=== PATIENT | male | born 1980 | race Caucasian/White ===

== ENCOUNTER 2019-09-18 20:02 | Emergency (ER) | payer OTHER, SELFPAY ==
[2019-09-18 20:12] VITALS: BP 176/107; PULSE 81; RESP 18; TEMP 37.1; O2SAT 96; BMI 35.8
--- NOTE | 2019-09-18 20:18 | W.ED.EYEPROB ---
HPI - Eye Problem General: Chief complaint: Eye Problems Stated complaint: right eye problems Time Seen by Provider: 09/18/19 20:18 History of Present Illness: HPI Narrative: Patient is a 39-year-old male who comes in with right eye complaint. Patient says this morning he woke up and his right upper eyelid was swollen and puffy. Patient does have some redness and warmth on the upper eyelid. Associated symptoms: Denies fever(s), headache(s), nausea, neck pain or vomiting Review of Systems Const: Denies: fever, chills or fatigue Eyes: Reports: eye discomfort (Right Eye upper lid swelling); Denies: change in vision or blurry vision ENMT: Denies: throat pain, painful swallowing, nasal discharge or nasal congestion Card: Denies: chest pain, palpitations, edema, swelling of feet/ankles, shortness of breath on exertion or shortness of breath when lying down Resp: Denies: shortness of breath, productive cough or non-productive cough GI: Denies: abdominal pain, nausea, vomiting, diarrhea, constipation or blood in stool : Denies: flank pain, difficulty urinating, painful urination or blood in urine Musc: Denies: neck pain, back pain or extremity swelling Skin/Breast: Denies: rash or new lesion Neuro: Denies: headache, numbness in extremities or weakness in extremities PFSH ED PFSH: Social History Smoking and tobacco status: current every day smoker Physical Exam Const: COMMON NORMALS: oriented x3 HENMT: COMMON NORMALS: normocephalic HEAD & SCALP: normocephalic MOUTH: oral and palatal mucosa normal THROAT: posterior oropharynx normal and uvula midline Eye: COMMON NORMALS: PERRL, EOMs intact bilaterally and conjunctivae normal PERIORBITAL: periorbital findings abnormal positive right periorbital swelling (upper eye lid) and periorbital erythema (upper eye lid) CONJUNCTIVA: Yes conjunctivae normal PUPIL: Yes PERRL Neck/C-Spine: COMMON NORMALS: supple GENERAL: Yes normal visual inspection Resp: COMMON NORMALS: normal respiratory effort, no retractions, no use of accessory muscles and clear to auscultation bilaterally AUSCULTATION: clear to auscultation bilaterally Cardio: COMMON NORMALS: regular rate, regular rhythm, S1 normal heart sound, S2 normal heart sound, no gallops, no clicks, no murmurs and peripheral pulses 2+ throughout RATE: regular rate RHYTHM: regular rhythm HEART SOUNDS: S1 normal and S2 normal PERIPHERAL PULSES: pulses 2+ throughout GI: COMMON NORMALS: normal to inspection, nondistended, normoactive bowel sounds, soft to palpation, non-tender and no masses PALPATION: Yes soft : COMMON NORMALS: Yes no CVA tenderness BLADDER/KIDNEY EXAM: Yes no CVA tenderness Back/Pelvis: COMMON NORMALS: no CVA tenderness Extremity: COMMON NORMALS: normal to inspection Neuro: COMMON NORMALS: oriented x3 and moves all extremities Course Vital Signs: Vital signs: Vital Signs Temperature 98.8 F 09/18/19 20:12 Pulse Rate 78 09/18/19 21:30 Respiratory Rate 18 09/18/19 21:30 Blood Pressure 129/74 09/18/19 21:30 Pulse Oximetry 98 09/18/19 21:30 Discharge Plan Discharge Patient Disposition: Home, Self-Care Clinical Impression: Blepharitis of eyelid of right eye Qualifiers: Blepharitis type: unspecified type Eyelid: upper Qualified Code(s): H01.001 - Unspecified blepharitis right upper eyelid Condition: Stable Prescriptions: New erythromycin 5 mg/gram (0.5 %) ointment 1 applic ophthalmic (eye) BID Qty: 3.5 RF: 0 No Action Tylenol 325 mg Tablet 325 mg PO QID PRN (Reason: Pain) RF: 0 Benadryl 25 mg Capsule 25 mg PO Q6H PRN (Reason: UNKNOWN) RF: 0 Discharge Orders: Discharge Order (Routine); Ordered 09/18/19 Ordered By: Declan Payton Referrals: Jailene Breaux FNP-C [Primary Care Provider] - Discharge Diet: Regular Discharge Activity: Resume usual activity Patient Instructions: Blepharitis (ED) Activity Restrictions/Additional Instructions: Follow-up with your PCP or eye doctor in 5 to 7 days for reevaluation. Apply the topical antibiotic on the right eyelid twice a day. Use warm compresses on the right eye. Wash eyelid with a diluted soap and warm rag to clean the area around the eye. If symptoms worsen in 2 to 3 days return to the ED or go immediately to an eye doctor. Take Benadryl tonight to possibly help with some of the swelling and inflammation if it is an allergy. Discharge Date/Time: 09/18/19 21:30 Coding Level of Care Code ED Title Manager for Haseeb Fwalvin Exam Comprehensive
[2019-09-18 21:30] VITALS: BP 129/74; PULSE 78; RESP 18; O2SAT 98
== END 2019-09-18 21:30 | disposition home or self-care (01) ==
PROVIDERS: Emergency Provider Physician Assistant; PCP Nurse Practitioner
DX: H01.001 Unspecified blepharitis right upper eyelid (principal); F17.200 Nicotine dependence, unspecified, uncomplicated
CPT/HCPCS: 12345; 99281

== ENCOUNTER 2019-10-16 01:55 | Emergency (ER) | payer OTHER, SELFPAY ==
[2019-10-16 02:08] VITALS: BP 181/103; PULSE 77; RESP 20; TEMP 36.4; O2SAT 100; BMI 35.8
--- NOTE | 2019-10-16 02:14 | XR_ITS ---
WS: [id number] PORTABLE CHEST HISTORY: sob COMPARISON: 12/17/2016 Curvilinear areas of thin linear atelectasis in the central lungs are stable. Lungs are slightly hype rexpanded. Slight tenting of the RIGHT hemidiaphragm. No pleural effusion or pneumothorax. Cardiac size: Normal. Mediastinum/Aorta: Normal mediastinum. No osseous abnormality seen. XR/XR chest 1V portable [id number] IMPRESSION: 1. Stable chest with emphysema and curvilinear scarring centrally. 2. No pneumonia.
[2019-10-16 02:35] LABS: ABG PCO2 36.4 mmHg (35-45); ABG PH Result 7.42 (7.35-7.45); Base Excess ABG -0.5 mmol/L (-2.0-2.0); Blood Gas Sample Site Brachial, left; Blood Gas Sample Type Arterial; Carboxyhemoglobin 15.7 %THgb (0.4-20.1); HCO3 ABG 23.5 mmol/L (22-26); HGB O2 Sat 80.9 % (95-100); Methemoglobin 0.7 % (0.4-1.5); Oxygen Device ROOM AIR; PO2 ABG 71.7 mmHg (80.0-100.0)
[2019-10-16 02:41] VITALS: BP 135/101; PULSE 80; RESP 16; O2SAT 99
[2019-10-16 02:51] LABS: Basophils % 0.6 %; Eosinophils # 0.2 10^3/uL (0.0-0.8); Eosinophils % 2.1 %; Hematocrit 49.6 % (42.0-52.0); Hemoglobin 17.1 g/dL (11.7-16.6); Lymphocytes # 2.2 10^3/uL (0.8-4.8); Mean Corpuscular HGB Conc 34.5 g/dL (30.0-36.0); Mean Corpuscular Hemoglobin 32.1 pg (28.0-34.0); Mean Corpuscular Volume 93.1 fL (80-94); Mean Platelet Volume 10.5 fL (7.4-10.4); Monocytes # 0.5 10^3/uL (0.2-0.9); Monocytes % 6.7 %; Neutrophils # 4.3 10^3/uL (1.8-7.7); Neutrophils % 59.5 %; Nucleated Red Blood Cells % 0 %; Platelet Count 131 10^3/cmm (130-400); Red Blood Count 5.33 10^6/uL (4.1-5.3); Red Cell Distribution Width 11.9 % (12.1-15.1); White Blood Count 7.2 10^3/uL (4.0-10.0)
--- NOTE | 2019-10-16 02:58 | W.ED.SOB ---
HPI - SOB/Dyspnea General: Chief Complaint: Shortness of Breath/Dyspnea Stated Complaint: POSS COVID SYMPTOMS Time Seen by Provider: 10/16/19 02:05 History of Present Illness: MD elicited complaint: shortness of breath and cough Pertinent past history: PE Onset (ago): day(s) (2) Timing: constant Severity: moderate Exacerbating factors: exertion Relieving factors: nothing Known history of: PE Associated symptoms: Reports cough and fever(s); Deny abdominal pain, chest pain, dizziness, nausea or palpitations Treatment prior to arrival: none Review of Systems Const: Reports: fever Eyes: Denies: change in vision or blurry vision ENMT: Reports: post nasal drip; Denies: painful swallowing, nose bleeds or facial/sinus pain Card: Denies: chest pain, palpitations, irregular heart rhythm or edema Resp: Reports: shortness of breath and non-productive cough; Denies: productive cough or wheezing GI: Denies: abdominal pain or nausea : Denies: difficulty urinating, painful urination or blood in urine Musc: Denies: neck pain, back pain, redness or joint warmth Skin/Breast: Denies: rash, itching or redness Neuro: Denies: headache, dizziness or vertigo Psych: Denies: anxiety PFSH ED PFSH: Social History Smoking and tobacco status: current every day smoker Physical Exam Const: GENERAL APPEARANCE: well developed ORIENTATION/CONSCIOUSNESS: Yes oriented to person, Yes oriented to place and Yes oriented to time HENMT: COMMON NORMALS: normocephalic, external ears normal and external nose normal HEAD & SCALP: normocephalic FACE & SINUS: normal facial exam NOSE: external nose normal and no nasal discharge EXTERNAL EAR: Yes external ears normal Eye: COMMON NORMALS: PERRL, EOMs intact bilaterally and conjunctivae normal EYELID: eyelids normal CONJUNCTIVA: Yes conjunctivae normal PUPIL: Yes PERRL Neck/C-Spine: GENERAL: No tracheal deviation Chest: COMMONS NORMALS: inspection of chest normal CHEST: No tenderness Resp: COMMON NORMALS: clear to auscultation bilaterally EFFORT & INSPECTION: No tachypneic, No respiratory distress, No retractions, No uses accessory muscles and No tracheal deviation AUSCULTATION: clear to auscultation bilaterally, no rhonchi, no wheezes and lung sounds not diminished Cardio: COMMON NORMALS: regular rate and regular rhythm RATE: regular rate RHYTHM: regular rhythm HEART SOUNDS: no murmurs PERIPHERAL PULSES: radial pulses present GI: INSPECTION: No abdominal distension AUSCULTATION: No hyperactive bowel sounds and No hypoactive bowel sounds PALPATION: No guarding and No rigid PERCUSSION: no dullness to percussion and no tympanic to percussion Extremity: GENERAL: Yes edema (1+) Neuro: SENSORIUM/ORIENTATION: Yes oriented to person, Yes oriented to place and Yes oriented to time Psych: COMMON NORMALS: mental status grossly normal Skin: COMMON NORMALS: no rashes or lesions noted GENERAL SKIN EXAM: no rashes or lesions noted Course Vital Signs: Vital signs: Vital Signs Temperature 97.6 F 10/16/19 02:08 Pulse Rate 72 10/16/19 04:32 Respiratory Rate 16 10/16/19 04:32 Blood Pressure 128/88 10/16/19 04:32 Pulse Oximetry 98 10/16/19 04:32 MDM - SOB/Dyspnea MDM Narrative: Medical decision making narrative: 39-year-old male. History of PE. States has had lung problems since. Who presents with cough, shortness of breath, and fever. Works for the local [employer]. White counts normal. Hemoglobin high. He is a smoker. Flu testing negative. Chest x-ray is essentially negative. He will be tested for the novel coronavirus. Home with treatment for bronchitis. Lab Data: Labs: Lab Results 10/16/19 10/16/19 10/16/19 Range/Units 02:20 02:25 02:45 WBC 7.2 (4.0-10.0) 10^3/ uL RBC 5.33 H (4.1-5.3) 10^6/u L Hgb 17.1 H (11.7-16.6) g/dL Hct 49.6 (42.0-52.0) % MCV 93.1 (80-94) fL MCH 32.1 (28.0-34.0) pg MCHC 34.5 (30.0-36.0) g/dL RDW 11.9 L (12.1-15.1) % Plt Count 131 (130-400) 10^3/c mm MPV 10.5 H (7.4-10.4) fL Neut % (Auto) 59.5 % Lymph % (Auto) 31.0 % [place] % (Auto) 6.7 % Eos % (Auto) 2.1 % Baso % (Auto) 0.6 % Neut # (Auto) 4.3 (1.8-7.7) 10^3/u L Lymph # (Auto) 2.2 (0.8-4.8) 10^3/u L [place] # (Auto) 0.5 (0.2-0.9) 10^3/u L Eos # (Auto) 0.2 (0.0-0.8) 10^3/u L Baso # (Auto) 0.0 (0.0-0.1) 10^3/u L Nucleated RBC % (a uto) 0 % Nucleated RBCs # 0.0 /100WBC Specimen Type Arterial Sample Site Brachial, left ABG pH 7.42 (7.35-7.45) ABG pCO2 36.4 (35-45) mmHg ABG pO2 71.7 L (80.0-100.0) mmH g ABG HCO3 23.5 (22-26) mmol/L ABG Base Excess -0.5 (-2.0-2.0) mmol/ L Anthony Test N/a Hematocrit 52.0 (42-52) % Hgb O2 Saturation 80.9 L (95-100) % Carboxyhemoglobin 15.7 (0.4-20.1) %THgb Methemoglobin 0.7 (0.4-1.5) % Total Hemoglobin 17.0 (14-18) g/dL O2 Delivery Device Room air Online Marketing Strategist ID [email or web address] Sodium (136-145) mmol/L Potassium (3.5-5.1) mmol/L Chloride (98-107) mmol/L Carbon Dioxide (22-29) mmol/L Anion Gap (5-19) BUN (6-20) mg/dL Creatinine (0.7-1.2) mg/dL GFR Calculation (90-130) mL/min Glucose (65-115) mg/dL Calculated Osmolal ity (285-295) mOsm/k g Calcium (8.5-10.5) mg/dL Total Bilirubin (0.15-1.2) mg/dL AST (0-40) U/L ALT (0-41) U/L Alkaline Phosphata se (40-130) IU/L Total Protein (6.6-8.7) g/dL Albumin (3.5-5.2) g/dL Globulin (1.3-4.6) g/dL Influenza Type A A g Negative (Negative) Influenza Type B A g Negative (Negative) 10/16/19 Range/Units 02:45 WBC (4.0-10.0) 10^3/ uL RBC (4.1-5.3) 10^6/u L Hgb (11.7-16.6) g/dL Hct (42.0-52.0) % MCV (80-94) fL MCH (28.0-34.0) pg MCHC (30.0-36.0) g/dL RDW (12.1-15.1) % Plt Count (130-400) 10^3/c mm MPV (7.4-10.4) fL Neut % (Auto) % Lymph % (Auto) % [place] % (Auto) % Eos % (Auto) % Baso % (Auto) % Neut # (Auto) (1.8-7.7) 10^3/u L Lymph # (Auto) (0.8-4.8) 10^3/u L [place] # (Auto) (0.2-0.9) 10^3/u L Eos # (Auto) (0.0-0.8) 10^3/u L Baso # (Auto) (0.0-0.1) 10^3/u L Nucleated RBC % (a uto) % Nucleated RBCs # /100WBC Specimen Type Sample Site ABG pH (7.35-7.45) ABG pCO2 (35-45) mmHg ABG pO2 (80.0-100.0) mmH g ABG HCO3 (22-26) mmol/L ABG Base Excess (-2.0-2.0) mmol/ L Anthony Test Hematocrit (42-52) % Hgb O2 Saturation (95-100) % Carboxyhemoglobin (0.4-20.1) %THgb Methemoglobin (0.4-1.5) % Total Hemoglobin (14-18) g/dL O2 Delivery Device Online Marketing Strategist ID Sodium 134 L (136-145) mmol/L Potassium 4.3 (3.5-5.1) mmol/L Chloride 99 (98-107) mmol/L Carbon Dioxide 22 (22-29) mmol/L Anion Gap 17.3 (5-19) BUN 17 (6-20) mg/dL Creatinine 0.9 (0.7-1.2) mg/dL GFR Calculation 93.9 (90-130) mL/min Glucose 102 (65-115) mg/dL Calculated Osmolal ity 275 L (285-295) mOsm/k g Calcium 9.1 (8.5-10.5) mg/dL Total Bilirubin 0.2 (0.15-1.2) mg/dL AST 13 (0-40) U/L ALT 13 (0-41) U/L Alkaline Phosphata se 98 (40-130) IU/L Total Protein 6.6 (6.6-8.7) g/dL Albumin 4.0 (3.5-5.2) g/dL Globulin 2.6 (1.3-4.6) g/dL Influenza Type A A g (Negative) Influenza Type B A g (Negative) Discharge Plan Discharge Patient Disposition: Home, Self-Care Clinical Impression: Acute bronchitis Qualifiers: Bronchitis organism: unspecified organism Qualified Code(s): J20.9 - Acute bronchitis, unspecified Condition: Stable Prescriptions: New doxycycline hyclate 100 mg capsule 100 mg PO BID 7 Days Qty: 14 RF: 0 Discharge Orders: Discharge Order (Routine); Ordered 10/16/19 Ordered By: Dayton Andres Referrals: Jailene Breaux, THREAD SEPARATOR-C [Primary Care Provider] - 4-7 days Discharge Diet: Advance as tolerated Discharge Activity: Increase activity as tolerated Patient Instructions: Acute Bronchitis (ED) Activity Restrictions/Additional Instructions: Return for worsening shortness of breath despite treatment, continued fevers despite treatment, other concerning symptoms. You should quarantine yourself for the next 14 days, or at least until your test for the novel coronavirus is resulted. Discharge Date/Time: 10/16/19 04:34 Coding Level of Care Code ED Labor Operator for Haseeb Fwd Exam Comprehensive
[2019-10-16 03:07] LABS: Alanine Aminotransferase 13 U/L (0-41); Alkaline Phosphatase 98 IU/L (40-130); Anion Gap 17.3 (5-19); Aspartate Amino Transferase 13 U/L (0-40); Blood Urea Nitrogen 17 mg/dL (6-20); Calcium 9.1 mg/dL (8.5-10.5); Carbon Dioxide 22 mmol/L (22-29); Chloride 99 mmol/L (98-107); Globulin 2.6 g/dL (1.3-4.6); Glomerular Filtration Rate 93.9 mL/min (90-130); Glucose 102 mg/dL (65-115); Osmolality Calculated 275 mOsm/kg (285-295); Potassium 4.3 mmol/L (3.5-5.1); Sodium 134 mmol/L (136-145); Total Bilirubin 0.2 mg/dL (0.15-1.2); Total Protein 6.6 g/dL (6.6-8.7)
[2019-10-16 03:24] LABS: Influenza A by IFA Negative (Negative); Influenza B by IFA Negative (Negative)
[2019-10-16] MEDS: doxycycline 100 mg Tablet PO (04:31)
--- NOTE | 2019-10-16 04:31 | PC.NURSE ---
Patient given albuterol inhaler and shown how to use it with good return demonstration.
[2019-10-16 04:32] VITALS: BP 128/88; PULSE 72; RESP 16; O2SAT 98
[2019-10-19 12:17] LABS: Coronavirus Overall Results NOT DETECTED
--- NOTE | 2019-10-19 12:23 | PC.NURSE ---
pt contacted and informed of negative COVID 19 results
== END 2019-10-16 04:34 | disposition home or self-care (01) ==
PROVIDERS: Emergency Provider Emergency Medicine; PCP Nurse Practitioner
DX: J20.9 Acute bronchitis, unspecified (principal); F17.200 Nicotine dependence, unspecified, uncomplicated
CPT/HCPCS: 12345; 36600; 71045; 80053; 82805; 85025; 87635; 87804; 99282; 99284; J3535

== ENCOUNTER 2020-02-02 10:13 | Emergency (ER) | payer SELFPAY ==
[2020-02-02 10:30] VITALS: BP 166/103; PULSE 80; RESP 20; TEMP 37; O2SAT 97; BMI 34.7
--- NOTE | 2020-02-02 10:38 | USCV_ITS ---
Porter Lagos Age: 39 Gender: M : 1980 Exam Date: 02/02/2020 10:56 Ordering Phys: Ofelia Carter Technologist: Sandy Spencer [place] [facility] [place]: LLE swelling, pain HISTORY: LLE swelling and pain. patient states he has a filter in place for prior DVT PROCEDURES: On the left side, the common femoral, superficial femoral, profunda femoral, popliteal, posterior tibial, greater saphenous veins, and the peroneal trunk were identified and interrogated in the standard fashion. FINDINGS: Normal 2-D Doppler and augmentation and compressibility throughout the lower extremity venous structures. Additional imaging through the proximal calf veins also reveals no thrombus. Limited evaluation of the greater saphenous vein is patent with no thrombus.. Acute thrombus noted in the small saphenous vein. CONCLUSIONS Superficial thrombophlebitis small saphenous vein. No DVT. Report called by golf caddy at time of exam. Dr. Karis Almonte DO (Electronically Signed) Final Date: 02 February 2020 12:48 S
--- NOTE | 2020-02-02 10:39 | W.ED.GENADLT ---
HPI - General Adult General: Chief complaint: General Medical Stated complaint: POSS BLOOD CLOT Time Seen by Provider: 02/02/20 10:38 Source: patient Mode of arrival: ambulatory Limitations: no limitations History of Present Illness: HPI narrative: Patient is a 39-year-old male with a history of Factor V Leyden here for complaints of a red palpable cord to his left lower extremity that he began noticing a few days ago. Patient tells me few days ago he felt like his calf was sore and then shortly after began noticing the red line on his leg. 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 He states approximately 7 years ago he was placed on Xarelto and took for a couple years however took himself off of this medication because he no longer wanted to take it. Patient currently is not having any complaints of shortness of breath, difficulty breathing, chest pains. He has not seen a primary care provider in several years. Onset (ago): day(s) Location: lower extremity Relieving factors: none Exacerbating factors: none Associated symptoms: Deny chest pain, dyspnea, headache(s), nausea, palpitations, syncope or vomiting Review of Systems Const: Denies: fever(s) or chills Card: Denies: chest pain, palpitations, edema, swelling of feet/ankles, lightheadedness, syncope, pre-syncope, dyspnea on exertion, orthopnea or leg pain with exertion Resp: Denies: dyspnea GI: Denies: nausea or vomiting Musc: Reports: extremity pain (L LE); Denies: neck pain, back pain, extremity swelling, joint pain or joint swelling Neuro: Denies: headache(s), numbness in extremities, weakness in extremities or sensory changes PFS ED PFSH: Social History Smoking and tobacco status: current every day smoker Physical Exam Const: COMMON NORMALS: no acute distress, patient oriented x3, no limitations and alert NUTRITIONAL APPEARANCE: obese HENMT: COMMON NORMALS: normocephalic and atraumatic HEAD & SCALP: normocephalic and atraumatic Resp: COMMON NORMALS: normal respiratory effort and clear to auscultation bilaterally AUSCULTATION: clear to auscultation bilaterally Cardio: COMMON NORMALS: regular rate and regular rhythm RATE: regular rate RHYTHM: regular rhythm Extremity: OTHER: Patient has a erythematous palpable cord to the medial aspect of his left lower leg measuring approximately 10cm. There is no obvious swelling noted to his lower extremity or calf. DP/PT pulses are intact and equal bilaterally. Brisk cap refill Neuro: COMMON NORMALS: patient oriented x3, moves all extremities, no focal motor deficits and no sensory deficits noted SENSORIUM/ORIENTATION: Yes alert Course Vital Signs: Vital signs: Vital Signs Temperature 98.6 F 02/02/20 10:30 Pulse Rate 89 02/02/20 12:02 Respiratory Rate 18 02/02/20 12:02 Blood Pressure 168/101 02/02/20 12:02 Pulse Oximetry 98 02/02/20 12:02 MDM - General Adult MDM Narrative: Medical decision making narrative: Patient has a very large superficial thrombus close to the junction of a deep vein. In conjunction with his factor V Leyden and his daily smoking use, patient would benefit from being on anticoagulation. He is agreeable to restarting his Xarelto. He will need close follow-up with PCP. I did discuss the possibility of them referring him to Dr. Holt/hematology for further evaluation as well regarding his factor V. I get the feeling patient is fairly noncompliant. I did discuss the risks of him continuing to smoke and patient is aware of these. Strict return to ED precautions given regarding chest pain, shortness of breath, difficulty breathing. Imaging Data^: US venous L LE: My impression: According to central sterile supply technician patient has a >5cm superficial thrombus to his lesser saphenous vein. Thrombus is located in the vein but in very close proximity to the junction of his popliteal. Discharge Plan Discharge Patient Disposition: Home, Self-Care Clinical Impression: History of factor V Leiden mutation, Acute superficial venous thrombosis of left lower extremity Condition: Stable Prescriptions: New Xarelto 15 mg (42)- 20 mg (9) tablets,dose pack See Rx Instructions .ROUTE .COMPLEX Qty: 51 RF: 0 Discharge Orders: Discharge Order (Routine); Ordered 02/02/20 Ordered By: Ofelia Carter Referrals: Jailene Breaux FNP-C [Primary Care Provider] - Activity Restrictions/Additional Instructions: As discussed case management should contact you to set you up with primary care follow-up. The prescription I have given you is only for a one month supply so you will need to follow-up with this as you will need to be on anticoagulation for several months. Discharge Date/Time: 02/02/20 12:04 Coding Level of Care Code ED Senior Ui Developer for Haseeb Fwalvin Exam Detailed
--- NOTE | 2020-02-02 11:37 | PC.NURSE ---
us completed patient tolerated well
[2020-02-02 11:55] VITALS: BP 168/104; PULSE 84; RESP 18; O2SAT 99
[2020-02-02 12:02] VITALS: BP 168/101; PULSE 89; RESP 18; O2SAT 98
--- NOTE | 2020-02-03 14:26 | DCPLANNER ---
Patient called needing help with his prescriptions. charge manager informed patient about a referral card that patient could present to the pharmacy. charge manager had pharmacy aide fax coupon to the pharmacy for patient, and called to make sure that the coupon worked, there was no cost to patient. charge manager also spoke with patient about getting in touch with the [employer] to apply for patient assistance for the medication.
== END 2020-02-02 12:04 | disposition home or self-care (01) ==
PROVIDERS: Emergency Provider Physician Assistant; PCP Nurse Practitioner
DX: I82.812 Embolism and thrombosis of superficial veins of left lower extremity (principal); D68.2 Hereditary deficiency of other clotting factors; F17.210 Nicotine dependence, cigarettes, uncomplicated
CPT/HCPCS: 12345; 93971; 99281; 99282

== ENCOUNTER → 2020-07-25 11:54 | Outpatient (BNVA) | payer OTHER, SELFPAY | PROVIDERS: PCP Nurse Practitioner; Visit Provider Nurse Practitioner Family | DX: Z20.828 Contact with and (suspected) exposure to other viral communicable diseases (principal); Z86.718 Personal history of other venous thrombosis and embolism; J06.9 Acute upper respiratory infection, unspecified | CPT/HCPCS: 87635 ==

== ENCOUNTER 2020-09-14 11:42 | Inpatient (IN) | payer SELFPAY ==
[2020-09-14] VITALS (24 sets, daily range): BP systolic 104–147; BP diastolic 69–111; PULSE 95–143; RESP 14–30; TEMP 36.6–36.7; O2SAT 93–98; BMI 38.1
--- NOTE | 2020-09-14 12:16 | CT_ITS ---
WS: [id number] CT CHEST ANGIOGRAPHY WITH REFORMATS HISTORY: DVT x 3 months, could not afford anticoagulation TECHNIQUE: Contiguous axial images are obtained through the chest during arterial injection of intrav enous contrast. Images are reconstructed to evaluate the pulmonary arteries. MIP imaging also reviewe d. All CT scans at [facility] use at least one of these dose optimization techniques: aut omated exposure control; mA and/or kV adjustment per patient size (includes targeted exams where dose is matched to clinical indication); or iterative reconstruction. CONTRAST: Omnipaque 350; 95 mL IV. DLP: 664.99 mGy.cm COMPARISON: 11/06/2015 Very good opacification of the pulmonary arteries. No filling defects or pulmonary emboli are identif ied. Normal-sized thoracic aorta. Bilateral areas of atelectasis in the RIGHT middle and bilateral lo wer lung zacarias. No consolidation or pneumonia. Mildly enlarged mediastinal and hilar lymphoid tissue . Hilar lymph nodes measure up to 11 mm. Subcarinal lymph node measures 12 mm. Heart size is normal. No pericardial or pleural effusion. Slightly contracted gallbladder with no adjacent inflammation. The visualized liver is negative. No a drenal mass. Mild increase in thoracic kyphosis. CT/CT angio chest PE protcl [id number] IMPRESSION: 1. No pulmonary embolism. 2. Subsegmental areas of atelectasis at the lung bases and RIGHT middle lobe. 3. Mild reactive mediastinal and hilar lymphadenopathy.
--- NOTE | 2020-09-14 12:16 | ECG_ITS ---
[facility] Test Date: 2020-09-14 Pat Name: Porter Lagos Department: Room: Gender: Male Lead Performance Support Analyst: : 1980 Requested By: Andrade Flores I Order Number: [id number] Katey MD: Brooklyn Mustafa M.D. Measurements Intervals [place] Rate: 143 P: PA: QRS: 52 QRSD: 88 T: 58 QT: 304 QTc: 470 Interpretive Statements ATRIAL FIBRILLATION WITH RAPID VENTRICULAR RESPONSE NONSPECIFIC ST & T-WAVE ABNORMALITY ABNORMAL RHYTHM ECG WARNING: DATA QUALITY MAY AFFECT INTERPRETATION Compared to ECG 12/17/2016 23:49:24 Sinus tachycardia no longer present T-wave abnormality still present Electronically Signed On 09-14-2020 21:52:24 RESIDENT CARE SPEC by Brooklyn Mustafa M.D. [id number]
[2020-09-14 12:29] LABS: Basophils # 0.1 10^3/uL (0.0-0.1); Basophils % 0.6 %; Eosinophils # 0.2 10^3/uL (0.0-0.8); Hematocrit 47.1 % (42.0-52.0); Hemoglobin 15.5 g/dL (11.7-16.6); Lymphocytes # 2.1 10^3/uL (0.8-4.8); Lymphocytes % 24.5 %; Mean Corpuscular HGB Conc 32.9 g/dL (30.0-36.0); Mean Corpuscular Hemoglobin 31.3 pg (28.0-34.0); Mean Corpuscular Volume 95.2 fL (80-94); Mean Platelet Volume 10.7 fL (7.4-10.4); Monocytes # 0.7 10^3/uL (0.2-0.9); Monocytes % 7.6 %; Neutrophils # 5.65 10^3/uL (1.8-7.7); Neutrophils % 65.1 %; Nucleated Red Blood Cells % 0 %; Platelet Count 150 10^3/cmm (130-400); Red Blood Count 4.95 10^6/uL (4.1-5.3); Red Cell Distribution Width 12.2 % (12.1-15.1); White Blood Count 8.7 10^3/uL (4.0-10.0)
[2020-09-14 12:46] LABS: Lactate (Lactic Acid level) 1.2 mmol/L (0.5-2.2)
[2020-09-14 12:47] LABS: Troponin(5th) Baseline 13 ng/L (0-15)
[2020-09-14 12:55] LABS: Alanine Aminotransferase 15 U/L (0-41); Albumin Level 3.8 g/dL (3.5-5.2); Alkaline Phosphatase 92 IU/L (40-130); Anion Gap 13.3 (5-19); Aspartate Amino Transferase 12 U/L (0-40); Blood Urea Nitrogen 15 mg/dL (6-20); C Reactive Protein 22.3 mg/L (0.0-4.9); Calcium 8.3 mg/dL (8.5-10.5); Carbon Dioxide 25 mmol/L (22-29); Chloride 102 mmol/L (98-107); Globulin 3.1 g/dL (1.3-4.6); Glomerular Filtration Rate 56.1 mL/min (90-130); Glucose 105 mg/dL (65-115); NT Pro B Type Natriuretic Pept 3794 pg/mL (0-125); Osmolality Calculated 283 mOsm/kg (285-295); Potassium 4.3 mmol/L (3.5-5.1); Sodium 136 mmol/L (136-145); Total Bilirubin 0.3 mg/dL (0.15-1.2); Total Protein 6.9 g/dL (6.6-8.7)
[2020-09-14] MEDS: iohexol 350 mg/mL 100 mL Btl IV (13:40)
--- NOTE | 2020-09-14 14:15 | PC.NURSE ---
EKG done at 1409 and shown to ER doctor
--- NOTE | 2020-09-14 14:16 | ECG_ITS ---
[facility] Test Date: 2020-09-14 Pat Name: Porter Lagos Department: Room: Gender: Male Protective Services Officer: : 1980 Requested By: Andrade Flores I Order Number: [id number] Katey MD: Brooklyn Mustafa M.D. Measurements Intervals [place] Rate: 127 P: ME: QRS: 60 QRSD: 85 T: 61 QT: 313 QTc: 457 Interpretive Statements ATRIAL FIBRILLATION WITH RAPID VENTRICULAR RESPONSE ABNORMAL RHYTHM ECG Compared to ECG 09/14/2020 12:03:37 T-wave abnormality no longer present Electronically Signed On 09-14-2020 22:07:57 HAND BRUSH FILLER by Brooklyn Mustafa M.D. [id number]
--- NOTE | 2020-09-14 14:21 | USCV_ITS ---
Porter Lagos Age: 40 Gender: M : 1980 Exam Date: 09/14/2020 14:38 Ordering Phys: Andrade Flores MD [facility] [place] Technologist: Hyacinth Chong Exam Location: [facility] [place] Indication: EDEMA HISTORY: Lower extremity edema. PROCEDURES: Venous duplex imaging was performed in bilateral lower extremities. The following venous structures were evaluated: common femoral vein, profunda vein, proximal portion of the greater saphenous vein, superficial femoral vein, and the popliteal vein. In addition, the posterior tibial and peroneal trunk were evaluated. FINDINGS: Normal 2-D Doppler and augmentation and compressibility throughout the lower extremity venous structures. Additional imaging through the proximal calf veins also reveals no thrombus. Limited evaluation of the greater saphenous vein is patent with no thrombus. CONCLUSIONS No DVT bilateral lower extremities. Dr. Karis Almonte DO (Electronically Signed) Final Date: 14 September 2020 15:22 S
--- NOTE | 2020-09-14 14:26 | W.ED.ARRPALP ---
HPI - Arrhythmia/Palpitations General: Chief Complaint: Arrhythmia/Palpitations Stated Complaint: SOB Time Seen by Provider: 09/14/20 12:16 Source: patient Mode of arrival: ambulatory Limitations: no limitations History of Present Illness: HPI narrative: Patient is a 40-year-old male who presents to the emergency department with shortness of breath and sensation of his heart racing for about a week now. About 3 months ago he was diagnosed with a DVT and was discharged with a prescription for Xarelto, however he said he cannot afford the medication and has never taken it. Now he has shortness of breath and palpitations and he is worried that he may have a PE. He has a prior history of PE also. complaint: heart racing Onset (ago): week(s) (1) Duration: constant Severity: moderate Associated symptoms: Reports short of breath; Deny anxiety, cough, diaphoresis, muscle cramps, nausea, paresthesias, pre-syncope, sense of impending doom, syncope or vomiting Review of Systems General: Reports: 10 or more systems reviewed and unremarkable except in HPI and below Const: Denies: diaphoresis Eyes: Denies: change in vision or blurry vision ENMT: Denies: throat pain, enlarged tonsils, odynophagia, hoarseness, mouth pain or swelling of lips/tongue Card: Denies: syncope or pre-syncope Resp: Denies: dyspnea, productive cough or non-productive cough GI: Denies: nausea or vomiting : Denies: flank pain, dysuria, urinary frequency, urinary urgency or urinary hesitancy Musc: Denies: muscle cramps Skin/Breast: Denies: rash, pruritus or erythema Neuro: Denies: headache(s), numbness in extremities or weakness in extremities Psych: Denies: anxiety Endo: Denies: polyuria, polydipsia or tired all the time [facility] ED PFSH: Medical History DVT (deep venous thrombosis) Social History Smoking and tobacco status: current every day smoker Physical Exam Const: COMMON NORMALS: no acute distress, average body habitus, patient oriented x3, no limitations, healthy appearing, alert and well nourished HENMT: COMMON NORMALS: normocephalic, atraumatic and moist oral mucous membranes HEAD & SCALP: normocephalic and atraumatic Eye: COMMON NORMALS: Equal, round and reactive pupils present, EOMs intact bilaterally, conjunctivae normal and no scleral icterus CONJUNCTIVA: Yes conjunctivae normal PUPIL: Yes Equal, round and reactive pupils present Neck/C-Spine: COMMON NORMALS: no meningeal signs and no JVD Chest: COMMONS NORMALS: normal inspection of the chest and normal palpation of entire chest wall Resp: COMMON NORMALS: normal respiratory effort, No retractions, No use of accessory muscles, clear to auscultation bilaterally and percussion normal AUSCULTATION: clear to auscultation bilaterally PERCUSSION: percussion normal Cardio: COMMON NORMALS: no JVD, S1 normal heart sound present, S2 normal heart sound present, No gallops present (Cardio), No clicks present (Cardio), No murmurs present (Cardio), No rub (Cardio) and Peripheral pulses 2+ throughout RATE: tachycardic RHYTHM: abnormal rhythm irregularly irregular HEART SOUNDS: S1 normal heart sound present and S2 normal heart sound present PERIPHERAL PULSES: Peripheral pulses 2+ throughout GI: COMMON NORMALS: Normal to inspection, nondistended, normoactive bowel sounds present, Soft to palpation, non-tender, No hepatosplenomegaly present, no masses and no bruits PALPATION: Yes Soft to palpation and Yes No hepatosplenomegaly present Extremity: COMMON NORMALS: normal to inspection, full ROM, capillary refill normal, no calf tenderness and no pedal edema Neuro: COMMON NORMALS: patient oriented x3 SENSORIUM/ORIENTATION: Yes alert MENINGEAL SIGNS: Yes no meningeal signs Skin: COMMON NORMALS: no rashes or lesions noted, no wounds, turgor normal, no jaundice, no petechiae and no mottling GENERAL SKIN EXAM: no rashes or lesions noted and turgor normal Course Consultations: Consultation #1: Discussed the patient with Dr. Wilburn, hospitalist. He kindly accepted patient to his service Time: 14:10 Vital Signs: Vital signs: Vital Signs Temperature 97.8 F 09/16/20 10:32 Pulse Rate 93 09/16/20 10:32 Respiratory Rate 20 H 09/16/20 10:32 Blood Pressure 113/61 09/16/20 10:32 Pulse Oximetry 95 09/16/20 10:32 MDM - Arrhythmia/Palpitations MDM Narrative: Medical decision making narrative: This is a 40 year old male with a history of DVT who is not on anticoagulation (due to cost) presents with afib with RVR and CHF with are both new onset. He required intravenous diltiazem to achieve rate control. He was also given intravenous furosemide. He is negative for a PE as the CTA of his lungs was negative. He is admitted to the hospital for further evaluation and management Medical Records: Attestation: I reviewed the patient's medical records. Lab Data: Attestation: I reviewed the patient's lab results. Labs: Lab Results 09/14/20 09/14/20 09/14/20 Range/Units 12:20 12:20 12:20 WBC 8.7 (4.0-10.0) 10^3/ uL RBC 4.95 (4.1-5.3) 10^6/u L Hgb 15.5 (11.7-16.6) g/dL Hct 47.1 (42.0-52.0) % MCV 95.2 H (80-94) fL MCH 31.3 (28.0-34.0) pg MCHC 32.9 (30.0-36.0) g/dL RDW 12.2 (12.1-15.1) % Plt Count 150 (130-400) 10^3/c mm MPV 10.7 H (7.4-10.4) fL Neut % (Auto) 65.1 % Lymph % (Auto) 24.5 % [place] % (Auto) 7.6 % Eos % (Auto) 2.0 % Baso % (Auto) 0.6 % Neut # (Auto) 5.65 (1.8-7.7) 10^3/u L Lymph # (Auto) 2.1 (0.8-4.8) 10^3/u L [place] # (Auto) 0.7 (0.2-0.9) 10^3/u L Eos # (Auto) 0.2 (0.0-0.8) 10^3/u L Baso # (Auto) 0.1 (0.0-0.1) 10^3/u L Nucleated RBC % (a uto) 0 % Nucleated RBCs # 0.0 /100WBC Sodium 136 (136-145) mmol/L Potassium 4.3 (3.5-5.1) mmol/L Chloride 102 (98-107) mmol/L Carbon Dioxide 25 (22-29) mmol/L Anion Gap 13.3 (5-19) BUN 15 (6-20) mg/dL Creatinine 1.4 H (0.7-1.2) mg/dL GFR Calculation 56.1 L (90-130) mL/min Glucose 105 (65-115) mg/dL Calculated Osmolal ity 283 L (285-295) mOsm/k g Lactate 1.2 (0.5-2.2) mmol/L Calcium 8.3 L (8.5-10.5) mg/dL Total Bilirubin 0.3 (0.15-1.2) mg/dL AST 12 (0-40) U/L ALT 15 (0-41) U/L Alkaline Phosphata se 92 (40-130) IU/L Troponin T Baselin e (0-15) ng/L C-Reactive Protein 22.3 H (0.0-4.9) mg/L NT-Pro-B Natriuret Pep 3794 H (0-125) pg/mL Total Protein 6.9 (6.6-8.7) g/dL Albumin 3.8 (3.5-5.2) g/dL Globulin 3.1 (1.3-4.6) g/dL /11/01 Range/Units 12:20 WBC (4.0-10.0) 10^3/ uL RBC (4.1-5.3) 10^6/u L Hgb (11.7-16.6) g/dL Hct (42.0-52.0) % MCV (80-94) fL MCH (28.0-34.0) pg MCHC (30.0-36.0) g/dL RDW (12.1-15.1) % Plt Count (130-400) 10^3/c mm MPV (7.4-10.4) fL Neut % (Auto) % Lymph % (Auto) % [place] % (Auto) % Eos % (Auto) % Baso % (Auto) % Neut # (Auto) (1.8-7.7) 10^3/u L Lymph # (Auto) (0.8-4.8) 10^3/u L [place] # (Auto) (0.2-0.9) 10^3/u L Eos # (Auto) (0.0-0.8) 10^3/u L Baso # (Auto) (0.0-0.1) 10^3/u L Nucleated RBC % (a uto) % Nucleated RBCs # /100WBC Sodium (136-145) mmol/L Potassium (3.5-5.1) mmol/L Chloride (98-107) mmol/L Carbon Dioxide (22-29) mmol/L Anion Gap (5-19) BUN (6-20) mg/dL Creatinine (0.7-1.2) mg/dL GFR Calculation (90-130) mL/min Glucose (65-115) mg/dL Calculated Osmolal ity (285-295) mOsm/k g Lactate (0.5-2.2) mmol/L Calcium (8.5-10.5) mg/dL Total Bilirubin (0.15-1.2) mg/dL AST (0-40) U/L ALT (0-41) U/L Alkaline Phosphata se (40-130) IU/L Troponin T Baselin e 13 (0-15) ng/L C-Reactive Protein (0.0-4.9) mg/L NT-Pro-B Natriuret Pep (0-125) pg/mL Total Protein (6.6-8.7) g/dL Albumin (3.5-5.2) g/dL Globulin (1.3-4.6) g/dL Imaging Data^: CTA Chest: Attestation: I personally reviewed and interpreted this imaging study as follows: Radiologist's impression: [address] [address] [address] Scan Report Signed Patient: Porter Lagos #: [id number] : 1980Acct#:[id number] Age/Sex: 40 / MADM Date: 09/14/20 Loc: ERRoom/Bed: Attending Dr: Ordering Provider/Ordering MD: Andrade Flores MD, [facility] [place] Date of Service: 09/14/20 Procedure(s): CT angio chest PE protcl [id number] Accession Number(s): [id number] Report Number: [id number] WS: [id number] CT CHEST ANGIOGRAPHY WITH REFORMATS HISTORY: DVT x 3 months, could not afford anticoagulation TECHNIQUE: Contiguous axial images are obtained through the chest during arterial injection of intravenous contrast. Images are reconstructed to evaluate the pulmonary arteries. MIP imaging also reviewed. All CT scans at [facility] use at least one of these dose optimization techniques: automated exposure control; mA and/or kV adjustment per patient size (includes targeted exams where dose is matched to clinical indication); or iterative reconstruction. CONTRAST: Omnipaque 350; 95 mL IV. DLP: 664.99 mGy.cm COMPARISON: 11/06/2015 Very good opacification of the pulmonary arteries. No filling defects or pulmonary emboli are identified. Normal-sized thoracic aorta. Bilateral areas of atelectasis in the RIGHT middle and bilateral lower lung zacarias. No consolidation or pneumonia. Mildly enlarged mediastinal and hilar lymphoid tissue. Hilar lymph nodes measure up to 11 mm. Subcarinal lymph node measures 12 mm. Heart size is normal. No pericardial or pleural effusion. Slightly contracted gallbladder with no adjacent inflammation. The visualized liver is negative. No adrenal mass. Mild increase in thoracic kyphosis. CT/CT angio chest PE protcl [id number] IMPRESSION: 1. No pulmonary embolism. 2. Subsegmental areas of atelectasis at the lung bases and RIGHT middle lobe. 3. Mild reactive mediastinal and hilar lymphadenopathy. Dictated By:Karis Almonte DO Signed By:Karis Almonte DOSigned Date/Time:09/14/20 1355 DD/ 1351 EKG Data^: EKG 1: Attestation: I personally reviewed and interpreted this EKG as follows: EKG interpretation date: 09/14/20 EKG interpretation time: 12:03 Prior EKG tracings: not available for review Interpretation: Atrial fibrillation with rapid ventricular response. Heart rate [address] changes. Other EKG comments: Chest CTA 09/14/20 12:16 IMPRESSION: 1. No pulmonary embolism. 2. Subsegmental areas of atelectasis at the lung bases and RIGHT middle lobe. 3. Mild reactive mediastinal and hilar lymphadenopathy. EKG 2: Attestation: I personally reviewed and interpreted this EKG as follows: EKG interpretation date: 09/14/20 EKG interpretation time: 14:09 Prior EKG tracings: available for review Interpretation: Atrial fibrillation with rapid ventricular response. Heart rate [address] changes. Other EKG comments: Chest CTA 09/14/20 12:16 IMPRESSION: 1. No pulmonary embolism. 2. Subsegmental areas of atelectasis at the lung bases and RIGHT middle lobe. 3. Mild reactive mediastinal and hilar lymphadenopathy. Critical Care Time Critical Care Time: Critical Care Time: Yes Total Critical Care Time: 60 Attestation: This case had a high probability of a clinically significant, sudden, or life threatening deterioration of this patient's condition which required my full and direct attention, intervention and personal management. Discharge Plan Discharge Patient Disposition: Admitted As Inpatient Admit Provider: Len Wilburn Clinical Impression: Atrial fibrillation with RVR, Heart failure Condition: Stable Coding Level of Care Code ED Tax Analyst for Haseeb Arenas
[2020-09-14] MEDS: FUROsemide 10 mg/mL SDV 10mL 80 MG IVP (14:43)
--- NOTE | 2020-09-14 15:25 | PC.NURSE ---
2nd time trying to call report. 1st time placed on hold. 2nd time the phone rang for several minutes with no answer.
[2020-09-14 15:35] LABS: Troponin 5 2HR 14.04 ng/L (0-15); Troponin 5 2HR Delta 1.04 ABS# (0-10)
--- NOTE | 2020-09-14 16:38 | PM.HP ---
Providers/Chief Complaint Admitting Physician: Len Wilburn MD Chief Complaint: sob, cough History of Present Illness Porter Lagos is a 40 year old male with pmh of DVT/P.E,chronic smoker came in with c/o worsening sob in last 1 week,he is also complaining of chest tightness with exertion along with orthopnea. Upon arrival in the ER patient was worked up for the above mentioned complain. Pertinent labs : Elevated Pro Bnp, troponins without significant delta , SCR: 1.4 CTA chest : No pulmonary embolism. Subsegmental areas of atelectasis at the lung bases and RIGHT middle lobe. B/L L/E DOPPLER U/S Vein : No DVT bilateral lower extremities.EKG : A.fib with RVR. Pertinent Medications: Lasix 80 mg I.V *1 Dose, cardizem 20 MG I.V *1 Dose as well as Cradizem Drip. Review of Systems Const: Denies: fever(s), chills, body aches, change in appetite or diaphoresis Resp: Denies: wheezing or pain on inspiration GI: Denies: abdominal pain, nausea, vomiting, diarrhea or constipation : Denies: flank pain or difficulty urinating Musc: Denies: back pain or extremity pain Neuro: Denies: headache(s) or confusion Medications/Allergies Home Medications Medication Instructions Recorded Confirmed Last Taken Type rivaroxaban [Xarelto] See Rx Instructions .ROUTE 02/02/20 09/14/20 Unknown Rx .COMPLEX #51 each ibuprofen 200 - 400 mg PO Q6H PRN 09/14/20 09/14/20 Unknown History Allergies Allergy/AdvReac Type Severity Reaction Status Date / Time No Known Allergies Allergy Verified 09/18/19 20:14 PFSH Acute PFSH: Medical History (Updated 09/14/20 @ 22:24 by Len Wilburn MD) DVT (deep venous thrombosis) Social History Smoking and tobacco status: current every day smoker Vitals/I&O/Wt Last Vital Signs Temp 97.8 F 09/14/20 16:00 Pulse 130 H 09/14/20 16:00 Resp 16 09/14/20 16:00 BP 104/73 09/14/20 16:00 Pulse Ox 96 09/14/20 16:00 09/14/20 09/14/20 09/14/20 06:59 14:59 22:59 Intake Total 2.583 / 2.583 Balance 2.583 / 2.583 Weight last 48 hrs Weight 149.685 kg Physical Exam Const: COMMON NORMALS: patient oriented x3 HENMT: COMMON NORMALS: normocephalic and atraumatic HEAD & SCALP: normocephalic and atraumatic Chest: CHEST: Yes Symmetrical chest wall rise Resp: COMMON NORMALS: normal respiratory effort, No retractions, No use of accessory muscles and clear to auscultation bilaterally EFFORT & INSPECTION: Yes symmetric chest movement AUSCULTATION: clear to auscultation bilaterally Cardio: OTHER: Irregularly irregular rhythm,S1S2 of variable intensity. GI: COMMON NORMALS: Normal to inspection, nondistended, normoactive bowel sounds present, Soft to palpation, non-tender, No hepatosplenomegaly present and no masses AUSCULTATION: Yes normoactive bowel sounds PALPATION: Yes Soft to palpation and Yes No hepatosplenomegaly present RECTAL EXAM: Yes deferred Extremity: NARRATIVE EXTREMITY EXAM: 3+ B/L L/E Pitting edema Neuro: COMMON NORMALS: patient oriented x3 Data : 09/14/20 12:20 09/14/20 12:20 A&P Assessment and plan (1) Heart failure: 2D Echo Lasix 40 mg I.V Q12 H Daily I/O Charting Daily Weight Status: Acute (2) Atrial fibrillation with RVR: Currently on Cardizem Drip. Continue Cardizem 30 mg po q6 h Daily. Status: Acute (3) Pulmonary embolism: H/O P/E Currently on eliquis Status: Acute (4) DVT (deep venous thrombosis): H/O DVT On Eliuis Status: Acute (5) SAILAJA (acute kidney injury): Likely CRS Baseline SCR Unkown Admission SCR : 1.4 Monitor BMP Status: Acute Additional A&P Information Code status :Full code DVT PPX:On Eliquis Disposition : Home Attestations Medical Necessity Statement*: Patient needs to be in hospital for the management of Decmpensated H/F,Afib with RVR.Anticipated LOS Greater then 2 midnights. Coding Level of Care Code Acute Network Operations Manager for Chg Fwd Diagnoses Heart failure I50.9 Atrial fibrillation with RVR I48.91 Pulmonary embolism I26.99 DVT (deep venous thrombosis) I82.409 SAILAJA (acute kidney injury) N17.9
[2020-09-14] MEDS: dilTIAZem 30 mg Tablet PO ×2 (17:45→23:09)
--- NOTE | 2020-09-14 18:16 | ECG_ITS ---
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 Measurements Intervals Enigma Rate: 106 P: NH: QRS: 60 QRSD: 98 T: 62 QT: 356 QTc: 473 Interpretive Statements ATRIAL FIBRILLATION WITH RAPID VENTRICULAR RESPONSE ABNORMAL RHYTHM ECG Compared to ECG 09/14/2020 14:09:44 No significant changes Electronically Signed On 09-14-2020 22:15:56 BRAILLE TRANSCRIBER by Brooklyn Mustafa M.D. [id number]
[2020-09-14 18:55] LABS: Troponin 5 6HR 16.12 ng/L (0-15); Troponin 5 6HR Delta 3.12 ng/L (0-12)
--- NOTE | 2020-09-14 19:06 | PC.NURSE ---
patient requesting nicotine patch at this time contacted Dr Lepe instructions received to start Nicotine patch 21mg daily
[2020-09-14] MEDS: nicotine 21 mg Patch 1 PATCH TRANSDERMA (19:40)
[2020-09-14] MEDS: FUROsemide 10 mg/mL SDV 4mL 40 MG IVP (21:03)
[2020-09-14] MEDS: apixaban 5 mg Tablet PO (21:04)
[2020-09-14] MEDS: oxyCODONE-APAP 5-325 mg Tablet 1 TAB PO (22:33)
[2020-09-15] VITALS (68 sets, daily range): BP systolic 105–133; BP diastolic 63–96; PULSE 92–115; RESP 13–31; TEMP 36.8–36.9; O2SAT 95
[2020-09-15 04:57] LABS: Basophils # 0.1 10^3/uL (0.0-0.1); Basophils % 0.6 %; Eosinophils # 0.3 10^3/uL (0.0-0.8); Hemoglobin 14.8 g/dL (11.7-16.6); Lymphocytes # 2.3 10^3/uL (0.8-4.8); Lymphocytes % 27.4 %; Mean Corpuscular HGB Conc 32.9 g/dL (30.0-36.0); Mean Corpuscular Hemoglobin 31.2 pg (28.0-34.0); Mean Corpuscular Volume 94.7 fL (80-94); Mean Platelet Volume 10.7 fL (7.4-10.4); Monocytes # 0.8 10^3/uL (0.2-0.9); Neutrophils # 5.04 10^3/uL (1.8-7.7); Neutrophils % 59.8 %; Nucleated Red Blood Cells % 0 %; Platelet Count 139 10^3/cmm (130-400); Red Blood Count 4.75 10^6/uL (4.1-5.3); Red Cell Distribution Width 12.1 % (12.1-15.1); White Blood Count 8.4 10^3/uL (4.0-10.0)
--- NOTE | 2020-09-15 05:00 | USCV_ITS ---
Porter Lagos Age: 40 Gender: M : 1980 Exam Date: 09/15/2020 06:25 Ordering Phys: Len Wilburn MD Technologist: Hyacinth Chong Exam Location: [facility] [place] Indication: SOB BP: 125 / 65 HR: 109 Rhythm: Sinus Technical Quality: Adequate MEASUREMENTS (Male / Female) Normal Values 2D ECHO LV Diastolic Diameter PLAX 4.6 cm 4.2 - 5.9 / 3.9 - 5.3 cm LV Systolic Diameter PLAX 3.9 cm IVS Diastolic Thickness 1.6 cm 0.6 - 1.0 / 0.6 - 0.9 cm IVS Systolic Thickness 2.0 cm LVPW Diastolic Thickness 1.4 cm 0.6 - 1.0 / 0.6 - 0.9 cm LVPW Systolic Thickness 2.2 cm RV Chamber Size 4.3 cm LVOT Diameter 2.0 cm LV Ejection Fraction 2D Teich 32.6 % LV Ejection Fraction MOD 2C 62.5 % LV Ejection Fraction 2C AL 62.0 % LA Diameter 4.7 cm LA Width 4.1 cm LA Height 6.0 cm RA Width 4.1 cm RA Height 5.4 cm Aorta at Sinotubular Diameter 2.8 cm M-MODE LV Diastolic Diameter MM 5.8 cm 4.2 - 5.9 / 3.9 - 5.3 cm LV Systolic Diameter MM 4.2 cm LV Ejection Fraction MM Teich 51.3 % IVS Diastolic Thickness MM 1.2 cm 0.6 - 1.0 / 0.6 - 0.9 cm IVS Systolic Thickness MM 1.4 cm LVPW Diastolic Thickness MM 1.0 cm 0.6 - 1.0 / 0.6 - 0.9 cm LVPW Systolic Thickness MM 1.5 cm Aortic Annulus Diameter 3.4 cm LA Ao Ratio MM 1.5 MV E Point Septal Separation 1.6 cm DOPPLER AV Peak Velocity 157.0 cm/s LVOT Peak Velocity 107.0 cm/s AV Area Cont Eq vti 2.3 cm squared AV Area Cont Eq pk 2.1 cm squared MV Area PHT 5.0 cm squared Mitral E to A Ratio 181.7 MV E' Velocity 61.0 cm/s Mitral E to MV E' Ratio 8.7 Mitral E to LV E' Lateral Ratio 8.4 Mitral E to LV E' Septal Ratio 9.0 TR Peak Velocity 288.0 cm/s TR Peak Gradient 33.2 mmHg Right Atrial Pressure 3.0 mmHg Pulmonary Artery Systolic Pressu 36.2 mmHg PV Peak Velocity 77.0 cm/s RV Acceleration Time 0.1 s RV Ejection Time 0.2 s RV AcT/ET 0.4 FINDINGS Left Ventricle Normal left ventricular cavity size. Normal left ventricular systolic function. No regional wall motion abnormalities. Left ventricular ejection fraction is estimated at 55 %. In the presence of atrial fibrillation diastolic function cannot be assessed accurately. Right Ventricle The right ventricle is normal in size and function. Right Atrium The right atrium is normal in size. Left Atrium The left atrium is normal in size. Mitral Valve Thickened mitral valve. No mitral valve stenosis. Trace mitral valve regurgitation. Aortic Valve Aortic valve sclerosis without stenosis or regurgitation. Tricuspid Valve Mild tricuspid valve regurgitation. Pulmonic Valve Structurally normal pulmonic valve without significant stenosis. There is no pulmonic regurgitation. Pericardium Normal pericardium without effusion. Aorta Normal ascending aorta dimension. CONCLUSIONS 1-Normal left ventricular cavity size. Normal left ventricular systolic function. No regional wall motion abnormalities. Left ventricular ejection fraction is estimated at 55 %. In the presence of atrial fibrillation diastolic function cannot be assessed accurately. 2-Mild tricuspid valve regurgitation. 3-Aortic valve sclerosis without stenosis or regurgitation. 4-There is no pericardial effusion. 5-Right atrial pressure is around 15 mm of mercury. 6-There are no prior echocardiogram studies to compare. Zohreh Armijo MD (Electronically Signed) Final Date: 15 September 2020 17:40 S
[2020-09-15 05:05] LABS: INR 1.19 (0.8-1.2)
[2020-09-15 05:26] LABS: Alanine Aminotransferase 14 U/L (0-41); Albumin Level 3.5 g/dL (3.5-5.2); Alkaline Phosphatase 94 IU/L (40-130); Anion Gap 11.8 (5-19); Aspartate Amino Transferase 14 U/L (0-40); Blood Urea Nitrogen 16 mg/dL (6-20); Calcium 8.3 mg/dL (8.5-10.5); Carbon Dioxide 29 mmol/L (22-29); Chloride 99 mmol/L (98-107); Glomerular Filtration Rate 74.1 mL/min (90-130); Glucose 106 mg/dL (65-115); Osmolality Calculated 284 mOsm/kg (285-295); Potassium 3.8 mmol/L (3.5-5.1); Sodium 136 mmol/L (136-145); Thyroid Stimulating Hormone 1.83 uIU/mL (0.27-4.20); Total Bilirubin 0.5 mg/dL (0.15-1.2); Total Protein 6.5 g/dL (6.6-8.7)
[2020-09-15 05:27] LABS: NT Pro B Type Natriuretic Pept 2600 pg/mL (0-125); Procalcitonin 0.04 ng/mL (0-0.5)
[2020-09-15 05:30] LABS: Estmated Average Glucose 103; Hemoglobin A1C 5.2 % (4.0-6.0)
[2020-09-15 05:37] LABS: Cholesterol 148 mg/dL (0-200); HDL Cholesterol 29 mg/dL (60-100); LDL Cholesterol Calculated 94 mg/dL (50-129); LDL HDL Ratio 3.24 RATIO (0.00-3.22); Triglycerides 124 mg/dL (0-150)
[2020-09-15] MEDS: dilTIAZem 30 mg Tablet PO ×4 (06:00→22:43)
[2020-09-15] MEDS: apixaban 5 mg Tablet PO ×2 (09:46→20:03)
[2020-09-15] MEDS: aspirin 81 mg EC Tablet PO (09:46)
[2020-09-15] MEDS: FUROsemide 10 mg/mL SDV 4mL 40 MG IVP ×2 (09:46→20:04)
--- NOTE | 2020-09-15 12:00 | P.PN_ITS ---
Subjective Subjective: Interval history: Patient was seen and examined this morning, he is off Cardizem,currently heart rate is well controlled, though he continues to be in A. fib. Lower extremity swelling is going down, serum creatinine has improved.Shortness of breath has improved.Net negative : 1.9 Ls His other vitals and labs have been reviewed. Medications: Reviewed: Yes Vitals/I&O/Wt Last Vital Signs Temp 98.3 F 09/15/20 08:00 Pulse 95 09/15/20 11:21 Resp 18 09/15/20 08:00 BP 131/84 09/15/20 08:00 Pulse Ox 95 09/15/20 11:21 09/14/20 09/15/20 09/15/20 22:59 06:59 14:59 Intake Total 342.583 / 342.583 120 / 462.583 478 / 478 Output Total 1900 / 1900 1000 / 1000 Balance -1557.417 / -1557.417 120 / -1437.417 -522 / -522 Weight last 48 hrs Weight 149.685 kg Physical Exam Const: COMMON NORMALS: patient oriented x3 HENMT: COMMON NORMALS: normocephalic and atraumatic HEAD & SCALP: normocephalic and atraumatic Chest: CHEST: Yes Symmetrical chest wall rise Resp: COMMON NORMALS: normal respiratory effort, No retractions, No use of accessory muscles and clear to auscultation bilaterally EFFORT & INSPECTION: Yes symmetric chest movement AUSCULTATION: clear to auscultation bilaterally Cardio: OTHER: Irregularly irregular rhythm,S1S2 of variable intensity. GI: COMMON NORMALS: Normal to inspection, nondistended, normoactive bowel sounds present, Soft to palpation, non-tender, No hepatosplenomegaly present and no masses AUSCULTATION: Yes normoactive bowel sounds PALPATION: Yes Soft to palpation and Yes No hepatosplenomegaly present RECTAL EXAM: Yes deferred Extremity: NARRATIVE EXTREMITY EXAM: 3+ B/L L/E Pitting edema Neuro: COMMON NORMALS: patient oriented x3 Data : 09/15/20 04:30 09/15/20 04:30 A&P Assessment and plan (1) Heart failure: 2D Echo Lasix 40 mg I.V Q12 H Daily. Will initiate Lisinopril 2.5 mg po daily once kidney function is more stable. I/O Charting Daily Weight Status: Acute (2) Atrial fibrillation with RVR: Initially on Cardizem Drip. Currently on Cardizem 30 mg po q6 h Daily.With additional dosing as needed to optimize h/r rate control. Patient is a candidate for attempting rhthytm control once he is euvoemic and depending on the 2D Echo. Status: Acute (3) Pulmonary embolism: H/O P/E. Currently on eliquis Status: Acute (4) DVT (deep venous thrombosis): H/O DVT. b/l l/e doppler vein : No DVT bilateral lower extremities. On Eliquis Status: Acute (5) SAILAJA (acute kidney injury): Likely CRS Baseline SCR Unkown Admission SCR : 1.4--> 1.1 Monitor BMP Status: Acute Additional A&P Information Code status :Full code DVT PPX:On Eliquis Disposition : Home Attestations Medical Necessity Statement*: Patient needs to be in hospital for the management of H/F, A.Fib and SAILAJA Coding Level of Care Code Acute Clinical Research Coordinator for Chg Fwd Exam Detailed Diagnoses Heart failure I50.9 Atrial fibrillation with RVR I48.91 Pulmonary embolism I26.99 DVT (deep venous thrombosis) I82.409 SAILAJA (acute kidney injury) N17.9
--- NOTE | 2020-09-15 13:30 | PC.CHAP ---
Pastoral Care Encounter/Spiritual Assessment Type of Contact [] Declined fire marshal visit [] Patient/Family/Request visit [] Outpatient visit [] Follow-up visit [] Physician referral [] Code/Alert [xx] Routine visit [] Staff referral [] Actively dying [] Patient sleeping [] Family support [] [] Out of room [] Palliative care [] [] Receiving care in room [] Pre-surgical visit [] Trauma [] Long length of stay [] ICU visit [] Other: Relational/Emotional Strength [] Patient feels connected with others/family/visitors/staff [] Distress [] Loneliness/isolation [] Abandonment Spirituality of Patient [] Person of Mine [] Attends Caodaism of their Mine [] Believes in Prayer [] Reads Bible or Judaism materials [] There are Spiritual issues to be addressed Machine Finisher Interventions [] Prayer [] Active listening [] Non-anxious presence [] Spiritual/emotional support [] Crisis/trauma care [] Spiritual counseling [] Bereavement support [] Provided bereavement packet [] Provided Bible/devotional materials [] Provided toy/stuffed animal, coloring book to patient or family member [] Provided Communion [] Anointing/[place] [] Salvation [xx] Completed spiritual assessment [] Other: Impact on Illness or Injury [] Angry [] Fearful [] Anxious [] Often cries [] Exhaustion [] Unable to work [] Unable to attend muslim [] Unable to walk/stand [] Unable to read [] Unable to drive [] Unable to eat/drink [] Unable to sleep [] Unable to be with family [] Patient intubated [xx] Other: Atheist Summary Patient stated he is an atheist and dis not want prayer but was amenable to short visit on general topics. Time spent with patient 3 minutes
--- NOTE | 2020-09-15 17:29 | PC.NURSE ---
spoke with Dr greene on unit with concerns of patients hr rate being elevated 110-120 instructions to give an additional 60mg cardizem PO now
[2020-09-15] MEDS: dilTIAZem 60 mg Tablet PO (17:57)
[2020-09-15] MEDS: nicotine 21 mg Patch 1 PATCH TRANSDERMA (20:02)
--- NOTE | 2020-09-15 20:08 | PC.NURSE ---
Received bedside report from Irish Cedeno RN. Patient resting in bed with eyes closed. Spontaneously opens eyes with verbal stimuli. Patient denies complaints or needs at this time. No distress observed.
[2020-09-16] VITALS (10 sets, daily range): BP systolic 96–146; BP diastolic 61–106; PULSE 93–119; RESP 16–22; TEMP 36.6–36.9; O2SAT 95–99
--- NOTE | 2020-09-16 01:43 | PC.NURSE ---
Patient resting in bed with eyes closed. Even, non-labored respirations observed. No distress noted.
[2020-09-16] MEDS: dilTIAZem 30 mg Tablet PO ×2 (04:45→11:17)
[2020-09-16 05:44] LABS: Basophils % 0.5 %; Eosinophils # 0.2 10^3/uL (0.0-0.8); Eosinophils % 2.8 %; Hematocrit 46.2 % (42.0-52.0); Hemoglobin 15.4 g/dL (11.7-16.6); Lymphocytes # 2.3 10^3/uL (0.8-4.8); Lymphocytes % 30.1 %; Mean Corpuscular HGB Conc 33.3 g/dL (30.0-36.0); Mean Corpuscular Hemoglobin 31.4 pg (28.0-34.0); Mean Corpuscular Volume 94.1 fL (80-94); Mean Platelet Volume 11.1 fL (7.4-10.4); Monocytes # 0.8 10^3/uL (0.2-0.9); Monocytes % 9.9 %; Neutrophils # 4.26 10^3/uL (1.8-7.7); Neutrophils % 56.6 %; Nucleated Red Blood Cells % 0 %; Platelet Count 147 10^3/cmm (130-400); Red Blood Count 4.91 10^6/uL (4.1-5.3); White Blood Count 7.5 10^3/uL (4.0-10.0)
[2020-09-16 06:07] LABS: Alanine Aminotransferase 13 U/L (0-41); Albumin Level 3.6 g/dL (3.5-5.2); Alkaline Phosphatase 94 IU/L (40-130); Anion Gap 12.8 (5-19); Aspartate Amino Transferase 13 U/L (0-40); Blood Urea Nitrogen 16 mg/dL (6-20); Calcium 8.5 mg/dL (8.5-10.5); Carbon Dioxide 29 mmol/L (22-29); Chloride 96 mmol/L (98-107); Glomerular Filtration Rate 82.8 mL/min (90-130); Glucose 93 mg/dL (65-115); Magnesium 2.2 mg/dL (1.7-2.3); Osmolality Calculated 279 mOsm/kg (285-295); Potassium 3.8 mmol/L (3.5-5.1); Sodium 134 mmol/L (136-145); Total Bilirubin 0.6 mg/dL (0.15-1.2); Total Protein 6.6 g/dL (6.6-8.7)
[2020-09-16] MEDS: aspirin 81 mg EC Tablet PO (08:17)
[2020-09-16] MEDS: FUROsemide 10 mg/mL SDV 4mL 40 MG IVP ×2 (08:17→20:10)
[2020-09-16] MEDS: apixaban 5 mg Tablet PO ×2 (08:17→20:10)
--- NOTE | 2020-09-16 13:32 | PM.PN ---
Subjective Subjective: Interval history: Patient was seen and examined today.Lower extremity swelling is going down,has no SOB,PND,orthopnea. Continue to be in A.fib With rate in low to mid 100s.Deny any chest pain, palpitation,dizziness. His other vitals and labs have been reviewed. Medications: Reviewed: Yes Vitals/I&O/Wt Last Vital Signs Temp 97.8 F 09/16/20 10:32 Pulse 93 09/16/20 10:32 Resp 20 H 09/16/20 10:32 BP 113/61 09/16/20 10:32 Pulse Ox 95 09/16/20 10:32 09/15/20 09/16/20 09/16/20 22:59 06:59 14:59 Intake Total 720 / 1680.417 480 / 480 Output Total 1500 / 3000 800 / 3800 1700 / 1700 Balance -780 / -1319.583 -800 / -2119.583 -1220 / -1220 Weight last 48 hrs Weight 146.964 kg Physical Exam Const: COMMON NORMALS: patient oriented x3 HENMT: COMMON NORMALS: normocephalic and atraumatic HEAD & SCALP: normocephalic and atraumatic Chest: CHEST: Yes Symmetrical chest wall rise Resp: COMMON NORMALS: normal respiratory effort, No retractions, No use of accessory muscles and clear to auscultation bilaterally EFFORT & INSPECTION: Yes symmetric chest movement AUSCULTATION: clear to auscultation bilaterally Cardio: OTHER: Irregularly irregular rhythm,S1S2 of variable intensity. GI: COMMON NORMALS: Normal to inspection, nondistended, normoactive bowel sounds present, Soft to palpation, non-tender, No hepatosplenomegaly present and no masses AUSCULTATION: Yes normoactive bowel sounds PALPATION: Yes Soft to palpation and Yes No hepatosplenomegaly present RECTAL EXAM: Yes deferred Extremity: NARRATIVE EXTREMITY EXAM: 3+ B/L L/E Pitting edema improving Neuro: COMMON NORMALS: patient oriented x3 Data : 09/16/20 04:38 09/16/20 04:38 A&P Assessment and plan (1) Heart failure: Decompensated HFpEF : 2D Echo: Normal LV Size. Normal L.V systolic function. No RWMA .LVEF is estimated at 55 %. In the presence of atrial fibrillation diastolic function cannot be assessed accurately. Mild tricuspid valve regurgitation. Aortic valve sclerosis without stenosis or regurgitation. There is no pericardial effusion. Lasix 40 mg I.V Q12 H Daily. Lisinopril 2.5 mg po daily. I/O Charting Daily Weight LOS: Status: Acute Qualifiers: Heart failure chronicity: acute Heart failure type: unspecified Qualified Code(s): I50.9 - Heart failure, unspecified (2) Atrial fibrillation with RVR: Initially on Cardizem Drip. On Cardizem 60 mg po q6 h daily. Initially on 30 mg po q6 h daily. Patient is a candidate for attempting rhthytm control once he is euvoemic. Status: Acute (3) Pulmonary embolism: H/O P/E. CTA On admission : Was Negative Currently on eliquis Status: Acute (4) DVT (deep venous thrombosis): H/O DVT. b/l l/e doppler vein : No DVT bilateral lower extremities. On Eliquis Status: Acute (5) SAILAJA (acute kidney injury): Likely CRS :Resolved Baseline SCR Unkown Admission SCR : 1.4--> 1.1 Monitor BMP Status: Acute Additional A&P Information Code status :Full code DVT PPX:On Eliquis Disposition : Home Attestations Medical Necessity Statement*: Patient needs to be in hospital for the management of h/f.afib Coding Level of Care Code Acute Dairy Specialist for Chg Fwd Exam Detailed Diagnoses Heart failure I50.9 Heart failure chronicity: acute Heart failure type: unspecified Atrial fibrillation with RVR I48.91 Pulmonary embolism I26.99 DVT (deep venous thrombosis) I82.409 SAILAJA (acute kidney injury) N17.9
[2020-09-16] MEDS: dilTIAZem 60 mg Tablet PO ×2 (16:12→20:10)
[2020-09-16] MEDS: nicotine 21 mg Patch 1 PATCH TRANSDERMA (20:10)
--- NOTE | 2020-09-16 20:21 | PC.NURSE ---
Received report from Irish Ford RN. Patient resting in bed. Patient denies pain or needs at this time. Discussed changed dose of cardizem and expectations of medication. Patient verbalized understanding. No distress observed.
[2020-09-17] VITALS (12 sets, daily range): BP systolic 110–129; BP diastolic 62–91; PULSE 59–106; RESP 16–20; TEMP 36.6–37.1; O2SAT 96–99
[2020-09-17] MEDS: dilTIAZem 60 mg Tablet PO ×4 (02:32→15:36)
[2020-09-17 05:33] LABS: Basophils % 0.4 %; Eosinophils # 0.3 10^3/uL (0.0-0.8); Hematocrit 49.2 % (42.0-52.0); Hemoglobin 16.8 g/dL (11.7-16.6); Lymphocytes # 2.3 10^3/uL (0.8-4.8); Lymphocytes % 24.3 %; Mean Corpuscular HGB Conc 34.1 g/dL (30.0-36.0); Mean Corpuscular Hemoglobin 32.1 pg (28.0-34.0); Mean Corpuscular Volume 94.1 fL (80-94); Mean Platelet Volume 10.7 fL (7.4-10.4); Monocytes % 10.8 %; Neutrophils % 61.1 %; Nucleated Red Blood Cells % 0 %; Platelet Count 182 10^3/cmm (130-400); Red Blood Count 5.23 10^6/uL (4.1-5.3); Red Cell Distribution Width 11.9 % (12.1-15.1); White Blood Count 9.3 10^3/uL (4.0-10.0)
[2020-09-17 06:06] LABS: Alanine Aminotransferase 14 U/L (0-41); Alkaline Phosphatase 99 IU/L (40-130); Anion Gap 15.3 (5-19); Aspartate Amino Transferase 13 U/L (0-40); Blood Urea Nitrogen 19 mg/dL (6-20); Carbon Dioxide 27 mmol/L (22-29); Chloride 96 mmol/L (98-107); Globulin 3.3 g/dL (1.3-4.6); Glomerular Filtration Rate 74.1 mL/min (90-130); Glucose 96 mg/dL (65-115); Magnesium 2.2 mg/dL (1.7-2.3); Osmolality Calculated 280 mOsm/kg (285-295); Potassium 4.3 mmol/L (3.5-5.1); Sodium 134 mmol/L (136-145); Total Bilirubin 0.6 mg/dL (0.15-1.2); Total Protein 7.3 g/dL (6.6-8.7)
[2020-09-17] MEDS: lisinopril 2.5 mg Tablet PO (08:44)
[2020-09-17] MEDS: aspirin 81 mg EC Tablet PO (08:44)
[2020-09-17] MEDS: FUROsemide 10 mg/mL SDV 4mL 40 MG IVP (08:44)
[2020-09-17] MEDS: apixaban 5 mg Tablet PO (08:47)
--- NOTE | 2020-09-17 12:24 | PM.DCS ---
Discharge Providers Date of Admission: 09/14/20 14:19 Date of Discharge: September 17, 2020 Attending Provider at Admission: Len Wilburn MD Attending Provider at Discharge: Len Wilburn MD Diagnoses at Discharge Discharge Diagnosis (1) Heart failure: Permanent problem details: Currently euvolemic Qualifiers: Heart failure chronicity: acute Heart failure type: unspecified Qualified Code(s): I50.9 - Heart failure, unspecified (2) Atrial fibrillation with RVR: Permanent problem details: Currently rate controlled (3) Pulmonary embolism: (4) DVT (deep venous thrombosis): (5) SAILAJA (acute kidney injury): Reason for Visit Reason for Visit: sob, cough Hospital Course Hospital Course Porter Lagos is a 40 year old male with pmh of DVT/P.E,chronic smoker came in with c/o worsening sob in last 1 week,he is also complaining of chest tightness with exertion along with orthopnea. Upon arrival in the ER patient was worked up for the above mentioned complain. Pertinent labs : Elevated Pro Bnp,elevated troponins without significant delta , SCR: 1.4 CTA chest : No pulmonary embolism. Subsegmental areas of atelectasis at the lung bases and RIGHT middle lobe. B/L L/E DOPPLER U/S Vein : No DVT bilateral lower extremities.EKG : A.fib with RVR. Pertinent Medications: Lasix 80 mg I.V *1 Dose, cardizem 20 MG I.V *1 Dose as well as Cradizem Drip.During the hospital stay he was managed for Decompensated HFpEF : 2D Echo: Normal LV Size. Normal L.V systolic function. No RWMA .LVEF is estimated at 55 %. In the presence of atrial fibrillation diastolic function cannot be assessed accurately. Mild tricuspid valve regurgitation. Aortic valve sclerosis without stenosis or regurgitation. There is no pericardial effusion.He was kept on Lasix 40 mg I.V Q12 H Daily. Lisinopril 2.5 mg po daily was started on discharge once his SAILAJA has resolved. He responded very well to the I.V diuresis,PND,orthopnea was resolved b/l lower extremity swelling was going down.He was discharged on lasix 40 mg po q12h daily ans well as oral pottasium.for his Atrial fibrillation with RVR:He was cInitially on Cardizem Drip. Later switched to Cardizem 60 mg po q6 h daily with some additional dosing as needed to control the rate better and finally was discharged on 240 MG PO Cardizem CD daily. As well on eliquis. For his h/o Pulmonary embolism: CTA On admission : Was Negative.He was started on eliquis 5mg q12h daily. For his h/o DVT (deep venous thrombosis)cb/l l/e doppler vein done during this hospital stay showed : No DVT bilateral lower extremities.for the SAILAJA (acute kidney injury): which was CRS :Resolved with I.V Diuresis. Physical Exam Const: COMMON NORMALS: patient oriented x3 HENMT: COMMON NORMALS: normocephalic and atraumatic HEAD & SCALP: normocephalic and atraumatic Chest: CHEST: Yes Symmetrical chest wall rise Resp: COMMON NORMALS: normal respiratory effort, No retractions, No use of accessory muscles and clear to auscultation bilaterally EFFORT & INSPECTION: Yes symmetric chest movement AUSCULTATION: clear to auscultation bilaterally Cardio: OTHER: Irregularly irregular rhythm,S1S2 of variable intensity. GI: COMMON NORMALS: Normal to inspection, nondistended, normoactive bowel sounds present, Soft to palpation, non-tender, No hepatosplenomegaly present and no masses AUSCULTATION: Yes normoactive bowel sounds PALPATION: Yes Soft to palpation and Yes No hepatosplenomegaly present RECTAL EXAM: Yes deferred Extremity: NARRATIVE EXTREMITY EXAM: 2+ B/L L/E Pitting edema improving Neuro: COMMON NORMALS: patient oriented x3 Discharge Data Data Completed and Pending: Completed Studies During Hospitalization Category Date Time Status CT angio chest PE protcl [id number] Stat Cat Scan 09/14/20 12:16 Completed CV echo complete* [id number] Routine Ultrasound 09/15/20 05:00 [place] [id number] Urgent Ultrasound 09/14/20 14:21 Completed Labs from last 24 hours 09/17/20 09/17/20 04:38 04:38 WBC 9.3 RBC 5.23 Hgb 16.8 H Hct 49.2 MCV 94.1 H MCH 32.1 MCHC 34.1 RDW 11.9 L Plt Count 182 MPV 10.7 H Neut % (Auto) 61.1 Lymph % (Auto) 24.3 [place] % (Auto) 10.8 Eos % (Auto) 3.0 Baso % (Auto) 0.4 Neut # (Auto) 5.70 Lymph # (Auto) 2.3 [place] # (Auto) 1.0 H Eos # (Auto) 0.3 Baso # (Auto) 0.0 Nucleated RBC % (a uto) 0 Nucleated RBCs # 0.0 Sodium 134 L Potassium 4.3 Chloride 96 L Carbon Dioxide 27 Anion Gap 15.3 BUN 19 Creatinine 1.1 GFR Calculation 74.1 L Glucose 96 Calculated Osmolal ity 280 L Calcium 9.0 Magnesium 2.2 Total Bilirubin 0.6 AST 13 ALT 14 Alkaline Phosphata se 99 Total Protein 7.3 Albumin 4.0 Globulin 3.3 Vitals: Last Vital Signs Temp 97.9 F 09/17/20 08:00 Pulse 59 L 09/17/20 10:36 Resp 18 09/17/20 10:36 BP 119/82 09/17/20 10:36 Pulse Ox 98 09/17/20 10:36 Discharge Plan Discharge Patient Disposition: Home Condition: Stable Prescriptions: New Cardizem CD 240 mg capsule,extended release 24hr 240 mg PO DAILY Qty: 30 RF: 0 Lasix 40 mg tablet 40 mg PO BID Qty: 60 RF: 0 lisinopril 2.5 mg tablet 2.5 mg PO DAILY Qty: 30 RF: 0 Klor-Con 20 mEq packet 20 meq PO DAILY Qty: 30 RF: 0 aspirin 81 mg Tablet,Delayed Release (Dr/Ec) 81 mg PO DAILY 30 Days RF: 0 Eliquis 5 mg Tablet 5 mg PO BID@0900,2100 Qty: 60 RF: 2 Continued ibuprofen 200 mg Tablet 200 - 400 mg PO Q6H PRN (Reason: pain/headache) RF: 0 Discontinued Xarelto DVT-PE Treat 30d Start 15 mg (42)- 20 mg (9) tablets,dose pack See Rx Instructions .ROUTE .COMPLEX Qty: 51 RF: 0 Discharge Orders: Discharge Order (Routine); Ordered 09/17/20 Ordered By: Len Wilburn Referrals: Veronica Mann DO [Physician] - 4-7 days (An option for a primary care provider. Call her office to have care established. Please call ) Brooklyn Mustafa MD [Physician] - 1 week ([facility] will contact you to schedule an follow-up appointment in [address] Mustafa. If you haven't heard from them by morning. Please call ) Discharge Diet: Cardiac and Low Salt Discharge Activity: Resume usual activity Patient Instructions: Diltiazem (By mouth), Lisinopril (By mouth), Furosemide (By mouth), Apixaban (By mouth), Atrial Fibrillation (DC), CHF Stoplight Activity Restrictions/Additional Instructions: Patient will follow up with cardiology as well as his pcp in a week.An appointment will be made Discharge Attestations Time Spent in Discharge Care*: less than 30 min Specific Discharge Activities: educating patient, educating and/or supporting family/caregiver, discussing with medical case worker/social workers/dc planners, documenting/other paperwork and evaluating patient/reviewing data Status at Discharge: Cognitive status at discharge: cognitively intact, Behavioral status at discharge: cooperative, Functional status at discharge: independent ambulation Overall status at discharge: patient is back to baseline Quality Metrics Clinical Quality Measures During this hospital stay, did patient experience: None Coding Level of Care Code Acute Satellite Tv Installer for Chg Fwd Diagnoses Heart failure I50.9 Heart failure chronicity: acute Heart failure type: unspecified Atrial fibrillation with RVR I48.91 Pulmonary embolism I26.99 DVT (deep venous thrombosis) I82.409 SAILAJA (acute kidney injury) N17.9
== END 2020-09-17 15:45 | disposition home or self-care (01) | DRG 292 ==
LOC: ER 12:16 → MEDSURG 15:04 → CSU 19:02
PROVIDERS: Admitting Provider Internal Medicine; Emergency Provider Family Medicine; Visit Provider Internal Medicine
DX: I50.33 Acute on chronic diastolic (congestive) heart failure (principal); N17.9 Acute kidney failure, unspecified; Z86.718 Personal history of other venous thrombosis and embolism; Z86.711 Personal history of pulmonary embolism; F17.210 Nicotine dependence, cigarettes, uncomplicated; I48.91 Unspecified atrial fibrillation; I07.1 Rheumatic tricuspid insufficiency
CPT/HCPCS: 36415; 71275; 80053; 80061; 83036; 83605; 83735; 83880; 84145; 84443; 84484; 85025; 85610; 86140; 93005; 93306; 93970; 96374; 96375; 99285; J1940; J3490; Q9967

== ENCOUNTER → 2020-09-27 11:45 | Outpatient (BNVA) | payer SELFPAY | PROVIDERS: Visit Provider Internal Medicine Cardiovascular Disease | DX: I48.91 Unspecified atrial fibrillation (principal); I50.9 Heart failure, unspecified | CPT/HCPCS: 80048; 83880 ==

== ENCOUNTER → 2020-11-09 12:10 | Outpatient (BNVA) | payer SELFPAY | PROVIDERS: Visit Provider Internal Medicine Cardiovascular Disease | DX: I50.32 Chronic diastolic (congestive) heart failure (principal); I48.91 Unspecified atrial fibrillation; E66.9 Obesity, unspecified; R29.818 Other symptoms and signs involving the nervous system; G47.10 Hypersomnia, unspecified; Z86.711 Personal history of pulmonary embolism; Z86.718 Personal history of other venous thrombosis and embolism; Z86.2 Personal history of diseases of the blood and blood-forming organs and certain disorders involving the immune mechanism | CPT/HCPCS: 80048; 83735; 83880 ==

== ENCOUNTER → 2021-04-12 16:32 | Outpatient (BNVA) | payer SELFPAY | PROVIDERS: Visit Provider Nurse Practitioner Family | DX: I48.91 Unspecified atrial fibrillation (principal); I50.9 Heart failure, unspecified | CPT/HCPCS: 80048; 83880 ==

== ENCOUNTER 2022-08-03 09:39 | Emergency (ER) | payer SELFPAY ==
[2022-08-03 09:46] VITALS: PULSE 112; RESP 16; TEMP 36.7; O2SAT 97
--- NOTE | 2022-08-03 10:10 | XRR_ITS ---
PROCEDURE INFORMATION: Exam: XR Chest Exam date and time: 08/03/2022 10:19 AM Age: 42 years old Clinical indication: Pain; Shortness of breath; Chest pressure; Additional info: SRINIVAS Thapa TECHNIQUE: Imaging protocol: Radiologic exam of the chest. Views: 1 view. COMPARISON: CR XR chest 1V portable [id number] 10/16/2019 2:16 AM FINDINGS: Lungs: Stable streakiness likely post radiation therapy, postoperative or post inflammation involving the right lung. No consolidation. Pleural spaces: Unremarkable. No pleural effusion. No pneumothorax. Heart/Mediastinum: Unremarkable. No cardiomegaly. Bones/joints: Unremarkable. XR/XR chest 1V portable [id number] IMPRESSION: No acute findings.
--- NOTE | 2022-08-03 10:10 | ECG_ITS ---
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 Measurements Intervals [place] Rate: 106 P: 0 IN: 0 QRS: 63 QRSD: 101 T: 69 QT: 356 QTc: 473 Interpretive Statements ATRIAL FIBRILLATION WITH RAPID VENTRICULAR RESPONSE NONSPECIFIC ST & T-WAVE ABNORMALITY Compared to ECG 09/14/2020 22:12:37 T-wave abnormality now present Electronically Signed On 08-04-2022 9:03:18 SEAWEED HARVESTER by Brooklyn Mustafa M.D. [id number] f
--- NOTE | 2022-08-03 10:13 | ED_ITS ---
HPI - Chest Pain General: Chief Complaint: Chest Pain Stated Complaint: chest pressure, SOB Time Seen by Provider: 08/03/22 09:58 History of Present Illness: This patient is a 42 year old presenting with chest pain and increasing shortness of breath for the past three days. He reports that he woke up this morning at 3 am with shoulder pain - but has a history of shoulder injuries and ignored it at first, but then realized that his chest was also really tight. He also notes that he is increasingly short of breath with minor exertion today. He also notes increased swelling in his legs in spite of taking his lasix as prescribed. He reports a history of a fib chronically and takes diltiazem. He is on eliquis but hasn't taken it in about a month due to finances. He can't tolerate warfarin. He doesn't think that he has ever had a heart attack. he does have history of CHF and takes lasix. He also has a history of PE/DVT and factor V deficiency. as noted above, he is not currently on his blood thinner and hasn't been for about a month. He is a heavy smoker. He has a chronic cough. he says that he has never been told that he has COPD. He does not use inhalers. He denies fever. Risk Factors: Coronary artery disease risk factors: smoking history Pulmonary embolism risk factors: clotting disorder, history of deep vein thrombosis, history of pulmonary embolism and morbid obesity [facility] PFSH: Medical History SAILAJA (acute kidney injury) Atrial fibrillation with RVR Currently rate controlled DVT (deep venous thrombosis) Heart failure Currently euvolemic History of pulmonary embolus (PE) Obesity Pulmonary embolism Family History Family/Other Hypertension Other Diabetes Denies family history of Stroke Social History Alcohol intake: never Physical Exam Const: COMMON NORMALS: no acute distress, patient oriented x3, no limitations and alert GENERAL APPEARANCE: cooperative (strong smell of tobacco smoke in the room) and comfortable HENMT: HEAD & SCALP: normal to inspection FACE & SINUS: normal facial exam Eye: GENERAL EYE: appearance normal, both eyes and all related structures Neck/C-Spine: COMMON NORMALS: supple, no meningeal signs and no JVD Chest: COMMONS NORMALS: normal inspection of the chest Resp: AUSCULTATION: rhonchi right lower and diminished lung sounds OTHER: deep wet cough which caused patient to drop his sats and feel near syncopal Cardio: COMMON NORMALS: no JVD and No murmurs present (Cardio) RATE: tachycardic RHYTHM: abnormal rhythm irregularly irregular OTHER: bilateral lower extremity edema GI: COMMON NORMALS: Normal to inspection, nondistended, normoactive bowel sounds present, Soft to palpation and non-tender INSPECTION: Yes normal to inspection AUSCULTATION: Yes normoactive bowel sounds PALPATION: Yes Soft to palpation Back/Pelvis: COMMON NORMALS: thoracic and lumbar spine normal to inspection Extremity: COMMON NORMALS: normal to inspection NARRATIVE EXTREMITY EXAM: bilateral lower extremity edema Neuro: COMMON NORMALS: patient oriented x3, moves all extremities, no focal motor deficits and no sensory deficits noted SENSORIUM/ORIENTATION: Yes alert MENINGEAL SIGNS: Yes no meningeal signs Psych: COMMON NORMALS: mental status grossly normal, cooperative and normal affect Skin: COMMON NORMALS: no rashes or lesions noted and turgor normal GENERAL SKIN EXAM: no rashes or lesions noted and turgor normal Course Vital Signs: Vital signs: Vital Signs Temperature 98.1 F 08/03/22 09:46 Pulse Rate 94 08/03/22 14:31 Respiratory Rate 14 08/03/22 14:31 Blood Pressure 138/86 08/03/22 14:31 Pulse Oximetry 91 08/03/22 14:31 Oxygen Delivery Me thod 08/03/22 14:31 MDM - Chest Pain Medical Decision Making Patient with history of a fib - in a fib today, borderline tachycardic. NOT on anticoagulation. Chest pain, but no neuro symptoms. Chest pain should not be caused by a fib - also risks factors for ACS. EKG, troponin, aspirin. Patient with history of DVT/PE/clotting disorder - NOT on anticoagulation. Increased leg swelling. High risk for PE/DVT as cause of his current symptoms. D-dimer, likely will need a CTA Patient with history of CHF - on lasix. Edema and dyspnea could be from this as well. BNP, CXR, renal functions BNP elevated, patient continues to be quite dyspneic with minimal exertion with sats dropping into the 80's. Lasix given - he is on 80mg am and 40 mg pm at home. He did have some response to the IV dose here but not as much as anticipated. Discussed importance of eliquis for him. He understands but says the issue is finances. Will admit for diuresis and to get him back on anticoagulation. Lab Data 08/03/22 10:00 08/03/22 10:00 Radiology Impressions Chest X-Ray 08/03/22 10:10 IMPRESSION: No acute findings. Laboratory Results WBC 9.8 10^3/uL (4.0-10.0) 08/03/22 10:00 RBC 5.71 10^6/uL (4.1-5.3) H 08/03/22 10:00 Hgb 18.8 g/dL (11.7-16.6) H 08/03/22 10:00 Hct 55.2 % (42.0-52.0) H 08/03/22 10:00 MCV 96.7 fl (80-94) H 08/03/22 10:00 MCH 32.9 pg (28.0-34.0) 08/03/22 10:00 MCHC 34.1 g/dL (30.0-36.0) 08/03/22 10:00 RDW 12.5 % (12.1-15.1) 08/03/22 10:00 Plt Count 173 10^3/cmm (130-400) 08/03/22 10:00 MPV 10.5 fL (7.4-10.4) H 08/03/22 10:00 Neut % (Auto) 69.6 % 08/03/22 10:00 Lymph % (Auto) 20.9 % 08/03/22 10:00 [place] % (Auto) 7.0 % 08/03/22 10:00 Eos % (Auto) 1.7 % 08/03/22 10:00 Baso % (Auto) 0.4 % 08/03/22 10:00 Neut # (Auto) 6.84 10^3/uL (1.8-7.7) 08/03/22 10:00 Lymph # (Auto) 2.1 10^3/uL (0.8-4.8) 08/03/22 10:00 [place] # (Auto) 0.7 10^3/uL (0.2-0.9) 08/03/22 10:00 Eos # (Auto) 0.2 10^3/uL (0.0-0.8) 08/03/22 10:00 Baso # (Auto) 0.0 10^3/uL (0.0-0.1) 08/03/22 10:00 Nucleated RBC % (auto) 0 % 08/03/22 10:00 Nucleated RBCs # 0.0 /100WBC 08/03/22 10:00 PT 12.80 SECONDS (12.1-14.9) 08/03/22 10:00 INR 0.93 (0.8-1.2) 08/03/22 10:00 D-Dimer 0.67 ug/mIFEU (0-0.59) H 08/03/22 10:00 Sodium 136 mmol/L (136-145) 08/03/22 10:00 Potassium 3.3 mmol/L (3.5-5.1) L 08/03/22 10:00 Chloride 96 mmol/L (98-107) L 08/03/22 10:00 Carbon Dioxide 27 mmol/L (22-29) 08/03/22 10:00 Anion Gap 16.3 (5-19) 08/03/22 10:00 BUN 16 mg/dL (6-20) 08/03/22 10:00 Creatinine 1.1 mg/dL (0.7-1.2) 08/03/22 10:00 GFR Calculation 73.4 mL/min (90-130) L 08/03/22 10:00 Glucose 112 mg/dL (65-115) 08/03/22 10:00 Calculated Osmolality 284 mOsm/kg (285-295) L 08/03/22 10:00 Calcium 9.4 mg/dL (8.5-10.5) 08/03/22 10:00 Magnesium 1.9 mg/dL (1.7-2.3) 08/03/22 10:00 Total Bilirubin 0.3 mg/dL (0.15-1.2) 08/03/22 10:00 AST 13 U/L (0-40) 08/03/22 10:00 ALT 14 U/L (0-41) 08/03/22 10:00 Alkaline Phosphatase 149 U/L (40-130) H 08/03/22 10:00 Troponin T Baseline 13 ng/L (0-15) 08/03/22 10:00 Troponin T 120 Minute 9.67 ng/L (0-15) 08/03/22 12:13 Delta Troponin T -3.33 ABS# (0-10) L 08/03/22 12:13 NT-Pro-B Natriuret Pep 1123 pg/mL (0-125) H 08/03/22 10:00 Total Protein 7.9 g/dL (6.6-8.7) 08/03/22 10:00 Albumin 4.5 g/dL (3.5-5.2) 08/03/22 10:00 Globulin 3.4 g/dL (1.3-4.6) 08/03/22 10:00 Lipase 21 U/L (13-60) 08/03/22 10:00 Urine Color Yellow (Yellow) 08/03/22 12:04 Urine Appearance Clear (CLEAR) 08/03/22 12:04 Urine pH 5 (5-7) 08/03/22 12:04 Ur Specific [place] 1.015 (1.005-1.030) 08/03/22 12:04 Urine Protein Neg (Negative) 08/03/22 12:04 Urine Glucose (UA) Norm (Normal) 08/03/22 12:04 Urine Ketones Negative (Negative) 08/03/22 12:04 Urine Blood 2+ (Negative) H 08/03/22 12:04 Urine Nitrate Negative (Negative) 08/03/22 12:04 Urine Bilirubin Neg (Negative) 08/03/22 12:04 Urine Urobilinogen Norm mg/dL (Negative) 08/03/22 12:04 Ur Leukocyte Esterase Negative (Negative) 08/03/22 12:04 Urine RBC 0-4 /hpf (0-2) H 08/03/22 12:04 Urine WBC Rare /hpf (0-5) 08/03/22 12:04 Ur Squamous Epith Cells None /hpf (0-5) 08/03/22 12:04 Amorphous Sediment Not Reportable 08/03/22 12:04 Urine Bacteria Trace /hpf (NONE) 08/03/22 12:04 Urine Sperm 1+ /hpf 08/03/22 12:04 Discharge Plan Discharge Patient Disposition: Placed in Observation Clinical Impression: Heart failure, History of pulmonary embolus (PE), Atrial fibrillation with RVR, Continuous tobacco abuse, Non compliance w medication regimen, Financial insecurity Condition: Stable Prescriptions: No Action Eliquis 5 mg tablet 5 mg PO BID@0900,2100 Qty: 60 5RF Rx Instructions: 340 B diltiazem HCl 240 mg capsule,extended release 24hr 240 mg PO BID Qty: 60 0RF Rx Instructions: MUST have follow-up for further refills ibuprofen 200 mg Tablet 200 - 400 mg PO Q6H PRN (Reason: pain/headache) Lasix 40 mg tablet See Rx Instructions .ROUTE .COMPLEX Rx Instructions: 80 mg orally in the morning / 40mg in the evening Coding Level of Care Code ED Seed Analysis Laboratory Assistant for Haseeb Fwd Exam Comprehensive
[2022-08-03] MEDS: aspirin 325 mg Tablet PO (10:18)
[2022-08-03 10:23] LABS: Basophils % 0.4 %; Eosinophils # 0.2 10^3/uL (0.0-0.8); Eosinophils % 1.7 %; Hematocrit 55.2 % (42.0-52.0); Hemoglobin 18.8 g/dL (11.7-16.6); Lymphocytes # 2.1 10^3/uL (0.8-4.8); Lymphocytes % 20.9 %; Mean Corpuscular HGB Conc 34.1 g/dL (30.0-36.0); Mean Corpuscular Hemoglobin 32.9 pg (28.0-34.0); Mean Corpuscular Volume 96.7 fl (80-94); Mean Platelet Volume 10.5 fL (7.4-10.4); Monocytes # 0.7 10^3/uL (0.2-0.9); Neutrophils # 6.84 10^3/uL (1.8-7.7); Neutrophils % 69.6 %; Nucleated Red Blood Cells % 0 %; Platelet Count 173 10^3/cmm (130-400); Red Blood Count 5.71 10^6/uL (4.1-5.3); Red Cell Distribution Width 12.5 % (12.1-15.1); White Blood Count 9.8 10^3/uL (4.0-10.0)
[2022-08-03 10:26] LABS: INR 0.93 (0.8-1.2)
[2022-08-03 10:29] LABS: D Dimer 0.67 ug/mIFEU (0-0.59)
[2022-08-03 10:32] LABS: Troponin(5th) Baseline 13 ng/L (0-15)
[2022-08-03 10:48] LABS: Alanine Aminotransferase 14 U/L (0-41); Albumin Level 4.5 g/dL (3.5-5.2); Alkaline Phosphatase 149 U/L (40-130); Anion Gap 16.3 (5-19); Aspartate Amino Transferase 13 U/L (0-40); Blood Urea Nitrogen 16 mg/dL (6-20); Calcium 9.4 mg/dL (8.5-10.5); Carbon Dioxide 27 mmol/L (22-29); Chloride 96 mmol/L (98-107); Globulin 3.4 g/dL (1.3-4.6); Glomerular Filtration Rate 73.4 mL/min (90-130); Glucose 112 mg/dL (65-115); Lipase 21 U/L (13-60); Magnesium 1.9 mg/dL (1.7-2.3); NT Pro B Type Natriuretic Pept 1123 pg/mL (0-125); Osmolality Calculated 284 mOsm/kg (285-295); Potassium 3.3 mmol/L (3.5-5.1); Sodium 136 mmol/L (136-145); Total Bilirubin 0.3 mg/dL (0.15-1.2); Total Protein 7.9 g/dL (6.6-8.7)
[2022-08-03 10:56] VITALS: BP 164/85; PULSE 88; RESP 14; O2SAT 94
[2022-08-03] MEDS: FUROsemide 10 mg/mL SDV 10mL 80 MG IVP (12:05)
--- NOTE | 2022-08-03 12:10 | ECG_ITS ---
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 Measurements Intervals [place] Rate: 98 P: 0 NC: 0 QRS: 65 QRSD: 93 T: 32 QT: 353 QTc: 451 Interpretive Statements ATRIAL FIBRILLATION POSSIBLE RIGHT VENTRICULAR CONDUCTION DELAY [RSR (QR) IN V1/V2] NONSPECIFIC ST & T-WAVE ABNORMALITY Compared to ECG 08/03/2022 09:52:01 No significant changes Electronically Signed On 08-04-2022 9:25:57 FLIGHT OPERATION COORDINATOR by Brooklyn Mustafa M.D. [id number]
[2022-08-03 12:40] LABS: Add Urine Microscopic? YES; Bilirubin Urine Neg (Negative); Blood Urine 2+ (Negative); Glucose Urine UA Norm (Normal); Ketones Urine Negative (Negative); Leukocyte Esterase Urine Negative (Negative); Nitrate Urine Negative (Negative); Protein Urine Neg (Negative); Specific Gravity, Urine 1.015 (1.005-1.030); Urine Appearance Clear (CLEAR); Urine Color Yellow (Yellow); Urobilinogen Urine Norm (Negative); pH Urine 5 (5-7)
[2022-08-03 12:42] LABS: RBC Urine 0-4 /hpf (0-2); WBC Urine RARE /hpf (0-5)
[2022-08-03 12:43] LABS: Add Urine Culture? No; Bacteria Urine TRACE /hpf; Sperm Urine 1+ /hpf
[2022-08-03 13:06] LABS: Troponin 5 2HR 9.67 ng/L (0-15)
[2022-08-03 14:01] LABS: Troponin 5 2HR Delta -3.33 ABS# (0-10)
[2022-08-03 14:31] VITALS: BP 138/86; PULSE 94; RESP 14; O2SAT 91
[2022-08-03 15:33] VITALS: BP 138/86; PULSE 72; RESP 16; O2SAT 93
== END 2022-08-03 17:22 | disposition home or self-care (01) ==
PROVIDERS: Emergency Provider Emergency Medicine
DX: I50.9 Heart failure, unspecified (principal); Z86.711 Personal history of pulmonary embolism; I48.20 Chronic atrial fibrillation, unspecified; Z91.14 Patient's other noncompliance with medication regimen; Z59.9 Problem related to housing and economic circumstances, unspecified; Z79.01 Long term (current) use of anticoagulants
CPT/HCPCS: 36415; 71045; 80053; 81001; 83690; 83735; 83880; 84484; 85025; 85378; 85610; 93005; 96374; 99285; J1940

== ENCOUNTER 2022-08-17 09:05 | Emergency (ER) | payer SELFPAY ==
[2022-08-17 09:18] VITALS: PULSE 95; RESP 22; TEMP 36.7; O2SAT 95
--- NOTE | 2022-08-17 09:21 | XRR_ITS ---
PROCEDURE INFORMATION: Exam: XR Chest Exam date and time: 08/17/2022 9:29 AM Age: 42 years old Clinical indication: Shortness of breath; Additional info: Dyspnea/cough TECHNIQUE: Imaging protocol: Radiologic exam of the chest. Views: 1 view. COMPARISON: CR (CHEST, ) 08/03/2022 10:19 AM FINDINGS: Lungs: The lung parenchyma is clear. Pleural spaces: No pneumothorax. No pleural effusion. Heart/Mediastinum: The cardiomediastinal silhouette is within normal limits. Bones/joints: Unremarkable. XR/XR chest 1V portable [id number] IMPRESSION: No acute cardiopulmonary abnormality.
--- NOTE | 2022-08-17 09:45 | W.ED.SOB ---
HPI - SOB/Dyspnea General: Chief Complaint: Shortness of Breath/Dyspnea Stated Complaint: SOB Time Seen by Provider: 08/17/22 09:20 Source: patient Mode of arrival: ambulatory History of Present Illness: HPI Narrative: 42-year-old male presents emergency room complaining of shortness of breath nonproductive cough no fever sweats or chills. Patient is a smoker. He is not on any inhaled medications. He has a history of DVT atrial fibrillation and PE he is currently on Eliquis has not missed any doses. No chest pain. MD elicited complaint: shortness of breath and cough Timing: constant Severity: mild Exacerbating factors: nothing Relieving factors: nothing Associated symptoms: Reports chest congestion and cough; Deny abdominal pain, chest pain, diaphoresis, dizziness, extremity pain, fever(s), hemoptysis, lightheadedness, myalgias, nausea, orthopnea, palpitations, paresthesias, polydipsia, polyuria, rash, sense of impending doom, syncope, vomiting or other Treatment prior to arrival: none Related Data: Home oxygen amount: none Review of Systems Const: Denies: fever(s), chills, fatigue, malaise or diaphoresis ENMT: Denies: throat pain, ear or mastoid pain, nasal discharge or nasal congestion Card: Denies: chest pain, palpitations, lightheadedness, syncope or orthopnea Resp: Reports: chest congestion; Denies: hemoptysis GI: Denies: abdominal pain, nausea or vomiting : Denies: flank pain, dysuria, urinary frequency or urinary urgency Musc: Denies: extremity pain Skin/Breast: Denies: rash or pruritus Neuro: Denies: dizziness Endo: Denies: polyuria or polydipsia PFSH ED PFSH: Medical History SAILAJA (acute kidney injury) Atrial fibrillation with RVR Currently rate controlled DVT (deep venous thrombosis) Heart failure Currently euvolemic History of pulmonary embolus (PE) Obesity Pulmonary embolism Family History Family/Other Hypertension Other Diabetes Denies family history of Stroke Social History Alcohol intake: never Physical Exam Const: COMMON NORMALS: no acute distress GENERAL APPEARANCE: cooperative and comfortable ORIENTATION/CONSCIOUSNESS: Yes awake, Yes oriented to person, Yes oriented to place and Yes oriented to time HENMT: COMMON NORMALS: normocephalic, atraumatic and hearing grossly normal bilaterally HEAD & SCALP: normocephalic and atraumatic Resp: COMMON NORMALS: normal respiratory effort, No retractions and No use of accessory muscles AUSCULTATION: wheezes Cardio: COMMON NORMALS: regular rate, regular rhythm and No murmurs present (Cardio) RATE: regular rate RHYTHM: regular rhythm GI: COMMON NORMALS: Soft to palpation and No hepatosplenomegaly present AUSCULTATION: Yes normoactive bowel sounds PALPATION: Yes Soft to palpation, No Tenderness to palpation present (GI), No Guarding due to palpation present (GI) and Yes No hepatosplenomegaly present Extremity: COMMON NORMALS: normal to inspection, capillary refill normal, no clubbing, cyanosis or edema, no calf tenderness and no pedal edema Neuro: SENSORIUM/ORIENTATION: Yes oriented to person, Yes oriented to place and Yes oriented to time Skin: COMMON NORMALS: no rashes or lesions noted GENERAL SKIN EXAM: no rashes or lesions noted Course Vital Signs: Vital signs: Vital Signs Temperature 98.1 F 08/17/22 09:18 Pulse Rate 78 08/17/22 11:37 Respiratory Rate 16 08/17/22 10:18 Blood Pressure 138/74 08/17/22 11:37 Pulse Oximetry 95 08/17/22 11:37 Oxygen Delivery Me thod 08/17/22 10:18 MDM - SOB/Dyspnea Medical Decision Making Labs and imaging reviewed. EKG shows A-fib with well-controlled rate is not having any chest pain. There is no sign of congestive heart failure or pneumonia. There is some flattening of his diaphragm and mild hyperinflation suspect he has some manifestations of COPD with his long smoking history. Discharge patient home on steroid taper and albuterol to use as needed Medical Records I reviewed the patient's medical records. Lab Data I reviewed the patient's lab results. 08/17/22 09:46 08/17/22 09:46 Labs/Radiology: Radiology Impressions Chest X-Ray 08/17/22 09:21 IMPRESSION: No acute cardiopulmonary abnormality. Laboratory Results WBC 8.6 10^3/uL (4.0-10.0) 08/17/22 09:46 RBC 5.67 10^6/uL (4.1-5.3) H 08/17/22 09:46 Hgb 19.0 g/dL (11.7-16.6) H 08/17/22 09:46 Hct 55.7 % (42.0-52.0) H 08/17/22 09:46 MCV 98.2 fl (80-94) H 08/17/22 09:46 MCH 33.5 pg (28.0-34.0) 08/17/22 09:46 MCHC 34.1 g/dL (30.0-36.0) 08/17/22 09:46 RDW 12.6 % (12.1-15.1) 08/17/22 09:46 Plt Count 166 10^3/cmm (130-400) 08/17/22 09:46 MPV 10.4 fL (7.4-10.4) 08/17/22 09:46 Neut % (Auto) 64.2 % 08/17/22 09:46 Lymph % (Auto) 25.6 % 08/17/22 09:46 [place] % (Auto) 7.1 % 08/17/22 09:46 Eos % (Auto) 2.1 % 08/17/22 09:46 Baso % (Auto) 0.5 % 08/17/22 09:46 Neut # (Auto) 5.53 10^3/uL (1.8-7.7) 08/17/22 09:46 Lymph # (Auto) 2.2 10^3/uL (0.8-4.8) 08/17/22 09:46 [place] # (Auto) 0.6 10^3/uL (0.2-0.9) 08/17/22 09:46 Eos # (Auto) 0.2 10^3/uL (0.0-0.8) 08/17/22 09:46 Baso # (Auto) 0.0 10^3/uL (0.0-0.1) 08/17/22 09:46 Nucleated RBC % (auto) 0 % 08/17/22 09:46 Nucleated RBCs # 0.0 /100WBC 08/17/22 09:46 Sodium 139 mmol/L (136-145) 08/17/22 09:46 Potassium 3.8 mmol/L (3.5-5.1) 08/17/22 09:46 Chloride 99 mmol/L (98-107) 08/17/22 09:46 Carbon Dioxide 31 mmol/L (22-29) H 08/17/22 09:46 Anion Gap 12.8 (5-19) 08/17/22 09:46 BUN 21 mg/dL (6-20) H 08/17/22 09:46 Creatinine 1.1 mg/dL (0.7-1.2) 08/17/22 09:46 GFR Calculation 73.4 mL/min (90-130) L 08/17/22 09:46 Glucose 115 mg/dL (65-115) 08/17/22 09:46 Calculated Osmolality 292 mOsm/kg (285-295) 08/17/22 09:46 Calcium 9.6 mg/dL (8.5-10.5) 08/17/22 09:46 Total Bilirubin 0.3 mg/dL (0.15-1.2) 08/17/22 09:46 AST 13 U/L (0-40) 08/17/22 09:46 ALT 18 U/L (0-41) 08/17/22 09:46 Alkaline Phosphatase 154 U/L (40-130) H 08/17/22 09:46 Total Protein 7.8 g/dL (6.6-8.7) 08/17/22 09:46 Albumin 4.6 g/dL (3.5-5.2) 08/17/22 09:46 Globulin 3.2 g/dL (1.3-4.6) 08/17/22 09:46 Discharge Plan Discharge Patient Disposition: Home Clinical Impression: Acute exacerbation of chronic obstructive airways disease Condition: Stable Prescriptions: New Medrol (Ravi) 4 mg tablets,dose pack See Rx Instructions .ROUTE .COMPLEX Qty: 21 0RF Rx Instructions: orally per package directions albuterol sulfate 90 mcg/actuation HFA aerosol inhaler 2 inh INHALATION Q4H PRN (Reason: shortness of breath or wheezing) Qty: 18 0RF No Action Eliquis 5 mg tablet 5 mg PO BID@0900,2100 Qty: 60 5RF Rx Instructions: 340 B diltiazem HCl 240 mg capsule,extended release 24hr 240 mg PO BID Qty: 60 0RF Rx Instructions: MUST have follow-up for further refills ibuprofen 200 mg Tablet 200 - 400 mg PO Q6H PRN (Reason: pain/headache) Lasix 40 mg tablet See Rx Instructions .ROUTE .COMPLEX Rx Instructions: 80 mg orally in the morning / 40mg in the evening Discharge Orders: Discharge ED (Routine); Ordered 08/17/22 Ordered By: Robi Tsai Patient Instructions: Opioid Safety, Pain Management Activity Restrictions/Additional Instructions: Your chest x-ray did not show any acute infiltrates there is some mild hyperinflation and flattening the diaphragm which is suggestive of COPD consistent with your smoking history. Recommend you stop smoking follow-up with your primary care doctor and they can reevaluate and look at doing pulmonary function test. To alleviate your immediate symptoms we will have you use albuterol as needed and a course of tapering steroids. Give any worsening or changes symptoms return. Coding Level of Care Code ED [facility] for Haseeb Arenas Exam Detailed
[2022-08-17 09:55] LABS: Basophils % 0.5 %; Eosinophils # 0.2 10^3/uL (0.0-0.8); Eosinophils % 2.1 %; Hematocrit 55.7 % (42.0-52.0); Lymphocytes # 2.2 10^3/uL (0.8-4.8); Lymphocytes % 25.6 %; Mean Corpuscular HGB Conc 34.1 g/dL (30.0-36.0); Mean Corpuscular Hemoglobin 33.5 pg (28.0-34.0); Mean Corpuscular Volume 98.2 fl (80-94); Mean Platelet Volume 10.4 fL (7.4-10.4); Monocytes # 0.6 10^3/uL (0.2-0.9); Monocytes % 7.1 %; Neutrophils # 5.53 10^3/uL (1.8-7.7); Neutrophils % 64.2 %; Nucleated Red Blood Cells % 0 %; Platelet Count 166 10^3/cmm (130-400); Red Blood Count 5.67 10^6/uL (4.1-5.3); Red Cell Distribution Width 12.6 % (12.1-15.1); White Blood Count 8.6 10^3/uL (4.0-10.0)
[2022-08-17 10:18] VITALS: PULSE 79; RESP 16; O2SAT 94
[2022-08-17] MEDS: albuterol 2.5 mg/3 mL Neb INHALATION (10:19)
[2022-08-17] MEDS: ipratropium-albuterol 3 mL Neb INHALATION (10:19)
[2022-08-17 10:21] VITALS: PULSE 80
[2022-08-17 10:49] LABS: Alanine Aminotransferase 18 U/L (0-41); Albumin Level 4.6 g/dL (3.5-5.2); Alkaline Phosphatase 154 U/L (40-130); Anion Gap 12.8 (5-19); Aspartate Amino Transferase 13 U/L (0-40); Blood Urea Nitrogen 21 mg/dL (6-20); Calcium 9.6 mg/dL (8.5-10.5); Carbon Dioxide 31 mmol/L (22-29); Chloride 99 mmol/L (98-107); Globulin 3.2 g/dL (1.3-4.6); Glomerular Filtration Rate 73.4 mL/min (90-130); Glucose 115 mg/dL (65-115); Osmolality Calculated 292 mOsm/kg (285-295); Potassium 3.8 mmol/L (3.5-5.1); Sodium 139 mmol/L (136-145); Total Bilirubin 0.3 mg/dL (0.15-1.2); Total Protein 7.8 g/dL (6.6-8.7)
[2022-08-17 11:07] VITALS: BP 132/63; PULSE 71; O2SAT 95
--- NOTE | 2022-08-17 11:22 | ECG_ITS ---
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 Measurements Intervals [place] Rate: 87 P: 0 MA: 0 QRS: 60 QRSD: 98 T: 59 QT: 381 QTc: 459 Interpretive Statements ATRIAL FIBRILLATION NONSPECIFIC T-WAVE ABNORMALITY ABNORMAL RHYTHM ECG Compared to ECG 08/03/2022 12:26:57 No significant changes Electronically Signed On 08-17-2022 18:24:38 LAWN CARE WORKER by Brooklyn Mustafa M.D. [id number]
[2022-08-17 11:37] VITALS: BP 138/74; PULSE 78; O2SAT 95
== END 2022-08-17 11:38 | disposition home or self-care (01) ==
PROVIDERS: Emergency Provider Family Medicine
DX: J44.1 Chronic obstructive pulmonary disease with (acute) exacerbation (principal); Z79.01 Long term (current) use of anticoagulants; I50.9 Heart failure, unspecified
CPT/HCPCS: 71045; 80053; 85025; 93005; 94640; 96374; 99285; J2930; J7613

== ENCOUNTER 2022-11-07 03:34 | Inpatient (IN) | payer SELFPAY ==
[2022-11-07] VITALS (24 sets, daily range): BP systolic 103–150; BP diastolic 54–91; PULSE 72–127; RESP 16–24; TEMP 36.4–36.9; O2SAT 87–97; BMI 39.2
--- NOTE | 2022-11-07 03:44 | XRR_ITS ---
PROCEDURE INFORMATION: Exam: XR Chest Exam date and time: 11/07/2022 3:47 AM Age: 42 years old Clinical indication: Shortness of breath; Patient HX: C/O SOB. History of afib. TECHNIQUE: Imaging protocol: Radiologic exam of the chest. Views: 1 view. COMPARISON: CR XR chest 1V portable [id number] 08/17/2022 9:29 AM FINDINGS: Tubes, catheters and devices: EKG monitoring leads overlie the thoracic wall. Lungs: There is bilateral upper and lower lobe pleuroparenchymal scarring. There is no evidence of focal pulmonary consolidation. Pleural spaces: No pleural effusion or pneumothorax. Heart/Mediastinum: Normal in size. Bones/joints: No acute fracture is identified. XR/XR chest 1V portable [id number] IMPRESSION: 1. No acute findings. 2. No significant interval change.
--- NOTE | 2022-11-07 03:45 | W.ED.SOB ---
HPI - SOB/Dyspnea General: Chief Complaint: Shortness of Breath/Dyspnea Stated Complaint: Sob Time Seen by Provider: 11/07/22 03:41 Source: patient Mode of arrival: ambulatory Limitations: no limitations History of Present Illness: HPI Narrative: 42-year-old male who has a history of COPD CHF along with A-fib states that since Friday he has been having a cough along with a lot of nasal congestion he states he had increasing shortness of breath since Friday states that he started having worsening shortness of breath since 4 PM last night states he does not have an inhaler albuterol machine at home. He had increased wheezing he does have a pulse ox of 87% on room air he denies any chest pain or fevers. Associated symptoms: Deny abdominal pain, chest pain, fever(s), nausea or vomiting Review of Systems Const: Denies: fever(s), chills or body aches Eyes: Denies: eye discomfort ENMT: Denies: throat pain or dental pain Card: Denies: chest pain Resp: Reports: dyspnea, non-productive cough and wheezing GI: Denies: abdominal pain, nausea, vomiting or diarrhea : Denies: dysuria Musc: Denies: neck pain or back pain Skin/Breast: Denies: rash Neuro: Denies: headache(s) Psych: Denies: depression PFSH ED PFSH: Medical History SAILAJA (acute kidney injury) Atrial fibrillation with RVR Currently rate controlled DVT (deep venous thrombosis) Heart failure Currently euvolemic History of pulmonary embolus (PE) Obesity Pulmonary embolism Family History Family/Other Hypertension Other Diabetes Denies family history of Stroke Social History Alcohol intake: never Substance/Drug Use: never Physical Exam Const: COMMON NORMALS: patient oriented x3 HENMT: COMMON NORMALS: normocephalic and atraumatic HEAD & SCALP: normocephalic and atraumatic Eye: COMMON NORMALS: conjunctivae normal CONJUNCTIVA: Yes conjunctivae normal Neck/C-Spine: COMMON NORMALS: full ROM and supple Chest: COMMONS NORMALS: normal inspection of the chest and normal palpation of entire chest wall Resp: EFFORT & INSPECTION: Yes labored AUSCULTATION: wheezes Cardio: COMMON NORMALS: No murmurs present (Cardio) RATE: tachycardic RHYTHM: abnormal rhythm irregularly irregular GI: COMMON NORMALS: Normal to inspection, nondistended, normoactive bowel sounds present, Soft to palpation, non-tender and no masses PALPATION: Yes Soft to palpation Extremity: COMMON NORMALS: normal to inspection and full ROM Neuro: COMMON NORMALS: patient oriented x3, moves all extremities and no focal motor deficits Psych: COMMON NORMALS: mental status grossly normal, Normal thought process present and cooperative THOUGHT PROCESS: Normal thought process present Skin: COMMON NORMALS: no rashes or lesions noted and no wounds GENERAL SKIN EXAM: no rashes or lesions noted Course Vital Signs: Vital signs: Vital Signs Temperature 97.6 F 11/07/22 03:40 Pulse Rate 95 11/07/22 05:24 Respiratory Rate 16 11/07/22 05:24 Blood Pressure 123/80 11/07/22 05:24 Pulse Oximetry 92 11/07/22 05:24 Oxygen Delivery Me thod Nasal Cannula 11/07/22 05:01 Oxygen Flow Rate 2 11/07/22 05:01 MDM - SOB/Dyspnea Medical Decision Making Patient presents for shortness of breath likely COPD exacerbation he is a breathing treatment here he is still hypoxic on room air did give him Cardizem for his A-fib spoke to the hospitalist and will admit at this time. Differential Diagnosis Likely acute exacerbation of chronic obstructive airways disease and congestive heart failure; Unlikely community acquired pneumonia or pulmonary embolism Medical Records I reviewed the patient's medical records. Lab Data I reviewed the patient's lab results. 11/07/22 03:58 11/07/22 03:58 Labs/Radiology: Radiology Impressions Chest X-Ray 11/07/22 03:44 IMPRESSION: 1. No acute findings. 2. No significant interval change. Laboratory Results WBC 8.1 10^3/uL (4.0-10.0) 11/07/22 03:58 RBC 5.47 10^6/uL (4.1-5.3) H 11/07/22 03:58 Hgb 17.9 g/dL (11.7-16.6) H 11/07/22 03:58 Hct 53.6 % (42.0-52.0) H 11/07/22 03:58 MCV 98.0 fl (80-94) H 11/07/22 03:58 MCH 32.7 pg (28.0-34.0) 11/07/22 03:58 MCHC 33.4 g/dL (30.0-36.0) 11/07/22 03:58 RDW 12.7 % (12.1-15.1) 11/07/22 03:58 Plt Count 119 10^3/cmm (130-400) L 11/07/22 03:58 MPV 10.5 fL (7.4-10.4) H 11/07/22 03:58 Neut % (Auto) 74.8 % 11/07/22 03:58 Lymph % (Auto) 11.1 % 11/07/22 03:58 [place] % (Auto) 12.2 % 11/07/22 03:58 Eos % (Auto) 1.5 % 11/07/22 03:58 Baso % (Auto) 0.2 % 11/07/22 03:58 Neut # (Auto) 6.06 10^3/uL (1.8-7.7) 11/07/22 03:58 Lymph # (Auto) 0.9 10^3/uL (0.8-4.8) 11/07/22 03:58 [place] # (Auto) 1.0 10^3/uL (0.2-0.9) H 11/07/22 03:58 Eos # (Auto) 0.1 10^3/uL (0.0-0.8) 11/07/22 03:58 Baso # (Auto) 0.0 10^3/uL (0.0-0.1) 11/07/22 03:58 Nucleated RBC % (auto) 0 % 11/07/22 03:58 Nucleated RBCs # 0.0 /100WBC 11/07/22 03:58 Specimen Type Arterial 11/07/22 03:51 Sample Site Radial, left 11/07/22 03:51 ABG pH 7.31 (7.35-7.45) L 11/07/22 03:51 ABG pCO2 54.8 mmHg (35-45) H 11/07/22 03:51 ABG pO2 67.5 mmHg (80.0-100.0) L 11/07/22 03:51 ABG HCO3 27.6 mmol/L (22-26) H 11/07/22 03:51 ABG Base Excess -0.2 mmol/L (-2.0-2.0) 11/07/22 03:51 Anthony Test Pos 11/07/22 03:51 Hematocrit 54.3 % (42-52) H 11/07/22 03:51 Hgb O2 Saturation 84.7 % (95-100) L 11/07/22 03:51 Carboxyhemoglobin 10.0 %THgb (0.4-20.1) 11/07/22 03:51 Methemoglobin 0.2 % (0.4-1.5) L 11/07/22 03:51 Total Hemoglobin 17.7 g/dL (14-18) 11/07/22 03:51 O2 Delivery Device Nc 11/07/22 03:51 O2 Liters/Min 2.0 % 11/07/22 03:51 FiO2 28.0 % 11/07/22 03:51 [place] Operator ID [place] 11/07/22 03:51 Sodium 135 mmol/L (136-145) L 11/07/22 03:58 Potassium 4.0 mmol/L (3.5-5.1) 11/07/22 03:58 Chloride 99 mmol/L (98-107) 11/07/22 03:58 Carbon Dioxide 25 mmol/L (22-29) 11/07/22 03:58 Anion Gap 15.0 (5-19) 11/07/22 03:58 BUN 15 mg/dL (6-20) 11/07/22 03:58 Creatinine 0.9 mg/dL (0.7-1.2) 11/07/22 03:58 GFR Calculation 92.5 mL/min (90-130) 11/07/22 03:58 Glucose 117 mg/dL (65-115) H 11/07/22 03:58 Calculated Osmolality 282 mOsm/kg (285-295) L 11/07/22 03:58 Calcium 8.6 mg/dL (8.5-10.5) 11/07/22 03:58 Total Bilirubin 0.3 mg/dL (0.15-1.2) 11/07/22 03:58 AST 15 U/L (0-40) 11/07/22 03:58 ALT 15 U/L (0-41) 11/07/22 03:58 Alkaline Phosphatase 129 U/L (40-130) 11/07/22 03:58 NT-Pro-B Natriuret Pep 1483 pg/mL (0-125) H 11/07/22 03:58 Total Protein 7.4 g/dL (6.6-8.7) 11/07/22 03:58 Albumin 4.2 g/dL (3.5-5.2) 11/07/22 03:58 Globulin 3.2 g/dL (1.3-4.6) 11/07/22 03:58 SARS-CoV-2 Ag (Rapid) Negative (Negative) 11/07/22 03:50 EKG Data EKG 1: I personally reviewed and interpreted this EKG as follows: EKG Interpretation Date: 11/07/22 EKG interpretation time: 03:46 Interpretation: AFIB with rvr hr [address] or t wave abnormalities qrs 88 qtc 396 Critical Care Time Critical Care Time: Critical Care Time: Yes Total Critical Care Time: 40 Attestation: The high probability of a clinically significant, sudden or life threatening deterioration of the patient's resp system(s) required my full and direct attention, intervention and personal management. The critical care time is as shown. This time is in addition to time spent performing any reported procedures but includes the following: [x] Data and vital sign review and interpretation [x] Patient assessment, examination and intervention [x] Documentation [x] Medication orders and management Discharge Plan Discharge Patient Disposition: Admitted As Inpatient Clinical Impression: Acute exacerbation of chronic obstructive airways disease, Atrial fibrillation with RVR, Acute respiratory failure with hypoxemia Condition: Stable Coding Level of Care Code ED [facility] Player for Haseeb Arenas
--- NOTE | 2022-11-07 03:46 | ECG_ITS ---
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 Measurements Intervals [employer] Rate: 120 P: 0 OK: 0 QRS: 61 QRSD: 88 T: 55 QT: 325 QTc: 461 Interpretive Statements ATRIAL FIBRILLATION WITH RAPID VENTRICULAR RESPONSE MODERATE ST DEPRESSION [0.05+ mV ST DEPRESSION] Compared to ECG 08/17/2022 11:22:40 ST (T wave) deviation now present T-wave abnormality no longer present Electronically Signed On 11-07-2022 16:13:54 CDT by Sunny Bennett M.D. [id number]
[2022-11-07] MEDS: albuterol 2.5 mg/3 mL Neb 5 MG INHALATION (03:58)
[2022-11-07] MEDS: ipratropium 0.5 mg/2.5 mL Neb INHALATION (03:58)
[2022-11-07 04:03] LABS: ABG PCO2 54.8 mmHg (35-45); ABG PH Result 7.31 (7.35-7.45); Arterial Blood Gas Hematocrit 54.3 % (42-52); Base Excess ABG -0.2 mmol/L (-2.0-2.0); Blood Gas Allen Test Pos; Blood Gas Operator Identificat MONRO; Blood Gas Sample Site Radial, left; Blood Gas Sample Type Arterial; HCO3 ABG 27.6 mmol/L (22-26); HGB O2 Sat 84.7 % (95-100); Methemoglobin 0.2 % (0.4-1.5); Oxygen Device NC; PO2 ABG 67.5 mmHg (80.0-100.0); Total Hemoglobin 17.7 g/dL (14-18)
[2022-11-07] MEDS: dilTIAZem 5 mg/mL SDV 5 mL 20 MG IVP (04:04)
[2022-11-07 04:09] LABS: Basophils % 0.2 %; Eosinophils # 0.1 10^3/uL (0.0-0.8); Eosinophils % 1.5 %; Hematocrit 53.6 % (42.0-52.0); Hemoglobin 17.9 g/dL (11.7-16.6); Lymphocytes # 0.9 10^3/uL (0.8-4.8); Lymphocytes % 11.1 %; Mean Corpuscular HGB Conc 33.4 g/dL (30.0-36.0); Mean Corpuscular Hemoglobin 32.7 pg (28.0-34.0); Mean Platelet Volume 10.5 fL (7.4-10.4); Monocytes % 12.2 %; Neutrophils # 6.06 10^3/uL (1.8-7.7); Neutrophils % 74.8 %; Nucleated Red Blood Cells % 0 %; Platelet Count 119 10^3/cmm (130-400); Red Blood Count 5.47 10^6/uL (4.1-5.3); Red Cell Distribution Width 12.7 % (12.1-15.1); White Blood Count 8.1 10^3/uL (4.0-10.0)
[2022-11-07 04:31] LABS: Alanine Aminotransferase 15 U/L (0-41); Albumin Level 4.2 g/dL (3.5-5.2); Alkaline Phosphatase 129 U/L (40-130); Aspartate Amino Transferase 15 U/L (0-40); Blood Urea Nitrogen 15 mg/dL (6-20); Calcium 8.6 mg/dL (8.5-10.5); Carbon Dioxide 25 mmol/L (22-29); Chloride 99 mmol/L (98-107); Globulin 3.2 g/dL (1.3-4.6); Glomerular Filtration Rate 92.5 mL/min (90-130); Glucose 117 mg/dL (65-115); NT Pro B Type Natriuretic Pept 1483 pg/mL (0-125); Osmolality Calculated 282 mOsm/kg (285-295); Sodium 135 mmol/L (136-145); Total Bilirubin 0.3 mg/dL (0.15-1.2); Total Protein 7.4 g/dL (6.6-8.7)
[2022-11-07 04:55] LABS: SARS Covid-2 Antigen Negative (Negative)
[2022-11-07] MEDS: albuterol 8 gm MDI 2 PUFF INHALATION (05:00)
--- NOTE | 2022-11-07 05:19 | CTR_ITS ---
PROCEDURE INFORMATION: Exam: CTA Chest With Contrast Exam date and time: 11/07/2022 5:40 AM Age: 42 years old Clinical indication: Shortness of breath; Patient HX: SOB with hypoxia. Afib. History of pe. TECHNIQUE: Imaging protocol: Computed tomographic angiography of the chest with contrast. 3D rendering (Not supervised by radiologist): MIP and/or 3D reconstructed images were created by the technologist. Radiation optimization: All CT scans at this facility use at least one of these dose optimization techniques: automated exposure control; mA and/or kV adjustment per patient size (includes targeted exams where dose is matched to clinical indication); or iterative reconstruction. Contrast material: OMNI 350; Contrast volume: 100 ml; Contrast route: INTRAVENOUS (IV); REPORTING DATA: Count of CT and Cardiac NM exams in prior 12 months: This patient has received 0 known CTs and 0 known cardiac nuclear medicine studies in the 12 months prior to the current study. COMPARISON: CT angio chest PE protcl [id number] 09/14/2020 1:49 PM RADIATION DOSE METRICS: Total DLP (mGy-cm): 636.4 FINDINGS: Pulmonary arteries: There are no filling defects in the pulmonary arteries to suggest pulmonary emboli. Aorta: There is no thoracic aortic aneurysm. Lungs: There is no evidence of focal pulmonary consolidation. There is central peribronchial thickening as seen in bronchitis/pneumonitis (series 8, image 43; series 9, image 31). There are mild bibasilar atelectatic changes. Mild paraseptal emphysematous changes are noted. Pleural spaces: Unremarkable. No pneumothorax. No pleural effusion. Heart: The heart is normal in size. There are no pericardial fluid collections. Lymph nodes: Multiple nonenlarged and mildly prominent mediastinal lymph nodes are present as large as 12 mm in short dimension, likely reactive. Bones/joints: No acute fracture. There are multiple small Schmorl's nodes of the lower thoracic spine. Soft tissues: Unremarkable. CT/CT angio chest PE protcl [id number] IMPRESSION: 1. No evidence of pulmonary embolus. 2. Central peribronchial thickening consistent with bronchitis/pneumonitis. 3. Normal sized and mildly enlarged mediastinal lymph nodes, likely reactive.
[2022-11-07] MEDS: FUROsemide 10 mg/mL SDV 2mL 20 MG IVP (05:31)
--- NOTE | 2022-11-07 05:32 | PM.HP ---
Providers/Chief Complaint Admitting Physician: Petr Sharif MD, hospitalist Chief Complaint: Sob History of Present Illness Porter Lagos is a 42 year old male who presents to the hospital with shortness of breath, cough with occasional production of sputum, and wheezing since yesterday about 4 PM or so. He reports he was recently taking care of an ill disabled child, who was ill with a respiratory illness as well. He felt like he had fever yesterday with some sweats and chills but did not take his temperature. He has had no vomiting or diarrhea. He continues to smoke. Past medical history was significant for history of pulmonary embolism and DVT multiple times for which she stopped taking anticoagulation 2 months ago as he could not afford it. He reports he does not have a primary care provider but is still getting some descriptions filled such as his Lasix, and diltiazem. He does not have albuterol at home. He does not wear oxygen at home. He denies any chest discomfort except with significant coughing, and reports no hemoptysis. He reports the edema in his legs is chronic, and secondary to his DVT/PE in the past as well as his chronic heart failure and atrial fibrillation. In the emergency department he got some Solu-Medrol, a dose of Cardizem IV, and a breathing treatment. Review of Systems General: Reports: 10 or more systems reviewed and unremarkable except in HPI and below Const: Reports: fever(s) and chills Card: Reports: dyspnea on exertion; Denies: chest pain Resp: Reports: dyspnea, productive cough, wheezing and chest congestion GI: Denies: abdominal pain, nausea, vomiting, hematochezia or melena Medications/Allergies Home Medications Medication Instructions Recorded Confirmed Last Taken Type ibuprofen 200 mg tablet 200 - 400 mg PO Q6H PRN 09/14/20 08/03/22 Unknown History pain/headache apixaban 5 mg tablet (Eliquis) 5 mg PO BID@0900,2100 #60 tabs 05/15/22 08/03/22 08/03/22 Rx diltiazem HCl 240 mg 240 mg PO BID #60 caps 07/16/22 08/03/22 08/03/22 Rx capsule,extended release 24 hr furosemide 40 mg tablet (Lasix) See Rx Instructions .Route .COMPLEX 01/21/23 01/21/23 01/21/23 History albuterol sulfate 90 mcg/actuation 2 inh inhalation Q4H PRN shortness 08/17/22 Unknown Rx aerosol inhaler of breath or wheezing #18 grams methylprednisolone 4 mg tablets in See Rx Instructions PO .COMPLEX 08/17/22 Unknown Rx a dose pack (Medrol (Ravi)) #21 ea albuterol sulfate 90 mcg/actuation 2 inh inhalation Q6H PRN shortness 11/07/22 Unknown Rx aerosol inhaler of breath or wheezing #8 grams cephalexin 500 mg capsule 500 mg PO TID 7 days #21 caps 11/07/22 Unknown Rx prednisone 50 mg tablet 50 mg PO DAILY #5 tabs 11/07/22 Unknown Rx Allergies Allergy/AdvReac Type Severity Reaction Status Date / Time amantadine [From Symmetrel] Allergy Unknown Unknown Verified 11/07/22 03:46 PFSH Acute PFSH: Medical History (Updated 11/07/22 @ 05:35 by Petr Sharif MD) SAILAJA (acute kidney injury) Atrial fibrillation with RVR Currently rate controlled DVT (deep venous thrombosis) Heart failure Currently euvolemic History of pulmonary embolus (PE) Obesity Pulmonary embolism Tobacco dependence Family History Family/Other Hypertension Other Diabetes Denies family history of Stroke Social History (Updated 11/07/22 @ 05:34 by Petr Sharif MD) Smoking and tobacco status: current every day smoker Alcohol intake: never Substance/Drug Use: never Vitals/I&O/Wt Last Vital Signs Temp 97.6 F 11/07/22 03:40 Pulse 95 11/07/22 05:24 Resp 16 11/07/22 05:24 BP 123/80 11/07/22 05:24 Pulse Ox 92 11/07/22 05:24 O2 Del Method Nasal Cannula 11/07/22 05:01 O2 Flow Rate 2 11/07/22 05:01 Weight last 48 hrs Weight 154.221 kg Physical Exam Narrative: General exam demonstrates a white male, currently on 2 L of oxygen, slightly tachypneic with audible wheezing HEENT: Atraumatic and normocephalic. Oropharynx clear. Neck is supple no lymphadenopathy thyromegaly Cardiovascular irregular, irregular with slight tachycardia Lungs diminished breath sounds bilaterally. Bilateral expiratory wheezes. No crackles. Abdomen is soft obese nontender with positive bowel sounds. No obvious organomegaly exam is deferred Extremities 1+ edema bilaterally. Evidence of chronic venous stasis. No cyanosis or clubbing. Skin no rash Neuro no obvious focal deficits. Data 11/07/22 03:58 11/07/22 03:58 Other Labs: Rapid COVID is negative ABG demonstrates pH 7.31, PCO2 55, PO2 of 67, on 2 L LFTs are normal BNP 1483 Albumin 4.2 Chest x-ray by my read no obvious infiltrate Initial EKG demonstrates atrial fibrillation, rapid ventricular rate with a rate of 120, normal axis, nonspecific ST-T wave changes. Previous echocardiogram September 2020 demonstrated normal EF, poor windows A&P Assessment and plan (1) Acute exacerbation of chronic obstructive airways disease: Patient with evidence of acute exacerbation of COPD DuoNeb every 4 hours Budesonide twice daily Continue IV steroids, Solu-Medrol 60 mg IV every 12 hours No smoking Wean oxygen as tolerated Doxycycline 100 mg twice daily COVID PCR. This will screen for flu as well. Note that his rapid COVID was negative. He has had a recent ill contact with viral symptoms Check CBC in a.m. (2) Atrial fibrillation with RVR: I believe his atrial fibrillation with rapid ventricular rate is likely secondary to his COPD exacerbation. He did receive 1 dose of Cardizem in the ER Telemetry Resume his oral Cardizem Continue to monitor heart rates, and adjust medicine as needed. Check magnesium level, TSH (3) Tobacco dependence: Encourage abstinence Nicotine patch (4) History of pulmonary embolus (PE): Patient with a history of extensive recurrent PE and DVT. He has factor V Leiden mutation. He has been off his anticoagulation for 2 months. Cannot completely rule out PE as he is short of breath, requiring oxygen, and was tachycardic on admission. He does not have classic chest pain or does have hemoptysis. Obtain CTA of chest. Secondary to his lower extremity edema we will go ahead and check venous duplex Restart anticoagulation in the form of Lovenox, converting to either Eliquis or Xarelto by discharge. He will need to see discharge planning regarding help with getting this medication. (5) Heart failure: He has some evidence of fluid overload by BNP, and lower extremity edema although his lower extremity edema may also be in part due to venous stasis from prior history of DVTs. Will give him 1 small dose of IV Lasix, and resume his p.o. Lasix in the morning. At this point no need for repeat echocardiogram BMP daily while on Lasix Plan Other medical problems as outlined in past medical history Full code Lovenox will suffice for DVT prophylaxis Attestations Medical Necessity Statement*: Will need greater than 2 midnight stay for evaluation and treatment of COPD exacerbation, A-fib with RVR Diagnoses Acute exacerbation of chronic obstructive airways disease J44.1 Atrial fibrillation with RVR I48.91 Tobacco dependence F17.200 History of pulmonary embolus (PE) Z86.711 Heart failure I50.9 Time Spent (min) 51
--- NOTE | 2022-11-07 05:39 | USCV_ITS ---
Porter Lagos Age: 42 Gender: M : 1980 Exam Date: 11/07/2022 09:17 Ordering Phys: Petr Sharif MD Technologist: CT Exam Location: [facility] – [place]_ Indication: PROCEDURES: The venous duplex Doppler examination of both lower extremities was performed in the standard fashion. In addition, the posterior tibial and peroneal trunk were evaluated. Bilaterally, the common femoral, superficial femoral, profunda femoral, popliteal, posterior tibial, greater saphenous veins, and the peroneal trunk were identified and interrogated in the standard fashion. These veins were found to be easily compressible with spontaneous blood flow. No evidence of insufficiency or thrombus noted. FINDINGS: no dvt, there is some reflux in rt peron/pop v CONCLUSIONS No evidence of right lower extremity DVT. No evidence of left lower extremity DVT. Jairo Perez MD (Electronically Signed) Final Date: 07 November 2022 11:39 S
[2022-11-07] MEDS: iohexol 350 mg/mL 500 mL Btl (per mL) IV (05:53)
[2022-11-07] MEDS: FUROsemide 40 mg Tablet 80 MG PO (05:57)
[2022-11-07 06:09] LABS: Magnesium 2.3 mg/dL (1.7-2.3)
[2022-11-07 07:22] LABS: Adenovirus Not Detected (NOT DETECT); Chlamydia Pneumoniae Not Detected (NOT DETECT); Coronavirus 229E,HKU1,NL63,OC4 Not Detected (NOT DETECT); Human Metapneumovirus Not Detected (NOT DETECT); Human Rhinovirus/Enterovirus Detected (NOT DETECT); Influenza A Not Detected (NOT DETECT); Influenza A H1 Not Detected (NOT DETECT); Influenza A H1-2009 Not Detected (NOT DETECT); Influenza A H3 Not Detected (NOT DETECT); Influenza B Not Detected (NOT DETECT); Mycoplasma Pneumoniae Not Detected (NOT DETECT); Parainfluenza Virus Type 1 Not Detected (NOT DETECT); Parainfluenza Virus Type 2 Not Detected (NOT DETECT); Parainfluenza Virus Type 3 Not Detected (NOT DETECT); Parainfluenza Virus Type 4 Not Detected (NOT DETECT); Respiratory Syncytial Virus A Not Detected (NOT DETECT); Respiratory Syncytial Virus B Not Detected (NOT DETECT); SARS-COV-2 Not Detected (NOT DETECT)
[2022-11-07] MEDS: ipratropium-albuterol 3 mL Neb INHALATION ×5 (07:35→23:38)
[2022-11-07 08:50] LABS: Human Metapneumovirus Not Detected (NOT DETECT); Human Rhinovirus/Enterovirus Detected (NOT DETECT); Results from Genmark
[2022-11-07] MEDS: budesonide 0.5 mg/2 mL Neb INHALATION ×2 (09:17→20:36)
[2022-11-07] MEDS: doxycycline 100 mg Tablet PO ×2 (09:40→17:01)
[2022-11-07] MEDS: nicotine 21 mg Patch 1 PATCH TRANSDERMA (09:40)
[2022-11-07] MEDS: FUROsemide 40 mg Tablet PO (17:02)
[2022-11-07] MEDS: dilTIAZem ER (24HR) 240 mg Capsule PO (17:02)
[2022-11-07] MEDS: metoprolol tartrate 25 mg Tablet 12.5 MG PO (20:34)
[2022-11-08] VITALS (9 sets, daily range): BP systolic 116–127; BP diastolic 60–77; PULSE 86–112; RESP 16–17; TEMP 36.6–36.8; O2SAT 87–95
[2022-11-08] MEDS: ipratropium-albuterol 3 mL Neb INHALATION ×3 (03:35→11:24)
[2022-11-08 04:48] LABS: Basophils % 0.1 %; Hematocrit 47.7 % (42.0-52.0); Hemoglobin 15.9 g/dL (11.7-16.6); Lymphocytes # 0.7 10^3/uL (0.8-4.8); Lymphocytes % 9.1 %; Mean Corpuscular HGB Conc 33.3 g/dL (30.0-36.0); Mean Corpuscular Hemoglobin 32.9 pg (28.0-34.0); Mean Corpuscular Volume 98.8 fl (80-94); Monocytes # 0.4 10^3/uL (0.2-0.9); Monocytes % 5.3 %; Neutrophils # 6.42 10^3/uL (1.8-7.7); Nucleated Red Blood Cells % 0 %; Platelet Count 128 10^3/cmm (130-400); Red Blood Count 4.83 10^6/uL (4.1-5.3); Red Cell Distribution Width 12.6 % (12.1-15.1); White Blood Count 7.6 10^3/uL (4.0-10.0)
[2022-11-08 05:09] LABS: Anion Gap 13.3 (5-19); Blood Urea Nitrogen 19 mg/dL (6-20); Calcium 8.4 mg/dL (8.5-10.5); Carbon Dioxide 28 mmol/L (22-29); Chloride 100 mmol/L (98-107); Glomerular Filtration Rate 81.9 mL/min (90-130); Glucose 151 mg/dL (65-115); Magnesium 2.2 mg/dL (1.7-2.3); Osmolality Calculated 289 mOsm/kg (285-295); Potassium 4.3 mmol/L (3.5-5.1); Sodium 137 mmol/L (136-145)
--- NOTE | 2022-11-08 07:37 | PC.PHAR ---
CAN NOT COMPLETE MED REC - DR GILES PUT DISCHARGE ORDERS IN 11/08/22
[2022-11-08] MEDS: budesonide 0.5 mg/2 mL Neb INHALATION ×2 (07:52→11:24)
[2022-11-08] MEDS: doxycycline 100 mg Tablet PO (08:30)
[2022-11-08] MEDS: nicotine 21 mg Patch 1 PATCH TRANSDERMA (08:30)
[2022-11-08] MEDS: apixaban 5 mg Tablet PO (08:31)
[2022-11-08] MEDS: metoprolol tartrate 25 mg Tablet PO (08:31)
[2022-11-08] MEDS: FUROsemide 40 mg Tablet 80 MG PO (08:31)
[2022-11-08] MEDS: dilTIAZem ER (24HR) 240 mg Capsule PO (08:31)
--- NOTE | 2022-11-08 09:36 | P.DS_ITS ---
Discharge Providers Date of Admission: 11/07/22 05:00 Date of Discharge: November 08, 2022 Attending Provider at Admission: Petr Sharif MD Attending Provider at Discharge: Petr Sharif MD Diagnoses at Discharge Discharge Diagnosis (1) Acute exacerbation of chronic obstructive airways disease: Status: Acute (2) Atrial fibrillation with RVR: Status: Acute Permanent problem details: Currently rate controlled (3) Tobacco dependence: Status: Acute (4) History of pulmonary embolus (PE): Status: Acute (5) Heart failure: Status: Acute Permanent problem details: Currently euvolemic Reason for Visit Reason for Visit: Sob Hospital Course Hospital Course Porter is a 42-year-old white male who presents to the emergency department with increased wheezing and cough. He has a's extensive history of tobacco use, pulmonary embolism, DVT, and CHF. He had recently stopped taking some of his medication, Eliquis as he could not afford the prescription as well as albuterol. He was also found to have atrial fibrillation with rapid ventricular rate. He has chronic atrial fibrillation. He was placed on IV steroids, received pulmonary toilet, oral antibiotics in the form of doxycycline. CTA demonstrated no PE, venous duplex no DVT. He was placed back on his oral anticoagulation secondary to recurrent PE and DVT and history of factor V Leiden mutation. Metoprolol was added to his diltiazem to help control heart rate, and with this heart rate improved to less than 100 resting. With all of the above treatment he was improved on November 08 but still requiring 2 L of oxygen. He reported he wanted to be discharged. He stated that if he was not discharged he would still have to leave today, against advice if needed. He reported he was not going to wear oxygen during the day at work, but would consider it at night. I did do a home O2 eval prior to discharge and discharge planning we will see if he will be able to acquire this. Discharge planning helped with getting him a primary care provider, and arranging for medications at discharge. I discussed with him the need to stop smoking. He will finish up a course of doxycycline, and prednisone. Certainly, it was my expectation that the patient would need another day of hospital stay for continued pulmonary toilet, potential adjustment of medication as this might allow further weaning down of oxygen. However, patient reports that he has to be discharged today. I would rather provide discharge medications and follow-up and have him sign out AGAINST MEDICAL ADVICE. I discussed risks with the patient. He was encouraged to return for any worsening. Other testing done during his hospital stay demonstrated a negative COVID PCR. Enterovirus/rhinovirus was detected. Physical Exam Narrative: General exam no distress Neck is supple no lymphadenopathy thyromegaly Cardiovascular regular rate and rhythm Lungs a few faint expiratory wheezes but improved aeration from yesterday Abdomen is soft positive bowel sounds Extremities no cyanosis clubbing. Trace edema present bilaterally. Discharge Data Studies Completed and Pending Completed Studies During Hospitalization Category Date Time Status CTA chest [CT angio chest PE protcl [id number]] Stat Cat Scan 11/07/22 05:19 Completed XR chest 1V portable [id number] Stat Exams 11/07/22 03:44 [place] [id number] Routine Ultrasound 11/07/22 05:39 Completed Pending at discharge Category Date Time Status CV. echo complete* [id number] Routine Ultrasound 11/08/22 08:12 Ordered Radiology Impressions Chest X-Ray 11/07/22 03:44 IMPRESSION: 1. No acute findings. 2. No significant interval change. Chest CTA 11/07/22 05:19 IMPRESSION: 1. No evidence of pulmonary embolus. 2. Central peribronchial thickening consistent with bronchitis/pneumonitis. 3. Normal sized and mildly enlarged mediastinal lymph nodes, likely reactive. Laboratory Results WBC 7.6 10^3/uL (4.0-10.0) 11/08/22 04:36 RBC 4.83 10^6/uL (4.1-5.3) 11/08/22 04:36 Hgb 15.9 g/dL (11.7-16.6) 11/08/22 04:36 Hct 47.7 % (42.0-52.0) 11/08/22 04:36 MCV 98.8 fl (80-94) H 11/08/22 04:36 MCH 32.9 pg (28.0-34.0) 11/08/22 04:36 MCHC 33.3 g/dL (30.0-36.0) 11/08/22 04:36 RDW 12.6 % (12.1-15.1) 11/08/22 04:36 Plt Count 128 10^3/cmm (130-400) L 11/08/22 04:36 MPV 10.0 fL (7.4-10.4) 11/08/22 04:36 Neut % (Auto) 85.0 % 11/08/22 04:36 Lymph % (Auto) 9.1 % 11/08/22 04:36 Donley % (Auto) 5.3 % 11/08/22 04:36 Eos % (Auto) 0.0 % 11/08/22 04:36 Baso % (Auto) 0.1 % 11/08/22 04:36 Neut # (Auto) 6.42 10^3/uL (1.8-7.7) 11/08/22 04:36 Lymph # (Auto) 0.7 10^3/uL (0.8-4.8) L 11/08/22 04:36 Donley # (Auto) 0.4 10^3/uL (0.2-0.9) 11/08/22 04:36 Eos # (Auto) 0.0 10^3/uL (0.0-0.8) 11/08/22 04:36 Baso # (Auto) 0.0 10^3/uL (0.0-0.1) 11/08/22 04:36 Nucleated RBC % (auto) 0 % 11/08/22 04:36 Nucleated RBCs # 0.0 /100WBC 11/08/22 04:36 Specimen Type Arterial 11/07/22 03:51 Sample Site Radial, left 11/07/22 03:51 ABG pH 7.31 (7.35-7.45) L 11/07/22 03:51 ABG pCO2 54.8 mmHg (35-45) H 11/07/22 03:51 ABG pO2 67.5 mmHg (80.0-100.0) L 11/07/22 03:51 ABG HCO3 27.6 mmol/L (22-26) H 11/07/22 03:51 ABG Base Excess -0.2 mmol/L (-2.0-2.0) 11/07/22 03:51 Anthony Test Pos 11/07/22 03:51 Hematocrit 54.3 % (42-52) H 11/07/22 03:51 Hgb O2 Saturation 84.7 % (95-100) L 11/07/22 03:51 Carboxyhemoglobin 10.0 %THgb (0.4-20.1) 11/07/22 03:51 Methemoglobin 0.2 % (0.4-1.5) L 11/07/22 03:51 Total Hemoglobin 17.7 g/dL (14-18) 11/07/22 03:51 O2 Delivery Device Nc 11/07/22 03:51 O2 Liters/Min 2.0 % 11/07/22 03:51 FiO2 28.0 % 11/07/22 03:51 Russet Repairer ID Monro 11/07/22 03:51 Sodium 137 mmol/L (136-145) 11/08/22 04:36 Potassium 4.3 mmol/L (3.5-5.1) 11/08/22 04:36 Chloride 100 mmol/L (98-107) 11/08/22 04:36 Carbon Dioxide 28 mmol/L (22-29) 11/08/22 04:36 Anion Gap 13.3 (5-19) 11/08/22 04:36 BUN 19 mg/dL (6-20) 11/08/22 04:36 Creatinine 1.0 mg/dL (0.7-1.2) 11/08/22 04:36 GFR Calculation 81.9 mL/min (90-130) L 11/08/22 04:36 Glucose 151 mg/dL (65-115) H 11/08/22 04:36 Calculated Osmolality 289 mOsm/kg (285-295) 11/08/22 04:36 Calcium 8.4 mg/dL (8.5-10.5) L 11/08/22 04:36 Magnesium 2.2 mg/dL (1.7-2.3) 11/08/22 04:36 Total Bilirubin 0.3 mg/dL (0.15-1.2) 11/07/22 03:58 AST 15 U/L (0-40) 11/07/22 03:58 ALT 15 U/L (0-41) 11/07/22 03:58 Alkaline Phosphatase 129 U/L (40-130) 11/07/22 03:58 NT-Pro-B Natriuret Pep 1483 pg/mL (0-125) H 11/07/22 03:58 Total Protein 7.4 g/dL (6.6-8.7) 11/07/22 03:58 Albumin 4.2 g/dL (3.5-5.2) 11/07/22 03:58 Globulin 3.2 g/dL (1.3-4.6) 11/07/22 03:58 TSH 1.80 uIU/mL (0.27-4.20) 11/07/22 03:58 Coronavirus 229E (PCR) Not detected (NOT DETECT) 11/07/22 05:37 Human Metapneumovir PCR Not detected (NOT DETECT) 11/07/22 08:47 Entero/Rhino (PCR) Detected (NOT DETECT) A 11/07/22 08:47 SARS-CoV-2 (PCR) Not detected (NOT DETECT) 11/07/22 05:37 SARS-CoV-2 Ag (Rapid) Negative (Negative) 11/07/22 03:50 Vitals Last Vital Signs Temp 97.9 F 11/08/22 08:00 Pulse 101 H 11/08/22 08:00 Resp 17 11/08/22 08:00 BP 116/77 11/08/22 08:00 Pulse Ox 87 L 11/08/22 09:25 O2 Del Method Room Air 11/08/22 07:59 O2 Flow Rate 2 11/08/22 09:25 FiO2 2 11/07/22 07:41 Discharge Plan Discharge Patient Disposition: Home Condition: Stable Prescriptions: New albuterol sulfate 90 mcg/actuation HFA aerosol inhaler 2 inh INHALATION Q6H PRN (Reason: shortness of breath or wheezing) Qty: 8 0RF prednisone 20 mg Tablet 40 mg PO DAILY Qty: 10 0RF doxycycline monohydrate 100 mg Tablet 100 mg PO BID Qty: 16 0RF metoprolol tartrate 25 mg Tablet 25 mg PO BID@0900,2100 Qty: 60 0RF Trelegy Ellipta 100-62.5-25 mcg blister with device 1 inh inhalation DAILY Qty: 60 0RF albuterol sulfate 1.25 mg/3 mL solution for nebulization 2.5 mg inhalation Q6H PRN (Reason: shortness of breath or wheezing) Qty: 270 0RF Continued albuterol sulfate 90 mcg/actuation HFA aerosol inhaler 2 inh INHALATION Q4H PRN (Reason: shortness of breath or wheezing) Qty: 18 0RF Lasix 40 mg tablet See Rx Instructions .ROUTE .COMPLEX Qty: 90 0RF Rx Instructions: 80 mg orally in the morning / 40mg in the evening diltiazem HCl 240 mg capsule,extended release 24hr 240 mg PO BID Qty: 60 0RF Rx Instructions: MUST have follow-up for further refills Eliquis 5 mg tablet 5 mg PO BID@0900,2100 Qty: 60 5RF Rx Instructions: 340 B Discontinued ibuprofen 200 mg Tablet 200 - 400 mg PO Q6H PRN (Reason: pain/headache) methylprednisolone [Medrol (Ravi)] 4 mg tablets,dose pack See Rx Instructions .ROUTE .COMPLEX Qty: 21 0RF Rx Instructions: orally per package directions Discharge Orders: Discharge Order (Routine); Ordered 11/08/22 Ordered By: Petr Sharif Other Ambulatory Orders: DME: Nebulizer with Neb Kit (Order) Location: None Selected Ordered By: Petr Sharif Referrals: Boni Jose MD [Physician] - 11/12/22 9:15 am Discharge Diet: Cardiac Discharge Activity: Increase activity as tolerated Patient Instructions: COPD (Chronic Obstructive Pulmonary Disease) (ED), Opioid Safety Activity Restrictions/Additional Instructions: Take all medicine as prescribed Follow-up with primary care provider in 3 to 5 days Stop smoking Return for any concerns Low-salt diet Please arrange follow-up with cardiology as an outpatient for atrial fibrillation, history of CHF Patient's Health Concerns: Shortness of breath Assessment: COPD exacerbation Atrial fibrillation Plan of Treatment: Prednisone taper, frequent nebulized treatments, adjustment of medication for atrial fibrillation, filled many of the home medicines he is run out of Discharge Attestations Time Spent in Discharge Care*: greater than 30 min Status at Discharge: Cognitive status at discharge: cognitively intact , Behavioral status at discharge: cooperative , Quality Metrics Clinical Quality Measures [ No reported AMI, CVA or VTE this stay] Coding Level of Care Code 09061 Total time (in minutes) for Discharge: 40 Diagnoses Acute exacerbation of chronic obstructive airways disease J44.1 Atrial fibrillation with RVR I48.91 Tobacco dependence F17.200 History of pulmonary embolus (PE) Z86.711 Heart failure I50.9
== END 2022-11-08 15:01 | disposition home or self-care (01) | DRG 191 ==
LOC: ER 05:30 → MEDSURG 05:59
PROVIDERS: Admitting Provider Internal Medicine; Emergency Provider Emergency Medicine; Visit Provider Internal Medicine
DX: J44.1 Chronic obstructive pulmonary disease with (acute) exacerbation (principal); D68.51 Activated protein C resistance; I48.20 Chronic atrial fibrillation, unspecified; F17.210 Nicotine dependence, cigarettes, uncomplicated; Z86.711 Personal history of pulmonary embolism; Z86.718 Personal history of other venous thrombosis and embolism; I50.9 Heart failure, unspecified; T45.516A Underdosing of anticoagulants, initial encounter; Z91.120 Patient's intentional underdosing of medication regimen due to financial hardship; Z79.51 Long term (current) use of inhaled steroids; Z79.01 Long term (current) use of anticoagulants; E66.9 Obesity, unspecified; Z68.39 Body mass index [BMI] 39.0-39.9, adult; Y92.019 Unspecified place in single-family (private) house as the place of occurrence of the external cause
CPT/HCPCS: 36415; 36600; 71045; 71275; 80048; 80053; 82805; 83735; 83880; 84443; 85025; 87426; 87635; 87801; 93005; 93970; 94640; 94760; 96374; 96375; 99285; J1940; J2930; J3490; J3535; J7613; J7626; J7644; Q9967

== ENCOUNTER → 2022-11-12 09:15 | Outpatient (BNVA) | payer SELFPAY | PROVIDERS: PCP Family Medicine; Visit Provider Family Medicine | DX: I50.30 Unspecified diastolic (congestive) heart failure (principal); J44.1 Chronic obstructive pulmonary disease with (acute) exacerbation; I48.91 Unspecified atrial fibrillation; F17.200 Nicotine dependence, unspecified, uncomplicated; F10.21 Alcohol dependence, in remission; H61.22 Impacted cerumen, left ear | CPT/HCPCS: 80053; 80061; 85025 ==

== ENCOUNTER 2023-03-29 12:23 | Emergency (ER) | payer SELFPAY ==
[2023-03-29 12:29] VITALS: BP 135/82; PULSE 90; RESP 22; TEMP 36.8; O2SAT 95; BMI 38.1
--- NOTE | 2023-03-29 12:36 | ED_ITS ---
HPI - Skin/Abscess/Foreign Bdy General: Chief complaint: Skin/Abscess/Foreign Body Stated complaint: spot on RT leg Time Seen by Provider: 03/29/23 12:26 History of Present Illness: 43-year-old morbidly obese male presents emergency room with open wound to the right lower leg/patient referral for possible muscular bite and had a scab. Patient peeled the scab noticed some oozing and redness.. Patient reveals chronic redness but noticed some area of weeping and drainage within the past few days. Denies any nausea, vomiting, fever or chills. No shortness of breath, calf tenderness. Associated symptoms: Deny chills or fever(s) Review of Systems General: Reports: 10 or more systems reviewed and unremarkable except in HPI and below Const: Denies: fever(s), chills, body aches, change in appetite, change in weight, fatigue or malaise Skin/Breast: Reports: skin pain, skin swelling and sores PFSH ED PFSH: Medical History SAILAJA (acute kidney injury) Atrial fibrillation with RVR Currently rate controlled DVT (deep venous thrombosis) Heart failure Currently euvolemic History of pulmonary embolus (PE) Obesity Pulmonary embolism Tobacco dependence Surgical History Hx of superior vena cava filter placement Family History Family/Other Hypertension Mother Cancer liver Other Dementia Diabetes Hyperlipidemia Lung disease Denies family history of CAD (coronary artery disease) Clotting disorder Chronic kidney disease (CKD) Anesthesia complication Bleeding disorder Stroke Social History Smoking and tobacco/nicotine status: current every day tobacco/nicotine user cigarettes Packs smoked per day: 1 Alcohol intake: former Former alcohol use details: Hx of alcoholism. last uce of >2 drinks/day was 3 months Substance/Drug Use: never Lives independently: Yes Current occupational status: employed Current occupation: [employer] Special ale needs: No Agree to transfusion: Yes Physical Exam Const: COMMON NORMALS: no acute distress, average body habitus, patient oriented x3, no limitations, healthy appearing, alert and well nourished GENERAL APPEARANCE: well developed; not in distress, not anxious, not combative, not lethargic and not diaphoretic ORIENTATION/CONSCIOUSNESS: not lethargic Neck/C-Spine: COMMON NORMALS: no JVD Chest: COMMONS NORMALS: normal inspection of the chest, normal palpation of entire chest wall, normal inspection of the breasts and normal palpation of the breasts Breast/axilla inspection: Yes normal inspection of the breasts BREAST/AXILLA PALPATION: Yes normal palpation of the breasts Resp: COMMON NORMALS: normal respiratory effort, No retractions, No use of accessory muscles, clear to auscultation bilaterally and percussion normal AUSCULTATION: clear to auscultation bilaterally PERCUSSION: percussion normal Cardio: COMMON NORMALS: no JVD, regular rate, regular rhythm, S1 normal heart sound present, S2 normal heart sound present, No gallops present (Cardio), No clicks present (Cardio), No murmurs present (Cardio), No rub (Cardio) and Periph eral pulses 2+ throughout RATE: regular rate RHYTHM: regular rhythm HEART SOUNDS: S1 normal heart sound present and S2 normal heart sound present PERIPHERAL PULSES: Peripheral pulses 2+ throughout GI: COMMON NORMALS: Normal to inspection, nondistended, normoactive bowel sounds present, Soft to palpation, non-tender, No hepatosplenomegaly present, no masses and no bruits PALPATION: Yes Soft to palpation and Yes No hepatosplenomegaly present Extremity: OTHER: right leg with changes c/w chronic stasis dermatitis Neuro: COMMON NORMALS: patient oriented x3 SENSORIUM/ORIENTATION: Yes alert and No lethargic Course Vital Signs: Vital signs: Vital Signs Temperature 98.2 F 03/29/23 12:29 Pulse Rate 90 03/29/23 13:13 Respiratory Rate 22 H 03/29/23 12:29 Blood Pressure 130/86 03/29/23 13:13 Pulse Oximetry 97 03/29/23 13:13 Oxygen Delivery Me thod Room Air 03/29/23 12:29 MDM - Skin/Abscess/Foreign Bdy Medicial Decision Making Patient made comfortable emergency room had extensive work-up done. Patient was given oral antibiotics Differential Diagnosis Likely dermatophytosis, urticaria, herpes zoster, allergic reaction to drug, insect bites, impetigo and contact dermatitis No radiology studies performed this visit Discharge Plan Discharge Patient Disposition: Home Clinical Impression: Obesity, Cellulitis and abscess of leg, Chronic stasis dermatitis Condition: Stable Prescriptions: New keflex 500 mg PO 3XD Qty: 30 0RF No Action Lasix 40 mg tablet See Rx Instructions .ROUTE .COMPLEX Qty: 90 0RF Rx Instructions: 80 mg orally in the morning / 40mg in the evening diltiazem HCl 240 mg capsule,extended release 24hr 240 mg PO BID Tylenol Ex Str Rapid Release 500 mg Tablet 2,000 mg PO Q6H PRN (Reason: Pain) ibuprofen 200 mg Tablet 1,600 mg PO Q6H PRN (Reason: Pain) albuterol sulfate 1.25 mg/3 mL solution for nebulization 2.5 mg inhalation Q6H PRN (Reason: shortness of breath or wheezing) Qty: 270 0RF Discharge Orders: Discharge ED (Routine); Ordered 03/29/23 Ordered By: Ben Gtz Referrals: Boni Jose MD [Primary Care Provider] - Discharge Diet: Advance as tolerated Discharge Activity: Resume usual activity Patient Instructions: Opioid Safety, Pain Management Stand Alone Forms: Work/School Release Coding Level of Care Code ED [place] for Haseeb Arenas
[2023-03-29] MEDS: clindamycin 150 mg Capsule 300 MG PO (12:46)
--- NOTE | 2023-03-29 13:06 | PC.PHAR ---
pt states he takes care of his own medications-pt states he hasnt taken eliquis 5mg bid in months states he has no insurance and cant afford it-pt states its $50 on 340b-pt states he has no inhalers pt states he cant afford them-pt states he is only taking the medications entered
[2023-03-29] MEDS: TRAMadol 50 mg Tablet PO (13:10)
[2023-03-29 13:13] VITALS: BP 130/86; PULSE 90; O2SAT 97
== END 2023-03-29 13:14 | disposition home or self-care (01) ==
PROVIDERS: Emergency Provider Family Medicine; PCP Family Medicine
DX: L03.115 Cellulitis of right lower limb (principal); L02.415 Cutaneous abscess of right lower limb; I87.2 Venous insufficiency (chronic) (peripheral); E66.9 Obesity, unspecified; Z68.38 Body mass index [BMI] 38.0-38.9, adult; F17.210 Nicotine dependence, cigarettes, uncomplicated; I50.9 Heart failure, unspecified
CPT/HCPCS: 99283

== ENCOUNTER 2023-09-03 00:06 | Inpatient (IN) | payer SELFPAY ==
[2023-09-03] VITALS (18 sets, daily range): BP systolic 123–162; BP diastolic 82–97; PULSE 63–118; RESP 14–22; TEMP 36.4–36.8; O2SAT 92–97; BMI 40.4
--- NOTE | 2023-09-03 00:15 | ECG_ITS ---
[facility] Test Date: 2023-09-03 Pat Name: Porter Lagos Department: Room: EDIP Gender: Male Wringer Operator: : 1980 Requested By: René Atkinson Order Number: [id number] Katey MD: Eliel Key M.D. Measurements Intervals [place] Rate: 87 P: 0 MD: 0 QRS: 67 QRSD: 87 T: 72 QT: 378 QTc: 455 Interpretive Statements ATRIAL FIBRILLATION ST DEVIATION AND MODERATE T-WAVE ABNORMALITY, CONSIDER INFERIOR ISCHEMIA [-0.1+ mV T-WAVE IN II/aVF] Compared to ECG 11/07/2022 03:46:48 T-wave abnormality now present Possible ischemia now present ST (T wave) deviation no longer present Electronically Signed On 09-04-2023 10:46:25 DOOR FRAME BUILDER by Eliel Key M.D. [id number]
--- NOTE | 2023-09-03 00:17 | XRR_ITS ---
PROCEDURE INFORMATION: Exam: XR Chest Exam date and time: 09/03/2023 12:58 AM Age: 43 years old Clinical indication: Shortness of breath; Additional info: SOB TECHNIQUE: Imaging protocol: Radiologic exam of the chest. Views: 1 view. COMPARISON: CT angio chest PE protcl [id number] 11/07/2022 5:40 AM FINDINGS: Lungs: Mild COPD. Hazy bibasilar lung densities are progressed on the left and similar on the right. Pleural spaces: Unremarkable. No pleural effusion. No pneumothorax. Heart/Mediastinum: The heart is mildly enlarged. Bones/joints: Unremarkable. XR/XR chest 1V portable [id number] IMPRESSION: 1. Increasing left basilar atelectasis or airspace disease. 2. No other change from 11/07/2022 is noted.
--- NOTE | 2023-09-03 00:20 | ED_ITS ---
HPI - SOB/Dyspnea 2 General: Chief Complaint: Shortness of Breath/Dyspnea Stated Complaint: SOB Time Seen by Provider: 09/03/23 00:08 Source: patient Mode of arrival: ambulatory Limitations: no limitations History of Present Illness: HPI Narrative: 43-year-old male has a history of COPD C HF states he has been noncompliant on all of his meds. States he had increased shortness of breath of the last 2 days with much worsening tonight. States he feels like he is had increased swelling he is on 4 L of oxygen here at this time he does not wear oxygen at home he denies any chest pain denies any new cough denies any fever Associated symptoms: Deny abdominal pain, chest pain, fever(s), nausea or vomiting Review of Systems 2 Const: Denies: fever(s), chills, body aches or change in appetite ENMT: Denies: throat pain or dental pain Card: Denies: chest pain Resp: Reports: dyspnea GI: Denies: abdominal pain, nausea, vomiting or diarrhea Musc: Reports: extremity swelling; Denies: neck pain or back pain Skin/Breast: Denies: rash Neuro: Denies: headache(s) PFSH ED 2 PFSH: Medical History Tobacco dependence Obesity History of pulmonary embolus (PE) SAILAJA (acute kidney injury) Pulmonary embolism DVT (deep venous thrombosis) Atrial fibrillation with RVR Currently rate controlled Heart failure Currently euvolemic Surgical History Hx of superior vena cava filter placement Family History Family/Other Hypertension Mother Cancer liver Other Dementia Diabetes Hyperlipidemia Lung disease Denies family history of CAD (coronary artery disease) Clotting disorder Chronic kidney disease (CKD) Anesthesia complication Bleeding disorder Stroke Social History Smoking and tobacco/nicotine status: current every day tobacco/nicotine user cigarettes Packs smoked per day: 1 Alcohol intake: former Former alcohol use details: Hx of alcoholism. last uce of >2 drinks/day was 3 months Substance/Drug Use: never Lives independently: Yes Current occupational status: employed Current occupation: [employer] Special ale needs: No Agree to transfusion: Yes Physical Exam 2 Const: COMMON NORMALS: patient oriented x3 GENERAL APPEARANCE: ill appearing HENMT: COMMON NORMALS: normocephalic and atraumatic HEAD & SCALP: n ormocephalic and atraumatic Eye: COMMON NORMALS: Equal, round and reactive pupils present and EOMs intact bilaterally PUPIL: Yes Equal, round and reactive pupils present Neck/C-Spine: COMMON NORMALS: full ROM and supple Chest: COMMONS NORMALS: normal inspection of the chest and normal palpation of entire chest wall Resp: COMMON NORMALS: No retractions EFFORT & INSPECTION: Yes tachypneic and Yes respiratory distress AUSCULTATION: rales Cardio: COMMON NORMALS: regular rate, regular rhythm and No murmurs present (Cardio) RATE: regular rate RHYTHM: regular rhythm GI: COMMON NORMALS: Normal to inspection, nondistended, normoactive bowel sounds present, Soft to palpation, non-tender and no masses PALPATION: Yes Soft to palpation Extremity: COMMON NORMALS: full ROM NARRATIVE EXTREMITY EXAM: 2+ edema Neuro: COMMON NORMALS: patient oriented x3, moves all extremities and no focal motor deficits Psych: COMMON NORMALS: mental status grossly normal, Normal thought process present and cooperative THOUGHT PROCESS: Normal thought process present Skin: COMMON NORMALS: no rashes or lesions noted and no wounds GENERAL SKIN EXAM: no rashes or lesions noted Course 2 Vital Signs: Vital signs: Vital Signs Temperature 97.5 F L 09/03/23 00:16 Pulse Rate 93 09/03/23 01:35 Respiratory Rate 16 09/03/23 01:35 Blood Pressure 134/86 09/03/23 01:35 Pulse Oximetry 94 09/03/23 01:35 Oxygen Delivery Me thod Nasal Cannula 09/03/23 01:35 Oxygen Flow Rate 2 09/03/23 01:35 MDM - SOB/Dyspnea Medical Decision Making Patient presents here with dyspnea he does have CHF COPD exacerbation he is hypoxic here requiring 2 L of oxygen likely from his noncompliance did give him Lasix here breathing treatment steroids will admit at this time. Medical Records I reviewed the patient's medical records. Lab Data I reviewed the patient's lab results. 09/03/23 00:28 09/03/23 00:28 Labs/Radiology: Radiology Impressions Chest X-Ray 09/03/23 00:17 IMPRESSION: 1. Increasing left basilar atelectasis or airspace disease. 2. No other change from 11/07/2022 is noted. Laboratory Results WBC 11.03 10^3/uL (3.29-11.43) 09/03/23 00:28 RBC 5.28 10^6/uL (3.85-5.65) 09/03/23 00:28 Hgb 17.90 g/dL (11.27-16.99) H 09/03/23 00:28 Hct 53.2 % (37-53) H 09/03/23 00:28 MCV 100.8 fl (82-101) 09/03/23 00:28 MCH 33.9 pg (27-33) H 09/03/23 00: MCHC 33.6 g/dL (30-55) 09/03/23 00: RDW 13.2 % (12.1-15.1) 09/03/23 00:28 Plt Count 117 10^3/cmm (157-399) L 09/03/23 00:28 MPV 10.6 fL (7.4-10.4) H 09/03/23 00:28 Neut % (Auto) 73.3 % 09/03/23 00:28 Lymph % (Auto) 14.1 % 09/03/23 00:28 [place] % (Auto) 10.2 % 09/03/23 00:28 Eos % (Auto) 1.7 % 09/03/23 00:28 Baso % (Auto) 0.3 % 09/03/23 00:28 Neut # (Auto) 8.09 10^3/uL (1.8-7.7) H 09/03/23 00:28 Lymph # (Auto) 1.6 10^3/uL (0.8-4.8) 09/03/23 00:28 [place] # (Auto) 1.1 10^3/uL (0.2-0.9) H 09/03/23 00:28 Eos # (Auto) 0.2 10^3/uL (0.0-0.8) 09/03/23 00:28 Baso # (Auto) 0.0 10^3/uL (0.0-0.1) 09/03/23 00:28 Nucleated RBC % (auto) 0 % 09/03/23 00:28 Nucleated RBCs # 0.0 /100WBC 09/03/23 00:28 PT 13.80 SECONDS (12.1-14.9) 09/03/23 00:28 INR 1.03 (0.8-1.2) 09/03/23 00:28 Specimen Type Arterial 09/03/23 00:41 Sample Site Radial, right 09/03/23 00:41 ABG pH 7.37 (7.35-7.45) 09/03/23 00:41 ABG pCO2 51.0 mmHg (35-45) H 09/03/23 00:41 ABG pO2 86.0 mmHg (80.0-100.0) 09/03/23 00:41 ABG HCO3 29.8 mmol/L (22-26) H 09/03/23 00:41 ABG Base Excess 3.1 mmol/L (-2.0-2.0) H 09/03/23 00:41 Anthony Test Pos 09/03/23 00:41 Hematocrit 53.1 % (42-52) H 09/03/23 00:41 Hgb O2 Saturation 84.5 % (95-100) L 09/03/23 00:41 Carboxyhemoglobin 13.6 %THgb (0.4-20.1) 09/03/23 00:41 Methemoglobin 0.3 % (0.4-1.5) L 09/03/23 00:41 Total Hemoglobin 17.3 g/dL (14-18) 09/03/23 00:41 O2 Delivery Device Nc 09/03/23 00:41 O2 Liters/Min 4.0 % 09/03/23 00:41 Chief I Dispatcher ID [email or web address] 09/03/23 00:41 Sodium 141 mmol/L (136-145) 09/03/23 00:28 Potassium 3.6 mmol/L (3.5-5.1) 09/03/23 00:28 Chloride 101 mmol/L (98-107) 09/03/23 00:28 Carbon Dioxide 30 mmol/L (22-29) H 09/03/23 00:28 Anion Gap 13.6 (5-19) 09/03/23 00:28 BUN 18 mg/dL (6-20) 09/03/23 00:28 Creatinine 1.4 mg/dL (0.7-1.2) H 09/03/23 00:28 GFR Calculation 55.3 mL/min (90-130) L 09/03/23: Glucose 112 mg/dL (65-115) 09/03/23: Calculated Osmolality 295 mOsm/kg (285-295) 09/03/23: Calcium 8.7 mg/dL (8.5-10.5) 09/03/23: Total Bilirubin 0.3 mg/dL (0.15-1.2) 09/03/23:28 AST 10 U/L (0-40) 09/03/23: ALT 12 U/L (0-41) 09/03/23: Alkaline Phosphatase 144 U/L (40-130) H 09/03/23: NT-Pro-B Natriuret Pep 1317 pg/mL (0-125) H 09/03/23 00:28 Total Protein 7.1 g/dL (6.6-8.7) 09/03/23: Albumin 3.8 g/dL (3.5-5.2) 09/03/23 00:28 Globulin 3.3 g/dL (1.3-4.6) 09/03/23 00:28 Influenza Type A Ag negative (Negative) 09/03/23: Influenza Type B Ag negative (Negative) 09/03/23: SARS-CoV-2 Ag (Rapid) negative (Negative) 09/03/23 00:28 All radiology interpretation(s) finalized by discharge Discharge Plan Discharge Patient Disposition: Placed in Observation Clinical Impression: CHF exacerbation, COPD (chronic obstructive pulmonary disease) Coding Level of Care Code ED Ed Case Manager for Haseeb Arenas
[2023-09-03] MEDS: methylPREDNISolone sod succ 125 mg/2 mL INJ IV (00:29)
[2023-09-03 00:35] LABS: Basophils % 0.3 %; Eosinophils # 0.2 10^3/uL (0.0-0.8); Eosinophils % 1.7 %; Hematocrit 53.2 % (37-53); Lymphocytes # 1.6 10^3/uL (0.8-4.8); Lymphocytes % 14.1 %; Mean Corpuscular HGB Conc 33.6 g/dL (30-55); Mean Corpuscular Hemoglobin 33.9 pg (27-33); Mean Corpuscular Volume 100.8 fl (82-101); Mean Platelet Volume 10.6 fL (7.4-10.4); Monocytes # 1.1 10^3/uL (0.2-0.9); Monocytes % 10.2 %; Neutrophils # 8.09 10^3/uL (1.8-7.7); Neutrophils % 73.3 %; Nucleated Red Blood Cells % 0 %; Platelet Count 117 10^3/cmm (157-399); Red Blood Count 5.28 10^6/uL (3.85-5.65); Red Cell Distribution Width 13.2 % (12.1-15.1); White Blood Count 11.03 10^3/uL (3.29-11.43)
[2023-09-03] MEDS: ipratropium-albuterol 3 mL Neb INHALATION ×4 (00:45→20:18)
[2023-09-03] MEDS: albuterol 2.5 mg/3 mL Neb INHALATION (00:45)
[2023-09-03 00:46] LABS: INR 1.03 (0.8-1.2)
[2023-09-03 00:54] LABS: ABG PH Result 7.37 (7.35-7.45); Arterial Blood Gas Hematocrit 53.1 % (42-52); Base Excess ABG 3.1 mmol/L (-2.0-2.0); Blood Gas Allen Test Pos; Blood Gas Sample Site Radial, right; Blood Gas Sample Type Arterial; Carboxyhemoglobin 13.6 %THgb (0.4-20.1); HCO3 ABG 29.8 mmol/L (22-26); HGB O2 Sat 84.5 % (95-100); Methemoglobin 0.3 % (0.4-1.5); Oxygen Device NC; Total Hemoglobin 17.3 g/dL (14-18)
[2023-09-03 00:54] LABS: Influenza A by IFA negative (Negative); Influenza B by IFA negative (Negative); SARS Covid-2 Antigen negative (Negative)
[2023-09-03 01:02] LABS: Alanine Aminotransferase 12 U/L (0-41); Albumin Level 3.8 g/dL (3.5-5.2); Alkaline Phosphatase 144 U/L (40-130); Anion Gap 13.6 (5-19); Aspartate Amino Transferase 10 U/L (0-40); Blood Urea Nitrogen 18 mg/dL (6-20); Calcium 8.7 mg/dL (8.5-10.5); Carbon Dioxide 30 mmol/L (22-29); Chloride 101 mmol/L (98-107); Creatinine Clr Calc Pharmacy 113.8815; Globulin 3.3 g/dL (1.3-4.6); Glomerular Filtration Rate 55.3 mL/min (90-130); Glucose 112 mg/dL (65-115); NT Pro B Type Natriuretic Pept 1317 pg/mL (0-125); Osmolality Calculated 295 mOsm/kg (285-295); Potassium 3.6 mmol/L (3.5-5.1); Sodium 141 mmol/L (136-145); Total Bilirubin 0.3 mg/dL (0.15-1.2); Total Protein 7.1 g/dL (6.6-8.7)
[2023-09-03 01:16] LABS: Slide Review Slide Review Perform
[2023-09-03] MEDS: FUROsemide 10 mg/mL SDV 10mL 60 MG IVP (01:33)
[2023-09-03] MEDS: nicotine 21 mg Patch 1 PATCH TRANSDERMA ×2 (06:22→08:01)
--- NOTE | 2023-09-03 06:27 | P.HP_ITS ---
Providers/Chief Complaint 2 Admitting Physician: Ninfa Mathews MD Primary Care Provider: Boni Jose MD Chief Complaint: SOB History of Present Illness Porter Lagos is a 43 year old male with a past medical history of heart failure, hypertension, A-fib, COPD, history of PE and DVT currently with IVC filter in place since 2009., factor V Leiden mutation, though he is not on any anticoagulation currently. He has a history of noncompliance with medications in the past due to financial issues. He states he has been unable to afford Xarelto or Eliquis. He does not like warfarin as an option. He presents to the emergency room today with chief complaints of shortness of breath and chest discomfort. He states he was in his usual state of health until about 2 days ago when he started experiencing left-sided spasmodic chest pain. States that pain is worse with movement, does not appear to correlate with exertion. Along with that he also started to feel short of breath and noticed increased lower extremity edema. At baseline he does have chronic lower extremity pitting edema however states that he has been compliant with torsemide and that usually takes care of it. However for the past 2 days his lower extremity swelling is also increasing. He has been in a wheezy. Denies cough palpitations or syncope. He has previously needed to be on home oxygen and trilogy, however in spite of qualifying he is unable to afford it therefore does not typically use oxygen. Currently having an oxygen requirement of 3 L/min. Review of Systems 2 General: Reports: 10 or more systems reviewed and unremarkable except in HPI and below Const: Denies: fever(s), chills or body aches Eyes: Denies: change in vision, blurry vision or photophobia ENMT: Reports: hoarseness; Denies: throat pain, enlarged tonsils, odynophagia or nasal congestion Card: Denies: chest pain, palpitations, irregular heart rhythm, edema, swelling of feet/ankles, lightheadedness, pre-syncope, dyspnea on exertion or orthopnea Resp: Denies: dyspnea, productive cough, non-productive cough, wheezing, stridor, pain on inspiration, change in phlegm color, hemoptysis or chest congestion GI: Denies: abdominal pain, nausea, vomiting, hematemesis, coffee ground emesis, dysphagia, heartburn, diarrhea, constipation, GI cramping, change in stool character, hematochezia or melena : Denies: flank pain, dysuria, urinary frequency, urinary urgency, urinary hesitancy or hematuria Musc: Denies: neck pain, back pain, extremity pain, joint swelling, joint warmth or deformity Neuro: Denies: headache(s), numbness in extremities, weakness in extremities, sensory changes, difficulty walking, frequent falls, dizziness, vertigo, behavioral changes, Slurred speech present or seizure-like activity Psych: Denies: anxiety, depression, suicidal ideation or homicidal ideation Endo: Denies: polyuria, polydipsia, tired all the time, cold intolerance or hot flashes Tutu/Lymph: Denies: easy bruising or easy bleeding Medications/Allergies Home Medications Medication Instructions Recorded Confirmed Last Taken Type acetaminophen 500 mg tablet 2,000 mg PO Q6H PRN Pain 03/29/23 05/02/23 Unknown History ibuprofen 200 mg tablet 1,600 mg PO Q6H PRN Pain 03/29/23 05/02/23 Unknown History albuterol sulfate 1.25 mg/3 mL 2.5 mg (6 mL) inhalation Q6H PRN 05/02/23 05/02/23 Unknown Rx solution for nebulization shortness of breath or wheezing #270 mL aspirin 81 mg tablet,delayed 81 mg PO DAILY 05/02/23 05/02/23 Unknown History release budesonide-formoterol HFA 160 2 inh inhalation BID #10.2 grams 05/02/23 05/02/23 Unknown Rx mcg-4.5 mcg/actuation aerosol inhaler (Symbicort) diltiazem HCl 240 mg 240 mg PO BID #60 caps 05/02/23 05/02/23 Unknown Rx capsule,extended release 24 hr metoprolol tartrate 25 mg tablet 25 mg PO BID@0900,2100 #60 tabs 07/08/23 Unknown Rx torsemide 20 mg tablet See Rx Instructions PO QAM 30 days 08/11/23 Unknown Rx #120 tabs albuterol sulfate 90 mcg/actuation See Rx Instructions .Route 08/27/23 Unknown Rx aerosol inhaler .COMPLEX #8.5 grams Allergies Allergy/AdvReac Type Severity Reaction Status Date / Time amantadine [From Symmetrel] Allergy Unknown Unknown Verified 05/02/23 13:58 PFSH Acute 2 PFSH: Medical History Tobacco dependence Obesity History of pulmonary embolus (PE) SAILAJA (acute kidney injury) Pulmonary embolism DVT (deep venous thrombosis) Atrial fibrillation with RVR Currently rate controlled Heart failure Currently euvolemic Surgical History Hx of superior vena cava filter placement Family History Family/Other Hypertension Mother Cancer liver Other Dementia Diabetes Hyperlipidemia Lung disease Denies family history of CAD (coronary artery disease) Clotting disorder Chronic kidney disease (CKD) Anesthesia complication Bleeding disorder Stroke Social History Smoking and tobacco/nicotine status: current every day tobacco/nicotine user cigarettes Packs smoked per day: 1 Alcohol intake: former Former alcohol use details: Hx of alcoholism. last uce of >2 drinks/day was 3 months Substance/Drug Use: never Lives independently: Yes Current occupational status: employed Current occupation: [employer] Special ale needs: No Agree to transfusion: Yes Vitals/I&O/Wt Last Vital Signs Temp 97.5 F L 09/03/23 00:16 Pulse 96 09/03/23 06:00 Resp 14 09/03/23 06:00 BP 140/91 09/03/23 06:00 Pulse Ox 93 09/03/23 06:00 O2 Del Method Nasal Cannula 09/03/23 06:00 O2 Flow Rate 3 09/03/23 06:00 09/02/23 09/02/23 09/03/23 14:59 22:59 06:59 Output Total 1500 / 1500 Balance -1500 / -1500 Weight last 48 hrs Weight 158.757 kg Physical Exam 2 Narrative: General: No acute distress, AO x3 HEENT: PERRLA, pupils bilaterally equal and reactive, pallors not present Chest: Wheezing to auscultation bilaterally, additionally crackles noted bilateral infra axillary areas. CVS: S1-S2 regular, no murmurs, no tachycardia, no gallops, no rubs Abdomen: Soft, nontender, no organomegaly, bowel sounds present Neuro: No focal deficits, no facial deformity, AO x3, power 5/5 in all limbs Extremities: 3+ pitting edema bilaterally Data 09/03/23 00:28 09/03/23 00:28 Other [facility] [address] [address] XRay Report Signed Patient: Porter Lagos Unit #: [id number] : 1980 Age/Sex: 43 / M ADM Date: 09/03/23 Loc: ER Room/Bed: Attending Dr: Ordering Provider/Ordering MD: René Atkinson MD Date of Service: 09/03/23 Procedure(s): XR chest 1V portable [id number] Accession Number(s): [id number] Report Number: [id number] PROCEDURE INFORMATION: Exam: XR Chest Exam date and time: 09/03/2023 12:58 AM Age: 43 years old Clinical indication: Shortness of breath; Additional info: SOB TECHNIQUE: Imaging protocol: Radiologic exam of the chest. Views: 1 view. COMPARISON: CT angio chest PE protcl [id number] 11/07/2022 5:40 AM FINDINGS: Lungs: Mild COPD. Hazy bibasilar lung densities are progressed on the left and similar on the right. Pleural spaces: Unremarkable. No pleural effusion. No pneumothorax. Heart/Mediastinum: The heart is mildly enlarged. Bones/joints: Unremarkable. XR/XR chest 1V portable [id number] IMPRESSION: 1. Increasing left basilar atelectasis or airspace disease. 2. No other change from 11/07/2022 is noted. A&P Assessment and plan (1) Chest pain: Qualifiers: Chest pain type: unspecified Qualified Code(s): R07.9 - Chest pain, unspecified (2) CHF exacerbation: Qualifiers: Heart failure type: unspecified Qualified Code(s): I50.9 - Heart failure, unspecified (3) H/O factor V Leiden mutation: (4) Atrial fibrillation: Plan Patient presenting with chest pain over the left chest wall over the past 2 days with increasing dyspnea and lower extremity swelling Differentials for the chest pain at this time include ACS versus PE given his past history. Check EKG and troponin series, check stat D-dimer. If D-dimer elevated would likely need to proceed to CTA of the chest. Patient does not wish to be placed on therapeutic dose Lovenox for now as it makes him black and blue , he is uncertain if he will continue anticoagulation once he is discharged. He wants to wait on results of the pending tests before deciding on anticoagulation. Discussed with him that given his history of PE, factor V mutation and A-fib, it is highly recommended that he remain on anticoagulation. Increasing dyspnea may be related to CHF exacerbation. Received Lasix 60 mg IV in the emergency room Will continue with Lasix 40 mg IV every 12 hours during hospital course. Closely monitor urine output and kidney function to assess for response to diuresis. Last echocardiogram from 2020 with LVEF of 55%, no regional wall motion abnormalities. Will obtain echocardiogram to assess for any interval change given worsening signs of CHF. Wheezing to auscultation bilaterally, he has received a dose of methylprednisolone and DuoNeb in the emergency room following which she states his dyspnea is improving. Will continue prednisone 40 mg p.o. daily for short course, DuoNeb and budesonide inhalation scheduled. Further orders to be dependent on results of pending tests as noted above. DVT prophylaxis: Lovenox 40, not currently agreeable to be placed on full dose. Full code Attestations 2 Medical Necessity Statement*: Anticipate greater than 2 midnight admission for CHF exacerbation, IV diuresis, pending evaluation of chest pain as noted above. Coding Level of Care Code Acute Code for Chg Fwd High MDM includes number and complexity of problems actively addressed during encounter, amount and/or complexity of data reviewed/ordered and described risk of complication, morbidity or mortality of management as documented Diagnoses Chest pain, unspecified type R07.9 Chest pain type: unspecified Acute on chronic congestive heart failure, unspecified heart failure type I50.9 Heart failure type: unspecified H/O factor V Leiden mutation Z86.2 Atrial fibrillation I48.91
[2023-09-03] MEDS: enoxaparin 40 mg/0.4 mL Syringe SUBCUT (06:39)
--- NOTE | 2023-09-03 07:03 | USCV_ITS ---
Demond Porter Age: 43 Gender: M : 1980 Exam Date: 09/03/2023 08:56 Ordering Phys: Ninfa Mathews MD Technologist: LEONARDO Exam Location: [facility] Indication: chf BP: 130 / 80 HR: 0 Rhythm: Sinus Technical Quality: Adequate MEASUREMENTS (Male / Female) Normal Values 2D ECHO LV Diastolic Diameter PLAX 5.3 cm 4.2 - 5.9 / 3.9 - 5.3 cm IVS Diastolic Thickness 1.5 cm 0.6 - 1.0 / 0.6 - 0.9 cm IVS Systolic Thickness 1.9 cm LVPW Diastolic Thickness 1.6 cm 0.6 - 1.0 / 0.6 - 0.9 cm LVPW Systolic Thickness 2.2 cm LVOT Diameter 2.0 cm LV Ejection Fraction 2D Teich 67.0 % LV Ejection Fraction MOD 2C 67.6 % M-MODE LA Ao Ratio MM 1.4 AV Cusp Separation MM 3.3 cm DOPPLER AV Peak Velocity 176.0 cm/s LVOT Peak Velocity 110.0 cm/s AV Area Cont Eq vti 3.5 cm squared AV Area Cont Eq pk 2.0 cm squared MV Area PHT 2.9 cm squared Mitral E to A Ratio 37.3 TR Peak Velocity 77.0 cm/s TR Peak Gradient 2.4 mmHg Right Atrial Pressure 3.0 mmHg Pulmonary Artery Systolic Pressu 5.4 mmHg PV Peak Velocity 140.0 cm/s FINDINGS Left Ventricle Normal left ventricular size and systolic function, EF 67%.no regional wall motion abnormalities. Right Ventricle The right ventricle is normal in size and function. Right Atrium The right atrium is normal in size. Left Atrium Mildly increased left atrial size. Mitral Valve Mild mitral valve regurgitation. Aortic Valve No gross abnormalities noted Tricuspid Valve No gross abnormalities noted Pulmonic Valve Pulmonic valve not well visualized. Pericardium Normal pericardium without effusion. Aorta Normal ascending aorta dimension. IVC The inferior vena cava appears normal. CONCLUSIONS Normal left ventricular size and systolic function, EF 67%. No regional wall motion abnormalities. Mild biatrial enlargement. Mild mitral valve regurgitation. There is no pericardial effusion. There are no intracardiac masses. No similar previous studies are available for comparison Dr Eliel Key MD [facility] (Electronically Signed) Final Date: 03 September 2023 12:10 S
[2023-09-03] MEDS: FUROsemide 10 mg/mL SDV 4mL 40 MG IVP ×2 (07:09→17:11)
[2023-09-03 07:19] LABS: D Dimer 1.87 ug/mLFEU (0-0.59)
[2023-09-03 07:22] LABS: Troponin(5th) Baseline < 6 ng/L (0-15)
[2023-09-03] MEDS: predniSONE 20 mg Tablet 40 MG PO (08:02)
[2023-09-03] MEDS: metoprolol tartrate 25 mg Tablet PO ×2 (08:02→21:32)
[2023-09-03] MEDS: aspirin 81 mg EC Tablet PO (08:02)
[2023-09-03] MEDS: pantoprazole DR 40 mg Tablet PO (08:02)
[2023-09-03] MEDS: budesonide 0.5 mg/2 mL Neb INHALATION ×2 (08:08→20:18)
--- NOTE | 2023-09-03 08:53 | ECG_ITS ---
[facility] Test Date: 2023-09-03 Pat Name: Porter Lagos Department: Room: 255 Gender: Male Stamper Blocker: : 1980 Requested By: Ninfa Mathews Order Number: [id number] Katey MD: Eliel Key M.D. Measurements Intervals [place] Rate: 102 P: 0 NC: 0 QRS: 49 QRSD: 94 T: 92 QT: 351 QTc: 458 Interpretive Statements ATRIAL FIBRILLATION WITH RAPID VENTRICULAR RESPONSE NONSPECIFIC ST & T-WAVE ABNORMALITY ABNORMAL RHYTHM ECG Compared to ECG 09/03/2023 00:15:05 Possible ischemia no longer present T-wave abnormality still present Electronically Signed On 09-04-2023 10:54:25 MOLDED FRAMES ASSEMBLER by Eliel Key M.D. [id number]
[2023-09-03 09:19] LABS: Troponin 5 2HR 6.08 ng/L (0-15); Troponin 5 2HR Delta 0.08001 ABS# (0-10)
--- NOTE | 2023-09-03 12:30 | ECG_ITS ---
[facility] Test Date: 2023-09-03 Pat Name: Porter Lagos Department: Room: 255 Gender: Male Office Director: : 1980 Requested By: Ninfa Mathews Order Number: [id number] Reading MD: Eliel Key M.D. Measurements Intervals [place] Rate: 99 P: 0 SC: 0 QRS: 53 QRSD: 109 T: 69 QT: 379 QTc: 487 Interpretive Statements ATRIAL FIBRILLATION NONSPECIFIC ST & T-WAVE ABNORMALITY ABNORMAL RHYTHM ECG Compared to ECG 09/03/2023 08:53:10 No significant changes Electronically Signed On 09-04-2023 20:10:11 MEDICAL DOSIMETRIST by Eliel Key M.D. [id number]
[2023-09-03 13:18] LABS: Troponin 5 6HR Delta 0.00001 ng/L (0-12)
--- NOTE | 2023-09-03 20:26 | P.PN_ITS ---
Subjective 2 Subjective: He denies dizziness, light headedness unless he stands up too quickly. He denies f/c, CP, GI sxs, sxs. He endorses palpitations, SOB w/ exertion, wheezing, myalgias, arthralgias. Vitals/I&O/Wt Last Vital Signs Temp 97.6 F 09/03/23 20:00 Pulse 118 H 09/03/23 20:18 Resp 22 H 09/03/23 20:18 BP 128/82 09/03/23 20:00 Pulse Ox 93 09/03/23 20:18 O2 Del Method Nasal Cannula 09/03/23 20:18 O2 Flow Rate 2 09/03/23 20:18 09/03/23 09/03/23 09/03/23 06:59 14:59 22:59 Intake Total 120 / 120 360 / 480 Output Total 1500 / 1500 600 / 600 Balance -1500 / -1500 -480 / -480 360 / -120 Weight last 48 hrs Weight 158.757 kg Weight 158.757 kg Physical Exam 2 Const: GENERAL APPEARANCE: cooperative and comfortable NUTRITIONAL APPEARANCE: overweight ORIENTATION/CONSCIOUSNESS: Yes awake, Yes oriented to person, Yes oriented to place and Yes oriented to time HENMT: COMMON NORMALS: normocephalic, atraumatic, external ears normal and Normal external nose present HEAD & SCALP: normocephalic and atraumatic N OSE: Normal external nose present EXTERNAL EAR: Yes external ears normal M OUTH: Normal oral and palatal mucosa present THROAT: posterior oropharynx normal Eye: COMMON NORMALS: Equal, round and reactive pupils present and conjunctivae normal CONJUNCTIVA: Yes conjunctivae normal PUPIL: Yes Equal, round and reactive pupils present EOM: No EOM abnormal Neck/C-Spine: GENERAL: Yes normal visual inspection and Yes trachea midline Lymph: LYMPHATIC: No lymphadenopathy Resp: OTHER: decreased breath sounds and crackles in the b/l lower lung lobes. Cardio: OTHER: RRR, no m/r/g, clicks. GI: COMMON NORMALS: Soft to palpation and No hepatosplenomegaly present P ALPATION: Yes Soft to palpation, No Tenderness to palpation present (GI), No Guarding due to palpation present (GI), No Rigid due to palpation and Yes No hepatosplenomegaly present Extremity: NARRATIVE EXTREMITY EXAM: b/l R>L LE swelling. bilateral 2+ pitting edema to the knees. Neuro: SENSORIUM/ORIENTATION: Yes oriented to person, Yes oriented to place and Yes oriented to time Psych: COMMON NORMALS: Normal thought process present and speech normal A PPEARANCE: Yes grossly normal and Yes disheveled ATTITUDE: Yes calm and Yes engaged ACTIVITY/MOTOR BEHAVIOR: Yes appropriate eye contact SPEECH: Yes normal speech MOOD & AFFECT: Yes euthymic mood THOUGHT PROCESS: Normal thought process present THOUGHT CONTENT: Yes Normal thought content present ATTENTION/CONCENTRATION: Yes attention grossly intact MEMORY/COGNITION: Yes memory grossly intact Skin: COMMON NORMALS: no rashes or lesions noted GENERAL SKIN EXAM: no rashes or lesions noted Data 09/04/23 04:54 09/04/23 04:54 A&P Assessment and plan (1) H/O factor V Leiden mutation: (2) History of pulmonary embolus (PE): (3) H/O deep venous thrombosis: (4) CHF exacerbation: Qualifiers: Heart failure type: unspecified Qualified Code(s): I50.9 - Heart failure, unspecified (5) Atrial fibrillation with RVR: (6) Chest pain: Qualifiers: Chest pain type: unspecified Qualified Code(s): R07.9 - Chest pain, unspecified (7) Acute respiratory failure with hypoxia and hypercapnia: (8) COPD (chronic obstructive pulmonary disease): Qualifiers: COPD type: emphysema Emphysema type: other Qualified Code(s): J43.8 - Other emphysema (9) Volume overload: Qualifiers: Hypervolemia type: other Qualified Code(s): E87.79 - Other fluid overload Plan Mr. Lagos is a 43yo man w/ Factor V leiden, a hx of one episode of PE & two DVTs in the RLE and two DVTs in the Left LE w/ IVC filters in place, Paroxysmal Afib, chronic HFpEF, HTN, and tobacco use d/o (1.5-2ppd since age 13), who presented to the ED on 09/03/2023 w/ worsening dyspnea. The patient has a history of non- compliance due to financial constraints. The patient tells me that he woke up on 09/02/2023, around 2am w/ the feeling that one of his back kite muscles on the L. side, got tweaked. About 3:30am, he woke up b/c he just did not feel comfortable. He lay down to take a nap on that left side with idea that by lying on that side, it would stretch the aching muscles, but it did not feel better. Around 8pm, while sitting and watching his computer, he felt as if his whole L. side hurt, so he took tylenol and Ibuprofen, but with the pain being unabated, he called the ER to see whether he could drive to the ER. Once he hung up, he began to gasp for air due to the pain. He then decided that it was unsafe for him to attempt to drive himself to the ED, so he has his son's mother call him an ambulance. In the ED, he was given a steroid shot, which helped the pain. He endorses constant b/l LE swelling for the last month, which is worse than his usual b/l LE swelling that increases and decreases daily. Per HPI, he has previously needed to be on home oxygen and trilogy, however in spite of qualifying he is unable to afford it therefore does not typically use oxygen. In the ED, he required 3 L/min NC O2. He was in Afib w/ RVR. He was admitted of CHF exacerbation and potential COPD exacerbation and was given 125mg Solumedrol x 1. On admission, his Trop T x 3 were wnl, D-dimer was ordered. He was started on Lasix 40mg IV BID and a TTE was done that showed an EF of 67% w/ no wall motion abnormalities, pericardial effusions, intracardiac masses, or R. heart strain. It did show mild biatrial enlargement and mild mitral regurgitation. #Acute hypoxic hypercapneic respiratory failure: On 3L. Wean as tolerated. #Elevated d-dimer: Ordered venous duplex US. #Concern for a PE: - Given the sequence of events that led to his presentation, and the elevated D- dimer, I am worried about a PE. The patient states that Heparin and Warfarin hurts his joints and even his skin. Lovenox gives him large bruises with minimal contact; however, he understands my concerns and has agreed to full dose Lovenox, while I order a CTA chest w/ PE protocol. He stated that the contrast makes him nauseous/vomit, so I will order compazine, ativan, and give him another dose of steroids as potential prophylaxis for an allergic reaction. #Acute on chronic HFpEF: Hold Lasix 40mg IV BID. Resume home meds. #Paroxysmal Afib w/ RVR: Resumed Diltiazem ER. Ordered full dose Lovenox. #Factor V leiden mutation - We spoke extensively about his need for lifelong dependence on anticoagulation; however, financial constraints will continue to be the challenge and ensuring that he takes the anticoagulants. #Hx of one episode of PE & two DVTs in the RLE and two DVTs in the Left LE #SAILAJA: Likely due to his Vol overload. Will recheck BMP. #HTN: Resumed Diltiazem #Tobacco use d/o: Nicotine patch. We spoke extensively about the importance of quitting. #COPD: I do not believe that he is in exacerbation. I strongly suspect a PE. DVT ppx: Lovenox. Discharge planning: Will speak to social work/case mgmt about options to get him life long anticoagulation. Attestations 2 Medical Necessity Statement*: Patient needs to be hospitalized to evaluate for acute PE, Acute on chronic HFpEF and possible COPD exacerbation. He is expected to be hospitalized for > than 2 midnights. Coding Level of Care Code 37635 Diagnoses H/O factor V Leiden mutation Z86.2 History of pulmonary embolus (PE) Z86.711 H/O deep venous thrombosis Z86.718 Acute on chronic congestive heart failure, unspecified heart failure type I50.9 Heart failure type: unspecified Atrial fibrillation with RVR I48.91 Chest pain, unspecified type R07.9 Chest pain type: unspecified Acute respiratory failure with hypoxia and hypercapnia J96.01; J96.02 Other emphysema J43.8 COPD type: emphysema Emphysema type: other Other hypervolemia E87.79 Hypervolemia type: other
--- NOTE | 2023-09-03 20:31 | USCV_ITS ---
Demond Porter Age: 43 Gender: M : 1980 Exam Date: 09/03/2023 20:41 Ordering Phys: Dolores Shen MD Technologist: LEONARDO Exam Location: [facility] Indication: elevated d-dimer History of CHF. History of BLE DVTs beginning 2019. HISTORY: elevated d-dimer History of CHF. History of BLE DVTs beginning 2019. PROCEDURES: Venous duplex imaging was performed in bilateral lower extremities. The following venous structures were evaluated: common femoral vein, profunda vein, proximal portion of the greater saphenous vein, superficial femoral vein, and the popliteal vein. In addition, the posterior tibial and peroneal veins were evaluated. Serial compression, augmentation maneuvers, and spectral Doppler flow evaluation were performed, which were normal. Bilaterally, the common femoral, superficial femoral, profunda femoral, popliteal, posterior tibial, greater saphenous veins, and the peroneal veins were identified and interrogated in the standard fashion. These veins were found to be easily compressible with spontaneous blood flow. No evidence of thrombus noted. CONCLUSIONS No evidence of right lower extremity DVT. No evidence of left lower extremity DVT. Jairo Perez MD (Electronically Signed) Final Date: 04 September 2023 10:18 S
[2023-09-03] MEDS: dilTIAZem ER (24HR) 240 mg Capsule PO (21:38)
[2023-09-03] MEDS: enoxaparin 150 mg/mL Syringe SUBCUT (21:38)
[2023-09-03 21:46] LABS: Anion Gap 14.9 (5-19); Blood Urea Nitrogen 18 mg/dL (6-20); Calcium 9.2 mg/dL (8.5-10.5); Carbon Dioxide 28 mmol/L (22-29); Chloride 99 mmol/L (98-107); Glomerular Filtration Rate 73.1 mL/min (90-130); Glucose 217 mg/dL (65-115); Magnesium 2.1 mg/dL (1.7-2.3); Osmolality Calculated 294 mOsm/kg (285-295); Potassium 3.9 mmol/L (3.5-5.1); Sodium 138 mmol/L (136-145)
--- NOTE | 2023-09-03 22:12 | CTR_ITS ---
PROCEDURE INFORMATION: Exam: CTA Chest With Contrast Exam date and time: 09/03/2023 11:18 PM Age: 43 years old Clinical indication: Abnormal findings; Abnormal diagnostic tests; Elevated d-dimer; Additional info: Pleuritic chest pain. Elevated d-dimer TECHNIQUE: Imaging protocol: Computed tomographic angiography of the chest with contrast. Exam focused on the arteries. 3D rendering (Not supervised by radiologist): MIP and/or 3D reconstructed images were created by the technologist. Radiation optimization: All CT scans at this facility use at least one of these dose optimization techniques: automated exposure control; mA and/or kV adjustment per patient size (includes targeted exams where dose is matched to clinical indication); or iterative reconstruction. Contrast material: OMNI 350; Contrast volume: 100 ml; Contrast route: INTRAVENOUS (IV); COMPARISON: CT angio chest PE protcl [id number] 11/07/2022 5:40 AM RADIATION DOSE METRICS: Total DLP (mGy-cm): 688.33 FINDINGS: Pulmonary arteries: There are bilateral lower lobe pulmonary emboli. There is extension of the right middle lobe as well. The main pulmonary artery is mildly dilated. There is mild dilatation of the right ventricle and slight flattening of the interventricular septum with an RV/LV ratio of approximately 1.1. No filling defects are identified within the heart. Aorta: Unremarkable. No aortic aneurysm. No aortic dissection. Lungs: There are moderate atelectatic changes in the left lung base with possible lingular pulmonary infarct and possible small areas of infarct or consolidation. Breathing artifact limits evaluation of the lung bases. There are minimal emphysematous changes in the upper lungs with some paraseptal emphysema in the upper lobes no pulmonary mass or suspicious pulmonary nodules identified. Breathing artifact and areas of atelectasis limit evaluation in the lung bases. Pleural spaces: There may be a trace left pleural effusion. There is no right pleural effusion. There is no pneumothorax. Heart: Heart size is within normal limits. There is no pericardial effusion. Coronary arteries: No coronary artery calcification. Lymph nodes: There are no enlarged axillary or mediastinal lymph nodes. There is a mildly enlarged right hilar lymph node measuring up to 16 mm, stable compared to 11/07/2022. Bones/joints: Unremarkable. No acute fracture. Soft tissues: Unremarkable. Other findings: . CT/CT angio chest PE protcl [id number] IMPRESSION: 1. Bilateral lower lobe and right middle lobe pulmonary emboli with possible small infarcts in the left lower lobe. Suggestion of mild right heart strain. 2. Moderate bibasilar atelectasis with possible areas of small infarct or consolidation. Trace left pleural effusion. 3. Minimal emphysematous changes. 4. Stable mildly enlarged right hilar lymph node.
[2023-09-03] MEDS: LORazepam 2 mg/mL INJ 10 mL MDV 1 MG IVP (22:41)
[2023-09-03] MEDS: methylPREDNISolone sod succ 125 mg/2 mL INJ IVP (22:42)
[2023-09-03] MEDS: prochlorperazine 10 mg/2 mL Inj IVP (23:04)
[2023-09-03] MEDS: iohexol 350 mg/mL 500 mL Btl (per mL) IV (23:26)
[2023-09-04] VITALS (12 sets, daily range): BP systolic 96–145; BP diastolic 57–76; PULSE 1–105; RESP 6–19; TEMP 36.4–37; O2SAT 91–94
[2023-09-04] MEDS: ipratropium-albuterol 3 mL Neb INHALATION ×3 (03:00→13:10)
[2023-09-04 05:37] LABS: Basophils % 0.1 %; Hematocrit 48.3 % (37-53); Lymphocytes # 0.7 10^3/uL (0.8-4.8); Lymphocytes % 5.5 %; Mean Corpuscular HGB Conc 33.7 g/dL (30-55); Mean Corpuscular Hemoglobin 33.3 pg (27-33); Mean Corpuscular Volume 98.8 fl (82-101); Mean Platelet Volume 10.9 fL (7.4-10.4); Monocytes # 0.3 10^3/uL (0.2-0.9); Monocytes % 2.6 %; Neutrophils # 11.76 10^3/uL (1.8-7.7); Neutrophils % 91.3 %; Nucleated Red Blood Cells % 0 %; Platelet Count 115 10^3/cmm (157-399); Red Blood Count 4.89 10^6/uL (3.85-5.65); White Blood Count 12.88 10^3/uL (3.29-11.43)
[2023-09-04 06:01] LABS: Alanine Aminotransferase 10 U/L (0-41); Albumin Level 3.5 g/dL (3.5-5.2); Alkaline Phosphatase 119 U/L (40-130); Anion Gap 15.1 (5-19); Aspartate Amino Transferase 9 U/L (0-40); Blood Urea Nitrogen 20 mg/dL (6-20); Calcium 9.1 mg/dL (8.5-10.5); Carbon Dioxide 28 mmol/L (22-29); Chloride 99 mmol/L (98-107); Creatinine Clr Calc Pharmacy 162.3829; Globulin 3.1 g/dL (1.3-4.6); Glomerular Filtration Rate 81.6 mL/min (90-130); Glucose 157 mg/dL (65-115); Osmolality Calculated 292 mOsm/kg (285-295); Potassium 4.1 mmol/L (3.5-5.1); Sodium 138 mmol/L (136-145); Total Bilirubin 0.2 mg/dL (0.15-1.2); Total Protein 6.6 g/dL (6.6-8.7)
[2023-09-04 06:04] LABS: Magnesium 2.1 mg/dL (1.7-2.3); Phosphorus 3.4 mg/dL (2.5-4.5)
[2023-09-04] MEDS: budesonide 0.5 mg/2 mL Neb INHALATION (08:23)
[2023-09-04] MEDS: predniSONE 20 mg Tablet 40 MG PO (08:50)
[2023-09-04] MEDS: pantoprazole DR 40 mg Tablet PO (08:50)
[2023-09-04] MEDS: metoprolol tartrate 25 mg Tablet PO (08:50)
[2023-09-04] MEDS: aspirin 81 mg EC Tablet PO (08:50)
[2023-09-04] MEDS: nicotine 21 mg Patch 1 PATCH TRANSDERMA (08:50)
[2023-09-04] MEDS: dilTIAZem ER (24HR) 240 mg Capsule PO ×2 (08:50→17:04)
[2023-09-04] MEDS: enoxaparin 150 mg/mL Syringe SUBCUT (08:51)
[2023-09-04] MEDS: FUROsemide 10 mg/mL SDV 10mL 80 MG IVP (16:17)
[2023-09-04] MEDS: acetaZOLAMIDE 250 mg Tablet 500 MG PO (16:18)
[2023-09-04] MEDS: albumin 25 G/100 ML BAG 60 G IV (16:18)
[2023-09-04] MEDS: apixaban 5 mg Tablet 10 MG PO (18:19)
--- NOTE | 2023-09-04 18:23 | P.DS_ITS ---
Discharge Providers Date of Admission: 09/03/23 07:35 Date of Discharge: September 04, 2023 Attending Provider at Admission: Ninfa Mathews MD Attending Provider at Discharge: Dolores Shen MD Primary Care Provider: Boni Jose MD Diagnoses at Discharge Discharge Diagnosis (1) H/O factor V Leiden mutation: Status: Acute (2) History of pulmonary embolus (PE): Status: Acute (3) H/O deep venous thrombosis: Status: Acute (4) CHF exacerbation: Status: Acute Qualifiers: Heart failure type: unspecified Qualified Code(s): I50.9 - Heart failure, unspecified (5) Atrial fibrillation with RVR: Status: Acute Permanent problem details: Currently rate controlled (6) Chest pain: Status: Acute Qualifiers: Chest pain type: unspecified Qualified Code(s): R07.9 - Chest pain, unspecified (7) Acute respiratory failure with hypoxia and hypercapnia: Status: Acute (8) COPD (chronic obstructive pulmonary disease): Status: Acute Qualifiers: COPD type: emphysema Emphysema type: other Qualified Code(s): J43.8 - Other emphysema (9) Volume overload: Status: Acute Qualifiers: Hypervolemia type: other Qualified Code(s): E87.79 - Other fluid overload Reason for Visit Reason for Visit: SOB Hospital Course Hospital Course Mr. Lagos is a 43yo man w/ Factor V leiden, a hx of one episode of PE & two DVTs in the RLE and two DVTs in the Left LE w/ IVC filters in place, Paroxysmal Afib, chronic HFpEF, HTN, and tobacco use d/o (1.5-2ppd since age 13), who presented to the ED on 09/03/2023 w/ worsening dyspnea. The patient has a history of non- compliance due to financial constraints. The patient tells me that he woke up on 09/02/2023, around 2am w/ the feeling that one of his back kite muscles on the L. side, got tweaked. About 3:30am, he woke up b/c he just did not feel comfortable. He lay down to take a nap on that left side with idea that by lying on that side, it would stretch the aching muscles, but it did not feel better. Around 8pm, while sitting and watching his computer, he felt as if his whole L. side hurt, so he took tylenol and Ibuprofen, but with the pain being unabated, he called the ER to see whether he could drive to the ER. Once he h clementina up, he began to gasp for air due to the pain. He then decided that it was unsafe for him to attempt to drive himself to the ED, so he has his son's mother call him an ambulance. In the ED, he was given a steroid shot, which helped the pain. He endorses constant b/l LE swelling for the last month, which is worse than his usual b/l LE swelling that increases and decreases daily. Per HPI, he has previously needed to be on home oxygen and trilogy, however in spite of qualifying he is unable to afford it therefore does not typically use oxygen. In the ED, he required 3 L/min NC O2. He was in Afib w/ RVR. He was admitted of CHF exacerbation and potential COPD exacerbation and was given 125mg Solumedrol x 1. On admission, his Trop T x 3 were wnl, D-dimer was ordered. He was started on Lasix 40mg IV BID and a TTE was done that showed an EF of 67% w/ no wall motion abnormalities, pericardial effusions, intracardiac masses, or R. heart strain. It did show mild biatrial enlargement and mild mitral regurgitation. Given the sequence of events that led to his presentation, and the elevated D- dimer, I was worried about a PE. The patient stated that Heparin and Warfarin each hurts his joints and even his skin. He stated that Lovenox gives him large bruises with minimal contact. However, he understood my concerns, therefore, agreed to full dose Lovenox, while I ordered a CTA chest w/ PE protocol. About his need for lifelong dependence on anticoagulation; however, financial constraints will continue to be the challenge and ensuring that he takes the anticoagulants. The venous duplex ultrasound was negative for DVTs in the bilateral lower extremities. The CTA of the chest w/ PE protocol showed b/l lower lobe and R. Middle lobe pulmonary emboli with possible small infarct in the L. Lower lobe. There was also suggestion of mild R. heart strain. There was also moderate bibasilar atelectais w/ possible areas of small infarct or consolidation and trace L. pleural effusion. I consulted cardiology on-call, who recommended giving the patient the option of being transferred to the hospital with a higher level of care to be evaluated for thrombectomy. This was proposed to the patient, with the explanation that if he did require a thrombectomy a may decrease risk of pulmonary hypertension development in the future. However, the patient declined pain transferred, due to transportation issues. He requested to be discharged due to work demands. He discontinued his O2. He was given a 30day supply of Eliquis and given the website to visit to try to sign up to get his Eliquis at a reduced huynh or for free. He was also given a dose of diuretics prior to discharge. Levofloxacin will be ordered and he will be contacted on 09/04/2023 to come and pick pulling machine tender the dose of Levaquin. #Acute hypoxic hypercapneic respiratory failure: On 3L. Wean as tolerated. #Elevated d-dimer: Ordered venous duplex US. #Acute b/l PE #Acute on chronic HFpEF: Hold Lasix 40mg IV BID. Resume home meds. #Paroxysmal Afib w/ RVR: Resumed Diltiazem ER on discharge. Increased his Metoprolol tartrate dose #Factor V leiden mutation - We spoke extensively about his need for lifelong dependence on anticoagulation; however, financial constraints will continue to be the challenge and ensuring that he takes the anticoagulants. #Hx of one episode of PE & two DVTs in the RLE and two DVTs in the Left LE #SAILAJA: Improved at the time of discharge. #HTN: Resumed Diltiazem and Metoprolol Tartrate. #Tobacco use d/o: Nicotine patch. We spoke extensively about the importance of quitting and developed a detailed plan to quit. #Possible Pneumonia: Ordered Levofloxacin. Physical Exam Const: GENERAL APPEARANCE: cooperative and comfortable NUTRITIONAL APPEARANCE: overweight ORIENTATION/CONSCIOUSNESS: Yes awake, Yes oriented to person, Yes oriented to place and Yes oriented to time HENMT: COMMON NORMALS: normocephalic, atraumatic, external ears normal and Normal external nose present HEAD & SCALP: normocephalic and atraumatic NOSE: Normal external nose present EXTERNAL EAR: Yes external ears normal MOUTH: Normal oral and palatal mucosa present THROAT: posterior oropharynx normal Eye: COMMON NORMALS: Equal, round and reactive pupils present and conjunctivae normal CONJUNCTIVA: Yes conjunctivae normal PUPIL: Yes Equal, round and reactive pupils present EOM: No EOM abnormal Neck/C-Spine: GENERAL: Yes normal visual inspection and Yes trachea midline Lymph: LYMPHATIC: No lymphadenopathy Resp: OTHER: improved decreased breath sounds but still crackles in the b/l lower lung lobes. Cardio: OTHER: RRR, no m/r/g, clicks. GI: COMMON NORMALS: Soft to palpation and No hepatosplenomegaly present PALPATION: Yes Soft to palpation, No Tenderness to palpation present (GI), No Guarding due to palpation present (GI), No Rigid due to palpation and Yes No hepatosplenomegaly present Extremity: NARRATIVE EXTREMITY EXAM: b/l R>L LE swelling. bilateral 2+ pitting edema to the knees. Neuro: SENSORIUM/ORIENTATION: Yes oriented to person, Yes oriented to place and Yes oriented to time Psych: COMMON NORMALS: Normal thought process present and speech normal APPEARANCE: Yes grossly normal and Yes disheveled ATTITUDE: Yes calm and Yes engaged ACTIVITY/MOTOR BEHAVIOR: Yes appropriate eye contact SPEECH: Yes normal speech MOOD & AFFECT: Yes euthymic mood THOUGHT PROCESS: Normal thought process present THOUGHT CONTENT: Yes Normal thought content present ATTENTION/CONCENTRATION: Yes attention grossly intact MEMORY/COGNITION: Yes memory grossly intact Skin: COMMON NORMALS: no rashes or lesions noted GENERAL SKIN EXAM: no rashes or lesions noted Discharge Data Studies Completed and Pending Completed Studies During Hospitalization Category Date Time Status CTA chest [CT angio chest PE protcl [id number]] Routine Cat Scan 09/03/23 22:12 Completed XR chest 1V portable [id number] Stat Exams 09/03/23 00:17 Completed CV. echo complete* [id number] Routine Ultrasound 09/03/23 07:03 Completed US venous duplex lower extremity bilat [CV venous Ultrasound 09/03/23 20:31 [place] [id number]] Routine Radiology Impressions Chest X-Ray 09/03/23 00:17 IMPRESSION: 1. Increasing left basilar atelectasis or airspace disease. 2. No other change from 11/07/2022 is noted. Chest CTA 09/03/23 22:12 IMPRESSION: 1. Bilateral lower lobe and right middle lobe pulmonary emboli with possible small infarcts in the left lower lobe. Suggestion of mild right heart strain. 2. Moderate bibasilar atelectasis with possible areas of small infarct or consolidation. Trace left pleural effusion. 3. Minimal emphysematous changes. 4. Stable mildly enlarged right hilar lymph node. ADDENDUM: 09/04/23 0000 THIS REPORT CONTAINS FINDINGS THAT MAY BE CRITICAL TO PATIENT CARE. The findings were verbally communicated via telephone conference with DOLORES SHEN at 11:59 PM SENIOR FOREMAN on 09/03/2023. The findings were acknowledged and understood. Laboratory Results WBC 12.88 10^3/uL (3.29-11.43) H 09/04/23 04:54 RBC 4.89 10^6/uL (3.85-5.65) 09/04/23 04:54 Hgb 16.30 g/dL (11.27-16.99) 09/04/23 04:54 Hct 48.3 % (37-53) 09/04/23 04:54 MCV 98.8 fl (82-101) 09/04/23 04:54 MCH 33.3 pg (27-33) H 09/04/23 04:54 MCHC 33.7 g/dL (30-55) 09/04/23 04:54 RDW 13.0 % (12.1-15.1) 09/04/23 04:54 Plt Count 115 10^3/cmm (157-399) L 09/04/23 04:54 MPV 10.9 fL (7.4-10.4) H 09/04/23 04:54 Neut % (Auto) 91.3 % 09/04/23 04:54 Lymph % (Auto) 5.5 % 09/04/23 04:54 Rock % (Auto) 2.6 % 09/04/23 04:54 Eos % (Auto) 0.0 % 09/04/23 04:54 Baso % (Auto) 0.1 % 09/04/23 04:54 Neut # (Auto) 11.76 10^3/uL (1.8-7.7) H 09/04/23 04:54 Lymph # (Auto) 0.7 10^3/uL (0.8-4.8) L 09/04/23 04:54 Rock # (Auto) 0.3 10^3/uL (0.2-0.9) 09/04/23 04:54 Eos # (Auto) 0.0 10^3/uL (0.0-0.8) 09/04/23 04:54 Baso # (Auto) 0.0 10^3/uL (0.0-0.1) 09/04/23 04:54 Nucleated RBC % (auto) 0 % 09/04/23 04:54 Nucleated RBCs # 0.0 /100WBC 09/04/23 04:54 PT 13.80 SECONDS (12.1-14.9) 09/03/23 00:28 INR 1.03 (0.8-1.2) 09/03/23 00:28 D-Dimer 1.87 ug/mLFEU (0-0.59) H 09/03/23 06:58 Specimen Type Arterial 09/03/23 00:41 Sample Site Radial, right 09/03/23 00:41 ABG pH 7.37 (7.35-7.45) 09/03/23 00:41 ABG pCO2 51.0 mmHg (35-45) H 09/03/23 00:41 ABG pO2 86.0 mmHg (80.0-100.0) 09/03/23 00:41 ABG HCO3 29.8 mmol/L (22-26) H 09/03/23 00:41 ABG Base Excess 3.1 mmol/L (-2.0-2.0) H 09/03/23 00:41 Anthony Test Pos 09/03/23 00:41 Hematocrit 53.1 % (42-52) H 09/03/23 00:41 Hgb O2 Saturation 84.5 % (95-100) L 09/03/23 00:41 Carboxyhemoglobin 13.6 %THgb (0.4-20.1) 09/03/23 00:41 Methemoglobin 0.3 % (0.4-1.5) L 09/03/23 00:41 Total Hemoglobin 17.3 g/dL (14-18) 09/03/23 00:41 O2 Delivery Device Nc 09/03/23 00:41 O2 Liters/Min 4.0 % 09/03/23 00:41 Development Director ID [email or web address] 09/03/23 00:41 Sodium 138 mmol/L (136-145) 09/04/23 04:54 Potassium 4.1 mmol/L (3.5-5.1) 09/04/23 04:54 Chloride 99 mmol/L (98-107) 09/04/23 04:54 Carbon Dioxide 28 mmol/L (22-29) 09/04/23 04:54 Anion Gap 15.1 (5-19) 09/04/23 04:54 BUN 20 mg/dL (6-20) 09/04/23 04:54 Creatinine 1.0 mg/dL (0.7-1.2) 09/04/23 04:54 GFR Calculation 81.6 mL/min (90-130) L 09/04/23 04:54 Glucose 157 mg/dL (65-115) H 09/04/23 04:54 Calculated Osmolality 292 mOsm/kg (285-295) 09/04/23 04:54 Calcium 9.1 mg/dL (8.5-10.5) 09/04/23 04:54 Phosphorus 3.4 mg/dL (2.5-4.5) D 09/04/23 04:54 Magnesium 2.1 mg/dL (1.7-2.3) 09/04/23 04:54 Total Bilirubin 0.2 mg/dL (0.15-1.2) 09/04/23 04:54 AST 9 U/L (0-40) 09/04/23 04:54 ALT 10 U/L (0-41) 09/04/23 04:54 Alkaline Phosphatase 119 U/L (40-130) 09/04/23 04:54 Troponin T Baseline < 6 ng/L (0-15) 09/03/23 06:58 Troponin T 120 Minute 6.08 ng/L (0-15) 09/03/23 08:45 Delta Troponin T 0.62837 ABS# (0-10) 09/03/23 08:45 Troponin T Hi Sens 6Hr 6.00 ng/L (0-15) 09/03/23 12:48 Troponin T Hi Sens 6Hr Delta 0.95676 ng/L (0-12) 09/03/23 12:48 NT-Pro-B Natriuret Pep 1317 pg/mL (0-125) H 09/03/23 00:28 Total Protein 6.6 g/dL (6.6-8.7) 09/04/23 04:54 Albumin 3.5 g/dL (3.5-5.2) 09/04/23 04:54 Globulin 3.1 g/dL (1.3-4.6) 09/04/23 04:54 Influenza Type A Ag negative (Negative) 09/03/23 00:28 Influenza Type B Ag negative (Negative) 09/03/23 00:28 SARS-CoV-2 Ag (Rapid) negative (Negative) 09/03/23 00:28 Vitals Last Vital Signs Temp 98.3 F 09/04/23 15:23 Pulse 78 09/04/23 15:23 Resp 16 09/04/23 15:23 BP 121/64 09/04/23 15:23 Pulse Ox 93 09/04/23 15:23 O2 Del Method Nasal Cannula 09/04/23 15:23 O2 Flow Rate 2.5 09/04/23 13:10 Discharge Plan Discharge Patient Disposition: Home Condition: Stable Prescriptions: New prednisone 20 mg Tablet 40 mg PO DAILY Qty: 4 0RF Eliquis 5 mg Tablet 10 mg PO BID@0900,2100 7 Days Qty: 14 0RF apixaban 5 mg tablet 5 mg PO BID Qty: 90 10RF Continued diltiazem HCl 240 mg capsule,extended release 24hr 240 mg PO BID Qty: 60 3RF budesonide-formoterol [Symbicort] 160-4.5 mcg/actuation HFA aerosol inhaler 2 inh inhalation BID Qty: 10.2 3RF albuterol sulfate 1.25 mg/3 mL solution for nebulization 2.5 mg inhalation Q6H PRN (Reason: shortness of breath or wheezing) Qty: 270 2RF aspirin 81 mg tablet,delayed release (DR/EC) 81 mg PO QPM torsemide 20 mg tablet See Rx Instructions PO QAM 30 Days Qty: 120 2RF Rx Instructions: 60mg (3 tablets) orally every morning; 20mg (1 tablet) orally at noon acetaminophen 500 mg Tablet 2,000 mg PO Q6H PRN (Reason: Pain) ibuprofen 200 mg Tablet 1,600 mg PO Q6H PRN (Reason: Pain) albuterol sulfate 90 mcg/actuation HFA aerosol inhaler 1 inh inhalation QID PRN (Reason: Shortness Of Breath Or Wheezing) Rx Instructions: INHALE 1 PUFF BY MOUTH FOUR TIMES DAILY NEEDED FOR SHORTNESS OF BREATH or wheezing Changed metoprolol tartrate 25 mg tablet 75 mg PO BID@0900,2100 Qty: 60 1RF Discontinued furosemide 40 mg tablet See Rx Instructions .ROUTE .COMPLEX PRN (Reason: Edema) Rx Instructions: take TWO tablets BY MOUTH IN THE MORNING and ONE TABLET IN THE EVENING Discharge Orders: Discharge Order (Routine); Ordered 09/04/23 Ordered By: Dolores Shen Referrals: Boni Jose MD [Primary Care Provider] - (We have notified your physician's clinic of the need for a follow-up appointment to be scheduled. If you have not heard from them within the next 2 business days, please call them directly. ) Discharge Diet: Low Salt Discharge Activity: Increase activity as tolerated Patient Instructions: Atrial Fibrillation, COPD, Prednisone (By mouth), Apixaban (By mouth), Heart Failure (ED), Pulmonary Embolism (ED), CHF Stoplight, COPD Stoplight, Opioid Safety Discharge Attestations Time Spent in Discharge Care*: greater than 30 min Time Spent in Smoking Cessation: more than 10 minutes We spoke extensively about the importance of quitting and developed a detailed plan to quit. Status at Discharge: Cognitive status at discharge: cognitively intact , Behavioral status at discharge: cooperative , Quality Metrics Clinical Quality Measures [ Venous Thromboembolism (bilateral pulmonary embolism) { Contraindication to Overlap Therapy: None; Overlap threrpy ordered; VTE Discharge Education: Education about anticoagulant therapy/Care Notes given, Education about treatment options/disease process, Medication side effects education, INR/lab monitoring education as applicable, Follow-up arranged (patient is self pay. ); Deep Vein Thrombosis/Pulmonary Embolism Present on Admission: Yes; Contraindication to Pharm VTE Prophylaxis: None; Pharmacological prophylaxis given;}] Coding Level of Care Code 99138 Diagnoses H/O factor V Leiden mutation Z86.2 History of pulmonary embolus (PE) Z86.711 H/O deep venous thrombosis Z86.718 Acute on chronic congestive heart failure, unspecified heart failure type I50.9 Heart failure type: unspecified Atrial fibrillation with RVR I48.91 Chest pain, unspecified type R07.9 Chest pain type: unspecified Acute respiratory failure with hypoxia and hypercapnia J96.01; J96.02 Other emphysema J43.8 COPD type: emphysema Emphysema type: other Other hypervolemia E87.79 Hypervolemia type: other
== END 2023-09-04 18:34 | disposition home or self-care (01) | DRG 291 ==
LOC: ER 02:01 → MEDSURG 06:20
PROVIDERS: Admitting Provider Student in an Organized Health Care Education/Training Program; Emergency Provider Emergency Medicine; PCP Family Medicine; Visit Provider Internal Medicine
DX: I11.0 Hypertensive heart disease with heart failure (principal); I50.33 Acute on chronic diastolic (congestive) heart failure; J96.22 Acute and chronic respiratory failure with hypercapnia; J96.21 Acute and chronic respiratory failure with hypoxia; J44.1 Chronic obstructive pulmonary disease with (acute) exacerbation; D68.51 Activated protein C resistance; Z68.41 Body mass index [BMI] 40.0-44.9, adult; N17.9 Acute kidney failure, unspecified; I48.0 Paroxysmal atrial fibrillation; J43.9 Emphysema, unspecified; E66.9 Obesity, unspecified; F17.210 Nicotine dependence, cigarettes, uncomplicated; F10.21 Alcohol dependence, in remission; R07.9 Chest pain, unspecified; E86.1 Hypovolemia; Z11.52 Encounter for screening for COVID-19; Z86.711 Personal history of pulmonary embolism; Z86.718 Personal history of other venous thrombosis and embolism; Z95.828 Presence of other vascular implants and grafts; Z91.141 Patient's other noncompliance with medication regimen due to financial hardship; Z79.82 Long term (current) use of aspirin
CPT/HCPCS: 36415; 36600; 71045; 71275; 80048; 80053; 82805; 83735; 83880; 84100; 84484; 85025; 85378; 85610; 87426; 87804; 93005; 93306; 93970; 94640; 96372; 96374; 96375; 99285; G0378; J0780; J1650; J1940; J2060; J2930; J7512; J7613; J7626; P9046; Q9967

== ENCOUNTER 2023-09-16 03:33 | Emergency (ER) | payer SELFPAY ==
[2023-09-16 03:40] VITALS: BP 111/72; PULSE 91; RESP 20; TEMP 36.6; O2SAT 95
--- NOTE | 2023-09-16 03:40 | ECG_ITS ---
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 Measurements Intervals [place] Rate: 89 P: 0 W[place]: 0 QRS: 56 QRSD: 94 T: 56 QT: 367 QTc: 447 Interpretive Statements ATRIAL FIBRILLATION MODERATE ST DEPRESSION [0.05+ mV ST DEPRESSION] Compared to ECG 09/03/2023 13:57:52 ST (T wave) deviation now present T-wave abnormality no longer present Electronically Signed On 09-16-2023 18:32:38 GAS REGULATOR REPAIRER by Eliel Key M.D. [id number]
--- NOTE | 2023-09-16 03:45 | XRR_ITS ---
PROCEDURE INFORMATION: Exam: XR Chest Exam date and time: 09/16/2023 3:55 AM Age: 43 years old Clinical indication: Dyspnea TECHNIQUE: Imaging protocol: Radiologic exam of the chest. Views: 1 view. COMPARISON: CT angio chest PE protcl [id number] 09/03/2023 11:18 PM FINDINGS: Lungs: Findings concerning for emphysematous changes of the bilateral lung apices. Pleural spaces: Unremarkable. No pleural effusion. No pneumothorax. Heart/Mediastinum: Unremarkable. No cardiomegaly. Bones/joints: Unremarkable. Other findings: Bilateral stable scarring. Flattening of the diaphragms bilaterally. XR/XR chest 1V portable [id number] IMPRESSION: 1. No acute intrathoracic findings. 2. Stable scarring, architectural distortion, flattening of the diaphragms from prior comparison. Correlate with physical examination and patient history.
--- NOTE | 2023-09-16 03:45 | ED_ITS ---
HPI - SOB/Dyspnea 2 General: Chief Complaint: Shortness of Breath/Dyspnea Stated Complaint: SOB Time Seen by Provider: 09/16/23 03:38 History of Present Illness: HPI Narrative: Patient presents to the ER with complaints of shortness of breath and fluid overload. Patient saw his PCP after being discharged from here and tell him that the torsemide did not work so then he changed him over to Bumex 2 mg twice a day. Now patient is presenting here with shortness of breath and fluid overload and is saying that the Bumex is not working. When patient was in here he had a diagnosis of factor V Leiden, PEs, CHF exacerbation, A-fib with RVR, acute respiratory failure with hypoxia and hypercapnia, patient elected not to be transferred to tertiary care center for thrombectomy because he had to go home and work. Review of Systems 2 General: Reports: 10 or more systems reviewed and unremarkable except in HPI and below PFSH ED 2 PFSH: Medical History Atrial fibrillation COPD (chronic obstructive pulmonary disease) CHF exacerbation H/O factor V Leiden mutation Tobacco dependence Obesity History of pulmonary embolus (PE) SAILAJA (acute kidney injury) Pulmonary embolism DVT (deep venous thrombosis) Atrial fibrillation with RVR Currently rate controlled Heart failure Currently euvolemic Surgical History Hx of superior vena cava filter placement Family History Family/Other Hypertension Mother Cancer liver Other Dementia Diabetes Hyperlipidemia Lung disease Denies family history of CAD (coronary artery disease) Clotting disorder Chronic kidney disease (CKD) Anesthesia complication Bleeding disorder Stroke Social History Smoking and tobacco/nicotine status: current every day tobacco/nicotine user cigarettes Packs smoked per day: 1.5 Years cigarettes smoked: 35 Alcohol intake: former Former alcohol use details: Hx of alcoholism. last uce of >2 drinks/day was 3 months Substance/Drug Use: never Lives independently: Yes Current occupational status: employed Current occupation: [employer] Special ale needs: No Agree to transfusion: Yes Physical Exam 2 Const: COMMON NORMALS: no acute distress, average body habitus, no limitations, healthy appearing, alert and well nourished HENMT: COMMON NORMALS: normocephalic, atraumatic, hearing grossly normal bilaterally, external ears normal, Normal external nose present, moist oral mucous membranes and oropharynx normal HEAD & SCALP: normocephalic and atraumatic NOSE: Normal external nose present EXTERNAL EAR: Yes external ears normal Neck/C-Spine: COMMON NORMALS: no JVD Chest: COMMONS NORMALS: normal inspection of the chest and normal palpation of entire chest wall Resp: COMMON NORMALS: normal respiratory effort, No retractions and No use of accessory muscles Cardio: COMMON NORMALS: no JVD, regular rate, S1 normal heart sound present, S2 normal heart sound present, No gallops present (Cardio), No clicks present (Cardio), No murmurs present (Cardio) and No rub (Cardio); negative for regular rhythm (Irregularly irregular rhythm) RATE: regular rate RHYTHM: abnormal rhythm (Irregularly irregular rhythm) HEART SOUNDS: S1 normal heart sound present and S2 normal heart sound present Extremity: NARRATIVE EXTREMITY EXAM: 2+ pitting edema bilateral lower extremi ties Neuro: SENSORIUM/ORIENTATION: Yes alert Course 2 Vital Signs: Vital signs: Vital Signs Temperature 97.8 F 09/16/23 03:40 Pulse Rate 83 09/16/23 05:40 Respiratory Rate 22 H 09/16/23 05:40 Blood Pressure 124/81 09/16/23 05:40 Pulse Oximetry 91 09/16/23 05:40 Oxygen Delivery Me thod Room Air 09/16/23 03:40 MDM - SOB/Dyspnea Medical Decision Making Patient presents to the ER with complaints that his water pills are not working and his fluid is building up. And now short of breath. Lab work was obtained review of the history per the chart was done patient be changed back to Lasix 40 mg daily as needed. Differential Diagnosis Likely acute exacerbation of chronic obstructive airways disease, congestive heart failure and pulmonary embolism; Unlikely community acquired pneumonia or asthma with exacerbation Medical Records I reviewed the patient's medical records. Lab Data I reviewed the patient's lab results. 09/16/23 03:53 09/16/23 04:15 Labs/Radiology: Radiology Impressions Chest X-Ray 09/16/23 03:45 IMPRESSION: 1. No acute intrathoracic findings. 2. Stable scarring, architectural distortion, flattening of the diaphragms from prior comparison. Correlate with physical examination and patient history. Laboratory Results WBC 11.33 10^3/uL (3.29-11.43) 09/16/23 03:53 RBC 5.26 10^6/uL (3.85-5.65) 09/16/23 03:53 Hgb 17.90 g/dL (11.27-16.99) H 09/16/23 03:53 Hct 53.2 % (37-53) H 09/16/23 03:53 MCV 101.1 fl (82-101) H 09/16/23 03:53 MCH 34.0 pg (27-33) H 09/16/23 03:53 MCHC 33.6 g/dL (30-55) 09/16/23 03:53 RDW 13.8 % (12.1-15.1) 09/16/23 03:53 Plt Count 175 10^3/cmm (157-399) 09/16/23 03:53 MPV 10.1 fL (7.4-10.4) 09/16/23 03:53 Neut % (Auto) 72.0 % 09/16/23 03:53 Lymph % (Auto) 19.3 % 09/16/23 03:53 [place] % (Auto) 6.4 % 09/16/23 03:53 Eos % (Auto) 1.6 % 09/16/23 03:53 Baso % (Auto) 0.3 % 09/16/23 03:53 Neut # (Auto) 8.17 10^3/uL (1.8-7.7) H 09/16/23 03:53 Lymph # (Auto) 2.2 10^3/uL (0.8-4.8) 09/16/23 03:53 [place] # (Auto) 0.7 10^3/uL (0.2-0.9) 09/16/23 03:53 Eos # (Auto) 0.2 10^3/uL (0.0-0.8) 09/16/23 03:53 Baso # (Auto) 0.0 10^3/uL (0.0-0.1) 09/16/23 03:53 Nucleated RBC % (auto) 0 % 09/16/23 03:53 Nucleated RBCs # 0.0 /100WBC 09/16/23 03:53 PT 14.10 SECONDS (12.1-14.9) 09/16/23 04:15 INR 1.06 (0.8-1.2) 09/16/23 04:15 Sodium 142 mmol/L (136-145) 09/16/23 04:15 Potassium 3.5 mmol/L (3.5-5.1) 09/16/23 04:15 Chloride 102 mmol/L (98-107) 09/16/23 04:15 Carbon Dioxide 28 mmol/L (22-29) 09/16/23 04:15 Anion Gap 15.5 (5-19) 09/16/23 04:15 BUN 15 mg/dL (6-20) 09/16/23 04:15 Creatinine 1.0 mg/dL (0.7-1.2) 09/16/23 04:15 GFR Calculation 81.6 mL/min (90-130) L 09/16/23 04:15 Glucose 105 mg/dL (65-115) 09/16/23 04:15 Calculated Osmolality 295 mOsm/kg (285-295) 09/16/23 04:15 Calcium 7.9 mg/dL (8.5-10.5) L 09/16/23 04:15 Magnesium 2.0 mg/dL (1.7-2.3) 09/16/23 04:15 Total Bilirubin 0.3 mg/dL (0.15-1.2) 09/16/23 04:15 AST 11 U/L (0-40) 09/16/23 04:15 ALT 15 U/L (0-41) 09/16/23 04:15 Alkaline Phosphatase 112 U/L (40-130) 09/16/23 04:15 Troponin T Baseline 10 ng/L (0-15) 09/16/23 04:15 NT-Pro-B Natriuret Pep 2066 pg/mL (0-125) H 09/16/23 04:15 Total Protein 5.9 g/dL (6.6-8.7) L 09/16/23 04:15 Albumin 3.7 g/dL (3.5-5.2) 09/16/23 04:15 Globulin 2.2 g/dL (1.3-4.6) 09/16/23 04:15 All radiology interpretation(s) finalized by discharge EKG Data EKG 1: I personally reviewed and interpreted this EKG as follows: EKG Interpretation Date: 09/16/23 EKG interpretation time: 03:40 Prior EKG tracings: available for review Interpretation: Ventricular rate 89 bpm, QRS duration 94, QTc 413, atrial fibrillation, Discharge Plan Discharge Patient Disposition: Home Clinical Impression: Lower extremity edema Condition: Stable Prescriptions: New Lasix 40 mg tablet 40 mg PO DAILY Qty: 30 0RF No Action bumetanide 2 mg tablet 2 mg PO BID Qty: 60 1RF ipratropium bromide 0.02 % solution 2.5 ml inhalation Q6H PRN (Reason: shortness of breath or wheezing) Qty: 75 2RF budesonide-formoterol [Symbicort] 160-4.5 mcg/actuation HFA aerosol inhaler 2 inh inhalation BID Qty: 10.2 3RF albuterol sulfate 1.25 mg/3 mL solution for nebulization 2.5 mg inhalation Q6H PRN (Reason: shortness of breath or wheezing) Qty: 270 2RF aspirin 81 mg tablet,delayed release (DR/EC) 81 mg PO QPM diltiazem HCl 240 mg capsule,extended release 24hr 240 mg PO BID Qty: 60 0RF metoprolol tartrate 25 mg tablet 75 mg PO BID@0900,2100 Qty: 60 0RF acetaminophen 500 mg Tablet 2,000 mg PO Q6H PRN (Reason: Pain) ibuprofen 200 mg Tablet 1,600 mg PO Q6H PRN (Reason: Pain) albuterol sulfate 90 mcg/actuation HFA aerosol inhaler 1 inh inhalation QID PRN (Reason: Shortness Of Breath Or Wheezing) Rx Instructions: INHALE 1 PUFF BY MOUTH FOUR TIMES DAILY NEEDED FOR SHORTNESS OF BREATH or wheezing apixaban 5 mg tablet 5 mg PO BID Qty: 90 10RF Discharge Orders: Discharge ED (Routine); Ordered 09/16/23 Ordered By: Eris Khan Referrals: Boni Jose MD [Primary Care Provider] - 1 week Patient Instructions: Edema (ED) Activity Restrictions/Additional Instructions: Please restart on the Lasix 1 pill daily. Please follow-up with trauma practice physician within next week for further evaluation and treatment. If your edema does not improve or your shortness of breath worsens please feel free to return to the ER. Coding Level of Care Code ED Site Inspector for Haseeb Arenas
[2023-09-16 04:00] LABS: Basophils % 0.3 %; Eosinophils # 0.2 10^3/uL (0.0-0.8); Eosinophils % 1.6 %; Hematocrit 53.2 % (37-53); Lymphocytes # 2.2 10^3/uL (0.8-4.8); Lymphocytes % 19.3 %; Mean Corpuscular HGB Conc 33.6 g/dL (30-55); Mean Corpuscular Volume 101.1 fl (82-101); Mean Platelet Volume 10.1 fL (7.4-10.4); Monocytes # 0.7 10^3/uL (0.2-0.9); Monocytes % 6.4 %; Neutrophils # 8.17 10^3/uL (1.8-7.7); Nucleated Red Blood Cells % 0 %; Platelet Count 175 10^3/cmm (157-399); Red Blood Count 5.26 10^6/uL (3.85-5.65); Red Cell Distribution Width 13.8 % (12.1-15.1); White Blood Count 11.33 10^3/uL (3.29-11.43)
[2023-09-16] MEDS: FUROsemide 10 mg/mL SDV 4mL 40 MG IVP (04:01)
[2023-09-16 04:32] LABS: INR 1.06 (0.8-1.2)
[2023-09-16 04:37] LABS: Troponin(5th) Baseline 10 ng/L (0-15)
[2023-09-16 04:49] LABS: Alanine Aminotransferase 15 U/L (0-41); Albumin Level 3.7 g/dL (3.5-5.2); Alkaline Phosphatase 112 U/L (40-130); Anion Gap 15.5 (5-19); Aspartate Amino Transferase 11 U/L (0-40); Blood Urea Nitrogen 15 mg/dL (6-20); Calcium 7.9 mg/dL (8.5-10.5); Carbon Dioxide 28 mmol/L (22-29); Chloride 102 mmol/L (98-107); Creatinine Clr Calc Pharmacy 159.4341; Globulin 2.2 g/dL (1.3-4.6); Glomerular Filtration Rate 81.6 mL/min (90-130); Glucose 105 mg/dL (65-115); Osmolality Calculated 295 mOsm/kg (285-295); Potassium 3.5 mmol/L (3.5-5.1); Sodium 142 mmol/L (136-145); Total Bilirubin 0.3 mg/dL (0.15-1.2); Total Protein 5.9 g/dL (6.6-8.7)
[2023-09-16 04:54] LABS: NT Pro B Type Natriuretic Pept 2066 pg/mL (0-125)
[2023-09-16 05:40] VITALS: BP 124/81; PULSE 83; RESP 22; O2SAT 91
== END 2023-09-16 05:41 | disposition home or self-care (01) ==
PROVIDERS: Emergency Provider Emergency Medicine; PCP Family Medicine
DX: R60.0 Localized edema (principal); Z79.82 Long term (current) use of aspirin; F17.210 Nicotine dependence, cigarettes, uncomplicated; J44.9 Chronic obstructive pulmonary disease, unspecified; I50.9 Heart failure, unspecified
CPT/HCPCS: 36415; 71045; 80053; 83735; 83880; 84484; 85025; 85610; 93005; 96374; 99285; J1940

== ENCOUNTER 2023-09-19 05:04 | Emergency (ER) | payer SELFPAY ==
[2023-09-19 05:08] VITALS: BP 139/71; PULSE 100; RESP 26; TEMP 36.6; O2SAT 98
--- NOTE | 2023-09-19 05:15 | ECG_ITS ---
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 Measurements Intervals [place]Brien Rate: 87 P: 0 SC: 0 QRS: 47 QRSD: 100 T: 7 QT: 381 QTc: 459 Interpretive Statements ATRIAL FIBRILLATION MODERATE ST DEPRESSION [0.05+ mV ST DEPRESSION] Compared to ECG 09/16/2023 03:40:06 No significant changes Electronically Signed On 09-19-2023 17:32:45 STORE CASHIER by Eliel Key M.D. [id number]
--- NOTE | 2023-09-19 05:22 | XRR_ITS ---
PROCEDURE INFORMATION: Exam: XR Chest Exam date and time: 09/19/2023 5:28 AM Age: 43 years old Clinical indication: Shortness of breath; Patient HX: C/O SOB. History of chf. ; Additional info: Dyspnea TECHNIQUE: Imaging protocol: Radiologic exam of the chest. Views: 1 view. COMPARISON: CR (CHEST, ) 09/16/2023 3:55 AM FINDINGS: Lungs: No focal consolidation. Pleural spaces: No large pleural effusion. No pneumothorax. Heart/Mediastinum: Cardiomediastinal silhouette is midline and stable in size. Bones/joints: Osseous structures are unchanged. XR/XR chest 1V portable [id number] IMPRESSION: No acute cardiopulmonary findings.
[2023-09-19] MEDS: FUROsemide 10 mg/mL SDV 10mL 60 MG IVP (05:35)
[2023-09-19 05:36] LABS: Basophils % 0.4 %; Eosinophils # 0.2 10^3/uL (0.0-0.8); Eosinophils % 1.4 %; Hematocrit 50.8 % (37-53); Lymphocytes # 2.1 10^3/uL (0.8-4.8); Lymphocytes % 19.5 %; Mean Corpuscular HGB Conc 33.9 g/dL (30-55); Mean Corpuscular Hemoglobin 34.1 pg (27-33); Mean Corpuscular Volume 100.6 fl (82-101); Mean Platelet Volume 9.9 fL (7.4-10.4); Monocytes # 0.8 10^3/uL (0.2-0.9); Monocytes % 7.1 %; Neutrophils # 7.78 10^3/uL (1.8-7.7); Neutrophils % 71.3 %; Nucleated Red Blood Cells % 0 %; Platelet Count 158 10^3/cmm (157-399); Red Blood Count 5.05 10^6/uL (3.85-5.65); Red Cell Distribution Width 13.4 % (12.1-15.1); White Blood Count 10.89 10^3/uL (3.29-11.43)
[2023-09-19 05:44] VITALS: BP 139/71; PULSE 87; RESP 14; O2SAT 97
--- NOTE | 2023-09-19 06:01 | ED_ITS ---
Documented by User: Eris Khan DO 09/19/23 06:03 HPI - SOB/Dyspnea 2 General: Chief Complaint: Shortness of Breath/Dyspnea Stated Complaint: swelling in legs chf and afib sob Time Seen by Provider: 09/19/23 05:22 History of Present Illness: HPI Narrative: Patient presents to the ER with worsening shortness of breath and bilateral lower extremity swelling. Patient has a history of CHF and has been seen here several times as well as his PCPs office several times within the last several weeks and had his multiple diuretics changed several times. His last diuretic was Lasix which she was placed on by myself approximately a week ago at 40 mg he then seen his PCP who increased it to 80 mg and patient says he still short of breath and swelling is worsened. Patient does have a history of PE which he chose not to be transported to a tertiary care facility for thrombectomy. Patient does report that he is not able to afford any of his meds and therefore he goes without them most of the time. Patient denies any fever chills or overt signs of sickness. Review of Systems 2 General: Reports: 10 or more systems reviewed and unremarkable except in HPI and below PFSH ED 2 PFSH: Medical History Atrial fibrillation COPD (chronic obstructive pulmonary disease) CHF exacerbation H/O factor V Leiden mutation Tobacco dependence Obesity History of pulmonary embolus (PE) SAILAJA (acute kidney injury) Pulmonary embolism DVT (deep venous thrombosis) Atrial fibrillation with RVR Currently rate controlled Heart failure Currently euvolemic Surgical History Hx of superior vena cava filter placement Family History Family/Other Hypertension Mother Cancer liver Other Dementia Diabetes Hyperlipidemia Lung disease Denies family history of CAD (coronary artery disease) Clotting disorder Chronic kidney disease (CKD) Anesthesia complication Bleeding disorder Stroke Social History Smoking and tobacco/nicotine status: current every day tobacco/nicotine user cigarettes Packs smoked per day: 1 Years cigarettes smoked: 35 Alcohol intake: former Former alcohol use details: Hx of alcoholism. last uce of >2 drinks/day was 3 months Substance/Drug Use: never Lives independently: Yes Current occupational status: employed Current occupation: [employer] Special ale needs: No Agree to transfusion: Yes Physical Exam 2 Const: COMMON NORMALS: no acute distress, average body habitus, patient oriented x3, no limitations, healthy appearing, alert and well nourished Neck/C-Spine: COMMON NORMALS: no JVD Chest: COMMONS NORMALS: normal inspection of the chest and normal palpation of entire chest wall Resp: COMMON NORMALS: normal respiratory effort, No retractions, No use of accessory muscles and clear to auscultation bilaterally (Decreased breath sounds bilaterally) AUSCULTATION: clear to auscultation bilaterally (Decreased breath sounds bilaterally) Cardio: COMMON NORMALS: no JVD, regular rate, regular rhythm, S1 normal heart sound present, S2 normal heart sound present, No gallops present (Cardio), No clicks present (Cardio), No murmurs present (Cardio) and No rub (Cardio) R ATE: regular rate RHYTHM: regular rhythm HEART SOUNDS: S1 normal heart sound present and S2 normal heart sound present GI: COMMON NORMALS: Normal to inspection, nondistended, normoactive bowel sounds present, Soft to palpation, non-tender, No hepatosplenomegaly present and no masses PALPATION: Yes Soft to palpation and Yes No hepatosplenomegaly present Extremity: NARRATIVE EXTREMITY EXAM: 2-3+ pitting edema bilateral lower extre mities Neuro: COMMON NORMALS: patient oriented x3 SENSORIUM/ORIENTATION: Yes alert Course 2 Vital Signs: Vital signs: Vital Signs Temperature 97.9 F 09/19/23 05:08 Pulse Rate 83 09/19/23 08:37 Respiratory Rate 16 09/19/23 08:37 Blood Pressure 118/75 09/19/23 08:37 Pulse Oximetry 91 09/19/23 09:08 Oxygen Delivery Me thod Room Air 09/19/23 05:44 Oxygen Flow Rate 2 09/19/23 09:08 MDM - SOB/Dyspnea Lab Data I reviewed the patient's lab results. 09/19/23 05:24 09/19/23 05:24 Labs/Radiology: Radiology Impressions Chest X-Ray 09/19/23 05:22 IMPRESSION: No acute cardiopulmonary findings. Laboratory Results WBC 10.89 10^3/uL (3.29-11.43) 09/19/23 05:24 RBC 5.05 10^6/uL (3.85-5.65) 09/19/23 05:24 Hgb 17.20 g/dL (11.27-16.99) H 09/19/23 05:24 Hct 50.8 % (37-53) 09/19/23 05:24 MCV 100.6 fl (82-101) 09/19/23 05:24 MCH 34.1 pg (27-33) H 09/19/23 05:24 MCHC 33.9 g/dL (30-55) 09/19/23 05:24 RDW 13.4 % (12.1-15.1) 09/19/23 05:24 Plt Count 158 10^3/cmm (157-399) 09/19/23 05:24 MPV 9.9 fL (7.4-10.4) 09/19/23 05:24 Neut % (Auto) 71.3 % 09/19/23 05:24 Lymph % (Auto) 19.5 % 09/19/23 05:24 Park % (Auto) 7.1 % 09/19/23 05:24 Eos % (Auto) 1.4 % 09/19/23 05:24 Baso % (Auto) 0.4 % 09/19/23 05:24 Neut # (Auto) 7.78 10^3/uL (1.8-7.7) H 09/19/23 05:24 Lymph # (Auto) 2.1 10^3/uL (0.8-4.8) 09/19/23 05:24 Park # (Auto) 0.8 10^3/uL (0.2-0.9) 09/19/23 05:24 Eos # (Auto) 0.2 10^3/uL (0.0-0.8) 09/19/23 05:24 Baso # (Auto) 0.0 10^3/uL (0.0-0.1) 09/19/23 05:24 Nucleated RBC % (auto) 0 % 09/19/23 05:24 Nucleated RBCs # 0.0 /100WBC 09/19/23 05:24 Sodium 141 mmol/L (136-145) 09/19/23 05:24 Potassium 3.9 mmol/L (3.5-5.1) 09/19/23 05:24 Chloride 100 mmol/L (98-107) 09/19/23 05:24 Carbon Dioxide 29 mmol/L (22-29) 09/19/23 05:24 Anion Gap 15.9 (5-19) 09/19/23 05:24 BUN 13 mg/dL (6-20) 09/19/23 05:24 Creatinine 0.9 mg/dL (0.7-1.2) 09/19/23 05:24 GFR Calculation 92.1 mL/min (90-130) 09/19/23 05:24 Glucose 113 mg/dL (65-115) 09/19/23 05:24 Calculated Osmolality 293 mOsm/kg (285-295) 09/19/23 05:24 Calcium 8.6 mg/dL (8.5-10.5) 09/19/23 05:24 Magnesium 2.0 mg/dL (1.7-2.3) 09/19/23 05:24 Total Bilirubin 0.3 mg/dL (0.15-1.2) 09/19/23 05:24 AST 13 U/L (0-40) 09/19/23 05:24 ALT 16 U/L (0-41) 09/19/23 05:24 Alkaline Phosphatase 132 U/L (40-130) H 09/19/23 05:24 NT-Pro-B Natriuret Pep 1466 pg/mL (0-125) H 09/19/23 05:24 Total Protein 7.1 g/dL (6.6-8.7) 09/19/23 05:24 Albumin 3.9 g/dL (3.5-5.2) 09/19/23 05:24 Globulin 3.2 g/dL (1.3-4.6) 09/19/23 05:24 All radiology interpretation(s) finalized by discharge Discharge Plan Discharge Patient Disposition: Home Clinical Impression: Atrial fibrillation, chronic, Hypoxia Pulmonary emboli Qualifiers: Chronicity: chronic Acute cor pulmonale presence: with acute cor pulmonale Condition: Stable Prescriptions: No Action ipratropium bromide 0.02 % solution 2.5 ml inhalation Q6H PRN (Reason: shortness of breath or wheezing) Qty: 75 2RF aspirin 81 mg tablet,delayed release (DR/EC) 81 mg PO DAILY PRN (Reason: unknown) Lasix 40 mg tablet 80 mg PO BID Qty: 60 0RF Rx Instructions: take at 7am and 1pm potassium chloride 20 mEq tablet extended release 40 meq PO DAILY Qty: 60 0RF diltiazem HCl 240 mg capsule,extended release 24hr 240 mg PO BID Qty: 60 0RF metoprolol tartrate 25 mg tablet 75 mg PO BID@0900,2100 Qty: 60 0RF acetaminophen 500 mg Tablet 2,000 mg PO Q6H PRN (Reason: Pain) ibuprofen 200 mg Tablet 1,600 mg PO Q6H PRN (Reason: Pain) albuterol sulfate 90 mcg/actuation HFA aerosol inhaler 1 inh inhalation QID PRN (Reason: Shortness Of Breath Or Wheezing) apixaban 5 mg tablet 5 mg PO BID Qty: 90 10RF Discharge Orders: Discharge ED (Routine); Ordered 09/19/23 Ordered By: Ruel Esquivel Referrals: Boni Jose MD [Primary Care Provider] - 1 week Discharge Diet: Usual diet and Low Salt Discharge Activity: Increase activity as tolerated Patient Instructions: Opioid Safety, Pain Management Activity Restrictions/Additional Instructions: As we discussed while you are in the emergency department much of your symptoms are related to your multiple condition's including your chronic atrial fibrillation, your recent pulmonary embolus, your fluid retention. It is important that you adopt a low sodium diet, increase your activity to tolerance to help improve your functional ability, take all your medications including your anticoagulant. If your symptoms do not improve or worsen you are welcome to return to the emergency department but otherwise follow-up with your regular doctor in 1 week. You should also use support compression hose on your lower extremities during the day when you are up. 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 [employer] Documented by User: Ruel Esquivel DO 09/19/23 10:58 HPI - SOB/Dyspnea 2 General: Chief Complaint: Shortness of Breath/Dyspnea Stated Complaint: swelling in legs chf and afib sob Time Seen by Provider: 09/19/23 05:22 [facility] ED 2 PFS: Medical History Atrial fibrillation COPD (chronic obstructive pulmonary disease) CHF exacerbation H/O factor V Leiden mutation Tobacco dependence Obesity History of pulmonary embolus (PE) SAILAJA (acute kidney injury) Pulmonary embolism DVT (deep venous thrombosis) Atrial fibrillation with RVR Currently rate controlled Heart failure Currently euvolemic Surgical History Hx of superior vena cava filter placement Family History Family/Other Hypertension Mother Cancer liver Other Dementia Diabetes Hyperlipidemia Lung disease Denies family history of CAD (coronary artery disease) Clotting disorder Chronic kidney disease (CKD) Anesthesia complication Bleeding disorder Stroke Social History Smoking and tobacco/nicotine status: current every day tobacco/nicotine user cigarettes Packs smoked per day: 1 Years cigarettes smoked: 35 Alcohol intake: former Former alcohol use details: Hx of alcoholism. last uce of >2 drinks/day was 3 months Substance/Drug Use: never Lives independently: Yes Current occupational status: employed Current occupation: [employer] Special ale needs: No Agree to transfusion: Yes Course 2 Reevaluation(s): Reevaluation #1: This patient was checked out to me by the overnight physician. The patient has returned to the emergency department with subjective increase in shortness of breath over the past several days. He has a known history of chronic atrial fibrillation since 2020 as well as recent pulmonary embolus. He admits to taking his medications faithfully since his most recent hospitalization but states prior to that time he was not as adherent to his medications including his apixaban. He states that with any kind of significant activity he gets much more short of breath. He denies any sustained chest pain. Clinical exam revealed him to be alert. His pulse oximetry is between 92 and 94% at rest. He talks in complete sentences. His chest is symmetrical and quiet with clear lung zacarias to auscultation. His heart is irregularly irregular with a controlled ventricular rate. His extremities reveal significant bilateral brawny edema. No calf tenderness to palpation. Patient's BNP is actually improved his troponins are reassuring. I suspect this patient has a large enough clot burden that he is becoming hypoxic because of his prior pulmonary emboli as well as his chronic atrial fibrillation with likely episodes of rapid ventricular response. Will go ahead and reCT him at this time to ensure that there is no increasing clot and then perhaps discussed with hematology regarding alternative anticoagulation regimen. Time: 07:44 Reevaluation #2: CTPA reveals less of a clot burden than previously without any evidence of heart right heart strain so some improvement. He does qualify for home oxygen per respiratory therapy testing. The issue of course is the cause of the home oxygen and he does not have any medical insurance support. Will consult social sciences professor for any possible interventions. Time: 10:22 Reevaluation #3: volunteer services coordinator interviewed the patient and provided him with resources and information on home oxygen however the patient does not want to pay for the home oxygen services and there are no financial resources otherwise. The patient voiced understanding of his current clinical condition but is resigned to his current status and desires to be discharged from the emergency department. He voices understanding of the need of oxygen and how it would improve his quality of life but he is making a financial decision. He has his symptoms complex related to his chronic atrial fibrillation, likely obstructive sleep apnea, known pulmonary embolus. He is to continue all his medications including his diuretics and his rate control medication. Time: 10:53 Vital Signs: Vital signs: Vital Signs Temperature 97.9 F 09/19/23 05:08 Pulse Rate 83 09/19/23 08:37 Respiratory Rate 16 09/19/23 08:37 Blood Pressure 118/75 09/19/23 08:37 Pulse Oximetry 91 09/19/23 09:08 Oxygen Delivery Me thod Room Air 09/19/23 05:44 Oxygen Flow Rate 2 09/19/23 09:08 MDM - SOB/Dyspnea Medical Decision Making This patient presents to the emergency department and was seen by the overnight physician then checked out to me. He patient has a history of atrial fibrillation as well as a recent diagnosis of pulmonary embolus. He also has a history of factor V and V Leiden deficiency. He is here because he does not feel like he is improving under the current regimen. Initial evaluation revealed him to be in atrial fibrillation with a controlled ventricular response. Workup was initiated and I received the patient for completion of workup. His evaluation here revealed actually an improvement in his pro BNP from prior evaluation. I repeat CTPA revealed improvement in his clot burden without any evidence of right heart strain. After discussion with the patient a oxygen test was performed which showed that he qualified for home oxygen however the patient even after discussion with social sciences professor declined to pay for the oxygen and there was no other resources available to provide him support. The patient is being discharged at his request to continue his current regimen. Again he had intact decision-making capacity and could voiced understanding of the risks and implications of his choices. Medical Records I reviewed the patient's medical records. Prior pulmonary embolus noted on CTPA Lab Data 09/19/23 05:24 09/19/23 05:24 Labs/Radiology: Radiology Impressions Chest X-Ray 09/19/23 05:22 IMPRESSION: No acute cardiopulmonary findings. Laboratory Results WBC 10.89 10^3/uL (3.29-11.43) 09/19/23 05:24 RBC 5.05 10^6/uL (3.85-5.65) 09/19/23 05:24 Hgb 17.20 g/dL (11.27-16.99) H 09/19/23 05:24 Hct 50.8 % (37-53) 09/19/23 05:24 MCV 100.6 fl (82-101) 09/19/23 05:24 MCH 34.1 pg (27-33) H 09/19/23 05:24 MCHC 33.9 g/dL (30-55) 09/19/23 05:24 RDW 13.4 % (12.1-15.1) 09/19/23 05:24 Plt Count 158 10^3/cmm (157-399) 09/19/23 05:24 MPV 9.9 fL (7.4-10.4) 09/19/23 05:24 Neut % (Auto) 71.3 % 09/19/23 05:24 Lymph % (Auto) 19.5 % 09/19/23 05:24 Park % (Auto) 7.1 % 09/19/23 05:24 Eos % (Auto) 1.4 % 09/19/23 05:24 Baso % (Auto) 0.4 % 09/19/23 05:24 Neut # (Auto) 7.78 10^3/uL (1.8-7.7) H 09/19/23 05:24 Lymph # (Auto) 2.1 10^3/uL (0.8-4.8) 09/19/23 05:24 Park # (Auto) 0.8 10^3/uL (0.2-0.9) 09/19/23 05:24 Eos # (Auto) 0.2 10^3/uL (0.0-0.8) 09/19/23 05:24 Baso # (Auto) 0.0 10^3/uL (0.0-0.1) 09/19/23 05:24 Nucleated RBC % (auto) 0 % 09/19/23 05:24 Nucleated RBCs # 0.0 /100WBC 09/19/23 05:24 Sodium 141 mmol/L (136-145) 09/19/23 05:24 Potassium 3.9 mmol/L (3.5-5.1) 09/19/23 05:24 Chloride 100 mmol/L (98-107) 09/19/23 05:24 Carbon Dioxide 29 mmol/L (22-29) 09/19/23 05:24 Anion Gap 15.9 (5-19) 09/19/23 05:24 BUN 13 mg/dL (6-20) 09/19/23 05:24 Creatinine 0.9 mg/dL (0.7-1.2) 09/19/23 05:24 GFR Calculation 92.1 mL/min (90-130) 09/19/23 05:24 Glucose 113 mg/dL (65-115) 09/19/23 05:24 Calculated Osmolality 293 mOsm/kg (285-295) 09/19/23 05:24 Calcium 8.6 mg/dL (8.5-10.5) 09/19/23 05:24 Magnesium 2.0 mg/dL (1.7-2.3) 09/19/23 05:24 Total Bilirubin 0.3 mg/dL (0.15-1.2) 09/19/23 05:24 AST 13 U/L (0-40) 09/19/23 05:24 ALT 16 U/L (0-41) 09/19/23 05:24 Alkaline Phosphatase 132 U/L (40-130) H 09/19/23 05:24 NT-Pro-B Natriuret Pep 1466 pg/mL (0-125) H 09/19/23 05:24 Total Protein 7.1 g/dL (6.6-8.7) 09/19/23 05:24 Albumin 3.9 g/dL (3.5-5.2) 09/19/23 05:24 Globulin 3.2 g/dL (1.3-4.6) 09/19/23 05:24 Discharge Plan Discharge Patient Disposition: Home Clinical Impression: Atrial fibrillation, chronic, Hypoxia Pulmonary emboli Qualifiers: Chronicity: chronic Acute cor pulmonale presence: with acute cor pulmonale Condition: Stable Prescriptions: No Action ipratropium bromide 0.02 % solution 2.5 ml inhalation Q6H PRN (Reason: shortness of breath or wheezing) Qty: 75 2RF aspirin 81 mg tablet,delayed release (DR/EC) 81 mg PO DAILY PRN (Reason: unknown) Lasix 40 mg tablet 80 mg PO BID Qty: 60 0RF Rx Instructions: take at 7am and 1pm potassium chloride 20 mEq tablet extended release 40 meq PO DAILY Qty: 60 0RF diltiazem HCl 240 mg capsule,extended release 24hr 240 mg PO BID Qty: 60 0RF metoprolol tartrate 25 mg tablet 75 mg PO BID@0900,2100 Qty: 60 0RF acetaminophen 500 mg Tablet 2,000 mg PO Q6H PRN (Reason: Pain) ibuprofen 200 mg Tablet 1,600 mg PO Q6H PRN (Reason: Pain) albuterol sulfate 90 mcg/actuation HFA aerosol inhaler 1 inh inhalation QID PRN (Reason: Shortness Of Breath Or Wheezing) apixaban 5 mg tablet 5 mg PO BID Qty: 90 10RF Discharge Orders: Discharge ED (Routine); Ordered 09/19/23 Ordered By: Ruel Esquivel Referrals: Boni Jose MD [Primary Care Provider] - 1 week Discharge Diet: Usual diet and Low Salt Discharge Activity: Increase activity as tolerated Patient Instructions: Opioid Safety, Pain Management Activity Restrictions/Additional Instructions: As we discussed while you are in the emergency department much of your symptoms are related to your multiple condition's including your chronic atrial fibrillation, your recent pulmonary embolus, your fluid retention. It is important that you adopt a low sodium diet, increase your activity to tolerance to help improve your functional ability, take all your medications including your anticoagulant. If your symptoms do not improve or worsen you are welcome to return to the emergency department but otherwise follow-up with your regular doctor in 1 week. You should also use support compression hose on your lower extremities during the day when you are up. 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 Haseeb Arenas
[2023-09-19 06:08] LABS: Alanine Aminotransferase 16 U/L (0-41); Albumin Level 3.9 g/dL (3.5-5.2); Alkaline Phosphatase 132 U/L (40-130); Anion Gap 15.9 (5-19); Aspartate Amino Transferase 13 U/L (0-40); Blood Urea Nitrogen 13 mg/dL (6-20); Calcium 8.6 mg/dL (8.5-10.5); Carbon Dioxide 29 mmol/L (22-29); Chloride 100 mmol/L (98-107); Creatinine Clr Calc Pharmacy 182.5809; Globulin 3.2 g/dL (1.3-4.6); Glomerular Filtration Rate 92.1 mL/min (90-130); Glucose 113 mg/dL (65-115); NT Pro B Type Natriuretic Pept 1466 pg/mL (0-125); Osmolality Calculated 293 mOsm/kg (285-295); Potassium 3.9 mmol/L (3.5-5.1); Sodium 141 mmol/L (136-145); Total Bilirubin 0.3 mg/dL (0.15-1.2); Total Protein 7.1 g/dL (6.6-8.7)
--- NOTE | 2023-09-19 07:41 | CT_ITS ---
WS: [id number] CTA OF THE CHEST WITH PULMONARY EMBOLISM PROTOCOL TECHNIQUE: High-resolution contrast enhanced CTA of the chest with coronal and sagittal reformatted i mages with pulmonary embolism protocol. MIP images are also reviewed. CLINICAL INFORMATION: prior pe; increased sob and hypoxia COMPARISON: 09/03/2023 DLP: 620.[address] scans at [facility] use at least one of these dose optimization techniques: automated e xposure control; mA and/or kV adjustment per patient size (includes targeted exams where dose is matc hed to clinical indication); or iterative reconstruction. FINDINGS: Previously described pulmonary emboli have improved slightly with vessel recanalization in the RIGHT lower lobe and RIGHT middle lobe. Persistent emboli LEFT lower lobe RIGHT middle lobe and RIGHT lower lobe. No evidence of RIGHT heart strain. Resolution of the previously described pulmonary infiltrate s. Normal caliber thoracic aorta. No axillary lymphadenopathy. Adrenal glands are normal. Normal GE calderon ction. No other significant interval changes. IMPRESSION: 1. Some improvement in the previously described pulmonary emboli with a few recanalized vessels in t he RIGHT middle lobe and RIGHT lower lobe. Persistent filling defects compatible with pulmonary embol i in the LEFT lower lobe, RIGHT middle lobe, and RIGHT lower lobe similar to previous. No evidence o f new embolus. 2. No evidence of RIGHT heart strain 3. Previously described lower lobe infiltrates have improved and essentially resolved. 4. No other significant changes. Notified Ruel Esquivel DO at 09/19/2023 8:52 AM.
[2023-09-19] MEDS: iohexol 350 mg/mL 500 mL Btl (per mL) IV (08:02)
--- NOTE | 2023-09-19 08:18 | PC.PHAR ---
pt states he takes care of his own medications-pt states dced his symbicort 160-4.5mcg ext shows last filled 08/15/23 30d/s-pt states use to take aspirin 81mg daily but states now takes prn states not taken since starting apixaban 5mg bid ext shows apixaban 5mg last filled 09/04/23 30d/s- pt states his lasix was just increased to 80mg bid on 09/17/23 ext shows last filled 09/16/23 30d/s 40mg daily-pt states bumetanide 2mg bid filled 09/10/23 30d/s and torsemide 20mg take 60mg qam and 20mg at noon filled 08/11/23 30d/s pt states both dced-
[2023-09-19 08:37] VITALS: BP 118/75; PULSE 83; RESP 16; O2SAT 94
[2023-09-19 09:08] VITALS: O2SAT 88; O2SAT 91; O2SAT 94
--- NOTE | 2023-09-19 10:30 | PC.SOCIAL ---
Addendum entered by Allyssa Lopes RN 09/19/23 10:50: Prices provided to patient, patient states that he cannot afford. [place] action closed. Called some local churches, most of them report only provide funding for housing at this time. Reached out to Kaylah Bautista, financial counselor. She is going to reach out to patient about financial assistance application and medicaid application. Spoke with patient about medications that he cannot afford. He states that his eloquis is the most expensive, around $50/month. This is already being prescribed by Dr. Jose under the 340B program. He states that alternatives have been offered, but he will not switch to something like coumadin that is much cheaper. Offered to reach out the pharmaceutical company to see if there were any other options, he states that he has already been given paperwork for this, but he has not completed it and would have to find them. He states that he did not qualify for medicaid in the past, as he makes too much. Original Note: Oxygen Private pay oxygen quotes obtained from [facility]: $204.15/month for a concentrator and portable tank. [facility]: $157/month + huynh of tanks which can vary from $9-22 depending on size of tank and number of tanks he uses. [employer] does require a card on file.
[2023-09-19 10:45] VITALS: BP 128/83; PULSE 79; RESP 16; O2SAT 93
[2023-09-19 11:07] VITALS: BP 127/81; PULSE 110; RESP 17; O2SAT 94
== END 2023-09-19 11:08 | disposition home or self-care (01) ==
PROVIDERS: Emergency Provider Emergency Medicine; PCP Family Medicine
DX: I48.20 Chronic atrial fibrillation, unspecified (principal); R09.02 Hypoxemia; I26.09 Other pulmonary embolism with acute cor pulmonale; F17.210 Nicotine dependence, cigarettes, uncomplicated; J44.9 Chronic obstructive pulmonary disease, unspecified; I50.9 Heart failure, unspecified
CPT/HCPCS: 71045; 71275; 80053; 83735; 83880; 85025; 93005; 96374; 99285; J1940; Q9967

== ENCOUNTER → 2023-09-24 11:59 | Outpatient (BNVA) | payer SELFPAY | PROVIDERS: PCP Family Medicine; Visit Provider Family Medicine | DX: R60.0 Localized edema (principal); E83.42 Hypomagnesemia | CPT/HCPCS: 80053; 83735 ==

== ENCOUNTER → 2023-10-29 15:16 | Outpatient (BNVA) | payer SELFPAY | PROVIDERS: PCP Family Medicine; Visit Provider Internal Medicine Cardiovascular Disease | DX: R06.02 Shortness of breath (principal); R60.0 Localized edema; I10 Essential (primary) hypertension | CPT/HCPCS: 36415; 80048; 83880 ==

== ENCOUNTER → 2024-02-10 11:12 | Outpatient (BNVA) | payer SELFPAY | PROVIDERS: PCP Family Medicine; Visit Provider Family Medicine | DX: R60.0 Localized edema (principal) | CPT/HCPCS: 80053; 83880 ==

== ENCOUNTER 2024-06-19 07:14 | Emergency (ER) | payer SELFPAY ==
--- NOTE | 2024-06-19 07:18 | ECG_ITS ---
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
[2024-06-19 07:24] VITALS: BP 130/86; PULSE 77; RESP 19; TEMP 36.8; O2SAT 95; BMI 39.2
--- NOTE | 2024-06-19 07:37 | XRR_ITS ---
PROCEDURE INFORMATION: Exam: XR Chest Exam date and time: 06/19/2024 7:43 AM Age: 44 years old Clinical indication: Cough and dyspnea; Additional info: Dyspnea/cough TECHNIQUE: Imaging protocol: Radiologic exam of the chest. Views: 1 view. COMPARISON: CT angio chest PE protcl [id number] 09/19/2023 7:51 AM FINDINGS: Lungs: Unremarkable. No consolidation. Pleural spaces: Unremarkable. No pleural effusion. No pneumothorax. Heart/Mediastinum: Unremarkable. No cardiomegaly. Bones/joints: Unremarkable. XR/XR chest 1V portable [id number] IMPRESSION: No acute findings.
--- NOTE | 2024-06-19 07:40 | ED_ITS ---
HPI - SOB/Dyspnea 2 General: Chief Complaint: Shortness of Breath/Dyspnea Stated Complaint: SOB Time Seen by Provider: 06/19/24 07:32 History of Present Illness: HPI Narrative: 44-year-old male presents emergency room complaints of shortness of breath. Intermittent shortness of breath and coughing no chest chest pain. He has had increased swelling in his lower extremities. He has been out of his Lasix and diltiazem for the last several days. No fever sweats chills. Associated symptoms: Deny abdominal pain, chest pain or fever(s) Related Data Home Medications Medication Instructions Recorded Confirmed acetaminophen 500 mg tablet 2,000 mg PO Q6H PRN Pain 03/29/23 06/19/24 ibuprofen 200 mg tablet 1,600 mg PO Q6H PRN Pain 03/29/23 06/19/24 Previous Rx's Medication Instructions Recorded apixaban 5 mg tablet 5 mg PO BID #90 tabs 09/04/23 ipratropium bromide 0.02 % 2.5 ml inhalation Q6H PRN 09/10/23 solution for inhalation shortness of breath or wheezing #75 mL potassium chloride 20 mEq 20 meq PO TID #240 tabs 02/11/24 tablet,extended release metoprolol tartrate 75 mg tablet 75 mg PO BID@0900,2100 #180 tabs 05/03/24 albuterol sulfate 90 mcg/actuation 1 inh inhalation QID PRN Shortness 05/27/24 aerosol inhaler Of Breath Or Wheezing #6.7 grams fluticasone 250 mcg-salmeterol 50 1 inh inhalation BID #60 ea 06/08/24 mcg/dose blistr powdr for inhalation diltiazem HCl 240 mg 240 mg PO BID #60 caps 06/16/24 capsule,extended release 24 hr furosemide 40 mg tablet See Rx Instructions .Route 06/16/24 .COMPLEX #60 tabs Allergies Allergy/AdvReac Type Severity Reaction Status Date / Time amantadine [From Symmetrel] Allergy Unknown Unknown Verified 11/03/23 10:43 Review of Systems 2 Const: Denies: fever(s) or chills Card: Denies: chest pain Resp: Denies: dyspnea GI: Denies: abdominal pain : Denies: dysuria, urinary frequency or urinary urgency Musc: Denies: neck pain or back pain Skin/Breast: Denies: rash PFSH ED 2 PFSH: Medical History Ichthyosis vulgaris Atrial fibrillation COPD (chronic obstructive pulmonary disease) CHF exacerbation H/O factor V Leiden mutation Tobacco dependence Obesity History of pulmonary embolus (PE) SAILAJA (acute kidney injury) Pulmonary embolism DVT (deep venous thrombosis) Atrial fibrillation with RVR Currently rate controlled Heart failure Currently euvolemic Surgical History Hx of superior vena cava filter placement Family History Family/Other Hypertension Mother Cancer liver Other Dementia Diabetes Hyperlipidemia Lung disease Denies family history of CAD (coronary artery disease) Clotting disorder Chronic kidney disease (CKD) Anesthesia complication Bleeding disorder Stroke Social History Smoking and tobacco/nicotine status: current every day tobacco/nicotine user cigarettes Packs smoked per day: 1 Years cigarettes smoked: 35 Alcohol intake: former Former alcohol use details: Hx of alcoholism. last uce of >2 drinks/day was 3 months Substance/Drug Use: never Lives independently: Yes Current occupational status: employed Current occupation: [employer] Special ale needs: No Agree to transfusion: Yes Physical Exam 2 Const: COMMON NORMALS: no acute distress GENERAL APPEARANCE: cooperative and comfortable ORIENTATION/CONSCIOUSNESS: Yes awake, Yes oriented to person, Yes oriented to place and Yes oriented to time HENMT: COMMON NORMALS: normocephalic, atraumatic and hearing grossly normal bilaterally HEAD & SCALP: normocephalic and atraumatic Resp: COMMON NORMALS: normal respiratory effort, No retractions, No use of accessory muscles and clear to auscultation bilaterally AUSCULTATION: clear to auscultation bilaterally Cardio: COMMON NORMALS: regular rate, regular rhythm and No murmurs present (Cardio) RATE: regular rate RHYTHM: regular rhythm GI: COMMON NORMALS: Soft to palpation and No hepatosplenomegaly present A USCULTATION: Yes normoactive bowel sounds PALPATION: Yes Soft to palpation, No Tenderness to palpation present (GI), No Guarding due to palpation present (GI) and Yes No hepatosplenomegaly present Extremity: COMMON NORMALS: normal to inspection, capillary refill normal, no clubbing, cyanosis or edema, no calf tenderness and no pedal edema Neuro: SENSORIUM/ORIENTATION: Yes oriented to person, Yes oriented to place and Yes oriented to time Skin: COMMON NORMALS: no rashes or lesions noted GENERAL SKIN EXAM: no rashes or lesions noted Course 2 Vital Signs: Vital signs: Vital Signs Temperature 98.2 F 06/19/24 07:24 Pulse Rate 67 06/19/24 09:49 Respiratory Rate 22 H 06/19/24 09:00 Blood Pressure 108/69 06/19/24 09:49 Pulse Oximetry 97 06/19/24 09:49 Oxygen Delivery Me thod Room Air 06/19/24 09:00 MDM - SOB/Dyspnea Medical Decision Making Improved after diuresis. Rates been well-controlled discharge patient home have him increase his Lasix to 60 mg daily for the next 3 days. Start that tomorrow we did give him an extra dose of Lasix IV here. Recheck in 4 to 5 days with his primary care doctor to repeat BMP and reevaluation return if has further problems. Medical Records I reviewed the patient's medical records. Lab Data I reviewed the patient's lab results. 06/19/24 07:43 06/19/24 07:43 Labs/Radiology: Radiology Impressions Chest X-Ray 06/19/24 07:37 IMPRESSION: No acute findings. Laboratory Results WBC 8.13 10^3/uL (3.29-11.43) 06/19/24 07:43 RBC 5.61 10^6/uL (3.85-5.65) 06/19/24 07:43 Hgb 19.30 g/dL (11.27-16.99) H 06/19/24 07:43 Hct 57.3 % (37-53) H 06/19/24 07:43 MCV 102.1 fl (82-101) H 06/19/24 07:43 MCH 34.4 pg (27-33) H 06/19/24 07:43 MCHC 33.7 g/dL (30-55) 06/19/24 07:43 RDW 13.1 % (12.1-15.1) 06/19/24 07:43 Plt Count 142 10^3/cmm (157-399) L 06/19/24 07:43 MPV 10.1 fL (7.4-10.4) 06/19/24 07:43 Neut % (Auto) 67.4 % 06/19/24 07:43 Lymph % (Auto) 22.1 % 06/19/24 07:43 [place] % (Auto) 7.7 % 06/19/24 07:43 Eos % (Auto) 2.2 % 06/19/24 07:43 Baso % (Auto) 0.5 % 06/19/24 07:43 Neut # (Auto) 5.47 10^3/uL (1.8-7.7) 06/19/24 07:43 Lymph # (Auto) 1.8 10^3/uL (0.8-4.8) 06/19/24 07:43 [place] # (Auto) 0.6 10^3/uL (0.2-0.9) 06/19/24 07:43 Eos # (Auto) 0.2 10^3/uL (0.0-0.8) 06/19/24 07:43 Baso # (Auto) 0.0 10^3/uL (0.0-0.1) 06/19/24 07:43 Nucleated RBC % (auto) 0 % 06/19/24 07:43 Nucleated RBCs # 0.0 /100WBC 06/19/24 07:43 Sodium 139 mmol/L (136-145) 06/19/24 07:43 Potassium 4.8 mmol/L (3.5-5.1) 06/19/24 07:43 Chloride 100 mmol/L (98-107) 06/19/24 07:43 Carbon Dioxide 32 mmol/L (22-29) H 06/19/24 07:43 Anion Gap 11.8 (5-19) 06/19/24 07:43 BUN 22 mg/dL (6-20) H 06/19/24 07:43 Creatinine 1.5 mg/dL (0.7-1.2) H 06/19/24 07:43 GFR Calculation 50.8 mL/min (90-130) L 06/19/24 07:43 Glucose 164 mg/dL (65-115) H 06/19/24 07:43 Calculated Osmolality 295 mOsm/kg (285-295) 06/19/24 07:43 Calcium 8.7 mg/dL (8.5-10.5) 06/19/24 07:43 Total Bilirubin 0.4 mg/dL (0.15-1.2) 06/19/24 07:43 AST 13 U/L (0-40) 06/19/24 07:43 ALT 16 U/L (0-41) 06/19/24 07:43 Alkaline Phosphatase 114 U/L (40-130) 06/19/24 07:43 Total Protein 7.0 g/dL (6.6-8.7) 06/19/24 07:43 Albumin 3.8 g/dL (3.5-5.2) 06/19/24 07:43 Globulin 3.2 g/dL (1.3-4.6) 06/19/24 07:43 All radiology interpretation(s) finalized by discharge Discharge Plan Discharge Patient Disposition: Home Clinical Impression: SAILAJA (acute kidney injury), Lower extremity edema, Congestive heart failure, Atrial fibrillation Condition: Stable Prescriptions: No Action ipratropium bromide 0.02 % solution 2.5 ml inhalation Q6H PRN (Reason: shortness of breath or wheezing) Qty: 75 2RF potassium chloride 20 mEq tablet extended release 20 meq PO TID Qty: 240 3RF Rx Instructions: Take 20 mEq three times daily metoprolol tartrate 75 mg tablet 75 mg PO BID@0900,2100 Qty: 180 1RF albuterol sulfate 90 mcg/actuation HFA aerosol inhaler 1 inh inhalation QID PRN (Reason: Shortness Of Breath Or Wheezing) Qty: 6.7 1RF fluticasone propion-salmeterol 250-50 mcg/dose blister with device 1 inh inhalation BID Qty: 60 3RF furosemide 40 mg tablet See Rx Instructions .ROUTE .COMPLEX Qty: 60 0RF Dose Instruction: TAKE 2 TABLETS BY MOUTH TWICE DAILY at 7am and 1pm Rx Instructions: TAKE 2 TABLETS BY MOUTH TWICE DAILY at 7am and 1pm diltiazem HCl 240 mg capsule,extended release 24hr 240 mg PO BID Qty: 60 0RF acetaminophen 500 mg Tablet 2,000 mg PO Q6H PRN (Reason: Pain) ibuprofen 200 mg Tablet 1,600 mg PO Q6H PRN (Reason: Pain) apixaban 5 mg tablet 5 mg PO BID Qty: 90 10RF Discharge Orders: Discharge ED (Routine); Ordered 06/19/24 Ordered By: Robi Tsai Referrals: Boni Jose MD [Primary Care Provider] - Patient Instructions: Opioid Safety, Pain Management Activity Restrictions/Additional Instructions: Thank you for choosing [facility] for your healthcare needs today. It is very important that you follow up as instructed or that you return to the Emergency Department should you have concerns or if your condition changes or worsens in any way. You were seen in the emergency room complaint shortness of breath no significant findings decompensated congestive heart failure on your chest x-ray or exam. You do have some fluid overload. You are given a extra dose of Lasix this morning. For the next 3 days increase your Lasix to 60 mg daily. You should follow-up with your primary care doctor in 3 to 5 days to recheck your potassium and your kidney function. Stand Alone Forms: Work/School Release Coding Level of Care Code ED Manager E Learning for Haseeb Arenas
[2024-06-19] MEDS: FUROsemide 40 mg Tablet 60 MG PO (07:46)
[2024-06-19 07:47] VITALS: BP 108/62; PULSE 75; RESP 16; O2SAT 95
[2024-06-19] MEDS: dilTIAZem ER (24HR) 120 mg Capsule 240 MG PO (07:47)
[2024-06-19 08:02] LABS: Basophils % 0.5 %; Eosinophils # 0.2 10^3/uL (0.0-0.8); Eosinophils % 2.2 %; Hematocrit 57.3 % (37-53); Lymphocytes # 1.8 10^3/uL (0.8-4.8); Lymphocytes % 22.1 %; Mean Corpuscular HGB Conc 33.7 g/dL (30-55); Mean Corpuscular Hemoglobin 34.4 pg (27-33); Mean Corpuscular Volume 102.1 fl (82-101); Mean Platelet Volume 10.1 fL (7.4-10.4); Monocytes # 0.6 10^3/uL (0.2-0.9); Monocytes % 7.7 %; Neutrophils # 5.47 10^3/uL (1.8-7.7); Neutrophils % 67.4 %; Nucleated Red Blood Cells % 0 %; Platelet Count 142 10^3/cmm (157-399); Red Blood Count 5.61 10^6/uL (3.85-5.65); Red Cell Distribution Width 13.1 % (12.1-15.1); White Blood Count 8.13 10^3/uL (3.29-11.43)
[2024-06-19] MEDS: ipratropium-albuterol 3 mL Neb INHALATION (08:06)
[2024-06-19 08:07] VITALS: PULSE 72; RESP 18; O2SAT 95
[2024-06-19 08:13] LABS: Alanine Aminotransferase 16 U/L (0-41); Albumin Level 3.8 g/dL (3.5-5.2); Alkaline Phosphatase 114 U/L (40-130); Anion Gap 11.8 (5-19); Aspartate Amino Transferase 13 U/L (0-40); Blood Urea Nitrogen 22 mg/dL (6-20); Calcium 8.7 mg/dL (8.5-10.5); Carbon Dioxide 32 mmol/L (22-29); Chloride 100 mmol/L (98-107); Creatinine Clr Calc Pharmacy 103.5808; Globulin 3.2 g/dL (1.3-4.6); Glomerular Filtration Rate 50.8 mL/min (90-130); Glucose 164 mg/dL (65-115); Osmolality Calculated 295 mOsm/kg (285-295); Potassium 4.8 mmol/L (3.5-5.1); Sodium 139 mmol/L (136-145); Total Bilirubin 0.4 mg/dL (0.15-1.2)
[2024-06-19 09:00] VITALS: BP 121/69; PULSE 73; RESP 22; O2SAT 96
[2024-06-19 09:49] VITALS: BP 108/69; PULSE 67; O2SAT 97
== END 2024-06-19 09:50 | disposition home or self-care (01) ==
PROVIDERS: Emergency Provider Family Medicine; PCP Family Medicine
DX: N17.9 Acute kidney failure, unspecified (principal); R60.0 Localized edema; I50.9 Heart failure, unspecified; I48.91 Unspecified atrial fibrillation; F17.210 Nicotine dependence, cigarettes, uncomplicated; J44.9 Chronic obstructive pulmonary disease, unspecified
CPT/HCPCS: 36415; 71045; 80053; 85025; 93005; 94640; 99285

== ENCOUNTER 2024-09-25 00:06 | Emergency (ER) | payer SELFPAY ==
--- NOTE | 2024-09-25 00:15 | XRR_ITS ---
PROCEDURE INFORMATION: Exam: XR Chest Exam date and time: 09/25/2024 2:13 AM Age: 44 years old Clinical indication: Shortness of breath; Additional info: SOB TECHNIQUE: Imaging protocol: Radiologic exam of the chest. Views: 1 view. COMPARISON: CR XR chest 1V portable [id number] 06/19/2024 7:43 AM FINDINGS: Lungs: Unremarkable. No consolidation. Pleural spaces: Unremarkable. No pleural effusion. No pneumothorax. Heart/Mediastinum: Unremarkable. No cardiomegaly. Bones/joints: Unremarkable. XR/XR chest 1V portable [id number] IMPRESSION: No acute findings.
[2024-09-25 00:22] VITALS: BP 119/74; PULSE 72; RESP 16; TEMP 36.6; O2SAT 98; BMI 40.4
--- NOTE | 2024-09-25 00:22 | ECG_ITS ---
Yorxs Test Date: 2024-09-25 Pat Name: Porter Lagos Department: Room: Gender: Male Data Collection Interviewer: : 1980 Requested By: René Atkinson Order Number: [id number] Reading MD: PRECIOUS LOTT Measurements Intervals [place] Rate: 69 P: 0 NH: 0 QRS: -8 QRSD: 100 T: -8 QT: 416 QTc: 448 Interpretive Statements ATRIAL FIBRILLATION SEPTAL MYOCARDIAL INFARCTION , OF INDETERMINATE AGE [40+ ms Q WAVE IN V1/V2] Compared to ECG 06/19/2024 07:19:56 No significant changes Electronically Signed On 09-27-2024 18:11:43 CDT by PRECIOUS LOTT [email or web address]
[2024-09-25 01:23] LABS: Basophils # 0.1 10^3/uL (0.0-0.1); Basophils % 0.6 %; Eosinophils # 0.2 10^3/uL (0.0-0.8); Eosinophils % 1.9 %; Hematocrit 56.4 % (37-53); Lymphocytes % 22.6 %; Mean Corpuscular HGB Conc 34.2 g/dL (30-55); Mean Corpuscular Hemoglobin 34.6 pg (27-33); Mean Corpuscular Volume 101.1 fl (82-101); Mean Platelet Volume 10.7 fL (7.4-10.4); Monocytes # 0.7 10^3/uL (0.2-0.9); Monocytes % 7.6 %; Neutrophils # 6.07 10^3/uL (1.8-7.7); Neutrophils % 67.1 %; Nucleated Red Blood Cells % 0 %; Platelet Count 126 10^3/cmm (157-399); Red Blood Count 5.58 10^6/uL (3.85-5.65); Red Cell Distribution Width 13.4 % (12.1-15.1); White Blood Count 9.04 10^3/uL (3.29-11.43)
[2024-09-25 02:00] VITALS: BP 126/87; PULSE 75; RESP 16; O2SAT 93
[2024-09-25 03:00] VITALS: BP 125/80; PULSE 71; RESP 16; O2SAT 95
[2024-09-25 04:20] LABS: Alanine Aminotransferase 13 U/L (0-41); Albumin Level 3.5 g/dL (3.5-5.2); Alkaline Phosphatase 119 U/L (40-130); Aspartate Amino Transferase 13 U/L (0-40); Blood Urea Nitrogen 19 mg/dL (6-20); Calcium 8.5 mg/dL (8.5-10.5); Carbon Dioxide 31 mmol/L (22-29); Chloride 94 mmol/L (98-107); Creatinine Clr Calc Pharmacy 143.4458; Globulin 3.2 g/dL (1.3-4.6); Glomerular Filtration Rate 72.7 mL/min (90-130); Glucose 224 mg/dL (65-115); NT Pro B Type Natriuretic Pept 1195 pg/mL (0-125); Osmolality Calculated 287 mOsm/kg (285-295); Sodium 134 mmol/L (136-145); Total Bilirubin 0.3 mg/dL (0.15-1.2); Total Protein 6.7 g/dL (6.6-8.7)
[2024-09-25 04:24] LABS: Anion Gap 12.4 (5-19); Potassium 3.4 mmol/L (3.5-5.1)
--- NOTE | 2024-09-25 04:35 | ED_ITS ---
HPI - General Adult 2 General: Chief complaint: Shortness of Breath/Dyspnea Stated complaint: SOB Excessive swelling Time Seen by Provider: 09/25/24 01:52 History of Present Illness: This patient is a 44-year-old white male who presents to the emergency department complaining of swelling in both legs. This is chronic. States he is having difficulty sleeping because of the discomfort and swelling. Somewhat more short of breath than usual as well. Patient is on Lasix and he states that Lasix is not helping. I asked him if he is elevating the legs above the level of his heart and he has not been. Related Data Home Medications ?Medication ?Instructions ?Recorded ?Confirmed acetaminophen 500 mg tablet 2,000 mg PO Q6H PRN Pain 0 03/29/23 08/03/24 ibuprofen 200 mg tablet 1,600 mg PO Q6H PRN Pain 08/03/24 Previous Rx's ?Medication ?Instructions ?Recorded apixaban 5 mg tablet 5 mg PO BID #90 tabs 4 potassium chloride 20 mEq 20 meq PO TID #240 tabs 01/13 08/06 tablet,extended release metoprolol tartrate 75 mg tablet 75 mg PO BID@0900,210 0 #180 tabs 05/03/24 albuterol sulfate 90 mcg/actuation 1 inh inhalation QI D PRN Shortness 08/03/24 aerosol inhaler Of Breath Or Wheezing #6.7 g joann chlorthalidone 25 mg tablet 25 mg PO DAILY #90 tabs fluticasone 250 mcg-salmeterol 50 1 inh inhalation BID #60 ea 08/03/24 mcg/dose blistr powdr for inhalation furosemide 40 mg tablet 80 mg (2 x 40 mg) PO BID #36 0 tabs 08/03/24 ipratropium bromide 0.02 % 2.5 ml inhalation Q6H PRN 0 08/03/24 solution for inhalation shortness of breath or wheez ing #75 mL diltiazem HCl 240 mg 240 mg PO BID #60 caps 09/17 capsule,extended release 24 hr Allergies Allergy/AdvReac Type Severity Reaction Status Date / Time amantadine (From Symmetrel) Allergy Unknown Unknown Verified 08/03/24 13:37 Review of Systems 2 General: Reports: 10 or more systems reviewed and unremarkable except in HPI and below Musc: Reports: extremity swelling PFSH ED 2 PFSH: Medical History Ichthyosis vulgaris Atrial fibrillation COPD (chronic obstructive pulmonary disease) CHF exacerbation H/O factor V Leiden mutation Tobacco dependence Obesity History of pulmonary embolus (PE) SAILAJA (acute kidney injury) Pulmonary embolism DVT (deep venous thrombosis) Atrial fibrillation with RVR Currently rate controlled Heart failure Currently euvolemic Surgical History Hx of superior vena cava filter placement Family History Family/Other Hypertension Mother Cancer liver Other Dementia Diabetes Hyperlipidemia Lung disease Denies family history of CAD (coronary artery disease) Clotting disorder Chronic kidney disease (CKD) Anesthesia complication Bleeding disorder Stroke Social History Smoking and tobacco/nicotine status: current every day tobacco/nicotine user cigarettes Packs smoked per day: 1 Years cigarettes smoked: 35 Alcohol intake: former Former alcohol use details: Hx of alcoholism. last uce of >2 drinks/day was 3 months Substance/Drug Use: never Lives independently: Yes Current occupational status: employed Current occupation: [employer] Special ale needs: No Agree to transfusion: Yes Physical Exam 2 Const: COMMON NORMALS: no acute distress, patient oriented x3 and no limitations GENERAL APPEARANCE: cooperative and comfortable HENMT: COMMON NORMALS: normocephalic, atraumatic, Normal nasal mucous membranes and turbinates present, moist oral mucous membranes and oropharynx normal HEAD & SCALP: normal to inspection, normocephalic and atraumatic F JUANITO & SINUS: normal facial exam NOSE: Normal nasal mucous membranes and turbinates present Eye: COMMON NORMALS: Equal, round and reactive pupils present, EOMs intact bilaterally and conjunctivae normal GENERAL EYE: appearance normal, both eyes and all related structures CONJUNCTIVA: Yes conjunctivae normal PUPIL: Yes Equal, round and reactive pupils present Neck/C-Spine: COMMON NORMALS: supple and no JVD Chest: COMMONS NORMALS: normal inspection of the chest Resp: COMMON NORMALS: normal respiratory effort and clear to auscultation bilaterally AUSCULTATION: clear to auscultation bilaterally Cardio: COMMON NORMALS: no JVD, regular rate, regular rhythm, No gallops present (Cardio), No murmurs present (Cardio) and No rub (Cardio) RATE: r egular rate RHYTHM: regular rhythm GI: COMMON NORMALS: Normal to inspection, nondistended, normoactive bowel sounds present, Soft to palpation and non-tender AUSCULTATION: Yes normoactive bowel sounds PALPATION: Yes Soft to palpation : COMMON NORMALS: Yes no CVA tenderness BLADDER/KIDNEY EXAM: Yes no CVA tenderness Back/Pelvis: COMMON NORMALS: no CVA tenderness and thoracic and lumbar spine normal to inspection Extremity: COMMON NORMALS: normal to inspection NARRATIVE EXTREMITY EXAM: 3-4+ edema in both lower legs. Neuro: COMMON NORMALS: patient oriented x3 and CN's II-XII intact bilaterally Psych: COMMON NORMALS: mental status grossly normal, Normal thought process present and cooperative THOUGHT PROCESS: Normal thought process present Skin: COMMON NORMALS: no rashes or lesions noted, turgor normal and no jaundice GENERAL SKIN EXAM: no rashes or lesions noted and turgor normal Course 2 Vital Signs: Vital signs: Vital Signs Temperature 97.9 F 09/25/24 00:22 Pulse Rate 71 09/25/24 03:00 Respiratory Rate 16 09/25/24 03:00 Blood Pressure 125/80 09/25/24 03:00 Pulse Oximetry 95 09/25/24 03:00 Oxygen Delivery Me thod Room Air 09/25/24 03:00 MDM - General Adult Medical Decision Making EKG revealed atrial fibrillation with a ventricular rate of 89. Chest x-ray was normal. CBC and CMP normal. BNP was 1195 which is within the patient's normal range. I instructed the patient to elevate his legs above the level of his heart is much as possible to decrease the edema. Continue the Lasix. Follow-up with primary care physician next week for recheck. He was discharged in stable condition. Lab Data 09/25/24 01:10 09/25/24 03:45 Laboratory Results WBC 9.04 10^3/uL (3.29-11.43) 09/25/24 01:10 RBC 5.58 10^6/uL (3.85-5.65) 09/25/24 01:10 Hgb 19.30 g/dL (11.27-16.99) H 09/25/24 01:10 Hct 56.4 % (37-53) H 09/25/24 01:10 MCV 101.1 fl (82-101) H 09/25/24 01:10 MCH 34.6 pg (27-33) H 09/25/24 01:10 MCHC 34.2 g/dL (30-55) 09/25/24 01:10 RDW 13.4 % (12.1-15.1) 09/25/24 01:10 Plt Count 126 10^3/cmm (157-399) L 09/25/24 01:10 MPV 10.7 fL (7.4-10.4) H 09/25/24 01:10 Neut % (Auto) 67.1 % 09/25/24 01:10 Lymph % (Auto) 22.6 % 09/25/24 01:10 [place] % (Auto) 7.6 % 09/25/24 01:10 Eos % (Auto) 1.9 % 09/25/24 01:10 Baso % (Auto) 0.6 % 09/25/24 01:10 Neut # (Auto) 6.07 10^3/uL (1.8-7.7) 09/25/24 01:10 Lymph # (Auto) 2.0 10^3/uL (0.8-4.8) 09/25/24 01:10 [place] # (Auto) 0.7 10^3/uL (0.2-0.9) 09/25/24 01:10 Eos # (Auto) 0.2 10^3/uL (0.0-0.8) 09/25/24 01:10 Baso # (Auto) 0.1 10^3/uL (0.0-0.1) 09/25/24 01:10 Nucleated RBC % (auto) 0 % 09/25/24 01:10 Nucleated RBCs # 0.0 /100WBC 09/25/24 01:10 Sodium 134 mmol/L (136-145) L 09/25/24 03:45 Potassium 3.4 mmol/L (3.5-5.1) L 09/25/24 03:45 Chloride 94 mmol/L (98-107) L 09/25/24 03:45 Carbon Dioxide 31 mmol/L (22-29) H 09/25/24 03:45 Anion Gap 12.4 (5-19) 09/25/24 03:45 BUN 19 mg/dL (6-20) 09/25/24 03:45 Creatinine 1.1 mg/dL (0.7-1.2) 09/25/24 03:45 GFR Calculation 72.7 mL/min (90-130) L 09/25/24 03:45 Glucose 224 mg/dL (65-115) H 09/25/24 03:45 Calculated Osmolality 287 mOsm/kg (285-295) 09/25/24 03:45 Calcium 8.5 mg/dL (8.5-10.5) 09/25/24 03:45 Total Bilirubin 0.3 mg/dL (0.15-1.2) 09/25/24 03:45 AST 13 U/L (0-40) 09/25/24 03:45 ALT 13 U/L (0-41) 09/25/24 03:45 Alkaline Phosphatase 119 U/L (40-130) 09/25/24 03:45 NT-Pro-B Natriuret Pep 1195 pg/mL (0-125) H 09/25/24 03:45 Total Protein 6.7 g/dL (6.6-8.7) 09/25/24 03:45 Albumin 3.5 g/dL (3.5-5.2) 09/25/24 03:45 Globulin 3.2 g/dL (1.3-4.6) 09/25/24 03:45 XR interpretation done by ED provider, pending radiology final review Discharge Plan Discharge Patient Disposition: Home Clinical Impression: Dependent edema Condition: Stable Prescriptions: No Action potassium chloride 20 mEq tablet extended release 20 meq PO TID Qty: 240 3RF Rx Instructions: Take 20 mEq three times daily fluticasone propion-salmeterol 250-50 mcg/dose blister with device 1 inh inhalation BID Qty: 60 3RF albuterol sulfate 90 mcg/actuation HFA aerosol inhaler 1 inh inhalation QID PRN (Reason: Shortness Of Breath Or Wheezing) Qty: 6.7 1RF furosemide 40 mg tablet 80 mg PO BID Qty: 360 1RF ipratropium bromide 0.02 % solution 2.5 ml inhalation Q6H PRN (Reason: shortness of breath or wheezing) Qty: 75 2RF chlorthalidone 25 mg tablet 25 mg PO DAILY Qty: 90 1RF metoprolol tartrate 75 mg tablet 75 mg PO BID@0900,2100 Qty: 180 1RF diltiazem HCl 240 mg capsule,extended release 24hr 240 mg PO BID Qty: 60 0RF acetaminophen 500 mg Tablet 2,000 mg PO Q6H PRN (Reason: Pain) ibuprofen 200 mg Tablet 1,600 mg PO Q6H PRN (Reason: Pain) apixaban 5 mg tablet 5 mg PO BID Qty: 90 10RF Discharge Orders: Discharge ED (Routine); Ordered 09/25/24 Ordered By: Pasquale Be Referrals: Boni Jose MD [Primary Care Provider] - Patient Instructions: Dependent Edema Activity Restrictions/Additional Instructions: Elevate your legs above the level of your heart is much as possible to decrease the swelling in the legs. Continue the Lasix. Follow-up with your primary care physician next week for recheck. Print Language: Tongan Coding Level of Care Code ED Peoplesoft Crm Developer for Haseeb Arenas
[2024-09-25 04:42] VITALS: BP 109/71; PULSE 78; RESP 16; O2SAT 91
[2024-09-25 05:21] VITALS: BP 113/71; PULSE 71; RESP 14; O2SAT 92
== END 2024-09-25 05:15 | disposition home or self-care (01) ==
PROVIDERS: Emergency Medicine; Emergency Provider Emergency Medicine; PCP Family Medicine
DX: R60.0 Localized edema (principal); F17.210 Nicotine dependence, cigarettes, uncomplicated; J44.9 Chronic obstructive pulmonary disease, unspecified; I50.9 Heart failure, unspecified; R06.02 Shortness of breath
CPT/HCPCS: 36415; 71045; 80053; 83880; 85025; 93005; 99285

== ENCOUNTER 2024-11-04 17:48 | Emergency (ER) | payer SELFPAY ==
[2024-11-04] VITALS (10 sets, daily range): BP systolic 103–122; BP diastolic 68–83; PULSE 70–83; RESP 18–96; TEMP 36.7; O2SAT 12–96; BMI 40.4
--- NOTE | 2024-11-04 17:55 | ECG_ITS ---
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 Measurements Intervals [place] Rate: 79 P: 0 WV: 0 QRS: 72 QRSD: 90 T: 69 QT: 403 QTc: 462 Interpretive Statements ATRIAL FIBRILLATION SEPTAL MYOCARDIAL INFARCTION , OF INDETERMINATE AGE [40+ ms Q WAVE IN V1/V2] ST DEPRESSION, CONSIDER SUBENDOCARDIAL INJURY [0.1+ mV ST DEPRESSION] Compared to ECG 09/25/2024 00:22:32 ST (T wave) deviation now present Myocardial infarct finding still present Electronically Signed On 11-05-2024 10:35:35 CDT by Eliel Key M.D. [id number] [id number]
--- NOTE | 2024-11-04 18:22 | XRR_ITS ---
PROCEDURE INFORMATION: Exam: XR Chest Exam date and time: 11/04/2024 6:26 PM Age: 44 years old Clinical indication: Pain; Chest pressure; Prior surgery; Surgery date: 6+ months; Surgery type: Ivc filter; Additional info: Chest pain TECHNIQUE: Imaging protocol: Radiologic exam of the chest. Views: 1 view. COMPARISON: CR (CHEST, ) 09/25/2024 2:13 AM FINDINGS: Lungs: Nonspecific prominence of the pulmonary interstitium. No lobar consolidation. Pleural spaces: Unremarkable. No pleural effusion. No pneumothorax. Heart/Mediastinum: Unremarkable. No cardiomegaly. Bones/joints: Unremarkable. XR/XR chest 1V portable [id number] IMPRESSION: As above.
[2024-11-04 19:12] LABS: Basophils % 0.5 %; Eosinophils # 0.1 10^3/uL (0.0-0.8); Eosinophils % 1.2 %; Hematocrit 61.7 % (37-53); Lymphocytes # 2.2 10^3/uL (0.8-4.8); Lymphocytes % 26.7 %; Mean Corpuscular HGB Conc 34.2 g/dL (30-55); Mean Corpuscular Hemoglobin 34.3 pg (27-33); Mean Corpuscular Volume 100.2 fl (82-101); Mean Platelet Volume 10.8 fL (7.4-10.4); Monocytes # 0.7 10^3/uL (0.2-0.9); Monocytes % 8.1 %; Neutrophils # 5.16 10^3/uL (1.8-7.7); Neutrophils % 63.3 %; Nucleated Red Blood Cells % 0 %; Platelet Count 141 10^3/cmm (157-399); Red Blood Count 6.16 10^6/uL (3.85-5.65); Red Cell Distribution Width 13.2 % (12.1-15.1); White Blood Count 8.16 10^3/uL (3.29-11.43)
[2024-11-04 19:37] LABS: Lactic Sepsis W/Reflex 2.2 mmol/L (0.5-2.2)
[2024-11-04 19:39] LABS: Troponin(5th) Baseline 21 ng/L (0-15)
[2024-11-04 19:49] LABS: Alanine Aminotransferase 16 U/L (0-41); Alkaline Phosphatase 114 U/L (40-130); Aspartate Amino Transferase 21 U/L (0-40); Blood Urea Nitrogen 19 mg/dL (6-20); Carbon Dioxide 33 mmol/L (22-29); Chloride 90 mmol/L (98-107); Creatinine Clr Calc Pharmacy 143.4458; Globulin 2.7 g/dL (1.3-4.6); Glomerular Filtration Rate 72.7 mL/min (90-130); Glucose 148 mg/dL (65-115); NT Pro B Type Natriuretic Pept 1029 pg/mL (0-125); Osmolality Calculated 289 mOsm/kg (285-295); Sodium 137 mmol/L (136-145); Total Bilirubin 0.5 mg/dL (0.15-1.2); Total Protein 6.7 g/dL (6.6-8.7)
[2024-11-04 19:52] LABS: Anion Gap 17.5 (5-19); Potassium 3.5 mmol/L (3.5-5.1)
--- NOTE | 2024-11-04 19:54 | CTR_ITS ---
PROCEDURE INFORMATION: Exam: CTA Chest With Contrast Exam date and time: 11/04/2024 9:05 PM Age: 44 years old Clinical indication: Shortness of breath; Additional info: SOB, factor 5, off thinners, TECHNIQUE: Imaging protocol: Computed tomographic angiography of the chest with contrast. Exam focused on the arteries. 3D rendering (Not supervised by radiologist): MIP and/or 3D reconstructed images were created by the technologist. Radiation optimization: All CT scans at this facility use at least one of these dose optimization techniques: automated exposure control; mA and/or kV adjustment per patient size (includes targeted exams where dose is matched to clinical indication); or iterative reconstruction. Contrast material: OMNI 350; Contrast volume: 100 ml; Contrast route: INTRAVENOUS (IV); COMPARISON: CT angio chest PE prot [id number] 09/19/2023 7:51 AM RADIATION DOSE METRICS: Total DLP (mGy-cm): 629.11 FINDINGS: Pulmonary arteries: Normal. No pulmonary emboli. Aorta: Unremarkable. No aortic aneurysm. No aortic dissection. Lungs: Areas of linear atelectasis and/or scarring at the lung bases. No lobar consolidation. Pleural spaces: Unremarkable. No pneumothorax. No pleural effusion. Heart: Unremarkable. No cardiomegaly. No pericardial effusion. Lymph nodes: Unremarkable. No enlarged lymph nodes. Bones/joints: Unremarkable. No acute fracture. Soft tissues: Unremarkable. CT/CT angio chest PE prot [id number] IMPRESSION: No acute findings.
[2024-11-04 19:56] LABS: Influenza A NEGATIVE (Negative); Influenza B NEGATIVE (Negative); Respiratory Syncytial Virus Ce NEGATIVE (Negative); SARS-CoV-2 PCR NEGATIVE (Negative)
--- NOTE | 2024-11-04 20:22 | ECG_ITS ---
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 Measurements Intervals [place] Rate: 78 P: 0 SC: 0 QRS: 71 QRSD: 101 T: 78 QT: 403 QTc: 460 Interpretive Statements ATRIAL FIBRILLATION ST DEVIATION AND MODERATE T-WAVE ABNORMALITY, CONSIDER ANTERIOR ISCHEMIA [-0.1+ mV T-WAVE IN V3/V4] Compared to ECG 11/04/2024 17:58:50 T-wave abnormality now present Possible ischemia now present Myocardial infarct finding no longer present ST (T wave) deviation no longer present Electronically Signed On 11-05-2024 10:40:53 CDT by Eliel Key M.D. [id number] [id number]
[2024-11-04 20:38] LABS: Troponin 5 2HR 17.57 ng/L (0-15)
[2024-11-04 20:41] LABS: Troponin 5 2HR Delta -3.43 ABS# (0-10)
[2024-11-04] MEDS: ondansetron 2 mg/ML SDV 2 mL 4 MG IVP (20:43)
[2024-11-04 20:53] LABS: Reflex Lactate Order REFLEX LACTIC ORDERD
[2024-11-04] MEDS: iohexol 350 mg/mL 500 mL Btl (per mL) IV (21:09)
--- NOTE | 2024-11-04 21:15 | ED_ITS ---
HPI - Chest Pain 2 General: Chief Complaint: Chest Pain Stated Complaint: SOB CP Rapid HB Time Seen by Provider: 11/04/24 18:26 Source: patient History of Present Illness: Patient is a morbidly obese 44-year-old gentleman with multiple comorbidities who presents to the ER for evaluation of primarily shortness of breath. He has had some occasional chest pain but states his pain is mostly associated whenever he has dyspnea and his dyspnea is with any activity. 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 His medications are at the pharmacy. He denies any fevers or chills. Pertinent past history: coronary artery disease Timing of current episode: constant Onset: during exertion Associated symptoms: Reports dyspnea; Deny abdominal pain, fever(s), nausea or vomiting Related Data Home Medications ?Medication ?Instructions ?Recorded ?Confirmed acetaminophen 500 mg tablet 2,000 mg PO Q6H PRN Pain 0 03/29/23 10/15/24 ibuprofen 200 mg tablet 1,600 mg PO Q6H PRN Pain 10/15/24 Previous Rx's ?Medication ?Instructions ?Recorded potassium chloride 20 mEq 20 meq PO TID #240 tabs 01/13 08/06 tablet,extended release fluticasone 250 mcg-salmeterol 50 1 inh inhalation BID #60 ea 08/03/24 mcg/dose blistr powdr for inhalation furosemide 40 mg tablet 80 mg (2 x 40 mg) PO BID #36 0 tabs 08/03/24 ipratropium bromide 0.02 % 2.5 ml inhalation Q6H PRN 0 08/03/24 solution for inhalation shortness of breath or wheez ing #75 mL apixaban 5 mg tablet 5 mg PO BID #90 tabs 5 chlorthalidone 25 mg tablet 25 mg PO DAILY #90 tabs diltiazem HCl 240 mg 240 mg PO BID #180 caps 11/05 capsule,extended release 24 hr metoprolol tartrate 75 mg tablet 75 mg PO BID@0900,210 0 #180 tabs 10/15/24 albuterol sulfate 90 mcg/actuation 1 inh inhalation QI D PRN Shortness 11/01/24 aerosol inhaler Of Breath Or Wheezing #6.7 g joann Allergies Allergy/AdvReac Type Severity Reaction Status Date / Time amantadine (From Symmetrel) Allergy Unknown Unknown Verified 10/15/24 15:34 Review of Systems 2 Const: Denies: fever(s) or chills Card: Reports: chest pain Resp: Reports: dyspnea GI: Denies: abdominal pain, nausea or vomiting Skin/Breast: Denies: rash Neuro: Denies: headache(s) PFSH ED 2 PFSH: Medical History Ichthyosis vulgaris Atrial fibrillation COPD (chronic obstructive pulmonary disease) CHF exacerbation H/O factor V Leiden mutation Tobacco dependence Obesity History of pulmonary embolus (PE) SAILAJA (acute kidney injury) Pulmonary embolism DVT (deep venous thrombosis) Atrial fibrillation with RVR Currently rate controlled Heart failure Currently euvolemic Surgical History Hx of superior vena cava filter placement Family History Family/Other Hypertension Mother Cancer liver Other Dementia Diabetes Hyperlipidemia Lung disease Denies family history of CAD (coronary artery disease) Clotting disorder Chronic kidney disease (CKD) Anesthesia complication Bleeding disorder Stroke Social History Smoking and tobacco/nicotine status: current every day tobacco/nicotine user cigarettes Packs smoked per day: 1 Years cigarettes smoked: 35 Alcohol intake: former Former alcohol use details: Hx of alcoholism. last uce of >2 drinks/day was 3 months Substance/Drug Use: never Lives independently: Yes Current occupational status: employed Current occupation: [employer] Special ale needs: No Agree to transfusion: Yes Physical Exam 2 Const: COMMON NORMALS: no acute distress, average body habitus, alert and well nourished GENERAL APPEARANCE: cooperative ORIENTATION/CONSCIOUSNESS: Yes awake HENMT: COMMON NORMALS: normocephalic and atraumatic HEAD & SCALP: n ormocephalic and atraumatic Eye: COMMON NORMALS: EOMs intact bilaterally and conjunctivae normal C ONJUNCTIVA: Yes conjunctivae normal Neck/C-Spine: GENERAL: Yes normal visual inspection Resp: COMMON NORMALS: normal respiratory effort, No retractions and No use of accessory muscles Cardio: COMMON NORMALS: regular rhythm and Peripheral pulses 2+ throughout RHYTHM: regular rhythm PERIPHERAL PULSES: Peripheral pulses 2+ throughout GI: COMMON NORMALS: Soft to palpation and non-tender PALPATION: Yes Soft to palpation Extremity: COMMON NORMALS: full ROM NARRATIVE EXTREMITY EXAM: 2-3 plus woody pedal edema bilaterally. Neuro: COMMON NORMALS: no focal motor deficits SENSORIUM/ORIENTATION: Yes alert Psych: COMMON NORMALS: mental status grossly normal Skin: COMMON NORMALS: no rashes or lesions noted GENERAL SKIN EXAM: no rashes or lesions noted Course 2 Vital Signs: Vital signs: Vital Signs Temperature 98.1 F 11/04/24 17:55 Pulse Rate 79 11/04/24 22:21 Respiratory Rate 18 11/04/24 19:34 Blood Pressure 116/79 11/04/24 22:21 Pulse Oximetry 90 11/04/24 22:21 Oxygen Delivery Me thod Room Air 11/04/24 17:55 MDM - Chest Pain Medical Decision Making Patient is a morbidly obese 44-year-old male with a history of multiple comorbidities who states he has been out of his medication for the last 1 week. He does have his medications at the pharmacy he is just having financial constraints and being able to pick them up. On arrival here he is in atrial fibrillation and is rate controlled. His vital signs are stable. He is in no distress here. Troponin and delta troponin are stable. Chest x-ray does not show any acute pathology. CTA of the chest was obtained and is negative for acute pathology or evidence of PE. He does have hemochromatosis noted. Labs are otherwise stable. Unfortunately do not have social work availability currently. I am unable to fix his financial issues but at this moment he does not appear to have an acute emergent medical condition. I have strongly encouraged him to contact the pharmacy to seek other payment resources. He is working on getting disability. I have encouraged him to return to the ER if he develops any worsening of condition and he expresses understanding. Differential Diagnosis Likely acute massive pulmonary embolism, acute respiratory failure and acute myocardial infarction Lab Data I reviewed the patient's lab results. 11/04/24 18:39 11/04/24 18:37 Radiology Impressions Chest X-Ray 11/04/24 18:22 IMPRESSION: As above. Chest CTA 11/04/24 19:54 IMPRESSION: No acute findings. Laboratory Results WBC 8.16 10^3/uL (3.29-11.43) 11/04/24 18:39 RBC 6.16 10^6/uL (3.85-5.65) H 11/04/24 18:39 Hgb 21.10 g/dL (11.27-16.99) H 11/04/24 18:39 Hct 61.7 % (37-53) H 11/04/24 18:39 MCV 100.2 fl (82-101) 11/04/24 18:39 MCH 34.3 pg (27-33) H 11/04/24 18:39 MCHC 34.2 g/dL (30-55) 11/04/24 18:39 RDW 13.2 % (12.1-15.1) 11/04/24 18:39 Plt Count 141 10^3/cmm (157-399) L 11/04/24 18:39 MPV 10.8 fL (7.4-10.4) H 11/04/24 18:39 Neut % (Auto) 63.3 % 11/04/24 18:39 Lymph % (Auto) 26.7 % 11/04/24 18:39 Ellis % (Auto) 8.1 % 11/04/24 18:39 Eos % (Auto) 1.2 % 11/04/24 18:39 Baso % (Auto) 0.5 % 11/04/24 18:39 Neut # (Auto) 5.16 10^3/uL (1.8-7.7) 11/04/24 18:39 Lymph # (Auto) 2.2 10^3/uL (0.8-4.8) 11/04/24 18:39 Ellis # (Auto) 0.7 10^3/uL (0.2-0.9) 11/04/24 18:39 Eos # (Auto) 0.1 10^3/uL (0.0-0.8) 11/04/24 18:39 Baso # (Auto) 0.0 10^3/uL (0.0-0.1) 11/04/24 18:39 Nucleated RBC % (auto) 0 % 11/04/24 18:39 Nucleated RBCs # 0.0 /100WBC 11/04/24 18:39 Sodium 137 mmol/L (136-145) 11/04/24 18:37 Potassium 3.5 mmol/L (3.5-5.1) 11/04/24 18:37 Chloride 90 mmol/L (98-107) L 11/04/24 18:37 Carbon Dioxide 33 mmol/L (22-29) H 11/04/24 18:37 Anion Gap 17.5 (5-19) 11/04/24 18:37 BUN 19 mg/dL (6-20) 11/04/24 18:37 Creatinine 1.1 mg/dL (0.7-1.2) 11/04/24 18:37 GFR Calculation 72.7 mL/min (90-130) L 11/04/24 18:37 Glucose 148 mg/dL (65-115) H 11/04/24 18:37 Calculated Osmolality 289 mOsm/kg (285-295) 11/04/24 18:37 Lactic Acid 2.2 mmol/L (0.5-2.2) 11/04/24 18:37 Calcium 9.0 mg/dL (8.5-10.5) 11/04/24 18:37 Total Bilirubin 0.5 mg/dL (0.15-1.2) 11/04/24 18:37 AST 21 U/L (0-40) 11/04/24 18:37 ALT 16 U/L (0-41) 11/04/24 18:37 Alkaline Phosphatase 114 U/L (40-130) 11/04/24 18:37 Troponin T Baseline 21 ng/L (0-15) H 11/04/24 18:37 Troponin T 120 Minute 17.57 ng/L (0-15) H 11/04/24 20:13 Delta Troponin T -3.43 ABS# (0-10) L 11/04/24 20:13 C-Reactive Protein 4.0 mg/L (0.0-4.9) 11/04/24 18:37 NT-Pro-B Natriuret Pep 1029 pg/mL (0-125) H 11/04/24 18:37 Total Protein 6.7 g/dL (6.6-8.7) 11/04/24 18:37 Albumin 4.0 g/dL (3.5-5.2) 11/04/24 18:37 Globulin 2.7 g/dL (1.3-4.6) 11/04/24 18:37 Influenza A (PCR) Negative (Negative) 11/04/24 19:01 Influenza Type B (PCR) Negative (Negative) 11/04/24 19:01 RSV (PCR) Negative (Negative) 11/04/24 19:01 SARS-CoV-2 (PCR) Negative (Negative) 11/04/24 19:01 All radiology interpretation(s) finalized by discharge Discharge Plan Discharge Patient Disposition: Home Clinical Impression: Atrial fibrillation, Congestive heart failure Condition: Stable Prescriptions: No Action potassium chloride 20 mEq tablet extended release 20 meq PO TID Qty: 240 3RF Rx Instructions: Take 20 mEq three times daily fluticasone propion-salmeterol 250-50 mcg/dose blister with device 1 inh inhalation BID Qty: 60 3RF furosemide 40 mg tablet 80 mg PO BID Qty: 360 1RF ipratropium bromide 0.02 % solution 2.5 ml inhalation Q6H PRN (Reason: shortness of breath or wheezing) Qty: 75 2RF diltiazem HCl 240 mg capsule,extended release 24hr 240 mg PO BID Qty: 180 1RF chlorthalidone 25 mg tablet 25 mg PO DAILY Qty: 90 1RF metoprolol tartrate 75 mg tablet 75 mg PO BID@0900,2100 Qty: 180 1RF apixaban 5 mg tablet 5 mg PO BID Qty: 90 0RF albuterol sulfate 90 mcg/actuation HFA aerosol inhaler 1 inh inhalation QID PRN (Reason: Shortness Of Breath Or Wheezing) Qty: 6.7 1RF acetaminophen 500 mg Tablet 2,000 mg PO Q6H PRN (Reason: Pain) ibuprofen 200 mg Tablet 1,600 mg PO Q6H PRN (Reason: Pain) Discharge Orders: Discharge ED (Routine); Ordered 11/04/24 Ordered By: Roberto Fisher Referrals: Boni Jose MD [Primary Care Provider] - Discharge Diet: Low Salt Discharge Activity: Increase activity as tolerated Patient Instructions: Congestive Heart Failure, Opioid Safety, Pain Management Activity Restrictions/Additional Instructions: Follow-up with your primary care provider for continued medical management. Contact the pharmacy tomorrow to discuss financial resources to help obtain your prescriptions that are necessary for your medical condition. I have requested social work here reach out to you to discuss other options for financial assistance. Return to the ER if you do experience any new or worsening symptoms or have any other concerns. Print Language: Slovak Coding Level of Care Code ED Family Resource Specialist for Haseeb Arenas
== END 2024-11-04 23:08 | disposition home or self-care (01) ==
PROVIDERS: Emergency Medicine; Emergency Provider Student in an Organized Health Care Education/Training Program; PCP Family Medicine
DX: I48.91 Unspecified atrial fibrillation (principal); J44.9 Chronic obstructive pulmonary disease, unspecified; I50.9 Heart failure, unspecified; F17.210 Nicotine dependence, cigarettes, uncomplicated; Z11.52 Encounter for screening for COVID-19
CPT/HCPCS: 36415; 71045; 71275; 80053; 83605; 83880; 84484; 85025; 86140; 87040; 87637; 93005; 96374; 99285; J2405

== ENCOUNTER 2025-01-19 09:38 | Emergency (ER) | payer SELFPAY ==
--- OUTSIDE RECORDS SUMMARY | 2024-09-16 08:30 | XMS_ITS ---
Author Organization [facility] Address [address] [facility] [place] [address] Care Team Providers Care Sprayer Machine Name Role Phone Boni Jose MD Primary Care Provider Unavailab Xavier Pond Unavailable [phone] REASON FOR VISIT [phone] Encounters Encounter Location Date Provider Diagnosis [facility] [address] [place] [address] [place] [address] 09/16/2024 Xavier Leon Plan Of Treatment No Information Progress Notes * Scot LAGOSRayneOB:1980 ([age] yo M)Acc No.[id number]:09/16/2024 Progress Notes Patient: Porter MONTEJO Provider: Andrés Leon MD :1980 A ge:44 Y S ex:Male Date:09/16/2024 Address:[address] , [facility] [address] Pcp:Boni Jose MD Subjective: * Chief Complaints: * 1 . [id number]. * Medical History: Objective: * Vitals: Assessment: Plan: * Treatment: Forms: Care Plan: * Problems: * Billing Information: * Visit Code: * Procedure Codes: * Electronic signature of Duyen Leon MD on 01/19/2025 at 09:49 AM CDT Sign off status: Pending * Provider: Andrés Leon MD Date: 09/16/2024 Generated for Printi ng/Faxing/eTransmitting on: 01/19/2025 09:49 AM CDT
--- OUTSIDE RECORDS SUMMARY | 2024-11-03 09:40 | XMS_ITS ---
Author Organization [facility] Address [address] [place] [address] Care Team Providers Care Supervisor Telephone Clerks Name Role Phone Boni Jose MD Primary Care Provider Unavailab Xavier Pond Unavailable [phone] REASON FOR VISIT [phone] Encounters Encounter Location Date Provider Diagnosis [facility] [address] [place] [address] [place] [address] 11/03/2024 Xavier Leon Plan Of Treatment No Information Progress Notes * Scot LAGOSRayneOB:1980 ([age] yo M)Acc No.[id number]:11/03/2024 Progress Notes Patient: Porter MONTEJO Provider: Andrés Leon MD :1980 A ge:44 Y S ex:Male Date:11/03/2024 Address:[address] , [facility] [address] Pcp:Boni Jose MD Subjective: * Chief Complaints: * 1 . [id number]. * Medical History: Objective: * Vitals: Assessment: Plan: * Treatment: Forms: Care Plan: * Problems: * Billing Information: * Visit Code: * Procedure Codes: * Electronic signature of Duyen Leon MD on 01/19/2025 at 09:49 AM CDT Sign off status: Pending * Provider: Andrés Leon MD Date: 11/03/2024 Generated for Printi ng/Faxing/eTransmitting on: 01/19/2025 09:49 AM CDT
--- OUTSIDE RECORDS SUMMARY | 2024-12-20 06:00 | XMS_ITS ---
Author Organization [facility] Address [address] [place] [address] Care Team Providers Care Dental Ceramist Assistant Name Role Phone Boni Jose MD Primary Care Provider Unavailab Xavier Pond [phone] Encounters Encounter Location Date Provider Diagnosis [facility] [address] [place] [address] [place] [address] 12/20/2024 Xavier Leon Assessments Encounter Date Diagnosis [...] and complete. Plan Of Treatment No Information Progress Notes * Alfredo LAGOSnDOB:1980 ([age] yo M)Acc No.[id number]:12/20/2024 Progress Notes Patient: Porter MONTEJO Provider: Andrés Leon MD :1980 A ge:44 Y S ex:Male Date:12/20/2024 Address:[address], [facility] [address], [place] Pcp:Boni Jose MD Subjective: * Chief Complaints: * * HPI: P rovijamie Note: -New patient referred by Boni Jose for evaluation and mangement of COPD. * ROS: Aundrea wood of systems of chart has been reviewed and scanned in by me. * Medical History: Objective: * Vitals: Assessment: Plan: * Treatment: * Immunizations: Immunization record has been reviewed and updated. Forms: Care Plan: * Problems: * Billing Information: * Visit Code: * Procedure Codes: * Electronic signature of Duyen Leon MD on 01/19/2025 at 09:49 AM CDT Sign off status: Pending * Provider: Andrés Leon MD Date: 12/20/2024 Generated for Cemi marc/Su/eTransmitting on: 01/19/2025 09:49 AM CDT History and Physical Notes * HPI (History of Present Illness) Category Sub-Category Detail Notes Category Not es Provider Note -New patient r eferred by Boni Jose for evaluation and mangement of COPD
[2025-01-19 09:43] VITALS: BP 132/74; PULSE 79; TEMP 36.6; O2SAT 93; BMI 39.2
--- NOTE | 2025-01-19 09:44 | XR_ITS ---
WS: [id number] Exam: XR chest 1V portable [id number] Date/Time of Exam: 01/19/2025 9:44 AM Reason For Exam: cp Comparison 11/04/2024. Lungs are clear and hyperinflated. There are chronic fibrous changes in both lungs. No pleural effusions or pneumothorax. Normal cardiomediastinal silhouette. Bony structures are intact. XR/XR chest 1V portable [id number] IMPRESSION: 1. Pulmonary hyperinflation and chronic interstitial changes. No acute process noted.
--- NOTE | 2025-01-19 09:46 | ECG_ITS ---
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 Measurements Intervals [place] Rate: 85 P: 0 [place]: 0 QRS: 59 QRSD: 87 T: 35 QT: 387 QTc: 463 Interpretive Statements ATRIAL FIBRILLATION SEPTAL MYOCARDIAL INFARCTION , OF INDETERMINATE AGE [40+ ms Q WAVE IN V1/V2] MODERATE T-WAVE ABNORMALITY, CONSIDER ANTERIOR ISCHEMIA [-0.1+ mV T-WAVE IN V3/V4] Compared to ECG 11/04/2024 20:15:23 Myocardial infarct finding now present T-wave abnormality still present Possible ischemia still present Electronically Signed On 01-19-2025 20:02:20 CDT by Eliel Key M.D. [id number]
--- OUTSIDE RECORDS SUMMARY | 2025-01-19 09:50 | XMS_ITS | Patient Health Record ---
Author Organization [facility] Address [address] [facility] [place] [address] Care Team Providers Care Welding Machine Tender Name Role Phone Damon GARNER, Boni Primary Care Provider Unavailab Xavier Pond Unavailable [phone] Reason For Referral No Information Medications Medication SIG (Take, Route, Frequency, Duration) Notes Start Date End Date Status Furosemide 40 mg take one and one-elissa f TABLET BY MOUTH TWICE DAILY TO equal 60mg for 30 Activ e dilTIAZem HCl ER Coated Beads 240 mg take 1 capsule BY MOUTH TWICE DAILY for 30 Active Problems Problem Type SNOMED Code ICD Code Onset Dates Problem Status W/U Status Risk Notes Problem COPD - Chronic obstructive pulmonary disease (28304105) COPD (chronic obstructive pulmonary disease) (J44.9) Active confirmed Problem History of pulmonary embolus (976065843) History of pulmonary embolus (PE) (Z86.711) Active confirmed Encounters Encounter Location Date Provider Diagnosis [facility] [address] [place] [address] 07/28/2024 Xavier Leon [facility] [address] [place] [address] 09/14/2024 Xavier Leon [facility] [address] [place] [address] 11/01/2024 Xavier Leon Assessments Encounter Date Diagnosis (ICD [...]
[2025-01-19 10:07] LABS: Hematocrit 56.6 % (37-53); Hemoglobin 20.30 g/dL (11.27-16.99); Mean Corpuscular HGB Conc 35.9 g/dL (30-55); Mean Corpuscular Hemoglobin 35.7 pg (27-33); Mean Corpuscular Volume 99.6 fl (82-101); Nucleated Red Blood Cells % 0 %; Platelet Count 136 10^3/cmm (157-399); Red Blood Count 5.68 10^6/uL (3.85-5.65); White Blood Count 7.82 10^3/uL (3.29-11.43)
[2025-01-19 10:17] LABS: INR 1.08 (0.8-1.2); Prothrombin Time 14.80 SECONDS (12.1-14.9)
[2025-01-19 10:20] LABS: Troponin(5th) Baseline 11 ng/L (0-15)
[2025-01-19 10:23] LABS: Alanine Aminotransferase 14 U/L (0-41); Albumin Level 4.1 g/dL (3.5-5.2); Alkaline Phosphatase 130 U/L (40-130); Anion Gap 17.0 (5-19); Aspartate Amino Transferase 14 U/L (0-40); Blood Urea Nitrogen 12 mg/dL (6-20); Calcium 8.6 mg/dL (8.5-10.5); Carbon Dioxide 25 mmol/L (22-29); Chloride 98 mmol/L (98-107); Creatinine Clr Calc Pharmacy 194.2140; Globulin 2.8 g/dL (1.3-4.6); Glucose 124 mg/dL (65-115); Lipase 20 U/L (13-60); Osmolality Calculated 283 mOsm/kg (285-295); Potassium 4.0 mmol/L (3.5-5.1); Sodium 136 mmol/L (136-145); Total Protein 6.9 g/dL (6.6-8.7)
[2025-01-19 10:30] LABS: Slide Review Slide Review Perform
[2025-01-19 11:20] VITALS: BP 109/68
[2025-01-19] MEDS: FUROsemide 10 mg/mL SDV 10mL 80 MG IVP (11:27)
--- NOTE | 2025-01-19 11:27 | PC.NURSE ---
80 MG LASIX WAS ORDERED, PT BP 109/68, PROVIDER VERBALIZED TO GIVE 80MG LASIX.
--- NOTE | 2025-01-19 11:38 | ECG_ITS ---
[facility] Date[facility] 2025-01-19 Pat Name: Porter Lagos Department: Room: Gender: Male Refrigeration Tech: : 1980 Requested By: René Atkinson Order Number: [id number] Katey MD: Eliel Key M.D. Measurements Intervals [place] Rate: 75 P: 0 [place]: 0 QRS: 62 QRSD: 92 T: 55 QT: 413 QTc: 462 Interpretive Statements ATRIAL FIBRILLATION SEPTAL MYOCARDIAL INFARCTION , OF INDETERMINATE AGE [40+ ms Q WAVE IN V1/V2] MODERATE T-WAVE ABNORMALITY, CONSIDER ANTERIOR ISCHEMIA [-0.1+ mV T-WAVE IN V3/V4] Compared to ECG 01/19/2025 09:46:25 No significant changes Electronically Signed On 01-19-2025 20:24:47 CDT by Eliel Key M.D. [email or web address] [id number]
[2025-01-19 12:15] LABS: Troponin 5 2HR 9.95 ng/L (0-15)
[2025-01-19 12:20] LABS: Troponin 5 2HR Delta -1.05 ABS# (0-10)
--- NOTE | 2025-01-19 12:41 | W.ED.CHESTPA ---
HPI - Chest Pain General: Chief Complaint: Chest Pain Stated Complaint: chest pressure, sob, swelling all over Time Seen by Provider: 01/19/25 09:50 History of Present Illness: Patient is a 44-year-old male who presents to the ED with complaints of chest pain, leg swelling, and shortness of breath for the past few days. 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 He states he has been taking his Cardizem (diltiazem) and Eliquis (apixaban) but is out of six other medications including Lasix (furosemide). The patient reports he has approximately one week's supply remaining of his current medications. The patient describes significant orthopnea and paroxysmal nocturnal dyspnea, stating he has been sleeping in an upright position and only getting a couple hours of sleep at a time due to feeling like he is suffocating. He reports experiencing a little bit of chest pain. He has noticed swelling extending to his hands. The patient was previously seen in this ED on 11/04/2024 with similar complaints of shortness of breath and was noted to be non-compliant with medications at that time due to recent job loss. Patient reports he has applied for Medicaid but has not heard back regarding his application. Related Data Home Medications ?Medication ?Instructions ?Recorded ?Confirmed acetaminophen 500 mg tablet 2,000 mg PO Q6H PRN Pain 03/29/23 10/15/24 ibuprofen 200 mg tablet 1,600 mg PO Q6H PRN Pain 03/29/23 10/15/24 Previous Rx's ?Medication ?Instructions ?Recorded potassium chloride 20 mEq 20 meq PO TID #240 tabs 02/11/24 tablet,extended release fluticasone 250 mcg-salmeterol 50 1 inh inhalation BID #60 ea 08/03/24 mcg/dose blistr powdr for inhalation furosemide 40 mg tablet 80 mg (2 x 40 mg) PO BID #360 tabs 08/03/24 ipratropium bromide 0.02 % 2.5 ml inhalation Q6H PRN 08/03/24 solution for inhalation shortness of breath or wheezing #75 mL chlorthalidone 25 mg tablet 25 mg PO DAILY #90 tabs 10/15/24 diltiazem HCl 240 mg 240 mg PO BID #180 caps 10/15/24 capsule,extended release 24 hr metoprolol tartrate 75 mg tablet 75 mg PO BID@0900,2100 #180 tabs 10/15/24 albuterol sulfate 90 mcg/actuation 1 inh inhalation QID PRN Shortness 11/01/24 aerosol inhaler Of Breath Or Wheezing #6.7 grams apixaban 5 mg tablet 5 mg PO BID #180 tabs 11/24/24 Allergies Allergy/AdvReac Type Severity Reaction Status Date / Time amantadine (From Symmetrel) Allergy Unknown Unknown Verified 01/19/25 09:48 PFS ED PFSH: Medical History (Updated 01/19/25 @ 12:43 by Roberto Fisher MD) Ichthyosis vulgaris Atrial fibrillation COPD (chronic obstructive pulmonary disease) CHF exacerbation H/O factor V Leiden mutation Tobacco dependence Obesity History of pulmonary embolus (PE) SAILAJA (acute kidney injury) Pulmonary embolism DVT (deep venous thrombosis) Atrial fibrillation with RVR Currently rate controlled Heart failure Currently euvolemic Surgical History Hx of superior vena cava filter placement Family History Family/Other Hypertension Mother Cancer liver Other Dementia Diabetes Hyperlipidemia Lung disease Denies family history of CAD (coronary artery disease) Clotting disorder Chronic kidney disease (CKD) Anesthesia complication Bleeding disorder Stroke Social History Smoking and tobacco/nicotine status: current every day tobacco/nicotine user cigarettes Packs smoked per day: 1 Years cigarettes smoked: 35 Alcohol intake: former Former alcohol use details: Hx of alcoholism. last uce of >2 drinks/day was 3 months Substance/Drug Use: never Lives independently: Yes Current occupational status: employed Current occupation: [employer] Special ale needs: No Agree to transfusion: Yes Course Vital Signs: Vital signs: Vital Signs Temperature 97.8 F 01/19/25 09:43 Pulse Rate 79 01/19/25 09:43 Blood Pressure 109/68 01/19/25 11:20 Pulse Oximetry 93 01/19/25 09:43 Oxygen Delivery Me thod Room Air 01/19/25 09:43 MDM - Chest Pain Medical Decision Making ROS: CONSTITUTIONAL: Positive for fatigue. CARDIOVASCULAR: Positive for chest pain, orthopnea, and paroxysmal nocturnal dyspnea. RESPIRATORY: Positive for shortness of breath. EXTREMITIES: Positive for bilateral lower extremity edema extending to hands. All other systems reviewed and negative except as noted in HPI. MEDICATIONS AND ALLERGIES: Meds: Diltiazem (Cardizem), Apixaban (Eliquis) 5mg twice daily. Patient reports being out of six other medications including Lasix (furosemide), Advair Discus, and potassium supplements. Allergies: No known drug allergies documented. PAST HISTORICAL DATA: PMH: Atrial fibrillation, COPD, Congestive Heart Failure (CHF), Factor V Leiden, Obesity, History of Pulmonary Embolism (PE), Deep Vein Thrombosis (DVT), Hemochromatosis PSH: None documented Social History: Current smoker (1 pack per day, previously 1.5-2 packs per day). Reports financial difficulties affecting medication compliance. VITAL SIGNS: BP: 132/74 mmHg HR: 79 bpm Temp: 97.8?F O2 Sat: 93% on room air Repeat vitals: BP 134/85 mmHg, HR 90 bpm, O2 Sat 92% on room air PHYSICAL EXAM: General: Alert, in no acute distress HEENT: Head normocephalic and atraumatic. Mucous membranes moist. Neck: Supple Respiratory: No increased work of breathing. No tachypnea. Clear breath sounds bilaterally. Cardiac: Irregular rhythm consistent with atrial fibrillation. Equal pulses in all four extremities. Abdomen: Soft, non-distended, no rebound or guarding Extremities: 3+ bilateral pedal edema with woody edema to the lower extremities. Equal pulses in all four extremities. Neuro: Cranial nerves grossly intact, no focal motor or sensory deficits noted INITIAL IMPRESSION AND PLAN: Given the history and presentation, the primary working diagnosis is acute decompensated heart failure with volume overload. Additional considerations include atrial fibrillation, medication non-compliance, and possible pulmonary hypertension. Based on this initial impression I will order: 1. CBC, CMP, and troponin to assess for anemia, electrolyte abnormalities, renal function, and myocardial injury 2. EKG to evaluate cardiac rhythm and assess for ischemic changes 3. Chest X-ray to evaluate for pulmonary edema, effusions, or other pulmonary processes 4. IV Lasix for diuresis 5. Social work consult to assist with medication access TEST INTERPRETATIONS: EKG: Atrial fibrillation with a rate of 85 beats per minute. No ischemic changes, ST elevation, or depressions. Q wave noted in lead V2. Chest X-ray: Pulmonary hyperinflation and chronic interstitial changes. No acute processes noted. CBC: WBC 7.82, Hemoglobin 20.0, Hematocrit 56.6, Platelets 136 Chemistry: Glucose 124, BUN 12, Creatinine 1.8 Troponin: Initial 11 (within normal limits), Repeat 9.95 (decrease of 1, within normal limits) PROCEDURES: No high-risk procedures performed. CONSIDERED BUT NOT PERFORMED: CT Pulmonary Angiogram CONSIDERED but NOT DONE due to no acute respiratory distress, stable vital signs, and patient's known history of atrial fibrillation and CHF better explaining current symptoms. Cardiac catheterization CONSIDERED but NOT DONE due to no evidence of acute coronary syndrome, normal troponins, and no ischemic changes on EKG. OTC medication(s)/intervention(s) recommended included: Continue current prescription medications, limit salt intake, elevate legs when sitting, and weigh daily. FINAL IMPRESSION: Based on all the above, my clinical impression is most compatible with acute decompensated heart failure due to medication non-compliance, complicated by chronic atrial fibrillation and hemochromatosis with secondary polycythemia. The clinical picture is not currently suggestive of acute coronary syndrome, acute pulmonary embolism, or pneumonia. Although other conditions were also considered, they were deemed unlikely based on the clinical information available. CLINICAL DISPOSITION: The patient's current condition is stable in my estimation and the most appropriate and indicated disposition at this time is discharge home with medication assistance and outpatient follow-up. The patient is appropriate for discharge as he has responded well to IV diuresis with improvement in symptoms. His vital signs are stable, and he does not demonstrate respiratory distress or hemodynamic compromise. The patient's primary issues are related to medication non-compliance due to financial constraints rather than an acute medical condition requiring hospitalization. Social work has been consulted to assist with medication access, and the patient has been provided with prescriptions and clear follow-up instructions. RISK STRATIFICATION AND CLINICAL DECISION RULES APPLIED: HEART Score: 2 (Low Risk) - Age (1 point), Risk Factors (1 point), ECG (0 points), Troponin (0 points). Six-week risk of major adverse cardiac event <2%. Supports decision for outpatient management. CHADS2-VASc Score: 2 (Moderate Risk) - CHF (1 point), Vascular disease (1 point). Annual stroke risk approximately 2.2%. Supports continued anticoagulation with apixaban. CASE SUMMARY: 44-year-old male with history of atrial fibrillation, CHF, COPD, Factor V Leiden, history of PE/DVT, and hemochromatosis presented with acute decompensated heart failure due to medication non-compliance. Patient has been taking diltiazem and apixaban but has been unable to afford his other medications including diuretics. Examination revealed 3+ bilateral lower extremity edema with clear lung sounds. EKG showed atrial fibrillation without acute ischemic changes. Labs notable for elevated hemoglobin/hematocrit consistent with known hemochromatosis and mild renal insufficiency. Patient received IV Lasix 80mg with good response. Social work was consulted to assist with medication access. Patient was discharged home with prescriptions for his medications and instructions to follow up with his primary care physician within one week. Return precautions were provided, and the importance of medication compliance was emphasized. Lab Data I reviewed the patient's lab results. 01/19/25 09:54 01/19/25 09:54 Radiology Impressions Chest X-Ray 01/19/25 09:44 IMPRESSION: 1. Pulmonary hyperinflation and chronic interstitial changes. No acute process noted. Laboratory Results WBC 7.82 10^3/uL (3.29-11.43) 01/19/25 09:54 RBC 5.68 10^6/uL (3.85-5.65) H 01/19/25 09:54 Hgb 20.30 g/dL (11.27-16.99) H 01/19/25 09:54 Hct 56.6 % (37-53) H 01/19/25 09:54 MCV 99.6 fl (82-101) 01/19/25 09:54 MCH 35.7 pg (27-33) H 01/19/25 09:54 MCHC 35.9 g/dL (30-55) 01/19/25 09:54 RDW 14.2 % (12.1-15.1) 01/19/25 09:54 Plt Count 136 10^3/cmm (157-399) L 01/19/25 09:54 MPV 9.6 fL (7.4-10.4) 01/19/25 09:54 Neut % (Auto) 67.3 % 01/19/25 09:54 Lymph % (Auto) 22.9 % 01/19/25 09:54 Harris % (Auto) 7.3 % 01/19/25 09:54 Eos % (Auto) 1.7 % 01/19/25 09:54 Baso % (Auto) 0.5 % 01/19/25 09:54 Neut # (Auto) 5.27 10^3/uL (1.8-7.7) 01/19/25 09:54 Lymph # (Auto) 1.8 10^3/uL (0.8-4.8) 01/19/25 09:54 Harris # (Auto) 0.6 10^3/uL (0.2-0.9) 01/19/25 09:54 Eos # (Auto) 0.1 10^3/uL (0.0-0.8) 01/19/25 09:54 Baso # (Auto) 0.0 10^3/uL (0.0-0.1) 01/19/25 09:54 Nucleated RBC % (auto) 0 % 01/19/25 09:54 Nucleated RBCs # 0.0 /100WBC 01/19/25 09:54 PT 14.80 SECONDS (12.1-14.9) 01/19/25 09:54 INR 1.08 (0.8-1.2) 01/19/25 09:54 Sodium 136 mmol/L (136-145) 01/19/25 09:54 Potassium 4.0 mmol/L (3.5-5.1) 01/19/25 09:54 Chloride 98 mmol/L (98-107) 01/19/25 09:54 Carbon Dioxide 25 mmol/L (22-29) 01/19/25 09:54 Anion Gap 17.0 (5-19) 01/19/25 09:54 BUN 12 mg/dL (6-20) 01/19/25 09:54 Creatinine 0.8 mg/dL (0.7-1.2) 01/19/25 09:54 GFR Calculation 105.0 mL/min (90-130) 01/19/25 09:54 Glucose 124 mg/dL (65-115) H 01/19/25 09:54 Calculated Osmolality 283 mOsm/kg (285-295) L 01/19/25 09:54 Calcium 8.6 mg/dL (8.5-10.5) 01/19/25 09:54 Total Bilirubin 0.5 mg/dL (0.15-1.2) 01/19/25 09:54 AST 14 U/L (0-40) 01/19/25 09:54 ALT 14 U/L (0-41) 01/19/25 09:54 Alkaline Phosphatase 130 U/L (40-130) 01/19/25 09:54 Troponin T Baseline 11 ng/L (0-15) 01/19/25 09:54 Troponin T 120 Minute 9.95 ng/L (0-15) 01/19/25 11:34 Delta Troponin T -1.05 ABS# (0-10) L 01/19/25 11:34 Total Protein 6.9 g/dL (6.6-8.7) 01/19/25 09:54 Albumin 4.1 g/dL (3.5-5.2) 01/19/25 09:54 Globulin 2.8 g/dL (1.3-4.6) 01/19/25 09:54 Lipase 20 U/L (13-60) 01/19/25 09:54 All radiology interpretation(s) finalized by discharge Discharge Plan Discharge Patient Disposition: Home Clinical Impression: Congestive heart failure, Edema, peripheral, Orthopnea Condition: Stable Prescriptions: No Action potassium chloride 20 mEq tablet extended release 20 meq PO TID Qty: 240 3RF Rx Instructions: Take 20 mEq three times daily fluticasone propion-salmeterol 250-50 mcg/dose blister with device 1 inh inhalation BID Qty: 60 3RF furosemide 40 mg tablet 80 mg PO BID Qty: 360 1RF ipratropium bromide 0.02 % solution 2.5 ml inhalation Q6H PRN (Reason: shortness of breath or wheezing) Qty: 75 2RF diltiazem HCl 240 mg capsule,extended release 24hr 240 mg PO BID Qty: 180 1RF chlorthalidone 25 mg tablet 25 mg PO DAILY Qty: 90 1RF metoprolol tartrate 75 mg tablet 75 mg PO BID@0900,2100 Qty: 180 1RF albuterol sulfate 90 mcg/actuation HFA aerosol inhaler 1 inh inhalation QID PRN (Reason: Shortness Of Breath Or Wheezing) Qty: 6.7 1RF apixaban 5 mg tablet 5 mg PO BID Qty: 180 3RF acetaminophen 500 mg Tablet 2,000 mg PO Q6H PRN (Reason: Pain) ibuprofen 200 mg Tablet 1,600 mg PO Q6H PRN (Reason: Pain) Discharge Orders: Discharge ED (Routine); Ordered 01/19/25 Ordered By: Roberto Fisher Referrals: Boni Jose MD [Primary Care Provider, [facility]] Discharge Diet: Low Salt Discharge Activity: Increase activity as tolerated Patient Instructions: Congestive Heart Failure, Opioid Safety, Pain Management, Patient Portal & Erasmo Instructions Activity Restrictions/Additional Instructions: DISCHARGE INSTRUCTIONS: DIAGNOSIS: Acute Decompensated Heart Failure MEDICATIONS: 1. Continue Eliquis (apixaban) 5mg twice daily 2. Continue Cardizem (diltiazem) as prescribed 3. Lasix (furosemide) 40mg twice daily - take as directed 4. Potassium supplement - take as directed with Lasix 5. Resume all other previously prescribed medications FOLLOW-UP: 1. Follow up with your primary care physician within 1 week 2. Contact addiction social worker at the number provided to assist with medication access DIET/ACTIVITY: 1. Low sodium diet (less than 2000mg sodium per day) 2. Limit fluid intake to 2 liters per day 3. Weigh yourself daily and record weights 4. Elevate legs when sitting or lying down 5. Gradually increase activity as tolerated RETURN TO THE EMERGENCY DEPARTMENT IF: 1. Worsening shortness of breath or difficulty breathing 2. Chest pain not relieved by rest 3. Fainting or severe dizziness 4. Rapid weight gain (more than 3 pounds in 1 day or 5 pounds in 1 week) 5. Increased swelling in your legs, ankles, or abdomen 6. Inability to lie flat due to breathing difficulties 7. Any other concerning symptoms Print Language: Hong Konger Coding Level of Care Code ED Creasing Machine Operator for Haseeb Arenas
[2025-01-19 13:09] VITALS: BP 121/82; PULSE 94; O2SAT 91
== END 2025-01-19 13:11 | disposition home or self-care (01) ==
PROVIDERS: Emergency Medicine; Emergency Provider Student in an Organized Health Care Education/Training Program; PCP Family Medicine
DX: R60.0 Localized edema (principal); R06.01 Orthopnea; F17.210 Nicotine dependence, cigarettes, uncomplicated; J44.9 Chronic obstructive pulmonary disease, unspecified; I50.9 Heart failure, unspecified
CPT/HCPCS: 36415; 71045; 80053; 83690; 84484; 85025; 85610; 93005; 96374; 99285; J1938

== ENCOUNTER 2025-02-26 09:48 | Inpatient (IN) | payer SELFPAY ==
--- OUTSIDE RECORDS SUMMARY | 2024-09-16 08:30 | XMS_ITS ---
Author Organization [facility] Address [address] [place] [address] Care Team Providers Care Senior Animator Name Role Phone Boni Jose MD Primary Care Provider Unavailab Xavier Pond Unavailable [phone] REASON FOR VISIT [id number] Encounters Encounter Location Date Provider Diagnosis [facility] [address] [place] [address] [place] [address] 09/16/2024 Xavier Leon Plan Of Treatment No Information Progress Notes * Braeden LAGOSOB:1980 ([age] yo M)Acc No.[id number]:09/16/2024 Progress Notes Patient: Porter Melton Provider: Andrés Leon MD :1980 A ge:44 Y S ex:Male Date:09/16/2024 Address:[address], [facility] [address] Pcp:Boni Jose MD Subjective: * Chief Complaints: * [phone] [id number] * Electronic signature of Duyen Leon MD on 02/26/2025 at 09:53 AM CDT Sign off status: Pending * Provider: Andrés Leon MD Date: 0 09/16/2024 Generated for Cemi marc/Su/eTransmitting on: 0 02/26/2025 09:53 AM CDT
--- OUTSIDE RECORDS SUMMARY | 2024-11-03 09:40 | XMS_ITS ---
Author Organization [facility] Address [address] [place] [address] Care Team Providers Care Padded Box Sewer Name Role Phone Boni Jose MD Primary Care Provider Unavailab Xavier Pond Unavailable [phone] REASON FOR VISIT [phone] Encounters Encounter Location Date Provider Diagnosis [facility] [address] [place] [address] [place] [address] 11/03/2024 Xavier Leon Plan Of Treatment No Information Progress Notes * Braeden LAGOSOB:1980 ([age] yo M)Acc No.[id number]:11/03/2024 Progress Notes Patient: Porter Melton Provider: Andrés Leon MD :1980 A ge:44 Y S ex:Male Date:11/03/2024 Address:[address], [facility] [address] Pcp:Boni Jose MD Subjective: * Chief Complaints: * [phone] * Electronic signature of Duyen Leon MD on 02/26/2025 at 09:53 AM CDT Sign off status: Pending * Provider: Andrés Leon MD Date: 0 11/03/2024 Generated for Cemi marc/Su/eTransmitting on: 0 02/26/2025 09:53 AM CDT
--- OUTSIDE RECORDS SUMMARY | 2024-12-20 06:00 | XMS_ITS ---
Author Organization [facility] Address [address] [place] [address] Care Team Providers Care Extras Casting Director Name Role Phone Boni Jose MD Primary Care Provider Unavailab Xavier Pond [phone] Encounters Encounter Location Date Provider Diagnosis [facility] [address] [place] [address] [place] [address] 12/20/2024 Xavier Leon Assessments Encounter Date Diagnosis (ICD Code) Assessment Notes Treatment Notes Treatment Clinical Notes Section Notes 12/20/2024 Other I, Kathleen Swartz, am scribing for, and in the presence of Dr. Xavier Leon. I, Dr. Xavier Leon, personally performed the services described in this documentation, as scribed by Kathleen Swartz in my presence, and it is both accurate and complete. Plan Of Treatment No Information History and Physical Notes * HPI (History of Present Illness) Category Sub-Category Detail Notes Category Not es Provider Note -New patient r eferred by Boni Jose for evaluation and mangement of COPD Progress Notes * Scot LAGOSluis antonionDOB:1980 ([age] yo M)Acc No.[id number]:12/20/2024 Progress Notes Patient: Porter Melton Provider: Andrés Leon MD :1980 A ge:44 Y S ex:Male Date:12/20/2024 Address:[address], [facility] [address] Pcp:Boni Jose MD Subjective: * Chief Complaints: * HPI: P rovider Note: -New patient referred by Boni Jose for evaluation and mangement of COPD. * ROS: Aundrea wood of systems of chart has been reviewed and scanned in by me. Plan: * Treatment: * Immunizations: Immunization record has been reviewed and updated. * Electronic signature of Duyen Leon MD on 02/26/2025 at 09:53 AM CDT Sign off status: Pending * Provider: Andrés Leon MD Date: 0 12/20/2024 Generated for Kerri tran/Su/Jaimeitting on: 0 02/26/2025 09:53 AM CDT
[2025-02-26] VITALS (8 sets, daily range): BP systolic 96–106; BP diastolic 59–76; PULSE 83–104; RESP 18–23; TEMP 36.8–37.3; O2SAT 30–94; BMI 37.8
--- OUTSIDE RECORDS SUMMARY | 2025-02-26 09:53 | XMS_ITS | Patient Health Record ---
Author Organization [facility] Address [address] [address] Care Team Providers Care Business Operations Consultant Name Role Phone Damon GARNER, Boni Primary Care Provider Unavailab Xavier Pond Unavailable [phone] Reason For Referral No Information Medications Medication SIG (Take, Route, Frequency, Duration) Notes Start Date End Date Status Furosemide 40 mg Tablet take one and one -half TABLET BY MOUTH TWICE DAILY TO equal 60mg; Duration: 30 Active dilTIAZem HCl ER Coated Beads 240 mg Capsule Extended Release 24 Hour take 1 capsule BY MOUTH TWICE DAILY; Duration: 30 Active Problems Problem Type SNOMED Code ICD Code Onset Dates Problem Status W/U Status Risk Notes Problem COPD - Chronic obstructive pulmonary disease (50214267) COPD (chronic obstructive pulmonary disease) (J44.9) Active confirmed Problem History of pulmonary embolus (907458697) History of pulmonary embolus (PE) (Z86.711) Active confirmed Encounters Encounter Location Date Provider Diagnosis [facility] [place] [address] 07/28/2024 Xavier Leon [facility] [address] [place] [address] [place] [address] 09/14/2024 Xavier Leon [facility] [address] [place] [address] 11/01/2024 Xavier Leon Plan Of Treatment No Information
--- NOTE | 2025-02-26 09:57 | ECG_ITS ---
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 Measurements Intervals [place] Rate: 103 P: 0 [place]: 0 QRS: 67 QRSD: 93 T: 264 QT: 376 QTc: 493 Interpretive Statements ATRIAL FIBRILLATION WITH RAPID VENTRICULAR RESPONSE SEPTAL INFARCTION, AGE UNDETERMINED ST DEVIATION AND MODERATE T-WAVE ABNORMALITY, CONSIDER ANTEROLATERAL ISCHEMIA [-0.1+ mV T-WAVE IN V3-V6] Compared to ECG 01/19/2025 11:38:52 NO SIGNIFICANT CHANGE Electronically Signed On 02-26-2025 21:46:04 CDT by Jose Alejandro Penaloza M.D. [email or web address]
--- NOTE | 2025-02-26 10:01 | XRR_ITS ---
PROCEDURE INFORMATION: Exam: XR Chest Exam date and time: 02/26/2025 10:48 AM Age: 45 years old Clinical indication: Pain; Chest pressure; Additional info: Chest pain TECHNIQUE: Imaging protocol: Radiologic exam of the chest. Views: 1 view. COMPARISON: CR XR chest 1V portable [id number] 01/19/2025 9:51 AM FINDINGS: Lungs: Partially consolidative infiltrate in the right lower lobe. Possible minimal infiltrate at the lateral left mid lung. Pleural spaces: Unremarkable. No pleural effusion. No pneumothorax. Heart/Mediastinum: Unremarkable. No cardiomegaly. Bones/joints: Unremarkable. XR/XR chest 1V portable [id number] IMPRESSION: Pulmonary infiltrates. That on the right is likely pneumonia.
--- NOTE | 2025-02-26 10:01 | USR_ITS ---
PROCEDURE INFORMATION: Exam: US Duplex Lower Extremity Veins, Bilateral Exam date and time: 02/26/2025 10:23 AM Age: 45 years old Clinical indication: Swelling (edema) of limb; Lower extremity, bilateral TECHNIQUE: Imaging protocol: Real-time duplex ultrasound of the bilateral extremities with 2-D espino scale, color Doppler flow and spectral waveform analysis including responses to compression and other maneuvers (when performed) with image documentation. Complete exam focused on the lower extremity veins. COMPARISON: No relevant prior studies available. FINDINGS: Right deep veins: There is thrombus within the left peroneal vein. The common femoral, femoral, proximal profunda femoral and popliteal veins are patent without thrombus. Normal Doppler waveforms. Normal compressibility and/or augmentation response. Left deep veins: Unremarkable. The common femoral, femoral, proximal profunda femoral and popliteal veins are patent without thrombus. Normal Doppler waveforms. Normal compressibility and/or augmentation response. Superficial veins: Greater saphenous veins at the saphenofemoral junctions are patent bilaterally without thrombus. Soft tissues: Unremarkable. US/CV venous duplex [facility] [id number] IMPRESSION: Thrombus within the left peroneal vein.
--- NOTE | 2025-02-26 10:03 | W.ED.SOB ---
HPI - SOB/Dyspnea General: Chief Complaint: Shortness of Breath/Dyspnea Stated Complaint: chest pain; sob Time Seen by Provider: 02/26/25 09:51 History of Present Illness: HPI Narrative: Chief complaint is shortness of breath and chest pain and pain in the right scapular area. Patient very poor historian. He states he does not feel well enough to answer many of my questions. Related Data Home Medications ?Medication ?Instructions ?Recorded ?Confirmed acetaminophen 500 mg tablet 2,000 mg PO Q6H PRN Pain 03/29/23 02/26/25 ibuprofen 200 mg tablet 1,600 mg PO Q6H PRN Pain 03/29/23 02/26/25 Previous Rx's ?Medication ?Instructions ?Recorded fluticasone 250 mcg-salmeterol 50 1 inh inhalation BID #60 ea 08/03/24 mcg/dose blistr powdr for inhalation ipratropium bromide 0.02 % 2.5 ml inhalation Q6H PRN 08/03/24 solution for inhalation shortness of breath or wheezing #75 mL chlorthalidone 25 mg tablet 25 mg PO DAILY #90 tabs 10/15/24 diltiazem HCl 240 mg 240 mg PO BID #180 caps 10/15/24 capsule,extended release 24 hr metoprolol tartrate 75 mg tablet 75 mg PO BID@0900,2100 #180 tabs 10/15/24 albuterol sulfate 90 mcg/actuation 1 inh inhalation QID PRN Shortness 11/01/24 aerosol inhaler Of Breath Or Wheezing #6.7 grams apixaban 5 mg tablet 5 mg PO BID #180 tabs 11/24/24 furosemide 40 mg tablet 80 mg (2 x 40 mg) PO BID #120 tabs 02/08/25 potassium chloride 20 mEq 20 meq PO TID #90 tabs 02/08/25 tablet,extended release Allergies Allergy/AdvReac Type Severity Reaction Status Date / Time amantadine (From Symmetrel) Allergy Unknown Unknown Verified 01/19/25 09:48 [facility] ED PFSH: Medical History (Updated 02/26/25 @ 16:18 by Javi Fulton MD) Ichthyosis vulgaris Atrial fibrillation COPD (chronic obstructive pulmonary disease) CHF exacerbation H/O factor V Leiden mutation Tobacco dependence Obesity History of pulmonary embolus (PE) SAILAJA (acute kidney injury) Pulmonary embolism DVT (deep venous thrombosis) Atrial fibrillation with RVR Currently rate controlled Heart failure Currently euvolemic Surgical History Hx of superior vena cava filter placement Family History Family/Other Hypertension Mother Cancer liver Other Dementia Diabetes Hyperlipidemia Lung disease Denies family history of CAD (coronary artery disease) Clotting disorder Chronic kidney disease (CKD) Anesthesia complication Bleeding disorder Stroke Social History Smoking and tobacco/nicotine status: current every day tobacco/nicotine user cigarettes Packs smoked per day: 1 Years cigarettes smoked: 35 Alcohol intake: former Former alcohol use details: Hx of alcoholism. last uce of >2 drinks/day was 3 months Substance/Drug Use: never Lives independently: Yes Current occupational status: employed Current occupation: [employer] Special ale needs: No Agree to transfusion: Yes Physical Exam Narrative: EXAM NARRATIVE: Patient is alert, moderate distress. He has increased work of breathing tachypnea and accessory muscle use. Lung sounds are diminished bilaterally but no prolonged expiratory phase of significance or expiratory wheezing. I cannot auscultate crackles. Heart mild tachycardia. Patient is anxious and cannot lay back and is sitting up. No stridor. Moist mucous membranes. Normal conjunctiva. No evident JVD. Abdomen soft nontender. No guarding or rebound. No palpable mass. He moves his back freely. Neck is supple. Speech is clear. Moves his arms and legs freely. He has 4+ pitting edema both legs mildly worse on the right. He has redundant skin tissue especially on the right with chronic skin color changes. He does have erythema on both shins bilaterally and on the right extends into the foot. Patient does have pulses in both feet. No significant tenderness of the legs. No calf tenderness. Patient shows ability to reason. He is anxious. Course Vital Signs: Vital signs: Vital Signs Temperature 98.2 F 02/26/25 16:22 Pulse Rate 99 02/26/25 16:22 Respiratory Rate 22 H 02/26/25 16:22 Blood Pressure 104/74 02/26/25 16:22 Pulse Oximetry 30 L 02/26/25 16:22 Oxygen Delivery Me thod Nasal Cannula 02/26/25 15:00 Oxygen Flow Rate 4 02/26/25 15:00 MDM - SOB/Dyspnea Medical Decision Making Patient presents to the emergency department complaining of chest pain and shortness of breath. Patient is very vague historian and is difficult to obtain history from him. He states he does not feel well enough to answer questions and just does not answer majority of my questions unless I repeatedly questioned him and repeatedly explained to him the importance of questioning and history and the reason I am asking him questions. Eventually of history of will answer some of my questions but still does not provide much history and last extensive questioning and does not volunteer history unless directly asked yes or no questions. Patient is fully alert and shows ability to reason and will intermittently give a full response to occasional question. He states he does have COPD. COPD exacerbation considered but less likely by his exam. Patient states he is having pain in his shoulder blade area that hurts worse to breathe in and breathe out and that started at 7:00 this morning when he was sitting at rest. EMS reports he had chest pain yesterday but patient denied it to me. He states his increased shortness of breath started at the same time. EMS reports he has been out of his Eliquis. The patient states he has been out of his Eliquis for a month and started 3 to 4 days ago. He states he was also out of his diuretics and all of his medications for a few days and then got all of them again about 3 to 4 days ago and started them again. He states he has a history of PE and he thinks he may have A-fib as well. He states he has congestive heart failure but does not know why. He states he is never had a heart attack. Denies any history of drug use. Denies alcohol use. He does smoke. He cannot tell me he is other medical problems. He denies having black or bloody stools. He cannot tell me what medications he is on. He does know he is on a water pill and states he started that again and was only out of it for a few days. He does not know if his legs are better or worse than normal. He does not know if his legs hurt any different than normal. He states the pain in his chest and scapula are in 1 location do not migrate up or down or into the arm or down the back. Dissection, PE, CHF, pneumonia, pneumothorax, pericardial effusion, cardiac dysrhythmia, LA, broad differential. Patient does not know what his oxygen level is normally at home. He states he is supposed to be on oxygen but he is not. According to EMS his pulse ox was 88% on on room air when they arrived. Patient certainly has increased work of breathing and this is new in his upper back and chest pain is new. EKG ordered. EKG to my interpretation shows significant respiratory motion artifact limiting evaluation however appears consistent with atrial fibrillation with ST depression and nonspecific ST segment changes and inverted T waves. Chest x-ray ordered. CBC CMP PT PTT lipase and troponins and proBNP ordered. Patient appears to be in congestive heart failure with his significant leg edema and his work of breathing that gets worse when he lays back. History significantly limited as patient answers he is not sure or he does not know to majority of my questions or declines to answer many questions. Patient does deny any black or bloody stools. He just darted back on his Eliquis 3 to 4 days ago. Certainly PE considered with his pleuritic pain however he is already on treatment for it. Will get ultrasound both legs while we await his lab results and chest x-ray to see if he has obvious pneumonia pneumothorax or congestive heart failure. Patient expresses understanding and agreement with plan. Patient denies fever or hemoptysis. He denies new nasal congestion or drainage. Patient ultrasound did show clot, awaiting formal interpretation. Patient states he did take his Eliquis this morning. Patient troponin indeterminate. proBNP is significant elevated. Will cautiously diurese with his lower blood pressures. I ordered 20 mg Lasix IV and also cautiously with his hypokalemia. I ordered 20 mg IV potassium and 40 p.o. I ordered a magnesium level. Patient chest x-ray shows infiltrate right lower lung field consistent with pneumonia and he has elevated white count. I ordered Zosyn and blood cultures. CHF could also appear this way although with the more focal nature more suggestive of pneumonia. This is the area of his pleuritic pain making PE less likely cause. Wedge-shaped infarct considered in the differential, however patient already on Eliquis therapy that he is just restarted is unlikely to alter management. Patient requiring 4 L of oxygen which is new for him. Plan to admit for IV antibiotics diuresis IV potassium and further testing and evaluation and treatment. I consulted with Dr. Fulton who accepts the patient. Patient underwent CT which did show saddle embolus and infarcts. Patient transferred by Dr. Fulton for IR. Lab Data 02/26/25 14:07 02/26/25 14:07 Labs/Radiology: Radiology Impressions Chest X-Ray 02/26/25 10:01 IMPRESSION: Pulmonary infiltrates. That on the right is likely pneumonia. Venous Duplex 02/26/25 10:01 IMPRESSION: Thrombus within the left peroneal vein. ADDENDUM: 02/26/25 1227 AcuteTHIS REPORT CONTAINS FINDINGS THAT MAY BE CRITICAL TO PATIENT CARE. The findings were verbally communicated via telephone conference with ALBERT GALEANO at 12:25 PM CDT on 02/26/2025. The findings were acknowledged and understood. Chest CTA 02/26/25 16:02 IMPRESSION: 1. Large saddle pulmonary embolism extending into lobar and segmental branches bilaterally, with right heart strain (RV/LV ratio = 1.7, septal straightening, pulmonary artery dilation). 2. Scattered peripheral wedge-shaped ground-glass opacities, most consistent with pulmonary infarctions. 3. Enlarged right paratracheal lymph nodes (1.5 cm). ADDENDUM: 02/26/25 1656 THIS REPORT CONTAINS FINDINGS THAT MAY BE CRITICAL TO PATIENT CARE. The findings were verbally communicated via telephone conference with JAVI Marrero at 4:53 PM CDT on 02/26/2025. The findings were acknowledged and understood. Laboratory Results WBC 12.27 10^3/uL (3.29-11.43) H 02/26/25 10:03 RBC 5.77 10^6/uL (3.85-5.65) H 02/26/25 10:03 Hgb 20.00 g/dL (11.27-16.99) H 02/26/25 10:03 Hct 58.6 % (37-53) H 02/26/25 10:03 MCV 101.6 fl (82-101) H 02/26/25 10:03 MCH 34.7 pg (27-33) H 02/26/25 10:03 MCHC 34.1 g/dL (30-55) 02/26/25 10:03 RDW 14.6 % (12.1-15.1) 02/26/25 10:03 Plt Count 141 10^3/cmm (157-399) L 02/26/25 10:03 MPV 10.7 fL (7.4-10.4) H 02/26/25 10:03 Neut % (Auto) 74.2 % 02/26/25 10:03 Lymph % (Auto) 13.4 % 02/26/25 10:03 Stearns % (Auto) 10.8 % 02/26/25 10:03 Eos % (Auto) 0.5 % 02/26/25 10:03 Baso % (Auto) 0.5 % 02/26/25 10:03 Neut # (Auto) 9.11 10^3/uL (1.8-7.7) H 02/26/25 10:03 Lymph # (Auto) 1.7 10^3/uL (0.8-4.8) 02/26/25 10:03 Stearns # (Auto) 1.3 10^3/uL (0.2-0.9) H 02/26/25 10:03 Eos # (Auto) 0.1 10^3/uL (0.0-0.8) 02/26/25 10:03 Baso # (Auto) 0.1 10^3/uL (0.0-0.1) 02/26/25 10:03 Nucleated RBC % (auto) 0 % 02/26/25 10:03 Nucleated RBCs # 0.0 /100WBC 02/26/25 10:03 PT 15.60 SECONDS (12.1-14.9) H 02/26/25 10:03 INR 1.16 (0.8-1.2) 02/26/25 10:03 APTT 30.8 SECONDS (23.9-36.7) 02/26/25 10:03 Sodium 137 mmol/L (136-145) 02/26/25 10:03 Potassium 2.9 mmol/L (3.5-5.1) L 02/26/25 10:03 Chloride 85 mmol/L (98-107) L 02/26/25 10:03 Carbon Dioxide 35 mmol/L (22-29) H 02/26/25 10:03 Anion Gap 18.9 (5-19) 02/26/25 10:03 BUN 23 mg/dL (6-20) H 02/26/25 10:03 Creatinine 1.2 mg/dL (0.7-1.2) 02/26/25 10:03 GFR Calculation 65.5 mL/min (90-130) L 02/26/25 10:03 Glucose 136 mg/dL (65-115) H 02/26/25 10:03 Calculated Osmolality 290 mOsm/kg (285-295) 02/26/25 10:03 Calcium 8.9 mg/dL (8.5-10.5) 02/26/25 10:03 Magnesium 2.2 mg/dL (1.7-2.3) 02/26/25 10:03 Total Bilirubin 1.5 mg/dL (0.15-1.2) H 02/26/25 10:03 AST 15 U/L (0-40) 02/26/25 10:03 ALT 11 U/L (0-41) 02/26/25 10:03 Alkaline Phosphatase 121 U/L (40-130) 02/26/25 10:03 Troponin T Baseline 31 ng/L (0-15) H 02/26/25 10:03 NT-Pro-B Natriuret Pep 4749 pg/mL (0-125) H 02/26/25 10:03 Total Protein 7.1 g/dL (6.6-8.7) 02/26/25 10:03 Albumin 3.8 g/dL (3.5-5.2) 02/26/25 10:03 Globulin 3.3 g/dL (1.3-4.6) 02/26/25 10:03 Lipase 16 U/L (13-60) 02/26/25 10:03 All radiology interpretation(s) finalized by discharge Discharge Plan Discharge Patient Disposition: Admitted As Inpatient Admit Provider: Javi Fulton Clinical Impression: Acute exacerbation of CHF (congestive heart failure), Pneumonia, Acute hypoxemic respiratory failure, Acute hypokalemia Condition: Stable Coding Level of Care Code 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
[2025-02-26 10:09] LABS: Hematocrit 58.6 % (37-53); Hemoglobin 20.00 g/dL (11.27-16.99); Mean Corpuscular HGB Conc 34.1 g/dL (30-55); Mean Corpuscular Hemoglobin 34.7 pg (27-33); Mean Corpuscular Volume 101.6 fl (82-101); Nucleated Red Blood Cells % 0 %; Platelet Count 141 10^3/cmm (157-399); Red Blood Count 5.77 10^6/uL (3.85-5.65); White Blood Count 12.27 10^3/uL (3.29-11.43)
[2025-02-26 10:21] LABS: INR 1.16 (0.8-1.2); Prothrombin Time 15.60 SECONDS (12.1-14.9)
[2025-02-26 10:22] LABS: Partial Thromboplastin Time 30.8 SECONDS (23.9-36.7)
[2025-02-26 10:28] LABS: Troponin(5th) Baseline 31 ng/L (0-15)
[2025-02-26 10:31] LABS: Alanine Aminotransferase 11 U/L (0-41); Albumin Level 3.8 g/dL (3.5-5.2); Alkaline Phosphatase 121 U/L (40-130); Calcium 8.9 mg/dL (8.5-10.5); Creatinine Clr Calc Pharmacy 118.2713; Globulin 3.3 g/dL (1.3-4.6); Lipase 16 U/L (13-60); Osmolality Calculated 290 mOsm/kg (285-295); Sodium 137 mmol/L (136-145); Total Protein 7.1 g/dL (6.6-8.7)
[2025-02-26 10:44] LABS: Anion Gap 18.9 (5-19); Aspartate Amino Transferase 15 U/L (0-40); Blood Urea Nitrogen 23 mg/dL (6-20); Carbon Dioxide 35 mmol/L (22-29); Chloride 85 mmol/L (98-107); Glucose 136 mg/dL (65-115); NT Pro B Type Natriuretic Pept 4749 pg/mL (0-125)
[2025-02-26 10:46] LABS: Potassium 2.9 mmol/L (3.5-5.1)
[2025-02-26 11:03] LABS: Magnesium 2.2 mg/dL (1.7-2.3)
[2025-02-26] MEDS: lidocaine 1% 5 ML in potassium chloride premix 100 ML 52.5 ML IV (11:14)
--- NOTE | 2025-02-26 12:13 | PM.HP ---
Providers/Chief Complaint Primary Care Provider: Boni Joes MD Chief Complaint: chest pain; sob History of Present Illness Porter Lagos is a 45 year old male With past medical history of heart failure preserved ejection fraction, A-fib, COPD, ichthyosis vulgaris, obesity, chronic lower extremity wound, PE, DVT, polycythemia, chronic anticoagulation presented to the hospital today for complaint of shortness of breath that has been worsening for the last 2 to 3 days. He is also having pleuritic chest pain. He states every time he breathes it hurts. He states he supposed to be on home oxygen however he does not use it because he could not afford to obtain it. He has also been noncompliant to his medications as he could not afford them. He states for the last month and a half he ran out of his medications. Recently was able to obtain a refill and for the last 3 days has taken his medications however he is not feeling any better. At this time his main complaint is shortness of breath. Denies a fever. Does not know how much oxygen he was post to be on at home. Medications/Allergies Home Medications ?Medication ?Instructions ?Recorded ?Confirmed ?Last Taken ?Type acetaminophen 500 mg tablet 2,000 mg PO Q6H PRN Pain 03/29/23 02/26/25 09/18/23 History ibuprofen 200 mg tablet 1,600 mg PO Q6H PRN Pain 03/29/23 02/26/25 02/26/25 06:00 History fluticasone 250 mcg-salmeterol 50 1 inh inhalation BID #60 ea 08/03/24 02/26/25 02/26/25 06:00 Rx mcg/dose blistr powdr for inhalation ipratropium bromide 0.02 % 2.5 ml inhalation Q6H PRN 08/03/24 02/26/25 02/26/25 06:00 Rx solution for inhalation shortness of breath or wheezing #75 mL chlorthalidone 25 mg tablet 25 mg PO DAILY #90 tabs 10/15/24 02/26/25 02/26/25 06:00 Rx diltiazem HCl 240 mg 240 mg PO BID #180 caps 10/15/24 02/26/25 02/26/25 06:00 Rx capsule,extended release 24 hr metoprolol tartrate 75 mg tablet 75 mg PO BID@0900,2100 #180 tabs 10/15/24 02/26/25 02/26/25 06:00 Rx albuterol sulfate 90 mcg/actuation 1 inh inhalation QID PRN Shortness 11/01/24 02/26/25 02/26/25 06:00 Rx aerosol inhaler Of Breath Or Wheezing #6.7 grams apixaban 5 mg tablet 5 mg PO BID #180 tabs 11/24/24 02/26/25 02/26/25 06:00 Rx furosemide 40 mg tablet 80 mg (2 x 40 mg) PO BID #120 tabs 02/08/25 02/26/25 02/26/25 06:00 Rx potassium chloride 20 mEq 20 meq PO TID #90 tabs 02/08/25 02/26/25 02/26/25 06:00 Rx tablet,extended release Allergies Allergy/AdvReac Type Severity Reaction Status Date / Time amantadine (From Symmetrel) Allergy Unknown Unknown Verified 01/19/25 09:48 PFSH Acute PFSH: Medical History (Updated 02/26/25 @ 16:18 by Greta Fulton MD) Ichthyosis vulgaris Atrial fibrillation COPD (chronic obstructive pulmonary disease) CHF exacerbation H/O factor V Leiden mutation Tobacco dependence Obesity History of pulmonary embolus (PE) SAILAJA (acute kidney injury) Pulmonary embolism DVT (deep venous thrombosis) Atrial fibrillation with RVR Currently rate controlled Heart failure Currently euvolemic Surgical History Hx of superior vena cava filter placement Family History Family/Other Hypertension Mother Cancer liver Other Dementia Diabetes Hyperlipidemia Lung disease Denies family history of CAD (coronary artery disease) Clotting disorder Chronic kidney disease (CKD) Anesthesia complication Bleeding disorder Stroke Social History Smoking and tobacco/nicotine status: current every day tobacco/nicotine user cigarettes Packs smoked per day: 1 Years cigarettes smoked: 35 Alcohol intake: former Former alcohol use details: Hx of alcoholism. last uce of >2 drinks/day was 3 months Substance/Drug Use: never Lives independently: Yes Current occupational status: employed Current occupation: [employer] Special ale needs: No Agree to transfusion: Yes Vitals/I&O/Wt Last Vital Signs Temp 99.1 F 02/26/25 09:49 Pulse 95 02/26/25 11:17 Resp 19 H 02/26/25 10:49 BP 99/59 02/26/25 11:17 Pulse Ox 93 02/26/25 11:17 O2 Del Method Nasal Cannula 02/26/25 11:17 O2 Flow Rate 4 02/26/25 11:17 02/25/25 02/26/25 02/26/25 22:59 06:59 14:59 Intake Total 4.375 / 4.375 Balance 4.375 / 4.375 Weight last 48 hrs Weight 154.221 kg Physical Exam Narrative: General: Alert oriented x3, patient seen sitting up in bed on 40 nasal cannula at this time. HEENT: Normocephalic, atraumatic, EOMI, Cardio: Regular rate rhythm, normal S1-S2, muffled heart sounds secondary to body habitus. Elevated JVD Respiratory: Decreased bilateral air entry with rhonchi and wheezes present, diminished at bases. GI: Abdomen soft, nontender, obese rounded abdomen bowel sounds + Extremities: 3-4+ edema bilateral lower extremities up to thighs, onychomycosis present, erythema redness up to knees bilaterally, excoriations and few draining skin lesions on right huber. Data 02/26/25 14:07 02/26/25 14:07 A&P Assessment and plan 1. Acute exacerbation of chronic obstructive airways disease: 2. Volume overload: 3. Obesity: 4. History of pulmonary embolus (PE): 5. H/O deep venous thrombosis: 6. Atrial fibrillation with RVR: 7. Acute exacerbation of CHF (congestive heart failure): 8. Heart failure with preserved ejection fraction, borderline, class III: 9. Ichthyosis vulgaris: 10. Nail abnormality: 11. Lower extremity edema: 12. Tobacco dependence: 13. Polycythemia: Plan: #Acute on chronic heart failure exacerbation #Left lower lobe pneumonia #History of PE, DVT,, DVT present today #History of factor V Leiden mutation #Acute on chronic COPD exacerbation/history of severe COPD #Shortness of breath multifactorial secondary to COPD, CHF, possibly PE #A-fib #CKD #Obesity #Tobacco dependence #Bilateral lower extremity cellulitis, venous stasis #Noncompliance to medications (unable to afford) # Onychomycosis ? BNP 4000, noncompliance to medications, shortness of breath multifactorial ? Noncompliance to medications. Possibly massive PE? ? Check CTA chest PE protocol ? Venous Dopplers in ER today show thrombus within left peroneal vein ? Continue Eliquis 5 twice daily. Discussed with patient regarding heparin drip however he states he does not want to take that at this time. ? Polycythemia: Hemoglobin 20 on admission. Does have a history of factor V Leiden. He will need hematology consultation at discharge, may benefit from phlebotomy ? Query of hemochromatosis ? Patient will need further testing ? Bilateral lower extremity cellulitis: Continue on IV Zosyn, add vancomycin will cover for pneumonia as well ? Check bacterial antigen Legionella, Streptococcus ? Check respiratory viral panel 2 ? Check CT without contrast bilateral lower extremity ? Consult podiatry ? Consult cardiology ? Check echocardiogram ? Patient status post 20 Lasix in ER, slightly hypotensive. Will place on Lasix 40 IV daily ? Placed on Solu-Medrol 40 IV twice daily ? DuoNeb every 6 hours scheduled Full code DVT prophylaxis: On Eliquis 5 twice daily PDMP PDMP Reviewed: Not Reviewed Attestations Medical Necessity Statement*: Has multitude of medical problems at this time. Will require greater than 2 midnight stay for management of above. Diagnoses Acute exacerbation of chronic obstructive airways disease J44.1 Volume overload E87.70 Obesity E66.9 History of pulmonary embolus (PE) Z86.711 H/O deep venous thrombosis Z86.718 Atrial fibrillation with RVR I48.91 Acute exacerbation of CHF (congestive heart failure) I50.9 Heart failure with preserved ejection fraction, borderline, class III I50.30 Ichthyosis vulgaris Q80.0 Nail abnormality L60.9 Lower extremity edema R60.0 Tobacco dependence F17.200 Polycythemia D75.1
--- NOTE | 2025-02-26 12:14 | USCV_ITS ---
Porter Lagos Age: 45 Gender: M : 1980 Exam Date: 02/26/2025 17:31 Ordering Phys: Greta Fulton MD Technologist: Misael Albarado Exam Location: [facility] [place] Indication: HF BP: 104 / 74 HR: 99 Rhythm: Atrial fibrillation Technical Quality: Adequate MEASUREMENTS (Male / Female) Normal Values 2D ECHO LV Diastolic Diameter PLAX 4.5 cm 4.2 - 5.9 / 3.9 - 5.3 cm IVS Diastolic Thickness 1.1 cm 0.6 - 1.0 / 0.6 - 0.9 cm IVS Systolic Thickness 1.2 cm LVPW Diastolic Thickness 0.9 cm 0.6 - 1.0 / 0.6 - 0.9 cm LVPW Systolic Thickness 1.5 cm LVOT Diameter 2.4 cm LV Ejection Fraction 2D Teich 57.2 % LV Ejection Fraction MOD 4C 61.2 % LV Ejection Fraction MOD 2C 69.6 % LV Ejection Fraction 2C AL 69.3 % LA Diameter 5.1 cm RA Systolic Volume 4C AL 80.1 ml RA Systolic Volume 4C MOD 74.6 ml LA Sys Volume AL 49.5 cm cubed LA Sys Volume Index AL 17.1 cm cubed/m squared Aorta at Sinotubular Diameter 2.6 cm IVC Diameter 2.4 cm M-MODE LA Ao Ratio MM 1.4 AV Cusp Separation MM 2.1 cm DOPPLER AV Peak Velocity 136.7 cm/s LVOT Peak Velocity 80.0 cm/s AV Area Cont Eq vti 2.4 cm squared AV Area Cont Eq pk 2.5 cm squared MV Peak Velocity 116.0 cm/s MV Area PHT 4.1 cm squared Mitral E to A Ratio 649.0 TV Peak Velocity 294.7 cm/s TR Peak Velocity 362.0 cm/s TR Peak Gradient 52.4 mmHg TR Mean Velocity 265.0 cm/s TR Mean Gradient 32.1 mmHg TR Velocity Time Integral 98.0 cm PV Peak Velocity 106.0 cm/s RV Ejection Time 0.2 s FINDINGS Left Ventricle Normal left ventricular size, systolic function and wall thickness, with no regional wall motion abnormalities. Left ventricular ejection fraction is 57%. In determinate left ventricular diastolic function. Right Ventricle Mildly increased right ventricular size. Normal right ventricular systolic function. Right Atrium Mildly increased right atrial size. Left Atrium Normal left atrial size. Mitral Valve Structurally normal mitral valve. No mitral valve stenosis. Trace mitral valve regurgitation. Aortic Valve No aortic valve stenosis. No aortic valve regurgitation. Tricuspid Valve Trace tricuspid valve regurgitation. Moderate to severe pulmonary hypertension, RVSP 60 mmHg. Pulmonic Valve No pulmonary valve stenosis. Mild pulmonary valve regurgitation. Pericardium No pericardial effusion. Aorta Normal size aortic root and proximal ascending aorta. IVC Mildly dilated IVC. Estimated right atrial pressure 8 mmHg CONCLUSIONS 1. Normal left ventricular size and systolic function, EF 57% 2. Mildly increased right ventricular cavity size. Normal right ventricular systolic function 3. Mildly increased right atrial size 4. Moderate to severe pulmonary hypertension, RVSP 60 mmHg Jose Alejandro Penaloza MD, FACC (Electronically Signed) Final Date: 26 February 2025 19:39 S
[2025-02-26] MEDS: FUROsemide 10 mg/mL SDV 2mL 20 MG IVP (12:26)
[2025-02-26] MEDS: piperacillin-tazobactam 4.5 GM in sodium chloride 0.9% (plus) 50 ML IV (12:27)
[2025-02-26 12:44] LABS: Troponin 5 2HR 29.09 ng/L (0-15)
[2025-02-26 12:45] LABS: Troponin 5 2HR Delta -1.91 ABS# (0-10)
[2025-02-26 12:58] LABS: Thyroid Stimulating Hormone 1.73 uIU/mL (0.27-4.20)
[2025-02-26 14:16] LABS: Hematocrit 56.0 % (37-53); Hemoglobin 18.70 g/dL (11.27-16.99); Mean Corpuscular HGB Conc 33.4 g/dL (30-55); Mean Corpuscular Hemoglobin 34.2 pg (27-33); Mean Corpuscular Volume 102.6 fl (82-101); Nucleated Red Blood Cells % 0 %; Platelet Count 118 10^3/cmm (157-399); Red Blood Count 5.46 10^6/uL (3.85-5.65); White Blood Count 10.79 10^3/uL (3.29-11.43)
[2025-02-26 14:37] LABS: Alanine Aminotransferase 10 U/L (0-41); Albumin Level 3.2 g/dL (3.5-5.2); Alkaline Phosphatase 102 U/L (40-130); Blood Urea Nitrogen 21 mg/dL (6-20); Calcium 8.6 mg/dL (8.5-10.5); Carbon Dioxide 39 mmol/L (22-29); Chloride 86 mmol/L (98-107); Creatinine Clr Calc Pharmacy 139.7752; Globulin 3.7 g/dL (1.3-4.6); Glucose 133 mg/dL (65-115); Osmolality Calculated 287 mOsm/kg (285-295); Sodium 136 mmol/L (136-145); Total Protein 6.9 g/dL (6.6-8.7)
[2025-02-26 14:39] LABS: Anion Gap 14.3 (5-19); Aspartate Amino Transferase 15 U/L (0-40); Potassium 3.3 mmol/L (3.5-5.1)
--- NOTE | 2025-02-26 14:56 | ECG_ITS ---
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 Measurements Intervals Forbes Rate: 91 P: 0 NV: 0 QRS: 63 QRSD: 92 T: -87 QT: 394 QTc: 487 Interpretive Statements ATRIAL FIBRILLATION ST DEVIATION AND MODERATE T-WAVE ABNORMALITY, CONSIDER ANTEROLATERAL ISCHEMIA [-0.1+ mV T-WAVE IN V3-V6] ST DEVIATION AND MODERATE T-WAVE ABNORMALITY, CONSIDER INFERIOR ISCHEMIA [-0.1+ mV T-WAVE IN II/aVF] Compared to ECG 02/26/2025 09:57:33 No significant changes Electronically Signed On 02-26-2025 21:57:08 CDT by Jose Alejandro Penaloza M.D. [email or web address]
--- NOTE | 2025-02-26 16:02 | CTR_ITS ---
PROCEDURE INFORMATION: Exam: CTA Chest With Contrast Exam date and time: 02/26/2025 4:20 PM Age: 45 years old Clinical indication: Shortness of breath; Additional info: R/O pe TECHNIQUE: Imaging protocol: Computed tomographic angiography of the chest with contrast. Exam focused on the arteries. 3D rendering (Not supervised by radiologist): MIP and/or 3D reconstructed images were created by the technologist. Radiation optimization: All CT scans at this facility use at least one of these dose optimization techniques: automated exposure control; mA and/or kV adjustment per patient size (includes targeted exams where dose is matched to clinical indication); or iterative reconstruction. Contrast material: OMNIPAQUE 350; Contrast volume: 100 ml; Contrast route: INTRAVENOUS (IV); COMPARISON: CT angio chest PE protcl [id number] 11/04/2024 9:05 PM RADIATION DOSE METRICS: Total DLP (mGy-cm): 568.69 FINDINGS: Pulmonary arteries: Adequate opacification to the subsegmental level. Large saddle pulmonary embolism extending into the lobar and segmental branches of both lungs. Main pulmonary artery is dilated, measuring 42 mm. Aorta: Ascending aorta normal in caliber. Lungs: Scattered bilateral peripheral wedge-shaped ground-glass opacities, most prominent in the right upper and middle lobes, likely representing pulmonary infarctions. Pleural spaces: Unremarkable. No pneumothorax. No pleural effusion. Heart: Straightening of the interventricular septum. Heart RV/LV ratio: 1.7. Lymph nodes: Right paratracheal lymph nodes enlarged, up to 1.5 cm. Bones/joints: Unremarkable. No acute fracture. Soft tissues: Unremarkable. CT/CT angio chest PE protcl [id number] IMPRESSION: 1. Large saddle pulmonary embolism extending into lobar and segmental branches bilaterally, with right heart strain (RV/LV ratio = 1.7, septal straightening, pulmonary artery dilation). 2. Scattered peripheral wedge-shaped ground-glass opacities, most consistent with pulmonary infarctions. 3. Enlarged right paratracheal lymph nodes (1.5 cm).
--- NOTE | 2025-02-26 16:30 | ECG_ITS ---
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 Measurements Intervals [place] Rate: 101 P: 0 VA: 0 QRS: 62 QRSD: 94 T: 245 QT: 362 QTc: 471 Interpretive Statements ATRIAL FIBRILLATION WITH RAPID VENTRICULAR RESPONSE ST DEVIATION AND MODERATE T-WAVE ABNORMALITY, CONSIDER ANTEROLATERAL ISCHEMIA [-0.1+ mV T-WAVE IN V3-V6] ST DEVIATION AND MODERATE T-WAVE ABNORMALITY, CONSIDER INFERIOR ISCHEMIA [-0.1+ mV T-WAVE IN II/aVF] Compared to ECG 02/26/2025 14:56:22 No significant changes Electronically Signed On 02-27-2025 17:51:38 CDT by Jose Alejandro Penaloza M.D. [email or web address]
--- NOTE | 2025-02-26 16:41 | PHA.VACGOAL ---
Vancomycin Goal - Goal Vancomycin Goal:: 15-20 mg/L Vancomycin Indication:: Pneumonia - Therapy Current therapy:: Pip/Tazo Day of therpy:: Day []of [] . 1 Actual body weight (kg): 327 lb 4 oz - Data Labs: WBC 10.79 10^3/uL (3.29-11.43) 02/26/25 14:07 RBC 5.46 10^6/uL (3.85-5.65) 02/26/25 14:07 Hgb 18.70 g/dL (11.27-16.99) H 02/26/25 14:07 Hct 56.0 % (37-53) H 02/26/25 14:07 MCV 102.6 fl (82-101) H 02/26/25 14:07 MCH 34.2 pg (27-33) H 02/26/25 14:07 MCHC 33.4 g/dL (30-55) 02/26/25 14:07 RDW 14.8 % (12.1-15.1) 02/26/25 14:07 Sodium 136 mmol/L (136-145) 02/26/25 14:07 Potassium 3.3 mmol/L (3.5-5.1) L 02/26/25 14:07 Chloride 86 mmol/L (98-107) L 02/26/25 14:07 Carbon Dioxide 39 mmol/L (22-29) H 02/26/25 14:07 Anion Gap 14.3 (5-19) 02/26/25 14:07 BUN 21 mg/dL (6-20) H 02/26/25 14:07 Creatinine 1.1 mg/dL (0.7-1.2) 02/26/25 14:07 GFR Calculation 72.4 mL/min (90-130) L 02/26/25 14:07 Treatment plan:: new consult
[2025-02-26 17:06] LABS: Estmated Average Glucose 134; Hemoglobin A1C 6.3 % (4.0-6.0)
[2025-02-26] MEDS: heparin 5,000 unit/mL INJ 1 mL IVP (17:07)
[2025-02-26] MEDS: heparin drip 25,000 UNIT/500 ML PREMIX 42 UNIT IV (17:08)
[2025-02-26] MEDS: methylPREDNISolone sod succ 40 mg/mL INJ IVP (17:09)
[2025-02-26] MEDS: pantoprazole 40 mg SDV IVP (17:09)
--- NOTE | 2025-02-26 17:34 | PM.TDS ---
Transfer Summary Providers Date of Admission: 02/26/25 12:04 Date of Discharge/Transfer: 02/26/25 Attending Provider at Admission: Javi Fulton MD Attending Provider at Transfer: Javi Fulton MD Primary Care Provider: Boni Jose MD Transfer Plans: Anticipated date of transfer: 02/26/25. Receiving Facility: [facility]. Receiving Provider: Dr. Pratt. Diagnoses at Discharge Discharge Diagnosis 1. Other hypervolemia: 2. Class 2 obesity without serious comorbidity with body mass index (BMI) of 36.0 to 36.9 in adult, unspecified obesity type: 3. History of pulmonary embolus (PE): 4. H/O deep venous thrombosis: 5. Atrial fibrillation with RVR: 6. Acute exacerbation of CHF (congestive heart failure): 7. Heart failure with preserved ejection fraction, borderline, class III: 8. Ichthyosis vulgaris: 9. Nail abnormality: 10. Lower extremity edema: 11. Tobacco dependence: 12. Polycythemia: Reason for Visit Reason for Visit chest pain; sob Hospital Course Hospital Course Porter Lagos is a 45 year old male With past medical history of heart failure preserved ejection fraction, A-fib, COPD, ichthyosis vulgaris, obesity, chronic lower extremity wound, PE, DVT, polycythemia, chronic anticoagulation presented to the hospital today for complaint of shortness of breath that has been worsening for the last 2 to 3 days. He is also having pleuritic chest pain. He states every time he breathes it hurts. He states he supposed to be on home oxygen however he does not use it because he could not afford to obtain it. He has also been noncompliant to his medications as he could not afford them. He states for the last month and a half he ran out of his medications. Recently was able to obtain a refill and for the last 3 days has taken his medications however he is not feeling any better. At this time his main complaint is shortness of breath. Denies a fever. Does not know how much oxygen he was post to be on at home. #Acute on chronic heart failure exacerbation #Left lower lobe pneumonia #History of PE, DVT,, DVT present today #History of factor V Leiden mutation #Acute on chronic COPD exacerbation/history of severe COPD #Shortness of breath multifactorial secondary to COPD, CHF, possibly PE #A-fib #CKD #Obesity #Tobacco dependence #Bilateral lower extremity cellulitis, venous stasis #Noncompliance to medications (unable to afford) # Onychomycosis ? BNP 4000, noncompliance to medications, shortness of breath multifactorial ? Noncompliance to medications. Possibly massive PE? ? Check CTA chest PE protocol ? Venous Dopplers in ER today show thrombus within left peroneal vein ? Continue Eliquis 5 twice daily. Discussed with patient regarding heparin drip however he states he does not want to take that at this time. ? Polycythemia: Hemoglobin 20 on admission. Does have a history of factor V Leiden. He will need hematology consultation at discharge, may benefit from phlebotomy ? Query of hemochromatosis ? Patient will need further testing ? Bilateral lower extremity cellulitis: Continue on IV Zosyn, add vancomycin will cover for pneumonia as well ? Check bacterial antigen Legionella, Streptococcus ? Check respiratory viral panel 2 ? Check CT without contrast bilateral lower extremity ? Consult podiatry ? Consult cardiology ? Check echocardiogram ? Patient status post 20 Lasix in ER, slightly hypotensive. Will place on Lasix 40 IV daily ? Placed on Solu-Medrol 40 IV twice daily ? DuoNeb every 6 hours scheduled Full code DVT prophylaxis: On Eliquis 5 twice daily CTA chest was ordered to rule out PE Results as follows: CT/CT angio chest PE protcl [id number] IMPRESSION: 1. Large saddle pulmonary embolism extending into lobar and segmental branches bilaterally, with right heart strain (RV/LV ratio = 1.7, septal straightening, pulmonary artery dilation). 2. Scattered peripheral wedge-shaped ground-glass opacities, most consistent with pulmonary infarctions. 3. Enlarged right paratracheal lymph nodes (1.5 cm). Discussed case with bakeshop cleaner at [facility]. Patient has been accepted by their ICU for possible thrombectomy. We will Air-Evac patient. Physical Exam Narrative: General: Alert oriented x3, patient seen sitting up in bed on 40 nasal cannula at this time. HEENT: Normocephalic, atraumatic, EOMI, Cardio: Regular rate rhythm, normal S1-S2, muffled heart sounds secondary to body habitus. Elevated JVD Respiratory: Decreased bilateral air entry with rhonchi and wheezes present, diminished at bases. GI: Abdomen soft, nontender, obese rounded abdomen bowel sounds + Extremities: 3-4+ edema bilateral lower extremities up to thighs, onychomycosis present, erythema redness up to knees bilaterally, excoriations and few draining skin lesions on right huber. TS Data Studies Completed and Pending Pending at discharge Category Date Time Status CT abdomen pelvis wo con [id number] Stat Cat Scan 02/26/25 16:19 Ordered Bacterial Antigen Stat Lab 02/26/25 16:31 Received Blood Culture Stat Lab 02/26/25 12:15 Results Blood Culture Stat Lab 02/26/25 16:22 Ordered CRP [C Reactive Protein] Routine Lab 02/26/25 16:22 Ordered Complete Blood Count w/Auto AM LABS Lab 02/27/25 04:00 Ordered Comprehensive Metabolic Panel AM LABS Lab 02/27/25 04:00 Ordered Drug Screen, Urine Stat Lab 02/26/25 10:01 Uncollected JAK2 V617 Mutation Routine Lab 02/26/25 16:22 Ordered Lactic Sepsis W/Reflex Stat Lab 02/26/25 16:22 Ordered Legionella Antigen STAT Stat Lab 02/26/25 16:26 Uncollected Lipid Panel Routine Lab 02/26/25 16:22 Ordered Lipid Profile w/VLDL Stat Lab 02/26/25 16:22 Ordered Magnesium AM LABS Lab 02/27/25 04:00 Ordered NT Pro B Type Natriuretic Pept AM LABS Lab 02/27/25 04:00 Ordered Platelet Count Q2D Lab 02/28/25 04:00 Ordered Platelet Count Q2D Lab 03/02/25 04:00 Ordered Procalcitonin Stat Lab 02/26/25 16:22 Ordered Sputum Culture and Gram Stain Stat Lab 02/26/25 16:25 Uncollected Thyroid Stimulating Hormone Routine Lab 02/26/25 16:22 Ordered Troponin(5th) 6 hour. Timed Lab 02/26/25 16:01 Ordered CV. echo complete* [id number] Stat Ultrasound 02/26/25 12:14 Ordered Completed Studies During Hospitalization Category Date Time Status CTA PE [CT angio chest PE protcl [id number]] Stat Cat Scan 02/26/25 16:02 Completed XR chest 1V portable [id number] Stat Exams 02/26/25 10:01 Completed US venous duplex lower extremity bilat [CV venous Ultrasound 02/26/25 10:01 [place] [id number]] Stat Laboratory Last Values WBC 10.79 10^3/uL (3.29-11.43) 02/26/25 14:07 RBC 5.46 10^6/uL (3.85-5.65) 02/26/25 14:07 Hgb 18.70 g/dL (11.27-16.99) H 02/26/25 14:07 Hct 56.0 % (37-53) H 02/26/25 14:07 MCV 102.6 fl (82-101) H 02/26/25 14:07 MCH 34.2 pg (27-33) H 02/26/25 14:07 MCHC 33.4 g/dL (30-55) 02/26/25 14:07 RDW 14.8 % (12.1-15.1) 02/26/25 14:07 Plt Count 118 10^3/cmm (157-399) L 02/26/25 14:07 MPV 9.9 fL (7.4-10.4) 02/26/25 14:07 Neut % (Auto) 75.3 % 02/26/25 14:07 Lymph % (Auto) 12.8 % 02/26/25 14:07 [place] % (Auto) 11.0 % 02/26/25 14:07 Eos % (Auto) 0.4 % 02/26/25 14:07 Baso % (Auto) 0.2 % 02/26/25 14:07 Neut # (Auto) 8.13 10^3/uL (1.8-7.7) H 02/26/25 14:07 Lymph # (Auto) 1.4 10^3/uL (0.8-4.8) 02/26/25 14:07 [place] # (Auto) 1.2 10^3/uL (0.2-0.9) H 02/26/25 14:07 Eos # (Auto) 0.0 10^3/uL (0.0-0.8) 02/26/25 14:07 Baso # (Auto) 0.0 10^3/uL (0.0-0.1) 02/26/25 14:07 Nucleated RBC % (auto) 0 % 02/26/25 14:07 Nucleated RBCs # 0.0 /100WBC 02/26/25 14:07 PT 15.60 SECONDS (12.1-14.9) H 02/26/25 10:03 INR 1.16 (0.8-1.2) 02/26/25 10:03 APTT 30.8 SECONDS (23.9-36.7) 02/26/25 10:03 Sodium 136 mmol/L (136-145) 02/26/25 14:07 Potassium 3.3 mmol/L (3.5-5.1) L 02/26/25 14:07 Chloride 86 mmol/L (98-107) L 02/26/25 14:07 Carbon Dioxide 39 mmol/L (22-29) H 02/26/25 14:07 Anion Gap 14.3 (5-19) 02/26/25 14:07 BUN 21 mg/dL (6-20) H 02/26/25 14:07 Creatinine 1.1 mg/dL (0.7-1.2) 02/26/25 14:07 GFR Calculation 72.4 mL/min (90-130) L 02/26/25 14:07 Glucose 133 mg/dL (65-115) H 02/26/25 14:07 Estimat Average Glucose 134 02/26/25 14:07 Hemoglobin A1c 6.3 % (4.0-6.0) H 02/26/25 14:07 Calculated Osmolality 287 mOsm/kg (285-295) 02/26/25 14:07 Calcium 8.6 mg/dL (8.5-10.5) 02/26/25 14:07 Magnesium 2.2 mg/dL (1.7-2.3) 02/26/25 10:03 Total Bilirubin 1.6 mg/dL (0.15-1.2) H 02/26/25 14:07 AST 15 U/L (0-40) 02/26/25 14:07 ALT 10 U/L (0-41) 02/26/25 14:07 Alkaline Phosphatase 102 U/L (40-130) 02/26/25 14:07 Troponin T Baseline 31 ng/L (0-15) H 02/26/25 10:03 Troponin T 120 Minute 29.09 ng/L (0-15) H 02/26/25 12:09 Delta Troponin T -1.91 ABS# (0-10) L 02/26/25 12:09 NT-Pro-B Natriuret Pep 4749 pg/mL (0-125) H 02/26/25 10:03 Total Protein 6.9 g/dL (6.6-8.7) 02/26/25 14:07 Albumin 3.2 g/dL (3.5-5.2) L 02/26/25 14:07 Globulin 3.7 g/dL (1.3-4.6) 02/26/25 14:07 Lipase 16 U/L (13-60) 02/26/25 10:03 TSH 1.73 uIU/mL (0.27-4.20) 02/26/25 12:09 Radiology Impressions Chest X-Ray 02/26/25 10:01 IMPRESSION: Pulmonary infiltrates. That on the right is likely pneumonia. Venous Duplex 02/26/25 10:01 IMPRESSION: Thrombus within the left peroneal vein. ADDENDUM: 02/26/25 1227 AcuteTHIS REPORT CONTAINS FINDINGS THAT MAY BE CRITICAL TO PATIENT CARE. The findings were verbally communicated via telephone conference with ALBERT GALEANO at 12:25 PM CDT on 02/26/2025. The findings were acknowledged and understood. Chest CTA 02/26/25 16:02 IMPRESSION: 1. Large saddle pulmonary embolism extending into lobar and segmental branches bilaterally, with right heart strain (RV/LV ratio = 1.7, septal straightening, pulmonary artery dilation). 2. Scattered peripheral wedge-shaped ground-glass opacities, most consistent with pulmonary infarctions. 3. Enlarged right paratracheal lymph nodes (1.5 cm). ADDENDUM: 02/26/25 9716 THIS REPORT CONTAINS FINDINGS THAT MAY BE CRITICAL TO PATIENT CARE. The findings were verbally communicated via telephone conference with JAVI Marrero at 4:53 PM CDT on 02/26/2025. The findings were acknowledged and understood. Recent Clincial Data Last Vital Signs Temp 98.2 F 02/26/25 16:22 Pulse 99 02/26/25 16:22 Resp 22 H 02/26/25 16:22 BP 104/74 02/26/25 16:22 Pulse Ox 30 L 02/26/25 16:22 O2 Del Method Nasal Cannula 02/26/25 15:00 O2 Flow Rate 4 02/26/25 15:00 Vital Signs Temp Pulse Resp BP Pulse Ox O2 Del Method O2 Flow Rate 02/26/25 16:22 98.2 F 99 22 H 104/74 30 L 02/26/25 15:04 83 02/26/25 15:00 100 18 91 Nasal Cannula 4 02/26/25 14:42 Nasal Cannula 02/26/25 14:12 93 97/65 92 02/26/25 12:44 91 96/61 94 Nasal Cannula 4 02/26/25 11:17 95 99/59 93 Nasal Cannula 4 02/26/25 10:49 85 19 H 98/66 93 Nasal Cannula 4 02/26/25 09:49 99.1 F 104 H 23 H 106/76 94 Nasal Cannula 4 Intake & Output/Weight 02/24/25 02/25/25 02/26/25 02/27/25 06:59 06:59 06:59 06:59 Intake Total 178.333 / 178.333 Balance 178.333 / 178.333 Weight 148.438 kg Vitals Last Vital Signs Temp 98.2 F 02/26/25 16:22 Pulse 99 02/26/25 16:22 Resp 22 H 02/26/25 16:22 BP 104/74 02/26/25 16:22 Pulse Ox 30 L 02/26/25 16:22 O2 Del Method Nasal Cannula 02/26/25 15:00 O2 Flow Rate 4 02/26/25 15:00 TS Medications Medications Acetaminophen (Acetaminophen 325 Mg Tablet) 650 mg PO Q6H PRN PRN Reason: Mild/Mod Pain Or Temp >/= 101 Albuterol Sulfate (Albuterol 2.5 Mg/3 Ml Neb) 2.5 mg INHALATION QID PRN PRN Reason: Shortness Of Breath Or Wheezing Albuterol Sulfate (Albuterol 2.5 Mg/0.5 Ml Neb) 2.5 mg INHALATION QID.RESPIRATORY THANIA Last Admin: 02/26/25 15:01 Dose: 2.5 mg Albuterol/Ipratropium (Ipratropium-Albuterol 3 Ml Neb) 3 ml INHALATION Q6H PRN PRN Reason: SHORTNESS OF BREATH Albuterol/Ipratropium (Ipratropium-Albuterol 3 Ml Neb) 3 ml INHALATION Q6H PRN PRN Reason: SHORTNESS OF BREATH Budesonide (Budesonide 0.5 Mg/2 Ml Neb) 0.5 mg INHALATION BID.RESPIRATORY THANIA Furosemide (Furosemide 10 Mg/Ml Sdv 4ml) 40 mg IVP DAILY THANIA Heparin Sodium (Porcine) (Heparin 5,000 Unit/Ml Inj 1 Ml) 0 unit IVP PRN PRN; Protocol PRN Reason: Heparin Weight Based Protocol -Subsequent Bolus Piperacillin Sod/Tazobactam (Sod 3.375 gm/ Sodium Chloride) 50 mls @ 12.5 mls/hr IV Q8H THANIA Vancomycin HCl (Vancocin) 2,000 mg in 400 mls @ 200 mls/hr IV ONCE ONE Stop: 02/26/25 19:59 Last Infusion: 02/26/25 17:33 Dose: 0 mls/hr Vancomycin HCl 1,000 mg/ (Sodium Chloride) 250 mls @ 250 mls/hr IV ONCE ONE Stop: 02/26/25 22:59 Heparin Sodium/Sodium Chloride (Heparin Drip) 25,000 unit in 500 mls @ 0 mls/hr IV CONT THANIA; Protocol Last Admin: 02/26/25 17:08 Dose: 14.15 unit/kg/hr, 42 mls/hr Vancomycin HCl (Vancocin) 1,500 mg in 300 mls @ 200 mls/hr IV Q8H THANIA Methylprednisolone Sodium Succinate (Methylprednisolone Sod Succ 40 Mg/Ml Inj) 40 mg IVP Q12H THANIA Last Admin: 02/26/25 17:09 Dose: 40 mg Metoprolol Tartrate (Metoprolol Tartrate 25 Mg Tablet) 75 mg PO BID@0900,2100 THANIA Ondansetron HCl (Ondansetron 2 Mg/Ml Sdv 2 Ml) 4 mg IVP Q8H PRN PRN Reason: vomiting, or N/V if npo Pantoprazole Sodium (Pantoprazole 40 Mg Sdv) 40 mg IVP Q24H THANIA Last Admin: 02/26/25 17:09 Dose: 40 mg Potassium Chloride (Klor-Con 20 Meq) 20 meq PO TID THANIA Discontinued Medications Albuterol Sulfate (Albuterol 2.5 Mg/0.5 Ml Neb) 1 mg INHALATION QID THANIA Apixaban (Apixaban 5 Mg Tablet) 5 mg PO BID THANIA Furosemide (Furosemide 10 Mg/Ml Sdv 2ml) 20 mg IVP ONCE ONE Stop: 02/26/25 12:06 Last Admin: 02/26/25 12:26 Dose: 20 mg Heparin Sodium (Porcine) (Heparin 5,000 Unit/Ml Inj 1 Ml) 0 unit IVP ONCE ONE; Protocol Stop: 02/26/25 16:38 Last Admin: 02/26/25 17:07 Dose: 7,000 unit Potassium Chloride (K-José Manuel Premix) 100 mls @ 50 mls/hr IV ONCE THANIA Lidocaine HCl 5 ml/ Potassium (Chloride) 105 mls @ 52.5 mls/hr IV ONCE ONE Stop: 02/26/25 13:04 Last Infusion: 02/26/25 14:38 Dose: Infused Piperacillin Sod/Tazobactam (Sod 4.5 gm/ Sodium Chloride) 50 mls @ 100 mls/hr IV ONCE ONE; Protocol Stop: 02/26/25 12:13 Last Infusion: 02/26/25 14:38 Dose: Infused Piperacillin Sod/Tazobactam (Sod / Sodium Chloride) 50 mls @ 0 mls/hr [id number] CONT THANIA; Protocol Piperacillin Sod/Tazobactam (Sod 3.375 gm/ Sodium Chloride) 50 mls @ 12.5 mls/hr IV Q8H THANIA Vancomycin HCl / Sodium (Chloride) 250 mls @ 0 mls/hr [id number] PROTOCOL THANIA; Protocol Potassium Chloride (Potassium Chloride Er 20 Meq Tablet) 40 meq PO ONCE ONE Stop: 02/26/25 10:48 Last Admin: 02/26/25 11:01 Dose: 40 meq Allergies amantadine (From Symmetrel) Allergy (Unknown, Verified 01/19/25 09:48) Unknown Home Medications acetaminophen 500 mg tablet 2,000 mg PO Q6H PRN Pain 03/29/23 [History Confirmed 02/26/25] ibuprofen 200 mg tablet 1,600 mg PO Q6H PRN Pain 03/29/23 [History Confirmed 02/26/25] fluticasone 250 mcg-salmeterol 50 mcg/dose blistr powdr for inhalation 1 inh inhalation BID #60 ea 08/03/24 [Rx Confirmed 02/26/25] ipratropium bromide 0.02 % solution for inhalation 2.5 ml inhalation Q6H PRN shortness of breath or wheezing #75 mL 08/03/24 [Rx Confirmed 02/26/25] chlorthalidone 25 mg tablet 25 mg PO DAILY #90 tabs 10/15/24 [Rx Confirmed 02/26/25] diltiazem HCl 240 mg capsule,extended release 24 hr 240 mg PO BID #180 caps 10/15/24 [Rx Confirmed 02/26/25] metoprolol tartrate 75 mg tablet 75 mg PO BID@0900,2100 #180 tabs 10/15/24 [Rx Confirmed 02/26/25] albuterol sulfate 90 mcg/actuation aerosol inhaler 1 inh inhalation QID PRN Shortness Of Breath Or Wheezing #6.7 grams 11/01/24 [Rx Confirmed 02/26/25] apixaban 5 mg tablet 5 mg PO BID #180 tabs 11/24/24 [Rx Confirmed 02/26/25] furosemide 40 mg tablet 80 mg (2 x 40 mg) PO BID #120 tabs 02/08/25 [Rx Confirmed 02/26/25] potassium chloride 20 mEq tablet,extended release 20 meq PO TID #90 tabs 02/08/25 [Rx Confirmed 02/26/25] Discharge Plan Discharge Patient Disposition: Home Condition: Stable Prescriptions: No Action fluticasone propion-salmeterol 250-50 mcg/dose blister with device 1 inh inhalation BID Qty: 60 3RF ipratropium bromide 0.02 % solution 2.5 ml inhalation Q6H PRN (Reason: shortness of breath or wheezing) Qty: 75 2RF diltiazem HCl 240 mg capsule,extended release 24hr 240 mg PO BID Qty: 180 1RF chlorthalidone 25 mg tablet 25 mg PO DAILY Qty: 90 1RF metoprolol tartrate 75 mg tablet 75 mg PO BID@0900,2100 Qty: 180 1RF albuterol sulfate 90 mcg/actuation HFA aerosol inhaler 1 inh inhalation QID PRN (Reason: Shortness Of Breath Or Wheezing) Qty: 6.7 1RF apixaban 5 mg tablet 5 mg PO BID Qty: 180 3RF potassium chloride 20 mEq tablet extended release 20 meq PO TID Qty: 90 0RF Rx Instructions: Take 20 mEq three times daily furosemide 40 mg tablet 80 mg PO BID Qty: 120 0RF acetaminophen 500 mg Tablet 2,000 mg PO Q6H PRN (Reason: Pain) ibuprofen 200 mg Tablet 1,600 mg PO Q6H PRN (Reason: Pain) Referrals: Boni Jose MD [Primary Care Provider, Family Practice] Patient Instructions: Opioid Safety, Patient Portal & Erasmo Instructions Transfer Attestations Time Spent in Transfer Care: critical care time Critical Care Time (min): 30 Status at Transfer: Cognitive status at transfer: cognitively intact; Behavioral status at transfer: cooperative; Quality Metrics Clinical Quality Measures [ No reported AMI, CVA or VTE this stay] Coding Level of Care Code Acute Code for Chg Fwd Diagnoses Acute exacerbation of chronic obstructive airways disease J44.1 Other hypervolemia E87.79 Hypervolemia type: other Class 2 obesity without serious comorbidity with body mass index (BMI) of 36.0 to 36.9 in adult, unspecified obesity type E66.9 History of pulmonary embolus (PE) Z86.711 H/O deep venous thrombosis Z86.718 Atrial fibrillation with RVR I48.91 Acute exacerbation of CHF (congestive heart failure) I50.9 Heart failure with preserved ejection fraction, borderline, class III I50.30 Ichthyosis vulgaris Q80.0 Nail abnormality L60.9 Lower extremity edema R60.0 Tobacco dependence F17.200 Polycythemia D75.1
[2025-02-26 18:03] LABS: Lactic Sepsis W/Reflex 2.2 mmol/L (0.5-2.2)
[2025-02-26 18:14] LABS: Procalcitonin 0.05 ng/mL (0-0.5); Thyroid Stimulating Hormone 1.15 uIU/mL (0.27-4.20)
[2025-02-26 18:25] LABS: Cholesterol 108 mg/dL (0-200); HDL Cholesterol 23 mg/dL (60-100); Triglycerides 98 mg/dL (0-150); VLDL Cholestrol Calculation 20 mg/dL (0-30)
--- NOTE | 2025-02-26 18:33 | PC.NURSE ---
patient transported to [facility] via air evac at 1834. Patient currently on 42ml/ heparin per hour, started at 1700. Juarez placed before patient left. Patient also on 4L nasal cannula.
[2025-02-26 18:36] LABS: Reflex Lactate Order REFLEX LACTIC ORDERD
[2025-02-26 19:19] LABS: PCP Screen Urine Negative (Negative)
[2025-02-26 21:59] LABS: Troponin 5 6HR 25.21 ng/L (0-15)
[2025-02-26 22:05] LABS: Troponin 5 6HR Delta -5.79 ng/L (0-12)
== END 2025-02-26 18:33 | disposition short-term general hospital (02) | DRG 299 ==
LOC: ER 12:54 → CSU 13:09
PROVIDERS: Admitting Provider Internal Medicine; Emergency Provider Emergency Medicine; PCP Family Medicine; Visit Provider Internal Medicine
DX: I82.452 Acute embolism and thrombosis of left peroneal vein (principal); I26.99 Other pulmonary embolism without acute cor pulmonale; I50.33 Acute on chronic diastolic (congestive) heart failure; J44.1 Chronic obstructive pulmonary disease with (acute) exacerbation; L03.116 Cellulitis of left lower limb; L03.115 Cellulitis of right lower limb; D68.51 Activated protein C resistance; J44.0 Chronic obstructive pulmonary disease with (acute) lower respiratory infection; E86.1 Hypovolemia; E66.812 Obesity, class 2; I48.91 Unspecified atrial fibrillation; Q80.0 Ichthyosis vulgaris; F17.210 Nicotine dependence, cigarettes, uncomplicated; D75.1 Secondary polycythemia; T50.906A Underdosing of unspecified drugs, medicaments and biological substances, initial encounter; F10.21 Alcohol dependence, in remission; N18.9 Chronic kidney disease, unspecified; Z79.01 Long term (current) use of anticoagulants; Z68.37 Body mass index [BMI] 37.0-37.9, adult; Z86.711 Personal history of pulmonary embolism; Z86.718 Personal history of other venous thrombosis and embolism; Z99.81 Dependence on supplemental oxygen; Z91.141 Patient's other noncompliance with medication regimen due to financial hardship; Z91.190 Patient's noncompliance with other medical treatment and regimen due to financial hardship; Z95.828 Presence of other vascular implants and grafts; I87.8 Other specified disorders of veins; B35.1 Tinea unguium
CPT/HCPCS: 36415; 51702; 71045; 71275; 80053; 80061; 80306; 81270; 83036; 83605; 83690; 83735; 83880; 84145; 84443; 84484; 85025; 85610; 85730; 86140; 86403; 87040; 87077; 87186; 87449; 93005; 93306; 93970; 94640; 96365; 96366; 96367; 96375; 99285; J1644; J1938; J2470; J2543; J2919; J3372; J3480; J7611; J9999